=== PATIENT | male | born 1950 | race Caucasian/White ===

== ENCOUNTER 2018-07-25 16:09 | Inpatient (IN) | payer MEDICARE ==
[~2018-07-25] VITALS: Ht 170.2 cm; Wt 65.1 kg
[2018-07-25 18:40] VITALS: BP 145/88
[2018-07-25] MEDS ORDERED: MAGNESIUM HYDROXIDE 2,400 MG/30 ML ORAL.SUSP. PO PRN (19:00)
[2018-07-25] MEDS ORDERED: ACETAMINOPHEN 325 MG TABLET PO PRN (19:00)
[2018-07-25] MEDS ORDERED: MAG HYDROX/AL HYDROX/SIMETH 30 ML ORAL.SUSP PO PRN (19:00)
[2018-07-25] MEDS ORDERED: METHYL SALICYLATE/MENTHOL TOPICAL OINTMENT 29GM TUBE. TP PRN (19:00)
[2018-07-25 19:55] LABS: BASO # 0.1 x10^3/uL (0.0-0.2); BASO % 1 % (0-3); EOS # 0.7 x10^3/uL (0.0-0.7); EOS % 9 % (0-3); HEMATOCRIT 39.7 % (39.0-53.0); HEMOGLOBIN 13.6 g/dL (13.0-17.5); LYMPH % 28 % (24-48); MEAN CORPUSCULAR HEMOGLOBIN 31 pg (25-35); MEAN CORPUSCULAR HGB CONC 34 g/dL (31-37); MEAN CORPUSCULAR VOLUME 89 fL (79-100); MONO # 0.8 x10^3/uL (0.0-1.1); MONO % 11 % (0-9); NEUT # 3.6 x10^3uL (1.8-7.7); NEUT % 51 % (31-73); PLATELET COUNT 239 x10^3/uL (140-400); RED BLOOD COUNT 4.47 x10^6/uL (4.30-5.70); RED CELL DISTRIBUTION WIDTH 13.3 % (11.5-14.5); WHITE BLOOD COUNT 7.1 x10^3/uL (4.0-11.0)
[2018-07-25 20:09] LABS: ALBUMIN 3.6 g/dL (3.4-5.0); ALBUMIN/GLOBULIN RATIO 0.9 (1.0-1.7); CALCIUM 8.9 mg/dL (8.5-10.1); CREATININE 1.1 mg/dL (0.7-1.3); GFR 66.8; MAGNESIUM 2.1 mg/dL (1.8-2.4); POTASSIUM 3.6 mmol/L (3.5-5.1); TOTAL BILIRUBIN 0.3 mg/dL (0.2-1.0); TOTAL PROTEIN 7.4 g/dL (6.4-8.2)
[2018-07-25] MEDS ORDERED: ACYC400T PO (20:28)
[2018-07-25] MEDS ORDERED: SERT25TA PO (20:28)
[2018-07-25] MEDS ORDERED: OLAN5TAB9 PO ×2 (20:28)
[2018-07-25] MEDS ORDERED: OMEP20TA8 PO (20:29)
[2018-07-25] MEDS ORDERED: MEMA1CAP2 PO (20:29)
[2018-07-25] MEDS ORDERED: TRAZ-85 PO (20:29)
[2018-07-25] MEDS ORDERED: CLON0.5T11 PO (20:29)
[2018-07-25] MEDS ORDERED: FLUT16SP21 NS (20:29)
[2018-07-25] MEDS ORDERED: BECL10.6 IH (20:29)
--- NOTE | 2018-07-25 20:41 | PDOC ---
Exam Note: Heber Note: Please also refer to the separate dictated note~for this date of service dictated separately.~Patient seen individually. Discussed the patient with Nursing staff reviewed the chart.~Reviewed interim history and current functioning. Reviewed vital signs,~Labs/ Radiology~and current medications noted below. Continue current treatment with the changes noted in the dictated addendum note Assessment: Vital Signs: Vital Signs Date Time Temp Pulse Resp B/P (MAP) Pulse Ox O2 Delivery O2 Flow Rate FiO2 07/25/18 18:40 98.3 89 18 145/88 (107) 97 Room Air Labs: Laboratory Tests Test 07/25/18 19:40 White Blood Count 7.1 x10^3/uL (4.0-11.0) Red Blood Count 4.47 x10^6/uL (4.30-5.70) Hemoglobin 13.6 g/dL (13.0-17.5) Hematocrit 39.7 % (39.0-53.0) Mean Corpuscular Volume 89 fL (79-100) Mean Corpuscular Hemoglobin 31 pg (25-35) Mean Corpuscular Hemoglobin Concent 34 g/dL (31-37) Red Cell Distribution Width 13.3 % (11.5-14.5) Platelet Count 239 x10^3/uL (140-400) Neutrophils (%) (Auto) 51 % (31-73) Lymphocytes (%) (Auto) 28 % (24-48) Monocytes (%) (Auto) 11 % (0-9) H Eosinophils (%) (Auto) 9 % (0-3) H Basophils (%) (Auto) 1 % (0-3) Neutrophils # (Auto) 3.6 x10^3uL (1.8-7.7) Lymphocytes # (Auto) 2.0 x10^3/uL (1.0-4.8) Monocytes # (Auto) 0.8 x10^3/uL (0.0-1.1) Eosinophils # (Auto) 0.7 x10^3/uL (0.0-0.7) Basophils # (Auto) 0.1 x10^3/uL (0.0-0.2) Sodium Level 139 mmol/L (136-145) Potassium Level 3.6 mmol/L (3.5-5.1) Chloride Level 101 mmol/L (98-107) Carbon Dioxide Level 30 mmol/L (21-32) Anion Gap 8 (6-14) Blood Urea Nitrogen 15 mg/dL (8-26) Creatinine 1.1 mg/dL (0.7-1.3) Estimated GFR (Cockcroft-Gault) 66.8 BUN/Creatinine Ratio 14 (6-20) Glucose Level 103 mg/dL (70-99) H Calcium Level 8.9 mg/dL (8.5-10.1) Magnesium Level 2.1 mg/dL (1.8-2.4) Total Bilirubin 0.3 mg/dL (0.2-1.0) Aspartate Amino Transferase (AST) 7 U/L (15-37) L Alanine Aminotransferase (ALT) 16 U/L (16-63) Alkaline Phosphatase 114 U/L (46-116) Total Protein 7.4 g/dL (6.4-8.2) Albumin 3.6 g/dL (3.4-5.0) Albumin/Globulin Ratio 0.9 (1.0-1.7) L Current Medications: Meds: Current Medications Influenza Virus Vaccine (Afluria Trivalent [id number] Syringe) 0.5 ml ONCE ONCE VAX IM ; Start 07/26/18 at 09:00; Stop 07/26/18 at 09:01 Acetaminophen (Tylenol) 650 mg PRN Q6HRS PRN PO PAIN / TEMP; Start 07/25/18 at 19:00 Multi-Ingredient Ointment (Analgesic [place]) 1 maria m PRN QID PRN TP MUSCLE PAIN; Start 07/25/18 at 19:00 Al Hydroxide/Mg Hydroxide (Mylanta Plus Xs) 15 ml PRN AFTMEALHC PRN PO DYSPEPSIA; Start 07/25/18 at 19:00 Magnesium Hydroxide (Milk Of Magnesia) 2,400 mg PRN QHS PRN PO CONSTIPATION; Start 07/25/18 at 19:00 Clonazepam (KlonoPIN) 0.5 mg BID PO ; Start 07/25/18 at 21:00; Status UNV Non-Formulary Medication (Memantine HCl/ Donepezil HCl (Namzaric 14 mg-10 mg Capsule)) 1 each QHS PO ; Start 07/25/18 at 21:00; Status UNV Non-Formulary Medication (Olanzapine ) 2.5 mg PRN DAILY PRN PO ANXIETY; Start 07/25/18 at 20:45; Status UNV Non-Formulary Medication (Olanzapine ) 5 mg QHS PO ; Start 07/25/18 at 21:00; Status UNV Non-Formulary Medication (Sertraline Hcl (Zoloft)) 25 mg DAILY PO ; Start at 09:00; Status UNV Non-Formulary Medication (Trazodone Hcl ) 50 mg PRN QHS PRN PO INSOMNIA; Start 07/25/18 at 20:45; Status UNV Non-Formulary Medication (Acyclovir ) 400 mg DAILY PO ; Start 07/26/18 at 09:00 ; Status UNV Non-Formulary Medication (Beclomethasone Dipropionate (Qvar Redihaler)) 2 puff BID IH ; Start 07/25/18 at 21:00; Status UNV Non-Formulary Medication (Fluticasone Propionate (Fluticasone Propionate Nasal [place])) 2 spray DAILY NS ; Start 07/26/18 at 09:00; Status UNV Non-Formulary Medication (Omeprazole ) 20 mg DAILY PO ; Start 07/26/18 at 09:00 ; Status UNV Active Scripts Active Reported Trazodone Hcl 50 Mg Tablet 50 Mg PO PRN QHS PRN Omeprazole 20 Mg Tablet.dr 20 Mg PO DAILY Namzaric 14 mg-10 mg Capsule (Memantine HCl/Donepezil HCl) 1 Each Cap.spr.24 1 Each PO QHS Fluticasone Propionate Nasal [place] (Fluticasone Propionate) 16 Gm [place].susp 2 [place] NS DAILY Clonazepam 0.5 Mg Tablet 0.5 Mg PO BID Qvar Redihaler (Beclomethasone Dipropionate) 10.6 Gm Hfa.aeroba 2 Puff IH BID Acyclovir 400 Mg Tablet 400 Mg PO DAILY Zoloft (Sertraline Hcl) 25 Mg Tablet 25 Mg PO DAILY Olanzapine 5 Mg Tablet 5 Mg PO QHS Olanzapine 5 Mg Tablet 2.5 Mg PO PRN DAILY PRN I have reviewed the current psychotropics carefully including drug interactions. Risk benefit ratio favors no change other than as noted in my dictated progress note. Diagnosis: Problems: (1) Anxiety disorder (2) Dementia in Alzheimer's disease with delusions (3) Dementia in Alzheimer's disease with depression (4) Dementia, vascular, with delusions (5) Dementia, vascular, with depression (6) Impulse control disorder SMITA TOLEDO MD Jul 25, 2018 20:40
[2018-07-25] MEDS: clonazePAM 0.5 MG TABLET PO SCH (21:00)
[2018-07-25] MEDS ORDERED: BECLOMETHASONE DIPROPIONATE IH SCH (21:00)
--- NOTE | 2018-07-25 21:02 | EKG ---
[address] [address] Test Date: 2018-07-25 Test Time: 21:00:54 Pat Name: DEBBIE PAK Department: Room: [facility] 1 Gender: M [employer] Hand[employer] Supervisor: : 1950 Requested By: SMITA TOLEDO Order Number: [id number] Reading MD: Sonido Hua MD Measurements Intervals [place] Rate: 85 P: 66 DC: 156 QRS: 0 QRSD: 100 T: 32 QT: 366 QTc: 441 Interpretive Statements SINUS RHYTHM Electronically Signed On 07-31-2018 10:36:33 CDT by Sonido Hua MD
[2018-07-25] MEDS ORDERED: traZODone 50 MG TABLET. PO PRN (21:30)
[2018-07-25] MEDS: OLANZapine 5 MG TABLET PO SCH (21:30)
[2018-07-25] MEDS ORDERED: OLANZapine 2.5 MG TABLET PO PRN (21:30)
[2018-07-25] MEDS: MEMANTINE 5 MG TABLET. PO SCH (21:30)
[2018-07-25] MEDS: DONEPEZIL HCL 10 MG TABLET PO SCH (21:30)
[2018-07-26 05:19] VITALS: BP 142/78
[2018-07-26] MEDS: clonazePAM 0.5 MG TABLET PO SCH ×2 (08:21→20:01)
[2018-07-26] MEDS: DONEPEZIL HCL 10 MG TABLET PO SCH (08:21)
[2018-07-26] MEDS: ACYCLOVIR 200 MG CAPSULE PO SCH (08:21)
[2018-07-26] MEDS: MEMANTINE 5 MG TABLET. PO SCH ×2 (08:21→20:01)
[2018-07-26] MEDS: PANTOPRAZOLE 40 MG TABLET. PO SCH (08:21)
[2018-07-26] MEDS: FLUTICASONE 50MCG/NASAL SPRAY 16GM BOTTLE. NS SCH (08:22)
[2018-07-26] MEDS ORDERED: SERTRALINE 25 MG TABLET. PO SCH (09:00)
--- NOTE | 2018-07-26 09:38 | HP ---
ADMIT DATE: 07/25/2018 This late entry, 07/25/2018, covers elements not covered in my initial note, 07/25/2018: The patient was seen individually evening of 07/25/2018. Discussed with nursing staff. Reviewed the chart. Previously discussed with nursing staff on several occasions and intake staff Laurie as well together referral information from [facility] where the patient was hospitalized after he presented from home on account of increased agitation, confusion, not recognizing his , refusing medications and BiPAP. He has been delusional, suspicious, unmanageable by the at home. He was taken to [facility] ER, admitted, medically stabilized, continued with the same behaviors and deemed dangerous to return home with his and referred to us for psychiatric inpatient stabilization by the patient's primary care physician, Dr. Frederick. Had admitted by his , Joya Kearns, who is his power of tax associate attorney, after his primary care physician had certified that the power of tax associate attorney was activated due to the patient's memory deficits, confusion. CHIEF COMPLAINT: "I came here 5 minutes ago from [place], [place]." HISTORY OF PRESENT ILLNESS: The patient has a history of dementia, Alzheimer's, vascular type. He has been residing at home with his . Getting increasingly confused, paranoid, suspicious, depressed, irritable, angry. The agitation had been concerning and the patient would not remember what he had done. He was evaluated inpatient at [facility] by Dr. Sher, psychiatrist, who recommended inpatient psychiatric stabilization and I have reviewed all those records. No clear history of bipolar disorder, suicidal or homicidal ideation. The patient's had to call the [employer] for assistance to manage the patient's behaviors, agitation. PAST PSYCHIATRIC HISTORY: As above. Progressive dementia, Alzheimer's, vascular with delusion, depression. PAST MEDICAL HISTORY: Environmental allergies, asthma, BPH, cataract, COPD, GERD, glaucoma, hearing loss, hyperlipidemia, memory loss, history of MRSA in 2000, obstructive sleep apnea, has BiPAP, PTSD, encephalopathy diagnosed in his records 07/23/2018 and recent weight loss. PAST SURGICAL HISTORY: Appendectomy, tonsillectomy. ACCU-CHEKS: None. DIET: Regular. Takes medications whole. Ambulates ad audrey. CODE STATUS: DNR. DRUG ALLERGIES: Negative. CURRENT PSYCHOTROPICS: Zoloft 25 mg a day, Aricept 10 mg at bedtime, trazodone 50 mg at bedtime p.r.n. insomnia, Zyprexa 5 mg at bedtime and 2.5 mg daily p.r.n. psychosis, agitation, Namenda 5 mg twice a day, Klonopin 0.5 mg twice a day. These were being managed by his outpatient neurologist. FAMILY HISTORY: Noncontributory. SOCIAL HISTORY: The patient admits to some alcohol usage, but details unclear. No physical, sexual, or elder abuse history is noted. Not known to be a perpetrator. 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 Details will have to be gathered from the family during this hospitalization. REACTION TO HOSPITALIZATION: The patient accepting of it. ASSETS: Supportive . MENTAL STATUS EXAMINATION: The patient was seen individually shortly after he arrived on the unit evening of 07/25/2018. The patient is oriented to himself and situation, knew he was in the hospital, unaware of where he was, believed he had come directly from [place], [place], and then talked about [facility] as well. He was aware the current president was president James, unaware who was the president before him. When asked to spell world, first he spelt it as "whreld" and then corrected himself as world, but he could not attempt it backward. He did 2 steps on serial 7's. He remembered 1/3 objects at 3 minutes and even that with great assistance. He appears paranoid, somewhat suspicious, depressed, anxious. No active suicidal or homicidal ideation. Attention span short. Language function intact. IMPRESSION: Major neurocognitive disorder, probably Alzheimer, vascular with delusion, depression, behavioral disturbance; anxiety disorder, unspecified; impulse control disorder, unspecified. Rest diagnoses as above. PLAN: Admit to Geropsychiatry Unit at [facility]. I will see the patient daily individually from a psychiatric standpoint. Medical followup per Dr. Alston/Dr. Sim. Continue the patient on his current psychotropics. Consider using Seroquel in place of Zyprexa. CT head, MRI head and chest x-ray at [facility] were unremarkable, will not be repeated here. Further changes will be made after baseline assessment. Estimated length of stay 10-12 days. DISPOSITION: To nursing facility probably since home may not be a viable option. SMITA TOLEDO MD DR: BORIS/dontae JOB#: [id number] / [id number]
[2018-07-26] MEDS: BUDESONIDE 0.5 MG/2 ML NEBU NEB SCH ×2 (09:42→20:37)
[2018-07-26 16:27] VITALS: BP 151/72
[2018-07-26 16:58] LABS: THYROID STIM HORMONE (TSH) 2.809 uIU/mL (0.358-3.740)
[2018-07-26] MEDS: OLANZapine 5 MG TABLET PO SCH (20:01)
[2018-07-26 20:10] LABS: THYROXINE 5.5 ug/dL (4.5-12.0)
--- NOTE | 2018-07-26 21:04 | PDOC ---
Exam Note: Heber Note: Please also refer to the separate dictated note~for this date of service dictated separately.~Patient seen individually. Discussed the patient with Nursing staff reviewed the chart.~Reviewed interim history and current functioning. Reviewed vital signs,~Labs/ Radiology~and current medications noted below. Continue current treatment with the changes noted in the dictated addendum note Assessment: Vital Signs: Vital Signs Date Time Temp Pulse Resp B/P (MAP) Pulse Ox O2 Delivery O2 Flow Rate FiO2 07/26/18 20:00 98 Room Air 07/26/18 16:27 97.6 75 18 151/72 (98) I&O Intake and Output 07/26/18 07:00 Intake Total 240 ml Balance 240 ml Intake Oral 240 ml # Voids 1 Current Medications: Meds: Current Medications Influenza Virus Vaccine (Afluria Trivalent [id number] Syringe) 0.5 ml ONCE ONCE VAX IM Last administered on 07/26/18at 12:43; Start 07/26/18 at 09:00; Stop 07/26/18 at 09:01; Status DC Acetaminophen (Tylenol) 650 mg PRN Q6HRS PRN PO PAIN / TEMP; Start 07/25/18 at 19:00 Multi-Ingredient Ointment (Analgesic [place]) 1 maria m PRN QID PRN TP MUSCLE PAIN; Start 07/25/18 at 19:00 Al Hydroxide/Mg Hydroxide (Mylanta Plus Xs) 15 ml PRN AFTMEALHC PRN PO DYSPEPSIA; Start 07/25/18 at 19:00 Magnesium Hydroxide (Milk Of Magnesia) 2,400 mg PRN QHS PRN PO CONSTIPATION; Start 07/25/18 at 19:00 Clonazepam (KlonoPIN) 0.5 mg BID PO Last administered on 07/26/18at 20:01; Start 07/25/18 at 21:00 Memantine (Namenda) 5 mg BID PO Last administered on 07/26/18at 20:01; Start at 21:30 Olanzapine (ZyPREXA) 2.5 mg PRN DAILY PRN PO ANXIETY; Start 07/25/18 at 21:30 Olanzapine (ZyPREXA) 5 mg QHS PO Last administered on 07/26/18at 20:01; Start 07/25/18 at 21:30 Sertraline HCl (Zoloft) 25 mg DAILY PO Last administered on 07/26/18 08:21; Start 07/26/18 at 09:00; Stop 07/26/18 at 18:47; Status DC Trazodone HCl (Desyrel) 50 mg PRN QHS PRN PO INSOMNIA; Start 07/25/18 at 21:30 Acyclovir (Zovirax) 400 mg DAILY PO Last administered on 07/26/18at 08:21; Start 07/26/18 at 09:00 Non-Formulary Medication (Beclomethasone Dipropionate (Qvar Redihaler)) 2 puff BID IH ; Start 07/25/18 at 21:00; Stop 07/25/18 at 21:34; Status DC Fluticasone Propionate (Flonase) 2 spray DAILY NS Last administered on at 08:22; Start 07/26/18 at 09:00 Pantoprazole Sodium (Protonix) 40 mg DAILY PO Last administered on 07/26/18at 08 :21; Start 07/26/18 at 09:00 Budesonide (Pulmicort) 0.5 mg RTBID NEB Last administered on 07/26/18at 20:37; Start 07/26/18 at 08:00 Donepezil HCl (Aricept) 10 mg QHS PO Last administered on 07/26/18at 08:21; Start 07/25/18 at 21:30 Sertraline HCl (Zoloft) 50 mg DAILY PO ; Start 07/27/18 at 09:00 Active Scripts Active Reported Trazodone Hcl 50 Mg Tablet 50 Mg PO PRN QHS PRN Omeprazole 20 Mg Tablet.dr 20 Mg PO DAILY Namzaric 14 mg-10 mg Capsule (Memantine HCl/Donepezil HCl) 1 Each Cap.spr.24 1 Each PO QHS Fluticasone Propionate Nasal [place] (Fluticasone Propionate) 16 Gm [place].susp 2 [place] NS DAILY Clonazepam 0.5 Mg Tablet 0.5 Mg PO BID Qvar Redihaler (Beclomethasone Dipropionate) 10.6 Gm Hfa.aeroba 2 Puff IH BID Acyclovir 400 Mg Tablet 400 Mg PO DAILY Zoloft (Sertraline Hcl) 25 Mg Tablet 25 Mg PO DAILY Olanzapine 5 Mg Tablet 5 Mg PO QHS Olanzapine 5 Mg Tablet 2.5 Mg PO PRN DAILY PRN I have reviewed the current psychotropics carefully including drug interactions. Risk benefit ratio favors no change other than as noted in my dictated progress note. Diagnosis: Problems: (1) Anxiety disorder (2) Dementia in Alzheimer's disease with delusions (3) Dementia in Alzheimer's disease with depression (4) Dementia, vascular, with delusions (5) Dementia, vascular, with depression (6) Impulse control disorder SMITA TOLEDO MD Jul 26, 2018 21:04
[2018-07-27 01:08] LABS: HEMOGLOBIN A1C 5.3 % (4.8-5.6)
[2018-07-27 05:48] VITALS: BP 132/79
[2018-07-27] MEDS: BUDESONIDE 0.5 MG/2 ML NEBU NEB SCH ×2 (08:00→21:42)
[2018-07-27] MEDS: PANTOPRAZOLE 40 MG TABLET. PO SCH (08:16)
[2018-07-27] MEDS: ACYCLOVIR 200 MG CAPSULE PO SCH (08:16)
[2018-07-27] MEDS: SERTRALINE 50 MG TABLET. PO SCH (08:20)
[2018-07-27] MEDS: MEMANTINE 5 MG TABLET. PO SCH ×2 (08:20→20:45)
[2018-07-27] MEDS: clonazePAM 0.5 MG TABLET PO SCH ×2 (08:20→20:47)
[2018-07-27] MEDS: FLUTICASONE 50MCG/NASAL SPRAY 16GM BOTTLE. NS SCH (08:21)
--- NOTE | 2018-07-27 09:15 | ACF ---
Certification I certify that the inpatient psychiatric facility admission is medically necessary for either: treatment which could reasonably be expected to improve the patient's condition or for diagnostic study. I estimate 10/12 days/[0] weeks of hospitalization are necessary for proper treatment of the patient. My plans for post-hospital care for this patient are [NH]. SMITA TOLEDO MD Jul 27, 2018 09:15
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
[2018-07-27] MEDS: QUEtiapine 25 MG TABLET. PO SCH ×2 (14:32→20:45)
[2018-07-27 15:38] VITALS: BP_SYST 129; BP_SYST 134; BP_DIAS 73; BP_DIAS 93
[2018-07-27] MEDS: DONEPEZIL HCL 10 MG TABLET PO SCH (20:45)
[2018-07-27] MEDS: traZODone 50 MG TABLET. PO SCH (20:47)
--- NOTE | 2018-07-27 20:47 | PDOC ---
Exam Note: Heber Note: Please also refer to the separate dictated note~for this date of service dictated separately.~Patient seen individually. Discussed the patient with Nursing staff reviewed the chart.~Reviewed interim history and current functioning. Reviewed vital signs,~Labs/ Radiology~and current medications noted below. Continue current treatment with the changes noted in the dictated addendum note Assessment: Vital Signs: Vital Signs Date Time Temp Pulse Resp B/P (MAP) Pulse Ox O2 Delivery O2 Flow Rate FiO2 07/27/18 15:38 98.0 80 20 129/73 (91) 96 07/27/18 11:42 Room Air I&O Intake and Output 07/27/18 07:00 Intake Total 480 ml Balance 480 ml Intake Oral 480 ml # Voids 1 Current Medications: Meds: Current Medications Influenza Virus Vaccine (Afluria Trivalent [id number] Syringe) 0.5 ml ONCE ONCE VAX IM Last administered on 07/26/18at 12:43; Start 07/26/18 at 09:00; Stop 07/26/18 at 09:01; Status DC Acetaminophen (Tylenol) 650 mg PRN Q6HRS PRN PO PAIN / TEMP; Start 07/25/18 at 19:00 Multi-Ingredient Ointment (Analgesic [place]) 1 maria m PRN QID PRN TP MUSCLE PAIN; Start 07/25/18 at 19:00 Al Hydroxide/Mg Hydroxide (Mylanta Plus Xs) 15 ml PRN AFTMEALHC PRN PO DYSPEPSIA; Start 07/25/18 at 19:00 Magnesium Hydroxide (Milk Of Magnesia) 2,400 mg PRN QHS PRN PO CONSTIPATION; Start 07/25/18 at 19:00 Clonazepam (KlonoPIN) 0.5 mg BID PO Last administered on 07/27/18at 08:20; Start 07/25/18 at 21:00; Stop 07/27/18 at 10:50; Status DC Memantine (Namenda) 5 mg BID PO Last administered on 07/27/18at 08:20; Start at 21:30 Olanzapine (ZyPREXA) 2.5 mg PRN DAILY PRN PO ANXIETY; Start 07/25/18 at 21:30 Olanzapine (ZyPREXA) 5 mg QHS PO Last administered on 07/26/18at 20:01; Start 07/25/18 at 21:30; Stop 07/27/18 at 10:50; Status DC Sertraline HCl (Zoloft) 25 mg DAILY PO Last administered on 07/26/18at 08:21; Start 07/26/18 at 09:00; Stop 07/26/18 at 18:47; Status DC Trazodone HCl (Desyrel) 50 mg PRN QHS PRN PO INSOMNIA; Start 07/25/18 at 21:30 ; Stop 07/27/18 at 09:34; Status DC Acyclovir (Zovirax) 400 mg DAILY PO Last administered on 07/27/18at 08:16; Start 07/26/18 at 09:00 Non-Formulary Medication (Beclomethasone Dipropionate (Qvar Redihaler)) 2 puff BID IH ; Start 07/25/18 at 21:00; Stop 07/25/18 at 21:34; Status DC Fluticasone Propionate (Flonase) 2 spray DAILY NS Last administered on at 08:21; Start 07/26/18 at 09:00 Pantoprazole Sodium (Protonix) 40 mg DAILY PO Last administered on 07/27/18at 08 :16; Start 07/26/18 at 09:00 Budesonide (Pulmicort) 0.5 mg RTBID NEB Last administered on 07/27/18at 08:00; Start 07/26/18 at 08:00 Donepezil HCl (Aricept) 10 mg QHS PO Last administered on 07/26/18at 08:21; Start 07/25/18 at 21:30 Sertraline HCl (Zoloft) 50 mg DAILY PO Last administered on 07/27/18at 08:20; Start 07/27/18 at 09:00 Trazodone HCl (Desyrel) 50 mg HS PO ; Start 07/27/18 at 21:00 Clonazepam (KlonoPIN) 0.5 mg HS PO ; Start 07/27/18 at 21:00; Stop 07/30/18 at 09:00 Quetiapine Fumarate (SEROquel) 12.5 mg TID PO Last administered on 07/27/18at 14 :32; Start 07/27/18 at 14:00 Clonazepam (KlonoPIN) 0.25 mg DAILY PO ; Start 07/28/18 at 09:00; Stop 07/29/18 at 21:00 Clonazepam (KlonoPIN) 0.25 mg HS PO ; Start 07/30/18 at 21:00; Stop 08/01/18 at 09:00 Active Scripts Active Reported Trazodone Hcl 50 Mg Tablet 50 Mg PO PRN QHS PRN Omeprazole 20 Mg Tablet.dr 20 Mg PO DAILY Namzaric 14 mg-10 mg Capsule (Memantine HCl/Donepezil HCl) 1 Each Cap.spr.24 1 Each PO QHS Fluticasone Propionate Nasal [place] (Fluticasone Propionate) 16 Gm [place].susp 2 [place] NS DAILY Clonazepam 0.5 Mg Tablet 0.5 Mg PO BID Qvar Redihaler (Beclomethasone Dipropionate) 10.6 Gm Hfa.aeroba 2 Puff IH BID Acyclovir 400 Mg Tablet 400 Mg PO DAILY Zoloft (Sertraline Hcl) 25 Mg Tablet 25 Mg PO DAILY Olanzapine 5 Mg Tablet 5 Mg PO QHS Olanzapine 5 Mg Tablet 2.5 Mg PO PRN DAILY PRN I have reviewed the current psychotropics carefully including drug interactions. Risk benefit ratio favors no change other than as noted in my dictated progress note. Diagnosis: Problems: (1) Anxiety disorder (2) Dementia in Alzheimer's disease with delusions (3) Dementia in Alzheimer's disease with depression (4) Dementia, vascular, with delusions (5) Dementia, vascular, with depression (6) Impulse control disorder SMITA TOLEDO MD Jul 27, 2018 20:47
--- NOTE | 2018-07-27 23:01 | PN ---
DATE: 07/26/2018 This late entry for 07/26/2018 covers elements not covered in my initial note. SUBJECTIVE: I met with the patient in the evening. The patient slept 7-1/4 hours previous night. He has been wandering, exit seeking all day, oriented to himself, quiet and reserved at other times, refused a.m. meds, took them later. As I met with him in the evening, the only thing he wanted to know was if I could tell him where the exit door was. Somewhat oblivious of circumstances. REVIEW OF SYSTEMS: No CV, , pulmonary, eye, ENT system symptoms on review. Reliability poor. MENTAL STATUS EXAM: Oriented to himself. Insight, judgment, recent and remote memory, attention, concentration, fund of knowledge poor, consistent with his diagnosis mentioned in my initial note. LABORATORY DATA: Reviewed. IMPRESSION: Major neurocognitive disorder, Alzheimer, vascular with delusion, depression, behavioral disturbance. Rest unchanged. PLAN: Increase Zoloft from 25 mg a day to 50 mg a day. Maintain Aricept 10 mg a day, trazodone 50 mg at bedtime p.r.n., Zyprexa 5 mg at bedtime plus p.r.n. 5 mg twice a day, Klonopin 0.5 mg twice a day. We will try and taper the Klonopin at some point perhaps consider changing Zyprexa to Seroquel if agitation or mood lability persists. SMITA TOLEDO MD DR: BORIS/dontae JOB#: [id number] / [id number]
[2018-07-28 05:40] VITALS: BP 138/65
[2018-07-28] MEDS: BUDESONIDE 0.5 MG/2 ML NEBU NEB SCH ×2 (08:00→19:45)
[2018-07-28] MEDS: MEMANTINE 5 MG TABLET. PO SCH ×2 (08:23→19:51)
[2018-07-28] MEDS: QUEtiapine 25 MG TABLET. PO SCH ×3 (08:24→19:51)
[2018-07-28] MEDS: ACYCLOVIR 200 MG CAPSULE PO SCH (08:24)
[2018-07-28] MEDS: SERTRALINE 50 MG TABLET. PO SCH (08:24)
[2018-07-28] MEDS: FLUTICASONE 50MCG/NASAL SPRAY 16GM BOTTLE. NS SCH (08:24)
[2018-07-28] MEDS: PANTOPRAZOLE 40 MG TABLET. PO SCH (08:24)
[2018-07-28] MEDS: clonazePAM 0.5 MG TABLET PO SCH ×2 (08:26→19:51)
[2018-07-28 16:15] VITALS: BP 124/72
[2018-07-28] MEDS: DONEPEZIL HCL 10 MG TABLET PO SCH (19:51)
[2018-07-28] MEDS: traZODone 50 MG TABLET. PO SCH (19:51)
--- NOTE | 2018-07-28 20:13 | PDOC ---
Exam Note: [place] Note: Please also refer to the separate dictated note~for this date of service dictated separately.~Patient seen individually. Discussed the patient with Nursing staff reviewed the chart.~Reviewed interim history and current functioning. Reviewed vital signs,~Labs/ Radiology~and current medications noted below. Continue current treatment with the changes noted in the dictated addendum note Assessment: Vital Signs: Vital Signs Date Time Temp Pulse Resp B/P (MAP) Pulse Ox O2 Delivery O2 Flow Rate FiO2 07/28/18 19:39 98 Room Air 07/28/18 16:15 97.8 78 18 124/72 (89) I&O Intake and Output 07/28/18 07:00 Intake Total 1080 ml Balance 1080 ml Intake Oral 1080 ml Current Medications: Meds: Current Medications Influenza Virus Vaccine (Afluria Trivalent 7970-1710 Syringe) 0.5 ml ONCE ONCE VAX IM Last administered on 07/26/18at 12:43; Start 07/26/18 at 09:00; Stop 07/26/18 at 09:01; Status DC Acetaminophen (Tylenol) 650 mg PRN Q6HRS PRN PO PAIN / TEMP; Start 07/25/18 at 19:00 Multi-Ingredient Ointment (Analgesic [place]) 1 maria m PRN QID PRN TP MUSCLE PAIN; Start 07/25/18 at 19:00 Al Hydroxide/Mg Hydroxide (Mylanta Plus Xs) 15 ml PRN AFTMEALHC PRN PO DYSPEPSIA; Start 07/25/18 at 19:00 Magnesium Hydroxide (Milk Of Magnesia) 2,400 mg PRN QHS PRN PO CONSTIPATION; Start 07/25/18 at 19:00 Clonazepam (KlonoPIN) 0.5 mg BID PO Last administered on 07/27/18at 08:20; Start 07/25/18 at 21:00; Stop 07/27/18 at 10:50; Status DC Memantine (Namenda) 5 mg BID PO Last administered on 07/28/18at 19:51; Start at 21:30 Olanzapine (ZyPREXA) 2.5 mg PRN DAILY PRN PO ANXIETY; Start 07/25/18 at 21:30 Olanzapine (ZyPREXA) 5 mg QHS PO Last administered on 07/26/18at 20:01; Start 07/25/18 at 21:30; Stop 07/27/18 at 10:50; Status DC Sertraline HCl (Zoloft) 25 mg DAILY PO Last administered on 07/26/18 08:21; Start 07/26/18 at 09:00; Stop 07/26/18 at 18:47; Status DC Trazodone HCl (Desyrel) 50 mg PRN QHS PRN PO INSOMNIA; Start 07/25/18 at 21:30 ; Stop 07/27/18 at 09:34; Status DC Acyclovir (Zovirax) 400 mg DAILY PO Last administered on 07/28/18 08:24; Start 07/26/18 at 09:00 Non-Formulary Medication (Beclomethasone Dipropionate (Qvar Redihaler)) 2 puff BID IH ; Start 07/25/18 at 21:00; Stop 07/25/18 at 21:34; Status DC Fluticasone Propionate (Flonase) 2 spray DAILY NS Last administered on 08:24; Start 07/26/18 at 09:00 Pantoprazole Sodium (Protonix) 40 mg DAILY PO Last administered on 07/28/18 08 :24; Start 07/26/18 at 09:00 Budesonide (Pulmicort) 0.5 mg RTBID NEB Last administered on 07/28/18 19:45; Start 07/26/18 at 08:00 Donepezil HCl (Aricept) 10 mg QHS PO Last administered on 07/28/18 19:51; Start 07/25/18 at 21:30 Sertraline HCl (Zoloft) 50 mg DAILY PO Last administered on 07/28/18 08:24; Start 07/27/18 at 09:00; Stop 07/29/18 at 09:01 Trazodone HCl (Desyrel) 50 mg HS PO Last administered on 07/28/18 19:51; Start 07/27/18 at 21:00 Clonazepam (KlonoPIN) 0.5 mg HS PO Last administered on 07/28/18 19:51; Start 07/27/18 at 21:00; Stop 07/30/18 at 09:00 Quetiapine Fumarate (SEROquel) 12.5 mg TID PO Last administered on 10/5/18at 19 :51; Start 07/27/18 at 14:00 Clonazepam (KlonoPIN) 0.25 mg DAILY PO Last administered on 07/28/18at 08:26; Start 07/28/18 at 09:00; Stop 07/29/18 at 21:00 Clonazepam (KlonoPIN) 0.25 mg HS PO ; Start 07/30/18 at 21:00; Stop 08/01/18 at 09:00 Sertraline HCl (Zoloft) 75 mg DAILY PO ; Start 07/30/18 at 09:00 Active Scripts Active Reported Trazodone Hcl 50 Mg Tablet 50 Mg PO PRN QHS PRN Omeprazole 20 Mg Tablet.dr 20 Mg PO DAILY Namzaric 14 mg-10 mg Capsule (Memantine HCl/Donepezil HCl) 1 Each Cap.spr.24 1 Each PO QHS Fluticasone Propionate Nasal [place] (Fluticasone Propionate) 16 Gm [place].susp 2 [place] NS DAILY Clonazepam 0.5 Mg Tablet 0.5 Mg PO BID Qvar Redihaler (Beclomethasone Dipropionate) 10.6 Gm Hfa.aeroba 2 Puff IH BID Acyclovir 400 Mg Tablet 400 Mg PO DAILY Zoloft (Sertraline Hcl) 25 Mg Tablet 25 Mg PO DAILY Olanzapine 5 Mg Tablet 5 Mg PO QHS Olanzapine 5 Mg Tablet 2.5 Mg PO PRN DAILY PRN I have reviewed the current psychotropics carefully including drug interactions. Risk benefit ratio favors no change other than as noted in my dictated progress note. Diagnosis: Problems: (1) Anxiety disorder (2) Dementia in Alzheimer's disease with delusions (3) Dementia in Alzheimer's disease with depression (4) Dementia, vascular, with delusions (5) Dementia, vascular, with depression (6) Impulse control disorder SMITA TOLEDO MD Jul 28, 2018 20:12
--- NOTE | 2018-07-29 04:00 | PN ---
DATE: 07/27/2018 This is a late entry for 07/27/2018 covers elements not covered in my initial note. SUBJECTIVE: I met with the patient in the evening and staffed at a treatment team meeting with the entire team in the morning and the patient's , Joya Owusu, attended the treatment team meeting. We had a lengthy discussion about the patient's progressive confusion, but despite this while living at home, the patient and his would go cycling for many miles even till recently. 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 He slept 6 hours previous evening. Appetite is fair. REVIEW OF SYSTEMS: No CV, , pulmonary, eye, ENT system symptoms on review. Reliability poor. MENTAL STATUS EXAM: Oriented to himself. Insight, judgment, recent and remote memory, attention, concentration, fund of knowledge poor, consistent with his diagnosis mentioned in my initial note: Major neurocognitive disorder, Alzheimer, vascular with delusion, depression, behavioral disturbance; anxiety disorder, unspecified; impulse control disorder, unspecified. PLAN: We will go ahead and taper the Klonopin gradually as it could be causing paradoxical disinhibition. Change Zyprexa 5 mg at bedtime to Seroquel 12.5 mg at 09:00 a.m., 01:00 p.m., 05:00 p.m. Change trazodone to 50 mg at bedtime schedule. May repeat x 1 for insomnia. Maintain Namenda unchanged along with Zoloft 50 mg a day. SMITA TOLEDO MD DR: BORIS/dontae JOB#: [id number] / [id number]
[2018-07-29 05:48] VITALS: BP 113/70
[2018-07-29] MEDS: BUDESONIDE 0.5 MG/2 ML NEBU NEB SCH ×2 (08:00→19:50)
[2018-07-29] MEDS: MEMANTINE 5 MG TABLET. PO SCH ×2 (08:31→20:38)
[2018-07-29] MEDS: FLUTICASONE 50MCG/NASAL SPRAY 16GM BOTTLE. NS SCH (08:31)
[2018-07-29] MEDS: PANTOPRAZOLE 40 MG TABLET. PO SCH (08:31)
[2018-07-29] MEDS: SERTRALINE 50 MG TABLET. PO SCH (08:32)
[2018-07-29] MEDS: ACYCLOVIR 200 MG CAPSULE PO SCH (08:32)
[2018-07-29] MEDS: QUEtiapine 25 MG TABLET. PO SCH ×4 (08:32→20:38)
[2018-07-29] MEDS: clonazePAM 0.5 MG TABLET PO SCH ×2 (09:00→20:38)
[2018-07-29 15:41] VITALS: BP 146/79
[2018-07-29 17:23] LABS: BILIRUBIN,URINE NEG (NEG); CLARITY,URINE HAZY; COLOR,URINE YELLOW; GLUCOSE,URINE NEG (NEG)
[2018-07-29 17:24] LABS: BACTERIA,URINE 0 /HPF (0-FEW); NITRITE,URINE NEG (NEG); SQUAMOUS EPITHELIAL CELL,UR OCC /LPF; UROBILINOGEN,URINE 0.2 mg/dL (0.2 mg/dL); WBC,URINE OCC /HPF (0-4)
[2018-07-29] MEDS: DONEPEZIL HCL 10 MG TABLET PO SCH (20:38)
[2018-07-29] MEDS: traZODone 50 MG TABLET. PO SCH (20:38)
[2018-07-30 06:22] VITALS: BP 121/67
[2018-07-30] MEDS: BUDESONIDE 0.5 MG/2 ML NEBU NEB SCH ×2 (08:00→19:59)
[2018-07-30] MEDS: PANTOPRAZOLE 40 MG TABLET. PO SCH (08:01)
[2018-07-30] MEDS: MEMANTINE 5 MG TABLET. PO SCH ×2 (08:02→21:02)
[2018-07-30] MEDS: QUEtiapine 25 MG TABLET. PO SCH ×3 (08:03→21:01)
[2018-07-30] MEDS: SERTRALINE 25 MG TABLET. PO SCH (08:05)
[2018-07-30] MEDS: FLUTICASONE 50MCG/NASAL SPRAY 16GM BOTTLE. NS SCH (09:00)
[2018-07-30] MEDS: ACYCLOVIR 200 MG CAPSULE PO SCH (13:56)
[2018-07-30 15:18] VITALS: BP 167/75
--- NOTE | 2018-07-30 17:54 | PN ---
DATE: 07/28/2018 PSYCHIATRIC PROGRESS NOTE This is a late entry 07/28/2018, covers elements not covered in my initial note. SUBJECTIVE: I met with the patient in the evening. The patient slept about 7-1/4 hours previous night. He has been walking from room to room at night, holding things, somewhat withdrawn, exit seeking at times. REVIEW OF SYSTEMS: No CV, , pulmonary, eye, ENT system symptoms on review. Reliability poor. MENTAL STATUS EXAM: Oriented to himself. Insight, judgment, recent and remote memory, attention, concentration, fund of knowledge poor, consistent with his diagnosis mentioned in my initial note. PLAN: No change from initial note. MAN Douglas TOLEDO MD DR: BORIS/dontae JOB#: [id number] / [id number]
--- NOTE | 2018-07-30 18:51 | PN ---
DATE: 07/29/2018 PSYCHIATRIC PROGRESS NOTE This is a late entry of 07/29/2018, covers elements not covered in my initial note. SUBJECTIVE: I met with the patient in the evening. Overall, the patient is compliant with his medications in the morning, refused afternoon medications, remains pleasantly confused, wandering, somewhat needy, anxious. REVIEW OF SYSTEMS: No CV, , pulmonary, eye, ENT system symptoms on review. He slept 6-1/4 hours previous evening. MENTAL STATUS EXAM: Oriented to himself. Insight, judgment, recent and remote memory, attention, concentration, fund of knowledge poor, consistent with his diagnosis mentioned in my initial note. PLAN: No change from initial note. MAN Douglas TOLEDO MD DR: BORIS/dontae JOB#: [id number] / [id number]
--- NOTE | 2018-07-30 20:07 | PDOC ---
Exam Note: [place] Note: Please also refer to the separate dictated note~for this date of service dictated separately.~Patient seen individually. Discussed the patient with Nursing staff reviewed the chart.~Reviewed interim history and current functioning. Reviewed vital signs,~Labs/ Radiology~and current medications noted below. Continue current treatment with the changes noted in the dictated addendum note Assessment: Vital Signs: Vital Signs Date Time Temp Pulse Resp B/P (MAP) Pulse Ox O2 Delivery O2 Flow Rate FiO2 07/30/18 20:00 100 Room Air 07/30/18 15:18 98.3 87 18 167/75 (105) I&O Intake and Output 07/30/18 06:59 Intake Total 960 ml Balance 960 ml Intake Oral 960 ml Current Medications: Meds: Current Medications Influenza Virus Vaccine (Afluria Trivalent 0329-3847 Syringe) 0.5 ml ONCE ONCE VAX IM Last administered on 07/26/18at 12:43; Start 07/26/18 at 09:00; Stop 07/26/18 at 09:01; Status DC Acetaminophen (Tylenol) 650 mg PRN Q6HRS PRN PO PAIN / TEMP; Start 07/25/18 at 19:00 Multi-Ingredient Ointment (Analgesic [place]) 1 maria m PRN QID PRN TP MUSCLE PAIN; Start 07/25/18 at 19:00 Al Hydroxide/Mg Hydroxide (Mylanta Plus Xs) 15 ml PRN AFTMEALHC PRN PO DYSPEPSIA; Start 07/25/18 at 19:00 Magnesium Hydroxide (Milk Of Magnesia) 2,400 mg PRN QHS PRN PO CONSTIPATION; Start 07/25/18 at 19:00 Clonazepam (KlonoPIN) 0.5 mg BID PO Last administered on 07/27/18at 08:20; Start 07/25/18 at 21:00; Stop 07/27/18 at 10:50; Status DC Memantine (Namenda) 5 mg BID PO Last administered on 07/30/18at 08:02; Start at 21:30 Olanzapine (ZyPREXA) 2.5 mg PRN DAILY PRN PO ANXIETY; Start 07/25/18 at 21:30 Olanzapine (ZyPREXA) 5 mg QHS PO Last administered on 07/26/18at 20:01; Start 07/25/18 at 21:30; Stop 07/27/18 at 10:50; Status DC Sertraline HCl (Zoloft) 25 mg DAILY PO Last administered on 07/26/18at 08:21; Start 07/26/18 at 09:00; Stop 07/26/18 at 18:47; Status DC Trazodone HCl (Desyrel) 50 mg PRN QHS PRN PO INSOMNIA; Start 07/25/18 at 21:30 ; Stop 07/27/18 at 09:34; Status DC Acyclovir (Zovirax) 400 mg DAILY PO Last administered on 07/30/18at 13:56; Start 07/26/18 at 09:00 Non-Formulary Medication (Beclomethasone Dipropionate (Qvar Redihaler)) 2 puff BID IH ; Start 07/25/18 at 21:00; Stop 07/25/18 at 21:34; Status DC Fluticasone Propionate (Flonase) 2 spray DAILY NS Last administered on at 09:00; Start 07/26/18 at 09:00 Pantoprazole Sodium (Protonix) 40 mg DAILY PO Last administered on 07/30/18at 08 :01; Start 07/26/18 at 09:00 Budesonide (Pulmicort) 0.5 mg RTBID NEB Last administered on 07/30/18at 19:59; Start 07/26/18 at 08:00 Donepezil HCl (Aricept) 10 mg QHS PO Last administered on 07/29/18at 20:38; Start 07/25/18 at 21:30 Sertraline HCl (Zoloft) 50 mg DAILY PO Last administered on 07/29/18at 08:32; Start 07/27/18 at 09:00; Stop 07/29/18 at 09:02; Status DC Trazodone HCl (Desyrel) 50 mg HS PO Last administered on 07/29/18at 20:38; Start 07/27/18 at 21:00 Clonazepam (KlonoPIN) 0.5 mg HS PO Last administered on 07/29/18at 20:38; Start 07/27/18 at 21:00; Stop 07/30/18 at 09:00; Status DC Quetiapine Fumarate (SEROquel) 12.5 mg TID PO Last administered on 07/30/18at 13 :56; Start 07/27/18 at 14:00 Clonazepam (KlonoPIN) 0.25 mg DAILY PO Last administered on 07/29/18at 09:00; Start 07/28/18 at 09:00; Stop 07/29/18 at 21:00; Status DC Clonazepam (KlonoPIN) 0.25 mg HS PO ; Start 07/30/18 at 21:00; Stop 08/01/18 at 09:00 Sertraline HCl (Zoloft) 75 mg DAILY PO Last administered on 07/30/18at 08:05; Start 07/30/18 at 09:00 Active Scripts Active Reported Trazodone Hcl 50 Mg Tablet 50 Mg PO PRN QHS PRN Omeprazole 20 Mg Tablet.dr 20 Mg PO DAILY Namzaric 14 mg-10 mg Capsule (Memantine HCl/Donepezil HCl) 1 Each Cap.spr.24 1 Each PO QHS Fluticasone Propionate Nasal [place] (Fluticasone Propionate) 16 Gm [place].susp 2 [place] NS DAILY Clonazepam 0.5 Mg Tablet 0.5 Mg PO BID Qvar Redihaler (Beclomethasone Dipropionate) 10.6 Gm Hfa.aeroba 2 Puff IH BID Acyclovir 400 Mg Tablet 400 Mg PO DAILY Zoloft (Sertraline Hcl) 25 Mg Tablet 25 Mg PO DAILY Olanzapine 5 Mg Tablet 5 Mg PO QHS Olanzapine 5 Mg Tablet 2.5 Mg PO PRN DAILY PRN I have reviewed the current psychotropics carefully including drug interactions. Risk benefit ratio favors no change other than as noted in my dictated progress note. Diagnosis: Problems: (1) Anxiety disorder (2) Dementia in Alzheimer's disease with delusions (3) Dementia in Alzheimer's disease with depression (4) Dementia, vascular, with delusions (5) Dementia, vascular, with depression (6) Impulse control disorder SMITA TOLEDO MD Jul 30, 2018 20:07
--- NOTE | 2018-07-30 20:07 | PDOC ---
Exam Note: [place] Note: Late entry for date of service July. Please also refer to the separate dictated note~for this date of service dictated separately.~Patient seen individually. Discussed the patient with Nursing staff reviewed the chart.~ Reviewed interim history and current functioning. Reviewed vital signs,~Labs/ Radiology~and current medications noted below. Continue current treatment with the changes noted in the dictated addendum note Assessment: Vital Signs: VS - Last 72 Hours, by Label Date Time Temp Pulse Resp B/P (MAP) Pulse Ox O2 Delivery O2 Flow Rate FiO2 07/30/18 20:00 100 Room Air 07/30/18 16:28 98 Room Air 07/30/18 15:18 98.3 87 18 167/75 (105) 97 07/30/18 06:22 97.7 87 18 121/67 (85) 97 07/29/18 19:50 98 Room Air 07/29/18 15:41 98.1 79 18 146/79 (101) 97 07/29/18 09:40 98 Room Air 07/29/18 05:48 98.2 79 18 113/70 (84) 97 Room Air 07/28/18 19:39 98 Room Air 07/28/18 16:15 97.8 78 18 124/72 (89) 95 Room Air 07/28/18 11:16 97 Room Air 07/28/18 05:40 97.5 58 20 138/65 (89) 97 Room Air 07/27/18 21:00 98 Room Air Vital Signs Date Time Temp Pulse Resp B/P (MAP) Pulse Ox O2 Delivery O2 Flow Rate FiO2 07/30/18 20:00 100 Room Air 07/30/18 15:18 98.3 87 18 167/75 (105) I&O Intake and Output 07/30/18 06:59 Intake Total 960 ml Balance 960 ml Intake Oral 960 ml Current Medications: Meds: Current Medications Influenza Virus Vaccine (Afluria Trivalent 5169-6577 Syringe) 0.5 ml ONCE ONCE VAX IM Last administered on 07/26/18at 12:43; Start 07/26/18 at 09:00; Stop 07/26/18 at 09:01; Status DC Acetaminophen (Tylenol) 650 mg PRN Q6HRS PRN PO PAIN / TEMP; Start 07/25/18 at 19:00 Multi-Ingredient Ointment (Analgesic [place]) 1 maria m PRN QID PRN TP MUSCLE PAIN; Start 07/25/18 at 19:00 Al Hydroxide/Mg Hydroxide (Mylanta Plus Xs) 15 ml PRN AFTMEALHC PRN PO DYSPEPSIA; Start 07/25/18 at 19:00 Magnesium Hydroxide (Milk Of Magnesia) 2,400 mg PRN QHS PRN PO CONSTIPATION; Start 07/25/18 at 19:00 Clonazepam (KlonoPIN) 0.5 mg BID PO Last administered on 07/27/18at 08:20; Start 07/25/18 at 21:00; Stop 07/27/18 at 10:50; Status DC Memantine (Namenda) 5 mg BID PO Last administered on 07/30/18at 08:02; Start at 21:30 Olanzapine (ZyPREXA) 2.5 mg PRN DAILY PRN PO ANXIETY; Start 07/25/18 at 21:30 Olanzapine (ZyPREXA) 5 mg QHS PO Last administered on 07/26/18at 20:01; Start 07/25/18 at 21:30; Stop 07/27/18 at 10:50; Status DC Sertraline HCl (Zoloft) 25 mg DAILY PO Last administered on 07/26/18at 08:21; Start 07/26/18 at 09:00; Stop 07/26/18 at 18:47; Status DC Trazodone HCl (Desyrel) 50 mg PRN QHS PRN PO INSOMNIA; Start 07/25/18 at 21:30 ; Stop 07/27/18 at 09:34; Status DC Acyclovir (Zovirax) 400 mg DAILY PO Last administered on 07/30/18at 13:56; Start 07/26/18 at 09:00 Non-Formulary Medication (Beclomethasone Dipropionate (Qvar Redihaler)) 2 puff BID IH ; Start 07/25/18 at 21:00; Stop 07/25/18 at 21:34; Status DC Fluticasone Propionate (Flonase) 2 spray DAILY NS Last administered on at 09:00; Start 07/26/18 at 09:00 Pantoprazole Sodium (Protonix) 40 mg DAILY PO Last administered on 07/30/18at 08 :01; Start 07/26/18 at 09:00 Budesonide (Pulmicort) 0.5 mg RTBID NEB Last administered on 07/30/18 19:59; Start 07/26/18 at 08:00 Donepezil HCl (Aricept) 10 mg QHS PO Last administered on 07/29/18 20:38; Start 07/25/18 at 21:30 Sertraline HCl (Zoloft) 50 mg DAILY PO Last administered on 07/29/18 08:32; Start 07/27/18 at 09:00; Stop 07/29/18 at 09:02; Status DC Trazodone HCl (Desyrel) 50 mg HS PO Last administered on 07/29/18 20:38; Start 07/27/18 at 21:00 Clonazepam (KlonoPIN) 0.5 mg HS PO Last administered on 07/29/18 20:38; Start 07/27/18 at 21:00; Stop 07/30/18 at 09:00; Status DC Quetiapine Fumarate (SEROquel) 12.5 mg TID PO Last administered on 07/30/18at 13 :56; Start 07/27/18 at 14:00 Clonazepam (KlonoPIN) 0.25 mg DAILY PO Last administered on 07/29/18 09:00; Start 07/28/18 at 09:00; Stop 07/29/18 at 21:00; Status DC Clonazepam (KlonoPIN) 0.25 mg HS PO ; Start 07/30/18 at 21:00; Stop 08/01/18 at 09:00 Sertraline HCl (Zoloft) 75 mg DAILY PO Last administered on 07/30/18at 08:05; Start 07/30/18 at 09:00 Active Scripts Active Reported Trazodone Hcl 50 Mg Tablet 50 Mg PO PRN QHS PRN Omeprazole 20 Mg Tablet.dr 20 Mg PO DAILY Namzaric 14 mg-10 mg Capsule (Memantine HCl/Donepezil HCl) 1 Each Cap.spr.24 1 Each PO QHS Fluticasone Propionate Nasal [place] (Fluticasone Propionate) 16 Gm [place].susp 2 [place] NS DAILY Clonazepam 0.5 Mg Tablet 0.5 Mg PO BID Qvar Redihaler (Beclomethasone Dipropionate) 10.6 Gm Hfa.aeroba 2 Puff IH BID Acyclovir 400 Mg Tablet 400 Mg PO DAILY Zoloft (Sertraline Hcl) 25 Mg Tablet 25 Mg PO DAILY Olanzapine 5 Mg Tablet 5 Mg PO QHS Olanzapine 5 Mg Tablet 2.5 Mg PO PRN DAILY PRN I have reviewed the current psychotropics carefully including drug interactions. Risk benefit ratio favors no change other than as noted in my dictated progress note. Diagnosis: Problems: (1) Anxiety disorder (2) Dementia in Alzheimer's disease with delusions (3) Dementia in Alzheimer's disease with depression (4) Dementia, vascular, with delusions (5) Dementia, vascular, with depression (6) Impulse control disorder SMITA TOLEDO MD Jul 30, 2018 20:07
[2018-07-30] MEDS ORDERED: clonazePAM 0.5 MG TABLET PO SCH (21:00)
[2018-07-30] MEDS: DONEPEZIL HCL 10 MG TABLET PO SCH (21:02)
[2018-07-30] MEDS: traZODone 50 MG TABLET. PO SCH (21:02)
[2018-07-30] MEDS ORDERED: traZODone 50 MG TABLET. PO PRN (22:15)
--- NOTE | 2018-07-31 02:17 | PN ---
DATE: 07/30/2018 This note covers elements not covered in my initial note. SUBJECTIVE: I met with the patient in the evening. Overall, the patient remains confused, compliant with medications, agitated after his left, trying multiple times to call her. REVIEW OF SYSTEMS: No CV, , pulmonary, eye, ENT system symptoms on review. He slept 6-1/2 hours previous evening. Reliability poor. MENTAL STATUS EXAM: Oriented to himself, situation. Speech coherent, rapid at times. Abstraction fair, computation impaired, language function intact, attention span short. Mood and affect somewhat anxious, labile. LABORATORY DATA: Reviewed. IMPRESSION: Major neurocognitive disorder, Alzheimer, vascular with delusion, depression. Rest unchanged. PLAN: No change from initial note. MAN Douglas TOLEDO MD DR: BORIS/dontae JOB#: [id number] / [id number]
[2018-07-31 05:45] VITALS: BP 164/83
[2018-07-31 07:02] LABS: BASO # 0.1 x10^3/uL (0.0-0.2); BASO % 2 % (0-3); EOS # 0.4 x10^3/uL (0.0-0.7); EOS % 6 % (0-3); HEMATOCRIT 34.2 % (39.0-53.0); HEMOGLOBIN 11.7 g/dL (13.0-17.5); LYMPH # 1.2 x10^3/uL (1.0-4.8); LYMPH % 21 % (24-48); MEAN CORPUSCULAR HEMOGLOBIN 30 pg (25-35); MEAN CORPUSCULAR HGB CONC 34 g/dL (31-37); MEAN CORPUSCULAR VOLUME 89 fL (79-100); MONO # 0.6 x10^3/uL (0.0-1.1); MONO % 11 % (0-9); NEUT # 3.4 x10^3uL (1.8-7.7); NEUT % 60 % (31-73); PLATELET COUNT 196 x10^3/uL (140-400); RED BLOOD COUNT 3.86 x10^6/uL (4.30-5.70); RED CELL DISTRIBUTION WIDTH 13.4 % (11.5-14.5); WHITE BLOOD COUNT 5.7 x10^3/uL (4.0-11.0)
[2018-07-31 07:14] LABS: ALBUMIN 3.1 g/dL (3.4-5.0); ALBUMIN/GLOBULIN RATIO 0.9 (1.0-1.7); CALCIUM 8.8 mg/dL (8.5-10.1); GFR 74.5; POTASSIUM 3.7 mmol/L (3.5-5.1); TOTAL BILIRUBIN 0.4 mg/dL (0.2-1.0); TOTAL PROTEIN 6.4 g/dL (6.4-8.2)
[2018-07-31] MEDS: SERTRALINE 25 MG TABLET. PO SCH (07:41)
[2018-07-31] MEDS: ACYCLOVIR 200 MG CAPSULE PO SCH (07:41)
[2018-07-31] MEDS: PANTOPRAZOLE 40 MG TABLET. PO SCH (07:42)
[2018-07-31] MEDS: FLUTICASONE 50MCG/NASAL SPRAY 16GM BOTTLE. NS SCH (07:42)
[2018-07-31] MEDS: QUEtiapine 25 MG TABLET. PO SCH ×3 (07:42→20:14)
[2018-07-31] MEDS: MEMANTINE 5 MG TABLET. PO SCH ×2 (07:42→20:14)
[2018-07-31] MEDS: BUDESONIDE 0.5 MG/2 ML NEBU NEB SCH ×2 (10:53→20:26)
[2018-07-31 15:46] VITALS: BP 167/78
[2018-07-31] MEDS: DONEPEZIL HCL 10 MG TABLET PO SCH (20:14)
[2018-07-31] MEDS: traZODone 50 MG TABLET. PO SCH (20:14)
--- NOTE | 2018-07-31 20:47 | PDOC ---
Exam Note: Heber Note: Please also refer to the separate dictated note~for this date of service dictated separately.~Patient seen individually. Discussed the patient with Nursing staff reviewed the chart.~Reviewed interim history and current functioning. Reviewed vital signs,~Labs/ Radiology~and current medications noted below. Continue current treatment with the changes noted in the dictated addendum note Assessment: Vital Signs: Vital Signs Date Time Temp Pulse Resp B/P (MAP) Pulse Ox O2 Delivery O2 Flow Rate FiO2 07/31/18 20:27 97 Room Air 07/31/18 15:46 98.0 83 18 167/78 (107) I&O Intake and Output 07/31/18 06:59 Intake Total 1080 ml Balance 1080 ml Intake Oral 1080 ml # Bowel Movements 1 Labs: Laboratory Tests Test 07/31/18 06:22 White Blood Count 5.7 x10^3/uL (4.0-11.0) Red Blood Count 3.86 x10^6/uL (4.30-5.70) L Hemoglobin 11.7 g/dL (13.0-17.5) L Hematocrit 34.2 % (39.0-53.0) L Mean Corpuscular Volume 89 fL (79-100) Mean Corpuscular Hemoglobin 30 pg (25-35) Mean Corpuscular Hemoglobin Concent 34 g/dL (31-37) Red Cell Distribution Width 13.4 % (11.5-14.5) Platelet Count 196 x10^3/uL (140-400) Neutrophils (%) (Auto) 60 % (31-73) Lymphocytes (%) (Auto) 21 % (24-48) L Monocytes (%) (Auto) 11 % (0-9) H Eosinophils (%) (Auto) 6 % (0-3) H Basophils (%) (Auto) 2 % (0-3) Neutrophils # (Auto) 3.4 x10^3uL (1.8-7.7) Lymphocytes # (Auto) 1.2 x10^3/uL (1.0-4.8) Monocytes # (Auto) 0.6 x10^3/uL (0.0-1.1) Eosinophils # (Auto) 0.4 x10^3/uL (0.0-0.7) Basophils # (Auto) 0.1 x10^3/uL (0.0-0.2) Sodium Level 141 mmol/L (136-145) Potassium Level 3.7 mmol/L (3.5-5.1) Chloride Level 105 mmol/L (98-107) Carbon Dioxide Level 33 mmol/L (21-32) H Anion Gap 3 (6-14) L Blood Urea Nitrogen 15 mg/dL (8-26) Creatinine 1.0 mg/dL (0.7-1.3) Estimated GFR (Cockcroft-Gault) 74.5 BUN/Creatinine Ratio 15 (6-20) Glucose Level 83 mg/dL (70-99) Calcium Level 8.8 mg/dL (8.5-10.1) Total Bilirubin 0.4 mg/dL (0.2-1.0) Aspartate Amino Transferase (AST) 14 U/L (15-37) L Alanine Aminotransferase (ALT) 24 U/L (16-63) Alkaline Phosphatase 69 U/L (46-116) Total Protein 6.4 g/dL (6.4-8.2) Albumin 3.1 g/dL (3.4-5.0) L Albumin/Globulin Ratio 0.9 (1.0-1.7) L Current Medications: Meds: Current Medications Influenza Virus Vaccine (Afluria Trivalent [id number] Syringe) 0.5 ml ONCE ONCE VAX IM Last administered on 07/26/18at 12:43; Start 07/26/18 at 09:00; Stop 07/26/18 at 09:01; Status DC Acetaminophen (Tylenol) 650 mg PRN Q6HRS PRN PO PAIN / TEMP; Start 07/25/18 at 19:00 Multi-Ingredient Ointment (Analgesic [place]) 1 maria m PRN QID PRN TP MUSCLE PAIN; Start 07/25/18 at 19:00 Al Hydroxide/Mg Hydroxide (Mylanta Plus Xs) 15 ml PRN AFTMEALHC PRN PO DYSPEPSIA; Start 07/25/18 at 19:00 Magnesium Hydroxide (Milk Of Magnesia) 2,400 mg PRN QHS PRN PO CONSTIPATION; Start 07/25/18 at 19:00 Clonazepam (KlonoPIN) 0.5 mg BID PO Last administered on 07/27/18at 08:20; Start 07/25/18 at 21:00; Stop 07/27/18 at 10:50; Status DC Memantine (Namenda) 5 mg BID PO Last administered on 07/31/18at 20:14; Start at 21:30 Olanzapine (ZyPREXA) 2.5 mg PRN DAILY PRN PO ANXIETY; Start 07/25/18 at 21:30; Stop 07/30/18 at 22:24; Status DC Olanzapine (ZyPREXA) 5 mg QHS PO Last administered on 07/26/18at 20:01; Start 07/25/18 at 21:30; Stop 07/27/18 at 10:50; Status DC Sertraline HCl (Zoloft) 25 mg DAILY PO Last administered on 07/26/18at 08:21; Start 07/26/18 at 09:00; Stop 07/26/18 at 18:47; Status DC Trazodone HCl (Desyrel) 50 mg PRN QHS PRN PO INSOMNIA; Start 07/25/18 at 21:30 ; Stop 07/27/18 at 09:34; Status DC Acyclovir (Zovirax) 400 mg DAILY PO Last administered on 07/31/18at 07:41; Start 07/26/18 at 09:00 Non-Formulary Medication (Beclomethasone Dipropionate (Qvar Redihaler)) 2 puff BID IH ; Start 07/25/18 at 21:00; Stop 07/25/18 at 21:34; Status DC Fluticasone Propionate (Flonase) 2 spray DAILY NS Last administered on at 07:42; Start 07/26/18 at 09:00 Pantoprazole Sodium (Protonix) 40 mg DAILY PO Last administered on 07/31/18at 07 :42; Start 07/26/18 at 09:00 Budesonide (Pulmicort) 0.5 mg RTBID NEB Last administered on 07/31/18 20:26; Start 07/26/18 at 08:00 Donepezil HCl (Aricept) 10 mg QHS PO Last administered on 07/31/18at 20:14; Start 07/25/18 at 21:30 Sertraline HCl (Zoloft) 50 mg DAILY PO Last administered on 07/29/18at 08:32; Start 07/27/18 at 09:00; Stop 07/29/18 at 09:02; Status DC Trazodone HCl (Desyrel) 50 mg HS PO Last administered on 07/31/18at 20:14; Start 07/27/18 at 21:00 Clonazepam (KlonoPIN) 0.5 mg HS PO Last administered on 07/29/18at 20:38; Start 07/27/18 at 21:00; Stop 07/30/18 at 09:00; Status DC Quetiapine Fumarate (SEROquel) 12.5 mg TID PO Last administered on 07/31/18at 13 :53; Start 07/27/18 at 14:00; Stop 07/31/18 at 17:00; Status DC Clonazepam (KlonoPIN) 0.25 mg DAILY PO Last administered on 07/29/18at 09:00; Start 07/28/18 at 09:00; Stop 07/29/18 at 21:00; Status DC Clonazepam (KlonoPIN) 0.25 mg HS PO Last administered on 07/30/18at 21:01; Start 07/30/18 at 21:00; Stop 07/31/18 at 17:00; Status DC Sertraline HCl (Zoloft) 75 mg DAILY PO Last administered on 07/31/18at 07:41; Start 07/30/18 at 09:00 Trazodone HCl (Desyrel) 50 mg PRN QHS PRN PO prn insomnia ; Start 07/30/18 at 22:15 Olanzapine (ZyPREXA) 2.5 mg PRN Q2HR PRN PO ANXIETY; Start 07/30/18 at 22:30 Quetiapine Fumarate (SEROquel) 12.5 mg DAILY PO ; Start 08/01/18 at 09:00 Quetiapine Fumarate (SEROquel) 25 mg 1400,2100 PO Last administered on at 20:14; Start 07/31/18 at 21:00 Active Scripts Active Reported Trazodone Hcl 50 Mg Tablet 50 Mg PO PRN QHS PRN Omeprazole 20 Mg Tablet.dr 20 Mg PO DAILY Namzaric 14 mg-10 mg Capsule (Memantine HCl/Donepezil HCl) 1 Each Cap.spr.24 1 Each PO QHS Fluticasone Propionate Nasal [place] (Fluticasone Propionate) 16 Gm [place].susp 2 [place] NS DAILY Clonazepam 0.5 Mg Tablet 0.5 Mg PO BID Qvar Redihaler (Beclomethasone Dipropionate) 10.6 Gm Hfa.aeroba 2 Puff IH BID Acyclovir 400 Mg Tablet 400 Mg PO DAILY Zoloft (Sertraline Hcl) 25 Mg Tablet 25 Mg PO DAILY Olanzapine 5 Mg Tablet 5 Mg PO QHS Olanzapine 5 Mg Tablet 2.5 Mg PO PRN DAILY PRN I have reviewed the current psychotropics carefully including drug interactions. Risk benefit ratio favors no change other than as noted in my dictated progress note. Diagnosis: Problems: (1) Anxiety disorder (2) Dementia in Alzheimer's disease with delusions (3) Dementia in Alzheimer's disease with depression (4) Dementia, vascular, with delusions (5) Dementia, vascular, with depression (6) Impulse control disorder SMITA TOLEDO MD Jul 31, 2018 20:47
[2018-08-01 05:55] VITALS: BP 126/74
[2018-08-01] MEDS: SERTRALINE 25 MG TABLET. PO SCH (07:40)
[2018-08-01] MEDS: MEMANTINE 5 MG TABLET. PO SCH ×2 (07:40→19:23)
[2018-08-01] MEDS: PANTOPRAZOLE 40 MG TABLET. PO SCH (07:40)
[2018-08-01] MEDS: QUEtiapine 25 MG TABLET. PO SCH ×3 (07:42→19:23)
[2018-08-01] MEDS: ACYCLOVIR 200 MG CAPSULE PO SCH (07:43)
[2018-08-01] MEDS: FLUTICASONE 50MCG/NASAL SPRAY 16GM BOTTLE. NS SCH (07:45)
[2018-08-01] MEDS: BUDESONIDE 0.5 MG/2 ML NEBU NEB SCH ×2 (08:00→20:25)
[2018-08-01] MEDS: OLANZapine 2.5 MG TABLET PO PRN ×2 (13:39→16:25)
[2018-08-01 16:36] VITALS: BP 172/83
--- NOTE | 2018-08-01 18:57 | PN ---
DATE: 07/31/2018 This is a late entry, 07/31/2018, covers the elements not covered in my initial note. SUBJECTIVE: I met with the patient in the evening. The patient slept 4-3/4 hours previous evening. He has been confused, anxious, restless, exit seeking, gets agitated after his leaves following visits. REVIEW OF SYSTEMS: No CV, , pulmonary, eye, ENT system symptoms on review. Reliability poor. MENTAL STATUS EXAM: Oriented to himself. Insight, judgment, recent and remote memory, attention, concentration, fund of knowledge poor, consistent with his diagnosis mentioned in my initial note. PLAN: Increase Seroquel from 12.5 mg three times a day to 12.5 mg in the morning and 25 mg two times a day. Continue rest unchanged. We will go ahead and stop the Klonopin 0.25 mg at bedtime, which could be causing some paradoxical disinhibition given his dementia. MAN Douglas TOLEDO MD DR: BORIS/dontae JOB#: [id number] / [id number]
[2018-08-01] MEDS: DONEPEZIL HCL 10 MG TABLET PO SCH (19:23)
[2018-08-01] MEDS: traZODone 50 MG TABLET. PO SCH (19:23)
--- NOTE | 2018-08-01 21:01 | PDOC ---
Exam Note: [place] Note: Please also refer to the separate dictated note~for this date of service dictated separately.~Patient seen individually. Discussed the patient with Nursing staff reviewed the chart.~Reviewed interim history and current functioning. Reviewed vital signs,~Labs/ Radiology~and current medications noted below. Continue current treatment with the changes noted in the dictated addendum note Assessment: Vital Signs: Vital Signs Date Time Temp Pulse Resp B/P (MAP) Pulse Ox O2 Delivery O2 Flow Rate FiO2 08/01/18 20:05 98 Room Air 08/01/18 16:36 97.9 98 22 172/83 (112) I&O Intake and Output 08/01/18 07:00 Intake Total 840 ml Balance 840 ml Intake Oral 840 ml # Voids 1 Current Medications: Meds: Current Medications Influenza Virus Vaccine (Afluria Trivalent [id number] Syringe) 0.5 ml ONCE ONCE VAX IM Last administered on 07/26/18at 12:43; Start 07/26/18 at 09:00; Stop 07/26/18 at 09:01; Status DC Acetaminophen (Tylenol) 650 mg PRN Q6HRS PRN PO PAIN / TEMP; Start 07/25/18 at 19:00 Multi-Ingredient Ointment (Analgesic [place]) 1 maria m PRN QID PRN TP MUSCLE PAIN; Start 07/25/18 at 19:00 Al Hydroxide/Mg Hydroxide (Mylanta Plus Xs) 15 ml PRN AFTMEALHC PRN PO DYSPEPSIA; Start 07/25/18 at 19:00 Magnesium Hydroxide (Milk Of Magnesia) 2,400 mg PRN QHS PRN PO CONSTIPATION; Start 07/25/18 at 19:00 Clonazepam (KlonoPIN) 0.5 mg BID PO Last administered on 07/27/18at 08:20; Start 07/25/18 at 21:00; Stop 07/27/18 at 10:50; Status DC Memantine (Namenda) 5 mg BID PO Last administered on 08/01/18at 19:23; Start at 21:30 Olanzapine (ZyPREXA) 2.5 mg PRN DAILY PRN PO ANXIETY; Start 07/25/18 at 21:30; Stop 07/30/18 at 22:24; Status DC Olanzapine (ZyPREXA) 5 mg QHS PO Last administered on 07/26/18at 20:01; Start 07/25/18 at 21:30; Stop 07/27/18 at 10:50; Status DC Sertraline HCl (Zoloft) 25 mg DAILY PO Last administered on 07/26/18at 08:21; Start 07/26/18 at 09:00; Stop 07/26/18 at 18:47; Status DC Trazodone HCl (Desyrel) 50 mg PRN QHS PRN PO INSOMNIA; Start 07/25/18 at 21:30 ; Stop 07/27/18 at 09:34; Status DC Acyclovir (Zovirax) 400 mg DAILY PO Last administered on 08/01/18at 07:43; Start 07/26/18 at 09:00 Non-Formulary Medication (Beclomethasone Dipropionate (Qvar Redihaler)) 2 puff BID IH ; Start 07/25/18 at 21:00; Stop 07/25/18 at 21:34; Status DC Fluticasone Propionate (Flonase) 2 spray DAILY NS Last administered on at 07:45; Start 07/26/18 at 09:00 Pantoprazole Sodium (Protonix) 40 mg DAILY PO Last administered on 08/01/18at 07 :40; Start 07/26/18 at 09:00 Budesonide (Pulmicort) 0.5 mg RTBID NEB Last administered on 08/01/18at 20:25; Start 07/26/18 at 08:00 Donepezil HCl (Aricept) 10 mg QHS PO Last administered on 08/01/18at 19:23; Start 07/25/18 at 21:30 Sertraline HCl (Zoloft) 50 mg DAILY PO Last administered on 07/29/18at 08:32; Start 07/27/18 at 09:00; Stop 07/29/18 at 09:02; Status DC Trazodone HCl (Desyrel) 50 mg HS PO Last administered on 08/01/18at 19:23; Start 07/27/18 at 21:00 Clonazepam (KlonoPIN) 0.5 mg HS PO Last administered on 07/29/18at 20:38; Start 07/27/18 at 21:00; Stop 07/30/18 at 09:00; Status DC Quetiapine Fumarate (SEROquel) 12.5 mg TID PO Last administered on 07/31/18at 13 :53; Start 07/27/18 at 14:00; Stop 07/31/18 at 17:00; Status DC Clonazepam (KlonoPIN) 0.25 mg DAILY PO Last administered on 07/29/18at 09:00; Start 07/28/18 at 09:00; Stop 07/29/18 at 21:00; Status DC Clonazepam (KlonoPIN) 0.25 mg HS PO Last administered on 07/30/18at 21:01; Start 07/30/18 at 21:00; Stop 07/31/18 at 17:00; Status DC Sertraline HCl (Zoloft) 75 mg DAILY PO Last administered on 08/01/18at 07:40; Start 07/30/18 at 09:00; Stop 08/01/18 at 17:43; Status DC Trazodone HCl (Desyrel) 50 mg PRN QHS PRN PO prn insomnia ; Start 07/30/18 at 22:15 Olanzapine (ZyPREXA) 2.5 mg PRN Q2HR PRN PO ANXIETY Last administered on at 16:25; Start 07/30/18 at 22:30 Quetiapine Fumarate (SEROquel) 12.5 mg DAILY PO Last administered on 08/01/18at 07:42; Start 08/01/18 at 09:00 Quetiapine Fumarate (SEROquel) 25 mg 1400,2100 PO Last administered on at 19:23; Start 07/31/18 at 21:00 Sertraline HCl (Zoloft) 100 mg DAILY PO ; Start 08/02/18 at 09:00 Active Scripts Active Reported Trazodone Hcl 50 Mg Tablet 50 Mg PO PRN QHS PRN Omeprazole 20 Mg Tablet.dr 20 Mg PO DAILY Namzaric 14 mg-10 mg Capsule (Memantine HCl/Donepezil HCl) 1 Each Cap.spr.24 1 Each PO QHS Fluticasone Propionate Nasal [place] (Fluticasone Propionate) 16 Gm [place].susp 2 [place] NS DAILY Clonazepam 0.5 Mg Tablet 0.5 Mg PO BID Qvar Redihaler (Beclomethasone Dipropionate) 10.6 Gm Hfa.aeroba 2 Puff IH BID Acyclovir 400 Mg Tablet 400 Mg PO DAILY Zoloft (Sertraline Hcl) 25 Mg Tablet 25 Mg PO DAILY Olanzapine 5 Mg Tablet 5 Mg PO QHS Olanzapine 5 Mg Tablet 2.5 Mg PO PRN DAILY PRN I have reviewed the current psychotropics carefully including drug interactions. Risk benefit ratio favors no change other than as noted in my dictated progress note. Diagnosis: Problems: (1) Anxiety disorder (2) Dementia in Alzheimer's disease with delusions (3) Dementia in Alzheimer's disease with depression (4) Dementia, vascular, with delusions (5) Dementia, vascular, with depression (6) Impulse control disorder SMITA TOLEDO MD Aug 01, 2018 21:01
[2018-08-02 06:01] VITALS: BP_SYST 132; BP_SYST 167; BP_DIAS 65; BP_DIAS 78
[2018-08-02] MEDS: PANTOPRAZOLE 40 MG TABLET. PO SCH (09:00)
[2018-08-02] MEDS: QUEtiapine 25 MG TABLET. PO SCH ×3 (09:00→19:23)
[2018-08-02] MEDS: MEMANTINE 5 MG TABLET. PO SCH ×2 (09:01→19:23)
[2018-08-02] MEDS: ACYCLOVIR 200 MG CAPSULE PO SCH (09:02)
[2018-08-02] MEDS: SERTRALINE 100 MG TABLET. PO SCH (09:02)
[2018-08-02] MEDS: FLUTICASONE 50MCG/NASAL SPRAY 16GM BOTTLE. NS SCH (09:03)
[2018-08-02] MEDS: BUDESONIDE 0.5 MG/2 ML NEBU NEB SCH ×2 (10:01→20:31)
[2018-08-02 16:10] VITALS: BP 151/83
[2018-08-02] MEDS: DONEPEZIL HCL 10 MG TABLET PO SCH (19:22)
[2018-08-02] MEDS: traZODone 50 MG TABLET. PO SCH (19:23)
--- NOTE | 2018-08-02 20:35 | PN ---
DATE: 08/01/2018 PSYCHIATRIC PROGRESS NOTE This late entry 08/01/2018 covers elements not covered in my initial note. SUBJECTIVE: I met with the patient in the evening. The patient slept 7 hours previous evening. He remains quite confused. His visited him and when she left, he was extremely agitated. is going out of town and he has difficulty accepting this, even though he does not remember it very much. REVIEW OF SYSTEMS: No CV, , pulmonary, eye, ENT system symptoms on review. MENTAL STATUS EXAM: Oriented to himself. Insight, judgment, recent and remote memory, attention, concentration, fund of knowledge poor, consistent with his diagnosis mentioned in my initial note. PLAN: Increase Zoloft from 75 mg a day to 100 mg a day. Rest unchanged from initial note. MAN Douglas TOLEDO MD DR: BORIS/dontae JOB#: [id number] / [id number]
--- NOTE | 2018-08-02 20:52 | PDOC ---
Exam Note: [place] Note: Please also refer to the separate dictated note~for this date of service dictated separately.~Patient seen individually. Discussed the patient with Nursing staff reviewed the chart.~Reviewed interim history and current functioning. Reviewed vital signs,~Labs/ Radiology~and current medications noted below. Continue current treatment with the changes noted in the dictated addendum note Assessment: Vital Signs: Vital Signs Date Time Temp Pulse Resp B/P (MAP) Pulse Ox O2 Delivery O2 Flow Rate FiO2 08/02/18 20:10 99 Room Air 08/02/18 16:10 98.4 77 20 151/83 (105) I&O Intake and Output 08/02/18 07:00 Intake Total 1440 ml Balance 1440 ml Intake Oral 1440 ml Current Medications: Meds: Current Medications Influenza Virus Vaccine (Afluria Trivalent [id number] Syringe) 0.5 ml ONCE ONCE VAX IM Last administered on 07/26/18at 12:43; Start 07/26/18 at 09:00; Stop 07/26/18 at 09:01; Status DC Acetaminophen (Tylenol) 650 mg PRN Q6HRS PRN PO PAIN / TEMP; Start 07/25/18 at 19:00 Multi-Ingredient Ointment (Analgesic [place]) 1 maria m PRN QID PRN TP MUSCLE PAIN; Start 07/25/18 at 19:00 Al Hydroxide/Mg Hydroxide (Mylanta Plus Xs) 15 ml PRN AFTMEALHC PRN PO DYSPEPSIA; Start 07/25/18 at 19:00 Magnesium Hydroxide (Milk Of Magnesia) 2,400 mg PRN QHS PRN PO CONSTIPATION; Start 07/25/18 at 19:00 Clonazepam (KlonoPIN) 0.5 mg BID PO Last administered on 07/27/18at 08:20; Start 07/25/18 at 21:00; Stop 07/27/18 at 10:50; Status DC Memantine (Namenda) 5 mg BID PO Last administered on 08/02/18at 19:23; Start 07/25/18 at 21:30 Olanzapine (ZyPREXA) 2.5 mg PRN DAILY PRN PO ANXIETY; Start 07/25/18 at 21:30; Stop 07/30/18 at 22:24; Status DC Olanzapine (ZyPREXA) 5 mg QHS PO Last administered on 07/26/18at 20:01; Start 07/25/18 at 21:30; Stop 07/27/18 at 10:50; Status DC Sertraline HCl (Zoloft) 25 mg DAILY PO Last administered on 07/26/18at 08:21; Start 07/26/18 at 09:00; Stop 07/26/18 at 18:47; Status DC Trazodone HCl (Desyrel) 50 mg PRN QHS PRN PO INSOMNIA; Start 07/25/18 at 21:30 ; Stop 07/27/18 at 09:34; Status DC Acyclovir (Zovirax) 400 mg DAILY PO Last administered on 08/02/18at 09:02; Start 07/26/18 at 09:00 Non-Formulary Medication (Beclomethasone Dipropionate (Qvar Redihaler)) 2 puff BID IH ; Start 07/25/18 at 21:00; Stop 07/25/18 at 21:34; Status DC Fluticasone Propionate (Flonase) 2 spray DAILY NS Last administered on at 09:03; Start 07/26/18 at 09:00 Pantoprazole Sodium (Protonix) 40 mg DAILY PO Last administered on 08/02/18 09:00; Start 07/26/18 at 09:00 Budesonide (Pulmicort) 0.5 mg RTBID NEB Last administered on 08/02/18at 20:31; Start 07/26/18 at 08:00 Donepezil HCl (Aricept) 10 mg QHS PO Last administered on 08/02/18at 19:22; Start 07/25/18 at 21:30 Sertraline HCl (Zoloft) 50 mg DAILY PO Last administered on 07/29/18at 08:32; Start 07/27/18 at 09:00; Stop 07/29/18 at 09:02; Status DC Trazodone HCl (Desyrel) 50 mg HS PO Last administered on 08/02/18at 19:23; Start 07/27/18 at 21:00 Clonazepam (KlonoPIN) 0.5 mg HS PO Last administered on 07/29/18at 20:38; Start 07/27/18 at 21:00; Stop 07/30/18 at 09:00; Status DC Quetiapine Fumarate (SEROquel) 12.5 mg TID PO Last administered on 07/31/18at 13 :53; Start 07/27/18 at 14:00; Stop 07/31/18 at 17:00; Status DC Clonazepam (KlonoPIN) 0.25 mg DAILY PO Last administered on 07/29/18at 09:00; Start 07/28/18 at 09:00; Stop 07/29/18 at 21:00; Status DC Clonazepam (KlonoPIN) 0.25 mg HS PO Last administered on 07/30/18at 21:01; Start 07/30/18 at 21:00; Stop 07/31/18 at 17:00; Status DC Sertraline HCl (Zoloft) 75 mg DAILY PO Last administered on 08/01/18at 07:40; Start 07/30/18 at 09:00; Stop 08/01/18 at 17:43; Status DC Trazodone HCl (Desyrel) 50 mg PRN QHS PRN PO prn insomnia ; Start 07/30/18 at 22:15 Olanzapine (ZyPREXA) 2.5 mg PRN Q2HR PRN PO ANXIETY Last administered on at 16:25; Start 07/30/18 at 22:30 Quetiapine Fumarate (SEROquel) 12.5 mg DAILY PO Last administered on at 09:00; Start 08/01/18 at 09:00 Quetiapine Fumarate (SEROquel) 25 mg 1400,2100 PO Last administered on at 19:23; Start 07/31/18 at 21:00 Sertraline HCl (Zoloft) 100 mg DAILY PO Last administered on 08/02/18at 09:02; Start 08/02/18 at 09:00 Active Scripts Active Reported Trazodone Hcl 50 Mg Tablet 50 Mg PO PRN QHS PRN Omeprazole 20 Mg Tablet.dr 20 Mg PO DAILY Namzaric 14 mg-10 mg Capsule (Memantine HCl/Donepezil HCl) 1 Each Cap.spr.24 1 Each PO QHS Fluticasone Propionate Nasal [place] (Fluticasone Propionate) 16 Gm [place].susp 2 [place] NS DAILY Clonazepam 0.5 Mg Tablet 0.5 Mg PO BID Qvar Redihaler (Beclomethasone Dipropionate) 10.6 Gm Hfa.aeroba 2 Puff IH BID Acyclovir 400 Mg Tablet 400 Mg PO DAILY Zoloft (Sertraline Hcl) 25 Mg Tablet 25 Mg PO DAILY Olanzapine 5 Mg Tablet 5 Mg PO QHS Olanzapine 5 Mg Tablet 2.5 Mg PO PRN DAILY PRN I have reviewed the current psychotropics carefully including drug interactions. Risk benefit ratio favors no change other than as noted in my dictated progress note. Diagnosis: Problems: (1) Anxiety disorder (2) Dementia in Alzheimer's disease with delusions (3) Dementia in Alzheimer's disease with depression (4) Dementia, vascular, with delusions (5) Dementia, vascular, with depression (6) Impulse control disorder SMITA TOLEDO MD Aug 02, 2018 20:52
[2018-08-03 06:05] VITALS: BP 113/67
[2018-08-03] MEDS: PANTOPRAZOLE 40 MG TABLET. PO SCH (09:17)
[2018-08-03] MEDS: QUEtiapine 25 MG TABLET. PO SCH ×3 (09:18→21:31)
[2018-08-03] MEDS: MEMANTINE 5 MG TABLET. PO SCH ×2 (09:19→21:30)
[2018-08-03] MEDS: SERTRALINE 100 MG TABLET. PO SCH (09:20)
[2018-08-03] MEDS: ACYCLOVIR 200 MG CAPSULE PO SCH (09:21)
[2018-08-03] MEDS: FLUTICASONE 50MCG/NASAL SPRAY 16GM BOTTLE. NS SCH (09:21)
[2018-08-03] MEDS: BUDESONIDE 0.5 MG/2 ML NEBU NEB SCH ×2 (11:33→20:46)
[2018-08-03 16:34] VITALS: BP 146/82
--- NOTE | 2018-08-03 20:41 | PDOC ---
Exam Note: [place] Note: Please also refer to the separate dictated note~for this date of service dictated separately.~Patient seen individually. Discussed the patient with Nursing staff reviewed the chart.~Reviewed interim history and current functioning. Reviewed vital signs,~Labs/ Radiology~and current medications noted below. Continue current treatment with the changes noted in the dictated addendum note Assessment: Vital Signs: Vital Signs Date Time Temp Pulse Resp B/P (MAP) Pulse Ox O2 Delivery O2 Flow Rate FiO2 08/03/18 16:34 97.9 64 16 146/82 (103) 97 Room Air I&O Intake and Output 08/03/18 07:00 Intake Total 1200 ml Balance 1200 ml Intake Oral 1200 ml # Voids 1 Current Medications: Meds: Current Medications Influenza Virus Vaccine (Afluria Trivalent [id number] Syringe) 0.5 ml ONCE ONCE VAX IM Last administered on 07/26/18at 12:43; Start 07/26/18 at 09:00; Stop 07/26/18 at 09:01; Status DC Acetaminophen (Tylenol) 650 mg PRN Q6HRS PRN PO PAIN / TEMP; Start 07/25/18 at 19:00 Multi-Ingredient Ointment (Analgesic [place]) 1 maria m PRN QID PRN TP MUSCLE PAIN; Start 07/25/18 at 19:00 Al Hydroxide/Mg Hydroxide (Mylanta Plus Xs) 15 ml PRN AFTMEALHC PRN PO DYSPEPSIA; Start 07/25/18 at 19:00 Magnesium Hydroxide (Milk Of Magnesia) 2,400 mg PRN QHS PRN PO CONSTIPATION; Start 07/25/18 at 19:00 Clonazepam (KlonoPIN) 0.5 mg BID PO Last administered on 07/27/18at 08:20; Start 07/25/18 at 21:00; Stop 07/27/18 at 10:50; Status DC Memantine (Namenda) 5 mg BID PO Last administered on 08/03/18at 09:19; Start 07/25/18 at 21:30 Olanzapine (ZyPREXA) 2.5 mg PRN DAILY PRN PO ANXIETY; Start 07/25/18 at 21:30; Stop 07/30/18 at 22:24; Status DC Olanzapine (ZyPREXA) 5 mg QHS PO Last administered on 07/26/18at 20:01; Start 07/25/18 at 21:30; Stop 07/27/18 at 10:50; Status DC Sertraline HCl (Zoloft) 25 mg DAILY PO Last administered on 07/26/18at 08:21; Start 07/26/18 at 09:00; Stop 07/26/18 at 18:47; Status DC Trazodone HCl (Desyrel) 50 mg PRN QHS PRN PO INSOMNIA; Start 07/25/18 at 21:30 ; Stop 07/27/18 at 09:34; Status DC Acyclovir (Zovirax) 400 mg DAILY PO Last administered on 08/03/18at 09:21; Start 07/26/18 at 09:00 Non-Formulary Medication (Beclomethasone Dipropionate (Qvar Redihaler)) 2 puff BID IH ; Start 07/25/18 at 21:00; Stop 07/25/18 at 21:34; Status DC Fluticasone Propionate (Flonase) 2 spray DAILY NS Last administered on at 09:21; Start 07/26/18 at 09:00 Pantoprazole Sodium (Protonix) 40 mg DAILY PO Last administered on 08/03/18at 09:17; Start 07/26/18 at 09:00 Budesonide (Pulmicort) 0.5 mg RTBID NEB Last administered on 08/03/18at 11:33; Start 07/26/18 at 08:00 Donepezil HCl (Aricept) 10 mg QHS PO Last administered on 08/02/18at 19:22; Start 07/25/18 at 21:30 Sertraline HCl (Zoloft) 50 mg DAILY PO Last administered on 07/29/18at 08:32; Start 07/27/18 at 09:00; Stop 07/29/18 at 09:02; Status DC Trazodone HCl (Desyrel) 50 mg HS PO Last administered on 08/02/18at 19:23; Start 07/27/18 at 21:00 Clonazepam (KlonoPIN) 0.5 mg HS PO Last administered on 07/29/18at 20:38; Start 07/27/18 at 21:00; Stop 07/30/18 at 09:00; Status DC Quetiapine Fumarate (SEROquel) 12.5 mg TID PO Last administered on 07/31/18at 13 :53; Start 07/27/18 at 14:00; Stop 07/31/18 at 17:00; Status DC Clonazepam (KlonoPIN) 0.25 mg DAILY PO Last administered on 07/29/18at 09:00; Start 07/28/18 at 09:00; Stop 07/29/18 at 21:00; Status DC Clonazepam (KlonoPIN) 0.25 mg HS PO Last administered on 07/30/18at 21:01; Start 07/30/18 at 21:00; Stop 07/31/18 at 17:00; Status DC Sertraline HCl (Zoloft) 75 mg DAILY PO Last administered on 08/01/18at 07:40; Start 07/30/18 at 09:00; Stop 08/01/18 at 17:43; Status DC Trazodone HCl (Desyrel) 50 mg PRN QHS PRN PO prn insomnia ; Start 07/30/18 at 22:15 Olanzapine (ZyPREXA) 2.5 mg PRN Q2HR PRN PO ANXIETY Last administered on at 16:25; Start 07/30/18 at 22:30 Quetiapine Fumarate (SEROquel) 12.5 mg DAILY PO Last administered on at 09:18; Start 08/01/18 at 09:00 Quetiapine Fumarate (SEROquel) 25 mg 1400,2100 PO Last administered on at 15:17; Start 07/31/18 at 21:00 Sertraline HCl (Zoloft) 100 mg DAILY PO Last administered on 08/03/18at 09:20; Start 08/02/18 at 09:00 Active Scripts Active Reported Trazodone Hcl 50 Mg Tablet 50 Mg PO PRN QHS PRN Omeprazole 20 Mg Tablet.dr 20 Mg PO DAILY Namzaric 14 mg-10 mg Capsule (Memantine HCl/Donepezil HCl) 1 Each Cap.spr.24 1 Each PO QHS Fluticasone Propionate Nasal Panacea (Fluticasone Propionate) 16 Gm Panacea.susp 2 Panacea NS DAILY Clonazepam 0.5 Mg Tablet 0.5 Mg PO BID Qvar Redihaler (Beclomethasone Dipropionate) 10.6 Gm Hfa.aeroba 2 Puff IH BID Acyclovir 400 Mg Tablet 400 Mg PO DAILY Zoloft (Sertraline Hcl) 25 Mg Tablet 25 Mg PO DAILY Olanzapine 5 Mg Tablet 5 Mg PO QHS Olanzapine 5 Mg Tablet 2.5 Mg PO PRN DAILY PRN I have reviewed the current psychotropics carefully including drug interactions. Risk benefit ratio favors no change other than as noted in my dictated progress note. Diagnosis: Problems: (1) Anxiety disorder (2) Dementia in Alzheimer's disease with delusions (3) Dementia in Alzheimer's disease with depression (4) Dementia, vascular, with delusions (5) Dementia, vascular, with depression (6) Impulse control disorder SMITA TOLEDO MD Aug 03, 2018 20:41
[2018-08-03] MEDS: DONEPEZIL HCL 10 MG TABLET PO SCH (21:30)
[2018-08-03] MEDS: traZODone 50 MG TABLET. PO SCH (21:31)
[2018-08-04 06:04] VITALS: BP 146/76
[2018-08-04] MEDS: MEMANTINE 5 MG TABLET. PO SCH ×2 (07:51→20:24)
[2018-08-04] MEDS: QUEtiapine 25 MG TABLET. PO SCH ×3 (07:52→20:26)
[2018-08-04] MEDS: PANTOPRAZOLE 40 MG TABLET. PO SCH (07:52)
[2018-08-04] MEDS: SERTRALINE 100 MG TABLET. PO SCH (07:52)
[2018-08-04] MEDS: ACYCLOVIR 200 MG CAPSULE PO SCH (07:53)
[2018-08-04] MEDS: FLUTICASONE 50MCG/NASAL SPRAY 16GM BOTTLE. NS SCH (07:53)
[2018-08-04] MEDS: BUDESONIDE 0.5 MG/2 ML NEBU NEB SCH ×2 (10:45→19:25)
[2018-08-04] MEDS: OLANZapine 2.5 MG TABLET PO PRN (14:42)
[2018-08-04 15:42] VITALS: BP 174/92
[2018-08-04] MEDS ORDERED: LORazepam 0.5 MG TABLET PO PRN (16:30)
[2018-08-04] MEDS: LORazepam 2 MG/ML VIAL IM SCH (18:50)
[2018-08-04] MEDS: HALOPERIDOL LACT 5 MG/ML VIAL. IM SCH (18:50)
--- NOTE | 2018-08-04 19:52 | PN ---
DATE: 08/02/2018 PSYCHIATRIC PROGRESS NOTE This late entry 08/02/2018 covers elements not covered in my initial note. SUBJECTIVE: I met with the patient in the evening. The patient slept 6-1/2 hours previous night. He has been pleasant, compliant with medication, fairly social, talking to one of the other demented patients. He is oriented to year and felt the month was April. Short term memory is impaired. Computation is impaired. No suicidal or homicidal ideation. MENTAL STATUS EXAM: Oriented to himself. Insight, judgment, recent memory is impaired, remote is better. No active suicidal or homicidal ideation. Attention span short. He is otherwise pleasant, smiling. LABORATORY DATA: Reviewed. IMPRESSION: Major neurocognitive disorder, Alzheimer, vascular with depression, behavioral disturbance. PLAN: No change from a psychiatric standpoint from initial note. MAN Douglas TOLEDO MD DR: BORIS/dontae JOB#: [id number] / [id number]
[2018-08-04] MEDS: traZODone 50 MG TABLET. PO SCH (20:24)
[2018-08-04] MEDS: DONEPEZIL HCL 10 MG TABLET PO SCH (20:24)
--- NOTE | 2018-08-04 20:44 | PDOC ---
Exam Note: [place] Note: Please also refer to the separate dictated note~for this date of service dictated separately.~Patient seen individually. Discussed the patient with Nursing staff reviewed the chart.~Reviewed interim history and current functioning. Reviewed vital signs,~Labs/ Radiology~and current medications noted below. Continue current treatment with the changes noted in the dictated addendum note Assessment: Vital Signs: Vital Signs Date Time Temp Pulse Resp B/P (MAP) Pulse Ox O2 Delivery O2 Flow Rate FiO2 08/04/18 15:42 97.9 88 22 174/92 (119) 97 Room Air I&O Intake and Output 08/04/18 07:00 Intake Total 1200 ml Balance 1200 ml Intake Oral 1200 ml Current Medications: Meds: Current Medications Influenza Virus Vaccine (Afluria Trivalent [id number] Syringe) 0.5 ml ONCE ONCE VAX IM Last administered on 07/26/18at 12:43; Start 07/26/18 at 09:00; Stop 07/26/18 at 09:01; Status DC Acetaminophen (Tylenol) 650 mg PRN Q6HRS PRN PO PAIN / TEMP; Start 07/25/18 at 19:00 Multi-Ingredient Ointment (Analgesic [place]) 1 maria m PRN QID PRN TP MUSCLE PAIN; Start 07/25/18 at 19:00 Al Hydroxide/Mg Hydroxide (Mylanta Plus Xs) 15 ml PRN AFTMEALHC PRN PO DYSPEPSIA; Start 07/25/18 at 19:00 Magnesium Hydroxide (Milk Of Magnesia) 2,400 mg PRN QHS PRN PO CONSTIPATION; Start 07/25/18 at 19:00 Clonazepam (KlonoPIN) 0.5 mg BID PO Last administered on 07/27/18at 08:20; Start 07/25/18 at 21:00; Stop 07/27/18 at 10:50; Status DC Memantine (Namenda) 5 mg BID PO Last administered on 08/04/18at 20:24; Start 07/25/18 at 21:30 Olanzapine (ZyPREXA) 2.5 mg PRN DAILY PRN PO ANXIETY; Start 07/25/18 at 21:30; Stop 07/30/18 at 22:24; Status DC Olanzapine (ZyPREXA) 5 mg QHS PO Last administered on 07/26/18at 20:01; Start 07/25/18 at 21:30; Stop 07/27/18 at 10:50; Status DC Sertraline HCl (Zoloft) 25 mg DAILY PO Last administered on 07/26/18at 08:21; Start 07/26/18 at 09:00; Stop 07/26/18 at 18:47; Status DC Trazodone HCl (Desyrel) 50 mg PRN QHS PRN PO INSOMNIA; Start 07/25/18 at 21:30 ; Stop 07/27/18 at 09:34; Status DC Acyclovir (Zovirax) 400 mg DAILY PO Last administered on 08/04/18at 07:53; Start 07/26/18 at 09:00 Non-Formulary Medication (Beclomethasone Dipropionate (Qvar Redihaler)) 2 puff BID IH ; Start 07/25/18 at 21:00; Stop 07/25/18 at 21:34; Status DC Fluticasone Propionate (Flonase) 2 spray DAILY NS Last administered on at 07:53; Start 07/26/18 at 09:00 Pantoprazole Sodium (Protonix) 40 mg DAILY PO Last administered on 08/04/18at 07:52; Start 07/26/18 at 09:00 Budesonide (Pulmicort) 0.5 mg RTBID NEB Last administered on 08/04/18at 10:45; Start 07/26/18 at 08:00 Donepezil HCl (Aricept) 10 mg QHS PO Last administered on 08/04/18at 20:24; Start 07/25/18 at 21:30 Sertraline HCl (Zoloft) 50 mg DAILY PO Last administered on 07/29/18at 08:32; Start 07/27/18 at 09:00; Stop 07/29/18 at 09:02; Status DC Trazodone HCl (Desyrel) 50 mg HS PO Last administered on 08/04/18at 20:24; Start 07/27/18 at 21:00 Clonazepam (KlonoPIN) 0.5 mg HS PO Last administered on 07/29/18at 20:38; Start 07/27/18 at 21:00; Stop 07/30/18 at 09:00; Status DC Quetiapine Fumarate (SEROquel) 12.5 mg TID PO Last administered on 07/31/18at 13 :53; Start 07/27/18 at 14:00; Stop 07/31/18 at 17:00; Status DC Clonazepam (KlonoPIN) 0.25 mg DAILY PO Last administered on 07/29/18at 09:00; Start 07/28/18 at 09:00; Stop 07/29/18 at 21:00; Status DC Clonazepam (KlonoPIN) 0.25 mg HS PO Last administered on 07/30/18at 21:01; Start 07/30/18 at 21:00; Stop 07/31/18 at 17:00; Status DC Sertraline HCl (Zoloft) 75 mg DAILY PO Last administered on 08/01/18at 07:40; Start 07/30/18 at 09:00; Stop 08/01/18 at 17:43; Status DC Trazodone HCl (Desyrel) 50 mg PRN QHS PRN PO prn insomnia ; Start 07/30/18 at 22:15 Olanzapine (ZyPREXA) 2.5 mg PRN Q2HR PRN PO ANXIETY Last administered on at 14:42; Start 07/30/18 at 22:30; Stop 08/04/18 at 14:44; Status DC Quetiapine Fumarate (SEROquel) 12.5 mg DAILY PO Last administered on at 07:52; Start 08/01/18 at 09:00 Quetiapine Fumarate (SEROquel) 25 mg 1400,2100 PO Last administered on at 20:26; Start 07/31/18 at 21:00 Sertraline HCl (Zoloft) 100 mg DAILY PO Last administered on 08/04/18at 07:52; Start 08/02/18 at 09:00 Olanzapine (ZyPREXA ZYDIS) 2.5 mg PRN Q2HR PRN PO PSYCHOSIS; Start 08/04/18 at 14:45 Lorazepam (Ativan) 0.25 mg PRN Q2HR PRN PO ANXIETY / AGITATION Last administered on 08/04/18at 16:34; Start 08/04/18 at 16:30 Haloperidol Lactate (Haldol) 5 mg DAILY IM Last administered on 08/04/18at 18: 50; Start 08/04/18 at 18:50 Lorazepam (Ativan) 1 mg DAILY IM Last administered on 08/04/18at 18:50; Start 08/04/18 at 18:50 Active Scripts Active Reported Trazodone Hcl 50 Mg Tablet 50 Mg PO PRN QHS PRN Omeprazole 20 Mg Tablet.dr 20 Mg PO DAILY Namzaric 14 mg-10 mg Capsule (Memantine HCl/Donepezil HCl) 1 Each Cap.spr.24 1 Each PO QHS Fluticasone Propionate Nasal [place] (Fluticasone Propionate) 16 Gm [place].susp 2 [place] NS DAILY Clonazepam 0.5 Mg Tablet 0.5 Mg PO BID Qvar Redihaler (Beclomethasone Dipropionate) 10.6 Gm Hfa.aeroba 2 Puff IH BID Acyclovir 400 Mg Tablet 400 Mg PO DAILY Zoloft (Sertraline Hcl) 25 Mg Tablet 25 Mg PO DAILY Olanzapine 5 Mg Tablet 5 Mg PO QHS Olanzapine 5 Mg Tablet 2.5 Mg PO PRN DAILY PRN I have reviewed the current psychotropics carefully including drug interactions. Risk benefit ratio favors no change other than as noted in my dictated progress note. Diagnosis: Problems: (1) Anxiety disorder (2) Dementia in Alzheimer's disease with delusions (3) Dementia in Alzheimer's disease with depression (4) Dementia, vascular, with delusions (5) Dementia, vascular, with depression (6) Impulse control disorder SMITA TOLEDO MD Aug 04, 2018 20:44
--- NOTE | 2018-08-04 22:24 | PN ---
DATE: 08/03/2018 PSYCHIATRIC PROGRESS NOTE This late entry 08/03/2018 covers elements not covered in my initial note. SUBJECTIVE: I met with the patient in the evening and staffed at a treatment team meeting with the entire team in the morning. Overall, the patient is pleasant, cooperative, short term memory is impaired. His was not available over the telephone for the treatment team meeting with social service staff have been in contact with her. Her plan is still to have him home. She does travel as part of her work and she intends for him to accompany her on these travels. Short term memory is impaired, but otherwise he is cooperative and the agitation, which prompted this admission appears much improved. No CV, , pulmonary, eye system symptoms on review. MENTAL STATUS EXAM: Oriented to himself and situation. Speech is coherent, pleasant, verbal, smiling. He seemed to remember going on long bicycle rides with his and some aspects of his remote memory are much better than the recent. He accepts his memory problems. It seems to recognize that this has some insight into it, which is very positive. He reassured me that he never walked out of the home, which from the history I have is accurate. No CV, , pulmonary, eye, ENT system symptoms on review, nothing alluded to the nursing staff either. MENTAL STATUS EXAM: Oriented to himself and situation. Speech is coherent, pleasant, verbal. Abstraction fair. Computation impaired. Language function intact. Short term memory is impaired, remote is better. No suicidal or homicidal ideation. Mood and affect are improved. LABORATORY DATA: Reviewed. IMPRESSION: Major neurocognitive disorder, Alzheimer, vascular with depression; anxiety disorder, unspecified. PLAN: No change from initial note. Continue current psychotropics with transition home on Tuesday. MAN Douglas TOLEDO MD DR: BORIS/dontae JOB#: [id number] / [id number]
[2018-08-05 05:36] VITALS: BP 113/64
[2018-08-05] MEDS: HALOPERIDOL LACT 5 MG/ML VIAL. IM SCH (07:40)
[2018-08-05] MEDS: MEMANTINE 5 MG TABLET. PO SCH ×2 (07:41→21:01)
[2018-08-05] MEDS: PANTOPRAZOLE 40 MG TABLET. PO SCH (07:41)
[2018-08-05] MEDS: QUEtiapine 25 MG TABLET. PO SCH ×3 (07:41→21:01)
[2018-08-05] MEDS: SERTRALINE 100 MG TABLET. PO SCH (07:41)
[2018-08-05] MEDS: LORazepam 2 MG/ML VIAL IM SCH (07:47)
[2018-08-05] MEDS: FLUTICASONE 50MCG/NASAL SPRAY 16GM BOTTLE. NS SCH (07:47)
[2018-08-05] MEDS: ACYCLOVIR 200 MG CAPSULE PO SCH (07:47)
[2018-08-05 08:34] LABS: BASO # 0.1 x10^3/uL (0.0-0.2); BASO % 1 % (0-3); EOS # 0.3 x10^3/uL (0.0-0.7); EOS % 5 % (0-3); HEMATOCRIT 36.6 % (39.0-53.0); HEMOGLOBIN 12.4 g/dL (13.0-17.5); LYMPH # 1.3 x10^3/uL (1.0-4.8); LYMPH % 20 % (24-48); MEAN CORPUSCULAR HEMOGLOBIN 30 pg (25-35); MEAN CORPUSCULAR HGB CONC 34 g/dL (31-37); MEAN CORPUSCULAR VOLUME 89 fL (79-100); MONO # 0.7 x10^3/uL (0.0-1.1); MONO % 11 % (0-9); NEUT # 4.2 x10^3uL (1.8-7.7); NEUT % 63 % (31-73); PLATELET COUNT 195 x10^3/uL (140-400); RED CELL DISTRIBUTION WIDTH 13.7 % (11.5-14.5); WHITE BLOOD COUNT 6.6 x10^3/uL (4.0-11.0)
[2018-08-05 08:45] LABS: ALBUMIN 3.4 g/dL (3.4-5.0); CREATININE 1.1 mg/dL (0.7-1.3); GFR 66.8; POTASSIUM 3.6 mmol/L (3.5-5.1); TOTAL BILIRUBIN 0.6 mg/dL (0.2-1.0); TOTAL PROTEIN 6.9 g/dL (6.4-8.2)
[2018-08-05] MEDS: BUDESONIDE 0.5 MG/2 ML NEBU NEB SCH ×2 (11:56→19:45)
[2018-08-05 16:25] VITALS: BP 115/61
--- NOTE | 2018-08-05 18:15 | PN ---
DATE: 08/04/2018 PSYCHIATRIC PROGRESS NOTE This late entry 08/04/2018 covers elements not covered in my initial note. SUBJECTIVE: I met with the patient in the evening on several occasions. Discussed with nursing staff several times as well. Reviewed the chart. The patient slept 5-3/4 hours previous evening. He did well in the morning, but by the afternoon, he was threatening the staff, threatening to kill them because he believed they killed his , kidnapped her. His is on a business trip and said she would be back over the weekend, but there is nothing that can be set with the patient to convince him that she has not been killed by the staff on the unit. I addressed this with him at great length and there is little that can be done to talk him out of it, even though briefly, he did seem to redirect. Later, he had to be placed in the [facility]; was kicking, banging on the doors; yelling; screaming; threatening staff; paranoid; delusional; totally convinced that someone had killed his . He seemed to remember my name, but then was convinced I was part of the plot as well. He has been given p.r.n. Ativan and Zyprexa, all with no result; refusing his medications at times and the oral medications have been ineffective. His behaviors have been deemed to be extremely dangerous and I was on the unit for the entire time that he was extremely volatile, aggressive. We started Haldol IM 5 mg along with Ativan 1 mg daily and then we will have to reassess after his gets back on 08/05/2018, on how the paranoia persists or seems to dissipate with this and then decide whether to continue the IMs or not. He has vague somatic symptoms. No CV, , pulmonary, eye system symptoms on review. MENTAL STATUS EXAM: Oriented to himself, situation at times. Speech coherent, rapid at times. Abstraction fair. Computation, unable to do serial 7's. No active suicidal ideation, but homicidal ideation noted above. Vague, generalized towards staff and everyone involved that he believes has kidnapped his . LABORATORY DATA: Reviewed. IMPRESSION: Unchanged from initial note. PLAN: We will go ahead and add IM scheduled. Rest of the psychotropics will remain unchanged. Nursing staff had made multiple attempts to contact the on the cell phone and now even her voice mail is completely full. We would not like to get additional consent from the for the Haldol IM, Ativan IM scheduled before we did it, but given the volatility, aggression, out of control behaviors of the patient, we just had to go ahead and do it for his own safety and those of others around him. We will reassess once his returns on 08/05/2018. MAN Douglas TOLEDO MD DR: BORIS/dontae JOB#: [id number] / [id number]
[2018-08-05] MEDS: DONEPEZIL HCL 10 MG TABLET PO SCH (21:01)
[2018-08-05] MEDS: traZODone 50 MG TABLET. PO SCH (21:01)
--- NOTE | 2018-08-05 22:38 | PDOC ---
Exam Note: [place] Note: Please also refer to the separate dictated note~for this date of service dictated separately.~Patient seen individually. Discussed the patient with Nursing staff reviewed the chart.~Reviewed interim history and current functioning. Reviewed vital signs,~Labs/ Radiology~and current medications noted below. Continue current treatment with the changes noted in the dictated addendum note Assessment: Vital Signs: Vital Signs Date Time Temp Pulse Resp B/P (MAP) Pulse Ox O2 Delivery O2 Flow Rate FiO2 08/05/18 16:25 97.5 61 20 115/61 (79) 98 08/05/18 11:56 Room Air I&O Intake and Output 08/05/18 07:00 Intake Total 1200 ml Balance 1200 ml Intake Oral 1200 ml Labs: Laboratory Tests Test 08/05/18 08:05 White Blood Count 6.6 x10^3/uL (4.0-11.0) Red Blood Count 4.10 x10^6/uL (4.30-5.70) L Hemoglobin 12.4 g/dL (13.0-17.5) L Hematocrit 36.6 % (39.0-53.0) L Mean Corpuscular Volume 89 fL (79-100) Mean Corpuscular Hemoglobin 30 pg (25-35) Mean Corpuscular Hemoglobin Concent 34 g/dL (31-37) Red Cell Distribution Width 13.7 % (11.5-14.5) Platelet Count 195 x10^3/uL (140-400) Neutrophils (%) (Auto) 63 % (31-73) Lymphocytes (%) (Auto) 20 % (24-48) L Monocytes (%) (Auto) 11 % (0-9) H Eosinophils (%) (Auto) 5 % (0-3) H Basophils (%) (Auto) 1 % (0-3) Neutrophils # (Auto) 4.2 x10^3uL (1.8-7.7) Lymphocytes # (Auto) 1.3 x10^3/uL (1.0-4.8) Monocytes # (Auto) 0.7 x10^3/uL (0.0-1.1) Eosinophils # (Auto) 0.3 x10^3/uL (0.0-0.7) Basophils # (Auto) 0.1 x10^3/uL (0.0-0.2) Sodium Level 143 mmol/L (136-145) Potassium Level 3.6 mmol/L (3.5-5.1) Chloride Level 106 mmol/L (98-107) Carbon Dioxide Level 31 mmol/L (21-32) Anion Gap 6 (6-14) Blood Urea Nitrogen 22 mg/dL (8-26) Creatinine 1.1 mg/dL (0.7-1.3) Estimated GFR (Cockcroft-Gault) 66.8 BUN/Creatinine Ratio 20 (6-20) Glucose Level 94 mg/dL (70-99) Calcium Level 9.0 mg/dL (8.5-10.1) Total Bilirubin 0.6 mg/dL (0.2-1.0) Aspartate Amino Transferase (AST) 38 U/L (15-37) H Alanine Aminotransferase (ALT) 24 U/L (16-63) Alkaline Phosphatase 66 U/L (46-116) Total Protein 6.9 g/dL (6.4-8.2) Albumin 3.4 g/dL (3.4-5.0) Albumin/Globulin Ratio 1.0 (1.0-1.7) Current Medications: Meds: Current Medications Influenza Virus Vaccine (Afluria Trivalent [id number] Syringe) 0.5 ml ONCE ONCE VAX IM Last administered on 07/26/18at 12:43; Start 07/26/18 at 09:00; Stop 07/26/18 at 09:01; Status DC Acetaminophen (Tylenol) 650 mg PRN Q6HRS PRN PO PAIN / TEMP; Start 07/25/18 at 19:00 Multi-Ingredient Ointment (Analgesic [place]) 1 maria m PRN QID PRN TP MUSCLE PAIN; Start 07/25/18 at 19:00 Al Hydroxide/Mg Hydroxide (Mylanta Plus Xs) 15 ml PRN AFTMEALHC PRN PO DYSPEPSIA; Start 07/25/18 at 19:00 Magnesium Hydroxide (Milk Of Magnesia) 2,400 mg PRN QHS PRN PO CONSTIPATION; Start 07/25/18 at 19:00 Clonazepam (KlonoPIN) 0.5 mg BID PO Last administered on 07/27/18at 08:20; Start 07/25/18 at 21:00; Stop 07/27/18 at 10:50; Status DC Memantine (Namenda) 5 mg BID PO Last administered on 08/05/18at 21:01; Start 07/25/18 at 21:30 Olanzapine (ZyPREXA) 2.5 mg PRN DAILY PRN PO ANXIETY; Start 07/25/18 at 21:30; Stop 07/30/18 at 22:24; Status DC Olanzapine (ZyPREXA) 5 mg QHS PO Last administered on 07/26/18at 20:01; Start 07/25/18 at 21:30; Stop 07/27/18 at 10:50; Status DC Sertraline HCl (Zoloft) 25 mg DAILY PO Last administered on 07/26/18at 08:21; Start 07/26/18 at 09:00; Stop 07/26/18 at 18:47; Status DC Trazodone HCl (Desyrel) 50 mg PRN QHS PRN PO INSOMNIA; Start 07/25/18 at 21:30 ; Stop 07/27/18 at 09:34; Status DC Acyclovir (Zovirax) 400 mg DAILY PO Last administered on 08/05/18at 07:47; Start 07/26/18 at 09:00 Non-Formulary Medication (Beclomethasone Dipropionate (Qvar Redihaler)) 2 puff BID IH ; Start 07/25/18 at 21:00; Stop 07/25/18 at 21:34; Status DC Fluticasone Propionate (Flonase) 2 spray DAILY NS Last administered on at 07:47; Start 07/26/18 at 09:00 Pantoprazole Sodium (Protonix) 40 mg DAILY PO Last administered on 08/05/18at 07:41; Start 07/26/18 at 09:00 Budesonide (Pulmicort) 0.5 mg RTBID NEB Last administered on 08/05/18at 11:56; Start 07/26/18 at 08:00 Donepezil HCl (Aricept) 10 mg QHS PO Last administered on 08/05/18at 21:01; Start 07/25/18 at 21:30 Sertraline HCl (Zoloft) 50 mg DAILY PO Last administered on 07/29/18at 08:32; Start 07/27/18 at 09:00; Stop 07/29/18 at 09:02; Status DC Trazodone HCl (Desyrel) 50 mg HS PO Last administered on 08/05/18 21:01; Start 07/27/18 at 21:00 Clonazepam (KlonoPIN) 0.5 mg HS PO Last administered on 07/29/18at 20:38; Start 07/27/18 at 21:00; Stop 07/30/18 at 09:00; Status DC Quetiapine Fumarate (SEROquel) 12.5 mg TID PO Last administered on 07/31/18at 13 :53; Start 07/27/18 at 14:00; Stop 07/31/18 at 17:00; Status DC Clonazepam (KlonoPIN) 0.25 mg DAILY PO Last administered on 07/29/18at 09:00; Start 07/28/18 at 09:00; Stop 07/29/18 at 21:00; Status DC Clonazepam (KlonoPIN) 0.25 mg HS PO Last administered on 07/30/18at 21:01; Start 07/30/18 at 21:00; Stop 07/31/18 at 17:00; Status DC Sertraline HCl (Zoloft) 75 mg DAILY PO Last administered on 08/01/18at 07:40; Start 07/30/18 at 09:00; Stop 08/01/18 at 17:43; Status DC Trazodone HCl (Desyrel) 50 mg PRN QHS PRN PO prn insomnia ; Start 07/30/18 at 22:15 Olanzapine (ZyPREXA) 2.5 mg PRN Q2HR PRN PO ANXIETY Last administered on at 14:42; Start 07/30/18 at 22:30; Stop 08/04/18 at 14:44; Status DC Quetiapine Fumarate (SEROquel) 12.5 mg DAILY PO Last administered on at 07:41; Start 08/01/18 at 09:00 Quetiapine Fumarate (SEROquel) 25 mg 1400,2100 PO Last administered on at 21:01; Start 07/31/18 at 21:00 Sertraline HCl (Zoloft) 100 mg DAILY PO Last administered on 08/05/18at 07:41; Start 08/02/18 at 09:00 Olanzapine (ZyPREXA ZYDIS) 2.5 mg PRN Q2HR PRN PO PSYCHOSIS Last administered on 08/05/18at 08:07; Start 08/04/18 at 14:45 Lorazepam (Ativan) 0.25 mg PRN Q2HR PRN PO ANXIETY / AGITATION Last administered on 08/04/18at 16:34; Start 08/04/18 at 16:30 Haloperidol Lactate (Haldol) 5 mg DAILY IM Last administered on 08/05/18at 07: 40; Start 08/04/18 at 18:50 Lorazepam (Ativan) 1 mg DAILY IM Last administered on 08/05/18at 07:47; Start 08/04/18 at 18:50 Active Scripts Active Reported Trazodone Hcl 50 Mg Tablet 50 Mg PO PRN QHS PRN Omeprazole 20 Mg Tablet.dr 20 Mg PO DAILY Namzaric 14 mg-10 mg Capsule (Memantine HCl/Donepezil HCl) 1 Each Cap.spr.24 1 Each PO QHS Fluticasone Propionate Nasal [place] (Fluticasone Propionate) 16 Gm [place].susp 2 [place] NS DAILY Clonazepam 0.5 Mg Tablet 0.5 Mg PO BID Qvar Redihaler (Beclomethasone Dipropionate) 10.6 Gm Hfa.aeroba 2 Puff IH BID Acyclovir 400 Mg Tablet 400 Mg PO DAILY Zoloft (Sertraline Hcl) 25 Mg Tablet 25 Mg PO DAILY Olanzapine 5 Mg Tablet 5 Mg PO QHS Olanzapine 5 Mg Tablet 2.5 Mg PO PRN DAILY PRN I have reviewed the current psychotropics carefully including drug interactions. Risk benefit ratio favors no change other than as noted in my dictated progress note. Diagnosis: Problems: (1) Anxiety disorder (2) Dementia in Alzheimer's disease with delusions (3) Dementia in Alzheimer's disease with depression (4) Dementia, vascular, with delusions (5) Dementia, vascular, with depression (6) Impulse control disorder SMITA TOLEDO MD Aug 05, 2018 22:38
[2018-08-06 06:19] VITALS: BP 108/64
[2018-08-06] MEDS: SERTRALINE 100 MG TABLET. PO SCH (07:37)
[2018-08-06] MEDS: PANTOPRAZOLE 40 MG TABLET. PO SCH (07:37)
[2018-08-06] MEDS: QUEtiapine 25 MG TABLET. PO SCH ×2 (07:37→13:53)
[2018-08-06] MEDS: MEMANTINE 5 MG TABLET. PO SCH ×2 (07:37→20:09)
[2018-08-06] MEDS: HALOPERIDOL LACT 5 MG/ML VIAL. IM SCH ×2 (07:38→09:00)
[2018-08-06] MEDS: FLUTICASONE 50MCG/NASAL SPRAY 16GM BOTTLE. NS SCH (07:38)
[2018-08-06] MEDS: LORazepam 2 MG/ML VIAL IM SCH ×2 (08:05→09:00)
[2018-08-06] MEDS: ACYCLOVIR 200 MG CAPSULE PO SCH (08:10)
[2018-08-06] MEDS: BUDESONIDE 0.5 MG/2 ML NEBU NEB SCH ×2 (11:26→20:19)
[2018-08-06 16:05] VITALS: BP 109/67
[2018-08-06] MEDS: traZODone 50 MG TABLET. PO SCH (20:09)
[2018-08-06] MEDS: DONEPEZIL HCL 10 MG TABLET PO SCH (20:09)
--- NOTE | 2018-08-06 20:45 | PDOC ---
Exam Note: [place] Note: Please also refer to the separate dictated note~for this date of service dictated separately.~Patient seen individually. Discussed the patient with Nursing staff reviewed the chart.~Reviewed interim history and current functioning. Reviewed vital signs,~Labs/ Radiology~and current medications noted below. Continue current treatment with the changes noted in the dictated addendum note Assessment: Vital Signs: Vital Signs Date Time Temp Pulse Resp B/P (MAP) Pulse Ox O2 Delivery O2 Flow Rate FiO2 08/06/18 20:18 98 Room Air 08/06/18 16:05 97.9 68 18 109/67 (81) I&O Intake and Output 08/06/18 07:00 Intake Total 1320 ml Balance 1320 ml Intake Oral 1320 ml Current Medications: Meds: Current Medications Influenza Virus Vaccine (Afluria Trivalent [id number] Syringe) 0.5 ml ONCE ONCE VAX IM Last administered on 07/26/18at 12:43; Start 07/26/18 at 09:00; Stop 07/26/18 at 09:01; Status DC Acetaminophen (Tylenol) 650 mg PRN Q6HRS PRN PO PAIN / TEMP; Start 07/25/18 at 19:00 Multi-Ingredient Ointment (Analgesic [place]) 1 maria m PRN QID PRN TP MUSCLE PAIN; Start 07/25/18 at 19:00 Al Hydroxide/Mg Hydroxide (Mylanta Plus Xs) 15 ml PRN AFTMEALHC PRN PO DYSPEPSIA; Start 07/25/18 at 19:00 Magnesium Hydroxide (Milk Of Magnesia) 2,400 mg PRN QHS PRN PO CONSTIPATION; Start 07/25/18 at 19:00 Clonazepam (KlonoPIN) 0.5 mg BID PO Last administered on 07/27/18at 08:20; Start 07/25/18 at 21:00; Stop 07/27/18 at 10:50; Status DC Memantine (Namenda) 5 mg BID PO Last administered on 08/06/18at 20:09; Start 07/25/18 at 21:30 Olanzapine (ZyPREXA) 2.5 mg PRN DAILY PRN PO ANXIETY; Start 07/25/18 at 21:30; Stop 07/30/18 at 22:24; Status DC Olanzapine (ZyPREXA) 5 mg QHS PO Last administered on 07/26/18at 20:01; Start 07/25/18 at 21:30; Stop 07/27/18 at 10:50; Status DC Sertraline HCl (Zoloft) 25 mg DAILY PO Last administered on 07/26/18at 08:21; Start 07/26/18 at 09:00; Stop 07/26/18 at 18:47; Status DC Trazodone HCl (Desyrel) 50 mg PRN QHS PRN PO INSOMNIA; Start 07/25/18 at 21:30 ; Stop 07/27/18 at 09:34; Status DC Acyclovir (Zovirax) 400 mg DAILY PO Last administered on 08/06/18at 08:10; Start 07/26/18 at 09:00 Non-Formulary Medication (Beclomethasone Dipropionate (Qvar Redihaler)) 2 puff BID IH ; Start 07/25/18 at 21:00; Stop 07/25/18 at 21:34; Status DC Fluticasone Propionate (Flonase) 2 spray DAILY NS Last administered on at 07:38; Start 07/26/18 at 09:00 Pantoprazole Sodium (Protonix) 40 mg DAILY PO Last administered on 08/06/18at 07:37; Start 07/26/18 at 09:00 Budesonide (Pulmicort) 0.5 mg RTBID NEB Last administered on 08/06/18 20:19; Start 07/26/18 at 08:00 Donepezil HCl (Aricept) 10 mg QHS PO Last administered on 08/06/18at 20:09; Start 07/25/18 at 21:30 Sertraline HCl (Zoloft) 50 mg DAILY PO Last administered on 07/29/18at 08:32; Start 07/27/18 at 09:00; Stop 07/29/18 at 09:02; Status DC Trazodone HCl (Desyrel) 50 mg HS PO Last administered on 08/06/18at 20:09; Start 07/27/18 at 21:00 Clonazepam (KlonoPIN) 0.5 mg HS PO Last administered on 07/29/18at 20:38; Start 07/27/18 at 21:00; Stop 07/30/18 at 09:00; Status DC Quetiapine Fumarate (SEROquel) 12.5 mg TID PO Last administered on 07/31/18at 13 :53; Start 07/27/18 at 14:00; Stop 07/31/18 at 17:00; Status DC Clonazepam (KlonoPIN) 0.25 mg DAILY PO Last administered on 07/29/18at 09:00; Start 07/28/18 at 09:00; Stop 07/29/18 at 21:00; Status DC Clonazepam (KlonoPIN) 0.25 mg HS PO Last administered on 07/30/18at 21:01; Start 07/30/18 at 21:00; Stop 07/31/18 at 17:00; Status DC Sertraline HCl (Zoloft) 75 mg DAILY PO Last administered on 08/01/18at 07:40; Start 07/30/18 at 09:00; Stop 08/01/18 at 17:43; Status DC Trazodone HCl (Desyrel) 50 mg PRN QHS PRN PO prn insomnia ; Start 07/30/18 at 22:15 Olanzapine (ZyPREXA) 2.5 mg PRN Q2HR PRN PO ANXIETY Last administered on at 14:42; Start 07/30/18 at 22:30; Stop 08/04/18 at 14:44; Status DC Quetiapine Fumarate (SEROquel) 12.5 mg DAILY PO Last administered on at 07:37; Start 08/01/18 at 09:00; Stop 08/06/18 at 19:17; Status DC Quetiapine Fumarate (SEROquel) 25 mg 1400,2100 PO Last administered on at 13:53; Start 07/31/18 at 21:00; Stop 08/06/18 at 19:23; Status DC Sertraline HCl (Zoloft) 100 mg DAILY PO Last administered on 08/06/18at 07:37; Start 08/02/18 at 09:00 Olanzapine (ZyPREXA ZYDIS) 2.5 mg PRN Q2HR PRN PO PSYCHOSIS Last administered on 08/06/18at 08:06; Start 08/04/18 at 14:45 Lorazepam (Ativan) 0.25 mg PRN Q2HR PRN PO ANXIETY / AGITATION Last administered on 08/04/18at 16:34; Start 08/04/18 at 16:30 Haloperidol Lactate (Haldol) 5 mg DAILY IM Last administered on 08/05/18at 07: 40; Start 08/04/18 at 18:50 Lorazepam (Ativan) 1 mg DAILY IM Last administered on 08/05/18at 07:47; Start 08/04/18 at 18:50 Quetiapine Fumarate (SEROquel) 37.5 mg DAILY PO ; Start 08/07/18 at 09:00; Stop 08/07/18 at 09:00; Status DC Quetiapine Fumarate (SEROquel) 37.5 mg 1400,2100 PO Last administered on at 20:09; Start 08/06/18 at 21:00 Quetiapine Fumarate (SEROquel) 25 mg DAILY PO ; Start 08/07/18 at 09:00 Active Scripts Active Reported Trazodone Hcl 50 Mg Tablet 50 Mg PO PRN QHS PRN Omeprazole 20 Mg Tablet.dr 20 Mg PO DAILY Namzaric 14 mg-10 mg Capsule (Memantine HCl/Donepezil HCl) 1 Each Cap.spr.24 1 Each PO QHS Fluticasone Propionate Nasal [place] (Fluticasone Propionate) 16 Gm [place].susp 2 [place] NS DAILY Clonazepam 0.5 Mg Tablet 0.5 Mg PO BID Qvar Redihaler (Beclomethasone Dipropionate) 10.6 Gm Hfa.aeroba 2 Puff IH BID Acyclovir 400 Mg Tablet 400 Mg PO DAILY Zoloft (Sertraline Hcl) 25 Mg Tablet 25 Mg PO DAILY Olanzapine 5 Mg Tablet 5 Mg PO QHS Olanzapine 5 Mg Tablet 2.5 Mg PO PRN DAILY PRN I have reviewed the current psychotropics carefully including drug interactions. Risk benefit ratio favors no change other than as noted in my dictated progress note. Diagnosis: Problems: (1) Anxiety disorder (2) Dementia in Alzheimer's disease with delusions (3) Dementia in Alzheimer's disease with depression (4) Dementia, vascular, with delusions (5) Dementia, vascular, with depression (6) Impulse control disorder SMITA TOLEDO MD Aug 06, 2018 20:45
[2018-08-06] MEDS ORDERED: QUEtiapine 25 MG TABLET. PO SCH (21:00)
--- NOTE | 2018-08-07 03:24 | PN ---
DATE: 08/05/2018 This is a late entry for 08/05/2018 covers elements not covered in my initial note. SUBJECTIVE: I met with the patient in the evening. The patient has had a better day in the morning, but by the evening, he was again paranoid, feels his is , no one is telling him about that. In fact, his talked to him earlier in the day, but he did not quite remember that as I met with him in the evening. REVIEW OF SYSTEMS: No CV, , pulmonary, eye, ENT system symptoms on review. MENTAL STATUS EXAM: Oriented to himself, situation. Insight, judgment, recent memory is impaired, remote is better. Language function intact. Attention span short. He is somewhat paranoid. Mood and affect somewhat anxious and labile. LABORATORY DATA: Reviewed. IMPRESSION: Unchanged from initial note, probable Lewy body dementia. PLAN: No change from initial note, but if paranoia persists, we may increase Seroquel. Consider Clozaril. MAN Douglas TOLEDO MD DR: BORIS/dontae JOB#: [id number] / [id number]
[2018-08-07 06:30] VITALS: BP 11/58
[2018-08-07] MEDS: MEMANTINE 5 MG TABLET. PO SCH (08:24)
[2018-08-07] MEDS: PANTOPRAZOLE 40 MG TABLET. PO SCH (08:24)
[2018-08-07] MEDS: SERTRALINE 100 MG TABLET. PO SCH (08:25)
[2018-08-07] MEDS: ACYCLOVIR 200 MG CAPSULE PO SCH (08:27)
[2018-08-07] MEDS: FLUTICASONE 50MCG/NASAL SPRAY 16GM BOTTLE. NS SCH (08:27)
[2018-08-07] MEDS ORDERED: QUEtiapine 25 MG TABLET. PO SCH ×2 (09:00)
[2018-08-07] MEDS: BUDESONIDE 0.5 MG/2 ML NEBU NEB SCH (11:01)
[2018-08-07] MEDS ORDERED: LORA-254 PO (11:19)
[2018-08-07] MEDS ORDERED: OLAN5TAB5 PO (11:21)
[2018-08-07] MEDS ORDERED: QUET25TA5 PO ×2 (11:23)
[2018-08-07] MEDS ORDERED: TRAZ-85 PO (11:25)
--- NOTE | 2018-08-07 22:38 | PN ---
DATE: 08/06/2018 PSYCHIATRIC PROGRESS NOTE This late entry 08/06/2018 covers elements not covered in my initial note. SUBJECTIVE: I met with the patient in the evening. The patient has had a little better day. He has not received his IM Haldol and Ativan, and we may stop it soon enough. His did call doctor him, but he had forgotten this by the time I met with him in the evening. REVIEW OF SYSTEMS: No CV, , pulmonary, eye, ENT system symptoms on review. Reliability varies. MENTAL STATUS EXAM: Oriented to himself and situation. Speech is coherent, less pressured. Abstraction fair, computation impaired, language function intact, attention span short. Mood and affect less labile. LABORATORY DATA: Reviewed. IMPRESSION: Unchanged from initial note and the possibility of Lewy body dementia. PLAN: Increase Seroquel from 12.5 once a day, 25 twice a day to 25 mg once a day, 37.5 mg twice a day. Increase Namenda from 5 mg twice a day to 10 mg twice a day. Stop the IM Haldol, Ativan scheduled. Rest unchanged from initial note. MAN Douglas TOLEDO MD DR: BORIS/dontae JOB#: [id number] / [id number]
--- NOTE | 2018-08-08 21:06 | PDOC ---
Exam Note: [place] Note: Late entry for August 08. Please also refer to the separate dictated note~ for this date of service dictated separately.~Patient seen individually. Discussed the patient with Nursing staff reviewed the chart.~Reviewed interim history and current functioning. Reviewed vital signs,~Labs/ Radiology~and current medications noted below. Continue current treatment with the changes noted in the dictated addendum note Assessment: Vital Signs: VS - Last 72 Hours, by Label Date Time Temp Pulse Resp B/P (MAP) Pulse Ox O2 Delivery O2 Flow Rate FiO2 08/07/18 11:03 99 Room Air 08/07/18 06:30 98.6 66 18 11/58 (42) 96 08/06/18 20:18 98 Room Air 08/06/18 16:05 97.9 68 18 109/67 (81) 97 08/06/18 06:19 98.1 60 18 108/64 (79) 98 Vital Signs Date Time Temp Pulse Resp B/P (MAP) Pulse Ox O2 Delivery O2 Flow Rate FiO2 08/07/18 11:03 99 Room Air 08/07/18 06:30 98.6 66 18 11/58 (42) I&O Intake and Output 08/08/18 07:00 Intake Total 360 ml Balance 360 ml Intake Oral 360 ml Current Medications: Meds: Current Medications Influenza Virus Vaccine (Afluria Trivalent [id number] Syringe) 0.5 ml ONCE ONCE VAX IM Last administered on 07/26/18at 12:43; Start 07/26/18 at 09:00; Stop 07/26/18 at 09:01; Status DC Acetaminophen (Tylenol) 650 mg PRN Q6HRS PRN PO PAIN / TEMP; Start 07/25/18 at 19:00; Stop 08/07/18 at 12:48; Status DC Multi-Ingredient Ointment (Analgesic [place]) 1 maria m PRN QID PRN TP MUSCLE PAIN; Start 07/25/18 at 19:00; Stop 08/07/18 at 12:48; Status DC Al Hydroxide/Mg Hydroxide (Mylanta Plus Xs) 15 ml PRN AFTMEALHC PRN PO DYSPEPSIA; Start 07/25/18 at 19:00; Stop 08/07/18 at 12:48; Status DC Magnesium Hydroxide (Milk Of Magnesia) 2,400 mg PRN QHS PRN PO CONSTIPATION; Start 07/25/18 at 19:00; Stop 08/07/18 at 12:48; Status DC Clonazepam (KlonoPIN) 0.5 mg BID PO Last administered on 07/27/18at 08:20; Start 07/25/18 at 21:00; Stop 07/27/18 at 10:50; Status DC Memantine (Namenda) 5 mg BID PO Last administered on 08/07/18at 08:24; Start 07/25/18 at 21:30; Stop 08/07/18 at 12:48; Status DC Olanzapine (ZyPREXA) 2.5 mg PRN DAILY PRN PO ANXIETY; Start 07/25/18 at 21:30; Stop 07/30/18 at 22:24; Status DC Olanzapine (ZyPREXA) 5 mg QHS PO Last administered on 07/26/18at 20:01; Start 07/25/18 at 21:30; Stop 07/27/18 at 10:50; Status DC Sertraline HCl (Zoloft) 25 mg DAILY PO Last administered on 07/26/18at 08:21; Start 07/26/18 at 09:00; Stop 07/26/18 at 18:47; Status DC Trazodone HCl (Desyrel) 50 mg PRN QHS PRN PO INSOMNIA; Start 07/25/18 at 21:30 ; Stop 07/27/18 at 09:34; Status DC Acyclovir (Zovirax) 400 mg DAILY PO Last administered on 08/07/18at 08:27; Start 07/26/18 at 09:00; Stop 08/07/18 at 12:48; Status DC Non-Formulary Medication (Beclomethasone Dipropionate (Qvar Redihaler)) 2 puff BID IH ; Start 07/25/18 at 21:00; Stop 07/25/18 at 21:34; Status DC Fluticasone Propionate (Flonase) 2 spray DAILY NS Last administered on at 08:27; Start 07/26/18 at 09:00; Stop 08/07/18 at 12:48; Status DC Pantoprazole Sodium (Protonix) 40 mg DAILY PO Last administered on 08/07/18at 08:24; Start 07/26/18 at 09:00; Stop 08/07/18 at 12:48; Status DC Budesonide (Pulmicort) 0.5 mg RTBID NEB Last administered on 08/07/18at 11:01; Start 07/26/18 at 08:00; Stop 08/07/18 at 12:48; Status DC Donepezil HCl (Aricept) 10 mg QHS PO Last administered on 08/06/18at 20:09; Start 07/25/18 at 21:30; Stop 08/07/18 at 12:48; Status DC Sertraline HCl (Zoloft) 50 mg DAILY PO Last administered on 07/29/18at 08:32; Start 07/27/18 at 09:00; Stop 07/29/18 at 09:02; Status DC Trazodone HCl (Desyrel) 50 mg HS PO Last administered on 08/06/18at 20:09; Start 07/27/18 at 21:00; Stop 08/07/18 at 12:48; Status DC Clonazepam (KlonoPIN) 0.5 mg HS PO Last administered on 07/29/18at 20:38; Start 07/27/18 at 21:00; Stop 07/30/18 at 09:00; Status DC Quetiapine Fumarate (SEROquel) 12.5 mg TID PO Last administered on 07/31/18at 13 :53; Start 07/27/18 at 14:00; Stop 07/31/18 at 17:00; Status DC Clonazepam (KlonoPIN) 0.25 mg DAILY PO Last administered on 07/29/18at 09:00; Start 07/28/18 at 09:00; Stop 07/29/18 at 21:00; Status DC Clonazepam (KlonoPIN) 0.25 mg HS PO Last administered on 07/30/18at 21:01; Start 07/30/18 at 21:00; Stop 07/31/18 at 17:00; Status DC Sertraline HCl (Zoloft) 75 mg DAILY PO Last administered on 08/01/18at 07:40; Start 07/30/18 at 09:00; Stop 08/01/18 at 17:43; Status DC Trazodone HCl (Desyrel) 50 mg PRN QHS PRN PO prn insomnia ; Start 07/30/18 at 22:15; Stop 08/07/18 at 12:48; Status DC Olanzapine (ZyPREXA) 2.5 mg PRN Q2HR PRN PO ANXIETY Last administered on at 14:42; Start 07/30/18 at 22:30; Stop 08/04/18 at 14:44; Status DC Quetiapine Fumarate (SEROquel) 12.5 mg DAILY PO Last administered on at 07:37; Start 08/01/18 at 09:00; Stop 08/06/18 at 19:17; Status DC Quetiapine Fumarate (SEROquel) 25 mg 1400,2100 PO Last administered on at 13:53; Start 07/31/18 at 21:00; Stop 08/06/18 at 19:23; Status DC Sertraline HCl (Zoloft) 100 mg DAILY PO Last administered on 08/07/18at 08:25; Start 08/02/18 at 09:00; Stop 08/07/18 at 12:48; Status DC Olanzapine (ZyPREXA ZYDIS) 2.5 mg PRN Q2HR PRN PO PSYCHOSIS Last administered on 08/06/18at 08:06; Start 08/04/18 at 14:45; Stop 08/07/18 at 12:48; Status DC Lorazepam (Ativan) 0.25 mg PRN Q2HR PRN PO ANXIETY / AGITATION Last administered on 08/04/18at 16:34; Start 08/04/18 at 16:30; Stop 08/07/18 at 12 :48; Status DC Haloperidol Lactate (Haldol) 5 mg DAILY IM Last administered on 08/05/18at 07: 40; Start 08/04/18 at 18:50; Stop 08/07/18 at 11:01; Status DC Lorazepam (Ativan) 1 mg DAILY IM Last administered on 08/05/18at 07:47; Start 08/04/18 at 18:50; Stop 08/07/18 at 11:01; Status DC Quetiapine Fumarate (SEROquel) 37.5 mg DAILY PO ; Start 08/07/18 at 09:00; Stop 08/07/18 at 09:00; Status DC Quetiapine Fumarate (SEROquel) 37.5 mg 1400,2100 PO Last administered on at 20:09; Start 08/06/18 at 21:00; Stop 08/07/18 at 12:48; Status DC Quetiapine Fumarate (SEROquel) 25 mg DAILY PO Last administered on 08/07/18at 08:28; Start 08/07/18 at 09:00; Stop 08/07/18 at 12:48; Status DC Active Scripts Active Reported Trazodone Hcl 50 Mg Tablet 1 Tab PO QHS LAST DOSE GIVEN: DATE: TIME: NEXT DOSE DUE: DATE: 08/07/18 TIME: Bedtime Seroquel (Quetiapine Fumarate) 25 Mg Tablet 1 Tab PO DAILY LAST DOSE GIVEN: DATE: TIME: NEXT DOSE DUE: DATE: 08/08/18 TIME: 8am Seroquel (Quetiapine Fumarate) 25 Mg Tablet 37.5 Mg PO 1400, 2100 LAST DOSE GIVEN: DATE: TIME: NEXT DOSE DUE: DATE: 08/07/18 TIME: 2pm and again at bedtime. Zyprexa Zydis (Olanzapine) 5 Mg Tab.rapdis 2.5 Mg PO PRN Q2HR PRN LAST DOSE GIVEN: DATE: TIME: NEXT DOSE DUE: As needed with psychosis/agitation DATE: TIME: Ativan (Lorazepam) 1 Mg Tablet 0.25 Mg PO PRN Q2HR PRN LAST DOSE GIVEN: DATE: TIME: NEXT DOSE DUE: As needed for anxiety. DATE: TIME: Trazodone Hcl 50 Mg Tablet 50 Mg PO PRN QHS PRN LAST DOSE GIVEN: DATE: TIME: NEXT DOSE DUE: at bedtime as needed DATE: TIME: Omeprazole 20 Mg Tablet.dr 20 Mg PO DAILY LAST DOSE GIVEN: DATE: TIME: NEXT DOSE DUE: DATE: 08/08/18 TIME: 8am Namzaric 14 mg-10 mg Capsule (Memantine HCl/Donepezil HCl) 1 Each Cap.spr.24 1 Each PO QHS LAST DOSE GIVEN: DATE: TIME: NEXT DOSE DUE: DATE: 08/07/18 TIME: bedtime Fluticasone Propionate Nasal [place] (Fluticasone Propionate) 16 Gm [place].susp 2 [place] NS DAILY LAST DOSE GIVEN: DATE: TIME: NEXT DOSE DUE: DATE: 08/08/18 TIME: 8am Qvar Redihaler (Beclomethasone Dipropionate) 10.6 Gm Hfa.aeroba 2 Puff IH BID LAST DOSE GIVEN: DATE: TIME: NEXT DOSE DUE: DATE: 08/07/18 TIME: Bedtime Acyclovir 400 Mg Tablet 400 Mg PO DAILY LAST DOSE GIVEN: DATE: TIME: NEXT DOSE DUE: DATE:08/08/18 TIME: 8am Zoloft (Sertraline Hcl) 25 Mg Tablet 100 Mg PO DAILY LAST DOSE GIVEN: DATE: TIME: NEXT DOSE DUE: DATE: 08/08/18 TIME: 8am I have reviewed the current psychotropics carefully including drug interactions. Risk benefit ratio favors no change other than as noted in my dictated progress note. Diagnosis: Problems: (1) Anxiety disorder (2) Dementia in Alzheimer's disease with delusions (3) Dementia in Alzheimer's disease with depression (4) Dementia, vascular, with delusions (5) Dementia, vascular, with depression (6) Impulse control disorder SMITA TOLEDO MD Aug 08, 2018 21:06
--- NOTE | 2018-08-08 21:30 | DS ---
DATE OF DISCHARGE: 08/07/2018 DISCHARGE SUMMARY AND PSYCHIATRIC PROGRESS NOTE This is a late entry for date of service 08/07/2018 and covers elements not covered in my initial note. REASON FOR ADMISSION: Please refer to the admission history for details. Briefly, the patient is a 67-year-old male, referred by his primary care physician after he presented at [facility] from home where he lives with his , on account of increased agitation and confusion. At times, he would not recognize his . He was refusing medications and the BiPAP. He did not seem to remember the times was agitated, confused, psychotic. Behaviors were deemed dangerous, unmanageable by the at home with him and referred for inpatient psychiatric stabilization. SIGNIFICANT FINDINGS AND CLINICAL COURSE: Following admission, the patient was seen daily individually by myself from a psychiatric standpoint, medical followup with Dr. Alston/Dr. Sim. The patient had short-term memory deficits, would do better during the day, much worse in the evening with increased psychotic symptoms, confusion. Adjustments were made in his psychotropics. At one time, his did not have telephone contact with him for 3 continuous days as he was traveling on work and towards the evening on the unit, he was totally out of control. He was banging on doors, kicking doors, aggressive, threatening to kill staff members, paranoid, believed everyone was in on a trick to kidnap his . He was briefly started on IM Haldol, Ativan scheduled since oral meds were ineffective, but after the returned, had telephone contact with him, all of this seemed to subside and the IMs were discontinued. He otherwise responded to a combination of Zoloft 100 mg a day, Aricept 10 mg a day, trazodone 50 mg at bedtime, may repeat x 1, Namenda 10 mg twice a day, Seroquel 25 mg in the morning and 37.5 mg twice a day, Zyprexa and Ativan p.r.n. Gradually, his mood appeared to improve other than the above incident. had arrived on the unit morning of 08/07/2018 to discharge him. He had had a difficult weekend with the IMs as noted, but the was quite clear she had decided to take him home on 08/07/2018. Nursing staff BURKE Kohler had discussed with the in communication with me to suggest perhaps another day or two of stabilization may be beneficial, but we agreed to transition to outpatient at the insistence of the . She is his DPOA. REVIEW OF SYSTEMS: Prior to discharge, 08/07/2018, no CV, , pulmonary, eye, ENT system symptoms on review. MENTAL STATUS EXAM: Oriented to himself and situation. Speech coherent, abstraction fair, computation impaired, language function intact, attention span short. Mood and affect, lability was overall improved, even though the weekend was difficult. No suicidal or homicidal ideation at discharge. FINAL DIAGNOSES: Major neurocognitive disorder, probably Alzheimer, vascular, questionably Lewy body with delusion, depression, behavioral disturbance; anxiety disorder, unspecified; impulse control disorder, unspecified. Rest unchanged from admission. DISCHARGE MEDICATIONS: Please refer to the EMRAD. DISCHARGE INSTRUCTIONS: Outpatient psychiatric and medical followup with his primary care physician. Time for discharge day management is greater than 30 minutes. SMITA TOLEDO MD DR: BORIS/dontae JOB#: [id number] / [id number]
== END 2018-08-07 12:00 | disposition home or self-care (01) | DRG 57 ==
LOC: GEROPSY 18:20
PROVIDERS: ADMIT Psychiatry & Neurology Psychiatry; ATTEND Psychiatry & Neurology Psychiatry
DX: G30.9 Alzheimer's disease, unspecified (principal); F02.81 Dementia in other diseases classified elsewhere, unspecified severity, with behavioral disturbance; F01.51 Vascular dementia, unspecified severity, with behavioral disturbance; E78.5 Hyperlipidemia, unspecified; F01.50 Vascular dementia, unspecified severity, without behavioral disturbance, psychotic disturbance, mood disturbance, and anxiety; F32.9 Major depressive disorder, single episode, unspecified; F63.9 Impulse disorder, unspecified; F43.10 Post-traumatic stress disorder, unspecified; G31.83 Neurocognitive disorder with Lewy bodies; G47.33 Obstructive sleep apnea (adult) (pediatric); H90.5 Unspecified sensorineural hearing loss; H40.9 Unspecified glaucoma; I10 Essential (primary) hypertension; J44.9 Chronic obstructive pulmonary disease, unspecified; K21.9 Gastro-esophageal reflux disease without esophagitis; N40.0 Benign prostatic hyperplasia without lower urinary tract symptoms; R45.850 Homicidal ideations; Z66 Do not resuscitate; Z82.0 Family history of epilepsy and other diseases of the nervous system; Z79.899 Other long term (current) drug therapy; Z82.49 Family history of ischemic heart disease and other diseases of the circulatory system; Z86.14 Personal history of Methicillin resistant Staphylococcus aureus infection; Z87.891 Personal history of nicotine dependence; Z23 Encounter for immunization
CPT/HCPCS: 36415; 80053; 80061; 81001; 82306; 82607; 83036; 83540; 83550; 83735; 84436; 84443; 84480; 85025; 86592; 90471; 90756; 93005; 94640; J1630; J2060; J7626; Q2035

== ENCOUNTER 2020-03-08 12:34 | Inpatient (IN) | payer MEDICARE, OTHER ==
[~2020-03-08] VITALS: Ht 165.1 cm; Wt 80.9 kg
[~2020-03-08 12:34] MED LIST: ACYC400T PO; BECL10.6 IH; CLON0.5T4 PO; FLUT16SP21 NS; LORA-254 PO; MEMA1CAP2 PO; OLAN5TAB5 PO; OLAN5TAB9 PO; OMEP20TA8 PO; QUET25TA5 PO; SERT25TA PO; TRAZ-120 PO
[2020-03-08] MEDS ORDERED: DONE5TAB56 PO (15:37)
[2020-03-08] MEDS ORDERED: MEMA10TA PO (15:37)
[2020-03-08] MEDS ORDERED: FINA5TAB4 PO (15:37)
[2020-03-08] MEDS ORDERED: OLAN5TAB9 PO (15:37)
[2020-03-08] MEDS ORDERED: TAMS0.4C97 PO (15:37)
--- NOTE | 2020-03-08 18:00 | NUR ---
Admission Note with Justification for Admission to [facility] Patient admitted to [facility] for protective oversight for emergency stabilization of acute psychiatric crisis. Pt admitted from: Home/[facility] Mode of arrival: Secure Transport Accompanied By: [facility] Staff Precipitating behaviors that initiated intake and admission: aggressive and threatening towards , fearful of him, burning plastic in the kitchen, confused and disoriented, hallucinations, restless, fidgety. Description of failure of out patient attempts at stabilization in previous setting list behavior and medication trials: taken to ED, started aricept, zyprexa, 1:1 sitter, IM medication Behaviors and assessment findings upon admission: When staff went to assist pt from transportation vehicle pt was chewing his surgical mask and it was in several pieces in his mouth, RN removed it from his mouth. Transportation staff stated they had orders for restraints but did not have to use them. Pt is disorganized and confused and was declining to get out of the transportation van stating to staff. "you can't remove my seat belt that's brutal and you're not a lawn maintenance worker." Staff encouraged to pt get out of the van however he declined. Staff assisted pt out of the van. Pt stated to transportation staff, "if you break my head you are ." Staff provided pt with redirection and emotional support and continuous reassurance of safety. While assessing pt pt was not able to follow directions and was resistive such as when asking him to sit on the toilet. Pt was later more compliant with admission process. Pt is wandering the West hallway as he will not wear a surgical mask or stay in his room at this time. When asking pt orientation questions or speaking with the pt his answers are not appropriate for example. When asked if he knew where he was he stated "are you a run away?" He is not able to track and follow conversations. Pt is also having visual hallucinations AEB pt picking up things on the floor that are not there and taking "things out of his pocket that are not there and attempting to hand them to staff and describing them as "scralls." Plan: Admit for protective oversight for adjustment and stabilization of medications, behaviors and mood. Intense treatment regimen including groups, medication adjustments, therapy, consistent regimen for ADL's, self care, and sleep hygiene. Daily monitoring by Inpatient staff, Psychiatry, and Medical Physician.
[2020-03-08 18:21] VITALS: BP 134/75
[2020-03-08] MEDS ORDERED: MAG HYDROX/AL HYDROX/SIMETH 30 ML ORAL.SUSP PO PRN (18:45)
[2020-03-08] MEDS ORDERED: ACETAMINOPHEN 325 MG TABLET PO PRN (18:45)
[2020-03-08] MEDS ORDERED: METHYL SALICYLATE/MENTHOL TOPICAL OINTMENT 57GM TUBE. TP PRN (18:45)
[2020-03-08 20:00] LABS: BASO # 0.1 x10^3/uL (0.0-0.2); BASO % 1 % (0-3); EOS # 0.3 x10^3/uL (0.0-0.7); EOS % 4 % (0-3); HEMATOCRIT 40.1 % (39.0-53.0); HEMOGLOBIN 13.3 g/dL (13.0-17.5); LYMPH # 1.3 x10^3/uL (1.0-4.8); LYMPH % 18 % (24-48); MEAN CORPUSCULAR HEMOGLOBIN 29 pg (25-35); MEAN CORPUSCULAR HGB CONC 33 g/dL (31-37); MEAN CORPUSCULAR VOLUME 89 fL (79-100); MONO # 0.7 x10^3/uL (0.0-1.1); MONO % 10 % (0-9); NEUT # 4.7 x10^3uL (1.8-7.7); NEUT % 67 % (31-73); PLATELET COUNT 220 x10^3/uL (140-400); RED BLOOD COUNT 4.53 x10^6/uL (4.30-5.70); RED CELL DISTRIBUTION WIDTH 14.2 % (11.5-14.5)
[2020-03-08 20:09] LABS: ALBUMIN 3.8 g/dL (3.4-5.0); CREATININE 1.1 mg/dL (0.7-1.3); GFR 66.4; MAGNESIUM 2.1 mg/dL (1.8-2.4); POTASSIUM 3.7 mmol/L (3.5-5.1); TOTAL BILIRUBIN 0.4 mg/dL (0.2-1.0); TOTAL PROTEIN 7.6 g/dL (6.4-8.2)
[2020-03-08] MEDS: traZODone 50 MG TABLET. PO SCH (20:41)
[2020-03-08] MEDS: SERTRALINE 100 MG TABLET. PO SCH (20:41)
[2020-03-08] MEDS: OLANZapine 5 MG TABLET PO SCH (20:41)
[2020-03-08] MEDS ORDERED: MEMANTINE 5 MG TABLET. PO SCH (21:00)
--- NOTE | 2020-03-08 22:19 | PDOC ---
Exam Note: Heber Note: Please also refer to the separate dictated note~for this date of service dictated separately. Discussed the patient with Nursing staff reviewed the chart.~Reviewed interim history and current functioning. Reviewed vital signs,~Labs/ Radiology~and current medications noted below. Continue current treatment with the changes noted in the dictated addendum note Assessment: Vital Signs/I&O: Vital Signs Date Time Temp Pulse Resp B/P (MAP) Pulse Ox O2 Delivery O2 Flow Rate FiO2 03/08/20 20:29 98.7 97 03/08/20 18:21 85 22 134/75 (94) Room Air Labs: Laboratory Tests Test 03/08/20 19:40 White Blood Count 7.0 x10^3/uL (4.0-11.0) Red Blood Count 4.53 x10^6/uL (4.30-5.70) Hemoglobin 13.3 g/dL (13.0-17.5) Hematocrit 40.1 % (39.0-53.0) Mean Corpuscular Volume 89 fL (79-100) Mean Corpuscular Hemoglobin 29 pg (25-35) Mean Corpuscular Hemoglobin Concent 33 g/dL (31-37) Red Cell Distribution Width 14.2 % (11.5-14.5) Platelet Count 220 x10^3/uL (140-400) Neutrophils (%) (Auto) 67 % (31-73) Lymphocytes (%) (Auto) 18 % (24-48) L Monocytes (%) (Auto) 10 % (0-9) H Eosinophils (%) (Auto) 4 % (0-3) H Basophils (%) (Auto) 1 % (0-3) Neutrophils # (Auto) 4.7 x10^3uL (1.8-7.7) Lymphocytes # (Auto) 1.3 x10^3/uL (1.0-4.8) Monocytes # (Auto) 0.7 x10^3/uL (0.0-1.1) Eosinophils # (Auto) 0.3 x10^3/uL (0.0-0.7) Basophils # (Auto) 0.1 x10^3/uL (0.0-0.2) Sodium Level 138 mmol/L (136-145) Potassium Level 3.7 mmol/L (3.5-5.1) Chloride Level 101 mmol/L (98-107) Carbon Dioxide Level 26 mmol/L (21-32) Anion Gap 11 (6-14) Blood Urea Nitrogen 21 mg/dL (8-26) Creatinine 1.1 mg/dL (0.7-1.3) Estimated GFR (Cockcroft-Gault) 66.4 BUN/Creatinine Ratio 19 (6-20) Glucose Level 100 mg/dL (70-99) H Calcium Level 9.0 mg/dL (8.5-10.1) Magnesium Level 2.1 mg/dL (1.8-2.4) Total Bilirubin 0.4 mg/dL (0.2-1.0) Aspartate Amino Transferase (AST) 17 U/L (15-37) Alanine Aminotransferase (ALT) 21 U/L (16-63) Alkaline Phosphatase 84 U/L (46-116) Total Protein 7.6 g/dL (6.4-8.2) Albumin 3.8 g/dL (3.4-5.0) Albumin/Globulin Ratio 1.0 (1.0-1.7) Current Medications: Meds: Current Medications Medications (Trade) Dose Ordered Sig/Phi Route PRN Reason Start Time Stop Time Status Last Admin Dose Admin Memantine (Namenda) 5 mg HS PO 03/08/20 21:00 03/08/20 20:41 Olanzapine (ZyPREXA) 5 mg QHS PO 03/08/20 21:00 03/08/20 20:41 Sertraline HCl (Zoloft) 100 mg HS PO 03/08/20 21:00 03/08/20 20:41 Trazodone HCl (Desyrel) 50 mg QHS PO 03/08/20 21:00 03/08/20 20:41 I have reviewed the current psychotropics carefully including drug interactions. Risk benefit ratio favors no change other than as noted in my dictated progress note. Diagnosis: Problems: (1) Anxiety disorder (2) Dementia in Alzheimer's disease with delusions (3) Dementia in Alzheimer's disease with depression (4) Dementia, vascular, with delusions (5) Dementia, vascular, with depression (6) Impulse control disorder SMITA TOLEDO MD March 08, 2020 22:19
--- NOTE | 2020-03-08 23:57 | NUR ---
Pt located in [facility] all evening. Pt highly disorganized, answering to his name and stating that he is 28 years old. Pt wandering, restless, door checking and disrobing. Onesie placed on pt. Pt appears to be having visual and auditory hallucinations AEB carrying on conversations with people that are not there and reaching/ grabbing at items in the air and on the floor. Pt given whole medications which he proceeded to chew. PRN Zyprexa administered at 2230 d/t pt's restlessness. Pt continues to wander the hallway door checking at times. No agitation this evening. Will continue to monitor.
[2020-03-09 05:48] VITALS: BP 158/81
[2020-03-09] MEDS ORDERED: DONEPEZIL HCL 5 MG TABLET. PO SCH (09:00)
[2020-03-09] MEDS: FINASTERIDE 5 MG TABLET PO SCH (09:31)
[2020-03-09] MEDS: QUEtiapine 25 MG TABLET. PO SCH (09:31)
[2020-03-09] MEDS: TAMSULOSIN 0.4 MG CAP.ER.24H. PO SCH (09:31)
--- NOTE | 2020-03-09 09:43 | NUR ---
Nurse heard pt yell out after wandering in the [facility]. Nurse then observed pt laying on his back with his knees pulled to his chest and his hands behind his head. When nurse asked what was going on. Pt stated "nothing, I sat down." Nurse offered pt assistance to stand. Pt declined. A few minutes later ELEVATED GUARD's assisted pt to the shower with no resistance.
[2020-03-09 09:50] LABS: THYROID STIM HORMONE (TSH) 3.977 uIU/mL (0.358-3.740)
--- NOTE | 2020-03-09 10:11 | NUR ---
Pt is calm, cooperative, and compliant and confused. Pt is wandering the West hallway, disorganized, unable to focus on a take and unable to hold a conversation. He is having visual hallucinations. AEB pt held his hand out, when nurse asked what was in his hand? Pt stated "eels, they taste like calamari after you cook them." Pt then was fidgeting with something on the wall. No agitation or aggression at this time. He is compliant with his medication and assessment.
--- NOTE | 2020-03-09 14:40 | NUR ---
called to speak with pt today. Pt unable to us phone appropriately and hung up on his .
[2020-03-09 16:14] VITALS: BP 157/88
--- NOTE | 2020-03-09 16:38 | CONS ---
DATE OF CONSULTATION: 03/09/2020 ATTENDING PHYSICIAN: Dr. Palma. REASON FOR CONSULTATION: We are asked to see this patient for medical consultation. HISTORY OF PRESENT ILLNESS: The patient is a 69-year-old gentleman admitted yesterday for increasing behavioral issues. He has profound dementia. He actually has been here before on a visit 18 months ago. The patient's history is obtained from the old chart and old records. He has been living with his . He is getting more confused and agitated. He was transferred here for further treatment and evaluation. His is fearful of him. He has been very aggressive and threatening to her; he is profoundly confused. PAST MEDICAL HISTORY: Significant for sleep apnea, gastroesophageal reflux disease, hypertension, GERD, PE, PTSD, prostatic hypertrophy, COPD, questionable Lewy body dementia and delirium. SOCIAL HISTORY: He lives in [place], [place], sees Dr. Frederick. He was a smoker in the past. CURRENT MEDICINES: Reviewed. He was scheduled to take Aricept, finasteride, Namenda, olanzapine, Zyprexa, Seroquel, Zoloft, Flomax, and trazodone. ALLERGIES: He has no known drug allergies. FAMILY HISTORY: Unobtainable. REVIEW OF SYSTEMS: Unobtainable due to the patient's confusion. PHYSICAL EXAMINATION: GENERAL: When I saw him, this is a pleasant gentleman, but he was wandering around and going into a different room. He has no insight as to why he is here. VITAL SIGNS: Showed a blood pressure of 158/81, pulse is 76 and regular, temperature 96.8 degrees Fahrenheit, and oxygen saturations were 94% on room air. HEENT: Head is without trauma. Pupils are reactive. Sclerae nonicteric. The oropharynx is clear. NECK: Supple. LUNGS: Clear. Good breath sounds. CARDIOVASCULAR: Showed regular heart tones. No gallops. Peripheral pulses are palpable and full. ABDOMEN: Soft, nontender, no organomegaly. Bowel sounds normoactive. EXTREMITIES: Show no cyanosis or edema. NEUROLOGIC: The patient is not aware of person or place. He responds very superficially and tangentially. His balance is adequate and he ambulates without any assistance. PERTINENT LABORATORY DATA: The hemoglobin is 13.3 g/dL with white count of 7000. ASSESSMENT: 1. This 69-year-old gentleman has profound dementia with agitation. 2. Hypertension. 3. Chronic obstructive pulmonary disease. 4. History of posttraumatic stress disorder. 5. History of sleep apnea. 6. Profound dementia. RECOMMENDATIONS: 1. Meds were reviewed and I recommend continuation. 2. He is medically stable at this time. Thank you again for asking me to see this patient for medical consultation. We shall gladly follow along during his hospitalization. JAYME SINHA MD DR: JEANCARLOS/dontae JOB#: [id number] / [id number] DANIEL Gonzalez MD
[2020-03-09] MEDS: OLANZapine 5 MG TABLET PO SCH (20:55)
[2020-03-09] MEDS: MIRTAZAPINE 7.5 MG TABLET. PO SCH (20:55)
[2020-03-09] MEDS: SERTRALINE 100 MG TABLET. PO SCH (20:55)
[2020-03-09] MEDS: traZODone 50 MG TABLET. PO SCH (20:55)
[2020-03-09] MEDS: LORazepam 0.5 MG TABLET PO PRN (20:56)
--- NOTE | 2020-03-09 22:28 | PDOC ---
Exam Note: Heber Note: Please also refer to the separate dictated note~for this date of service dictated separately.~Patient seen individually. Discussed the patient with Nursing staff reviewed the chart.~Reviewed interim history and current functioning. Reviewed vital signs,~Labs/ Radiology~and current medications noted below. Continue current treatment with the changes noted in the dictated addendum note Assessment: Vital Signs/I&O: Vital Signs Date Time Temp Pulse Resp B/P (MAP) Pulse Ox O2 Delivery O2 Flow Rate FiO2 03/09/20 21:34 97.8 94 03/09/20 16:14 89 20 157/88 (111) Room Air Current Medications: Meds: Current Medications Medications (Trade) Dose Ordered Sig/Phi Route PRN Reason Start Time Stop Time Status Last Admin Dose Admin Donepezil HCl (Aricept) 5 mg DAILY PO 03/09/20 09:00 03/09/20 18:10 DC 03/09/20 09:31 Finasteride (Proscar) 5 mg DAILY PO 03/09/20 09:00 03/09/20 09:31 Quetiapine Fumarate (SEROquel) 25 mg DAILY PO 03/09/20 09:00 03/09/20 09:31 Tamsulosin HCl (Flomax) 0.4 mg DAILY PO 03/09/20 09:00 03/09/20 09:31 Mirtazapine (Remeron) 7.5 mg QHS PO 03/09/20 21:00 03/09/20 20:55 I have reviewed the current psychotropics carefully including drug interactions. Risk benefit ratio favors no change other than as noted in my dictated progress note. Diagnosis: Problems: (1) Anxiety disorder (2) Dementia in Alzheimer's disease with delusions (3) Dementia in Alzheimer's disease with depression (4) Dementia, vascular, with delusions (5) Dementia, vascular, with depression (6) Impulse control disorder (7) Post traumatic stress disorder SMITA TOLEDO MD March 09, 2020 22:28
--- NOTE | 2020-03-09 23:31 | NUR ---
Pt located in the west hallway this evening. Pt restless, wandering, door checking. Pt observed to be having auditory and visual hallucinations. Pt undressing and placed in a onesie. When approaching pt to administer HS medications, pt stated "who the fuck are you? Don't come around here again." Pt not agitated or combative. Compliant with crushed medications in one bite of pudding. PRN Ativan administered with HS medications. Pt put himself on the floor numerous times. Pt placed in bed and continues to get back up and pace hallway. Will continue to monitor.
[2020-03-10 02:06] LABS: HEMOGLOBIN A1C 5.5 % (4.8-5.6)
[2020-03-10 05:58] VITALS: BP 112/56
[2020-03-10] MEDS: TAMSULOSIN 0.4 MG CAP.ER.24H. PO SCH (09:20)
[2020-03-10] MEDS: QUEtiapine 25 MG TABLET. PO SCH ×3 (09:20→17:24)
[2020-03-10] MEDS: FINASTERIDE 5 MG TABLET PO SCH (09:20)
--- NOTE | 2020-03-10 10:09 | NUR ---
Pt is calm, cooperative, and compliant and confused. Pt is wandering the West hallway, disorganized, unable to focus on a take and unable to hold a conversation. Pt is restless and having visual hallucinations. No agitation or aggression. Pt is alert to name only. Pt believes it is August 2001. When asked how many quarters are in $1 he stated 4. When asked how many dimes are in $1 he stated 4.
[2020-03-10 16:25] VITALS: BP 119/65
--- NOTE | 2020-03-10 17:02 | NUR ---
PSYCHOSOCIAL ASSESSMENT ADMISSION DATE: 03/08/20 CONTACT INFORMATION: DPOA/Guardian Contact Name: Joya Kearns Contact Address: [address] [place] [address] Contact Phone #: ETHNIC ORIGIN: REASONS FOR ADMISSION: Combative Confusion/Disoriented Poor impulse control ADDITIONAL ADMISSION COMMENTS: According to the intake, pt is aggressive and threatening towards . is fearful of him, burning plastic in the kitchen, confused and demented, hallucinates, restless and fidgety. REASON FOR ADMISSION IN PATIENT/FAMILY'S OWN WORDS: Pt has increasingly been getting worse over the last 2 weeks. PATIENT/FAMILY EXPECTATIONS FOR ADMISSION: Medication management "I really feel like his anxiety hasn't been assessed and he needs something for it". LIVING SITUATION: Patient lives with: Spouse FAMILY RELATIONS: Marital Status: # of Marriages: 1 # of Children: 0 [facility] Family Support: Concerned Involved in DC Planning Additional Comments r/t Family: Pt has been to Joya for over 30 years. The 2 have no children. SIGNIFICANT PSYCHIATRIC/MEDICAL HISTORY: Psychiatric/Treatment History: This is pt 2nd admission to [facility]. Pt also had a psychiatric eval on 03/04 Pertinent Family History: Pt sister had Dementia HISTORICAL DATA: Childhood Environment: Other-see below Childhood Environment Additional Comments: Pt had an okay childhood. Pt father was in the and they moved around a bit. Pt had one older sister who has from Alzheimer's. 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 service: N Yarsani background: None; "we consider ourselves [place]". Sexual orientation: Heterosexual Educational Level: Bachelor's Degree; did not fully complete his Master's Past/Present Interests/Hobbies: camping, photography, reading, exercise and traveling; watches the news Financial support/resources: Care Home/Pension Social Security Monthly income: Person handling finances: Pt handles accts; refuses to disclose monthly amount Do you have a history of legal problems: N Cultural considerations: SOCIAL RELATIONSHIPS-CURRENT/PAST: Psychiatrist: Dr. Sanchez PCP: Dr. Frederick Counselor/Therapist: [facility]: Support Group: Mimeograph Operator/Floor Specialist: Other relationships: Dr. Sher (neurology) STRENGTHS & WEAKNESSES: Patient's strengths: Good family support Education level Ambulatory Other patient strengths: Patient's weaknesses: Lack of housing Impulsive Physically Aggressive Verbally Aggressive Other patient weaknesses: PRELIMINARY PLAN OF TREATMENT: Preliminary plan: Dec. Anxiety/Panic Promote Coping Skill Monitor Med Effects Dec. Outbursts Dec. Aggression Other preliminary treatment comments: DISCHARGE PLANNING: Discharge planning/disposition: Placement Needed Additional discharge needs identified: mental health services ADDITIONAL INFORMATION: Other Pertinent Data: SW met with pt to go over pt recent behaviors and to discuss goals for pt discharge. Pt reports that she really likes [facility] and would like to try them again. She realizes that they may be frustrated with her as she pulled him out of the facility twice. Pt will plan to contact the nutrition educator to discuss the possibility. Pt does report that the family has a cabin in [facility] and will talk to family to see if it will be beneficial to move him there and care for him surrounding family. Pt reports having some depression and just needing time to process everything. SW will be in contact with Joya in a few days.
--- NOTE | 2020-03-10 17:22 | TX PLAN ---
Interdisciplinary Tx Plan Admission Information March 08, 2020 at 17:56 Legal Status (on Admission): Voluntary DPOA/Guardian Name: Joya Kearns Contact Verified Code Status: DNR Allergies: Coded Allergies: No Known Drug Allergies (Unverified , 07/25/18) Diagnoses Primary Diagnosis: Major Neurocognitive D/O, vascular Alzheimer's with delusions, depression, behavioral disturbance Reasons for Admission: Combative, Confusion/Disoriented, Poor impulse control Problem in Patient's Words: Pt has increasingly been getting worse over the last 2 weeks. Additional Admission Comments: According to the intake, pt is aggressive and threatening towards . is fearful of him, burning plastic in the kitchen, confused and demented, hallucinates, restless and fidgety. Problems Active Problems: aggressive confused hallucinating restless Inactive Problems: medication compliant Pt Strengths/Limitations Ability for [place]: Poor Cognitive Functioning/Ability: Fair Communication Skills/Ability: Fair Financial Resources: Fair Insight/Judgement: Poor Intellectual Ability: Poor Physical Health: Fair Social Skills: Poor Stability in Family: Fair Stability in School/Work: Poor Verbal Skills: Poor Discharge Criteria Discharge Criteria: Adequate arrangements @DC, Improved behavior, Improved mood/thought Preliminary Discharge Plan Preliminary DC Plan: Placement Needed Special Precautions Fall Risk: Low Initial D/C Plan Pt will need placement at the time of discharge as is not able to care for pt. Identified Discharge Needs: mental health services Currently Utilized Resources Currently Utilized Resources/P: Primary Care Physician Neurology Identified Problems/Hx/Goals Objectives/Short-Term Goals Short Term Goals: Dec. Aggression, Dec. Anxiety/Panic, Dec. Outbursts, Monitor Med Effects, Promote Coping Skill Short Term Goals in Patient's: medication management Interventions/Frequency Staff Interventions/Frequency&: Psychiatrist to assess pt at least 3x per week. Social Work to assess pt at least 2x per week. Nursing to assess and complete 15 minute checks daily. Encourage participation in group activities or on a 1:1 basis based on activity therapy assessment/goal. 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 Education: Bachelor's Degree; did not fully complete his Master's Community Follow-up Continue to follow up with Primary care physician Treatment Plan Explained Patient/Awake Overnight Counselor had this treatment plan explained to him/her as indicated by the signature below and has been given the opportunity to ask questions and make suggestions: Date: Patient/Awake Overnight Counselor Signature: Patient/Awake Overnight Counselor Decline: EDSON Norman March 10, 2020 17:22
--- NOTE | 2020-03-10 18:28 | NUR ---
Nurse attempted to toilet pt. Pt became irritable, resistive, refused to put his clothing back on and stated to nurse "youre being ridiculous." Pt then grabbed clothing and would not put it on. Pt then stated to nurse "youre not going to fuck me up." Nurse provided emotional support, reassurance and redirection to pt. Nurse called for help. POULTRY PROCESSING SUPERVISOR assisted in dressing and redirecting and dressing pt. Pt dressed X 2 assist. Pt then paced West hallway, door checking and exit seeking, and hitting on windows. PRN zyprexa johnnyis given.
[2020-03-10] MEDS: MIRTAZAPINE 7.5 MG TABLET. PO SCH (20:05)
[2020-03-10] MEDS: OLANZapine 5 MG TABLET PO SCH (20:05)
[2020-03-10] MEDS: SERTRALINE 100 MG TABLET. PO SCH (20:05)
[2020-03-10] MEDS: traZODone 50 MG TABLET. PO SCH (20:05)
--- NOTE | 2020-03-10 22:13 | NUR ---
Pt wandering in West hallway at shift change. Pt restless, confused, and disorganized, at times shaking the hallway doors but interactive when approached although speaking non-sensically. Pt cooperative with assessment and compliant with medications crushed in pudding. PRN repeat Trazodone administered for restlessness/insomnia.
--- NOTE | 2020-03-10 22:16 | PDOC ---
Exam Note: Heber Note: Please also refer to the separate dictated note~for this date of service dictated separately.~Patient seen individually. Discussed the patient with Nursing staff reviewed the chart.~Reviewed interim history and current functioning. Reviewed vital signs,~Labs/ Radiology~and current medications noted below. Continue current treatment with the changes noted in the dictated addendum note Assessment: Vital Signs/I&O: Vital Signs Date Time Temp Pulse Resp B/P (MAP) Pulse Ox O2 Delivery O2 Flow Rate FiO2 03/10/20 16:25 98.1 80 16 119/65 (83) 96 03/09/20 16:14 Room Air I & O 03/09/20 03/09/20 03/10/20 15:00 23:00 07:00 Intake Total 240 ml 480 ml Balance 240 ml 480 ml Current Medications: Meds: Current Medications Medications (Trade) Dose Ordered Sig/Phi Route PRN Reason Start Time Stop Time Status Last Admin Dose Admin Quetiapine Fumarate (SEROquel) 12.5 mg 1300,1700 PO 03/10/20 13:00 03/10/20 17:24 I have reviewed the current psychotropics carefully including drug interactions. Risk benefit ratio favors no change other than as noted in my dictated progress note. Diagnosis: Problems: (1) Post traumatic stress disorder (2) Anxiety disorder (3) Dementia in Alzheimer's disease with delusions (4) Dementia in Alzheimer's disease with depression (5) Dementia, vascular, with delusions (6) Dementia, vascular, with depression (7) Impulse control disorder SMITA TOLEDO MD March 10, 2020 22:16
[2020-03-10] MEDS: traZODone 50 MG TABLET. PO PRN (23:21)
[2020-03-10] MEDS: LORazepam 0.5 MG TABLET PO PRN (23:25)
--- NOTE | 2020-03-10 23:32 | NUR ---
Pt continues to be restless, wandering in West hallway and door checking, unable to re-direct. PRN Ativan administered crushed in pudding.
[2020-03-11 06:22] VITALS: BP 109/64
[2020-03-11 06:51] LABS: BASO # 0.1 x10^3/uL (0.0-0.2); BASO % 1 % (0-3); EOS # 0.4 x10^3/uL (0.0-0.7); EOS % 6 % (0-3); HEMATOCRIT 36.9 % (39.0-53.0); HEMOGLOBIN 12.3 g/dL (13.0-17.5); LYMPH # 1.3 x10^3/uL (1.0-4.8); LYMPH % 22 % (24-48); MEAN CORPUSCULAR HEMOGLOBIN 30 pg (25-35); MEAN CORPUSCULAR HGB CONC 33 g/dL (31-37); MEAN CORPUSCULAR VOLUME 89 fL (79-100); MONO # 0.8 x10^3/uL (0.0-1.1); MONO % 14 % (0-9); NEUT # 3.4 x10^3uL (1.8-7.7); NEUT % 57 % (31-73); PLATELET COUNT 182 x10^3/uL (140-400); RED BLOOD COUNT 4.14 x10^6/uL (4.30-5.70); RED CELL DISTRIBUTION WIDTH 14.4 % (11.5-14.5)
[2020-03-11 07:09] LABS: ALBUMIN 3.1 g/dL (3.4-5.0); ALBUMIN/GLOBULIN RATIO 0.9 (1.0-1.7); CALCIUM 8.4 mg/dL (8.5-10.1); GFR 74.1; POTASSIUM 3.7 mmol/L (3.5-5.1); TOTAL BILIRUBIN 0.5 mg/dL (0.2-1.0); TOTAL PROTEIN 6.5 g/dL (6.4-8.2)
[2020-03-11] MEDS: QUEtiapine 25 MG TABLET. PO SCH ×3 (10:10→17:40)
[2020-03-11] MEDS: TAMSULOSIN 0.4 MG CAP.ER.24H. PO SCH (10:10)
[2020-03-11] MEDS: FINASTERIDE 5 MG TABLET PO SCH (10:10)
--- NOTE | 2020-03-11 10:22 | RAD ---
CT HEAD WO CONTRAST Date: 03/11/2020 12:00 AM Clinical Indication: Altered mental status Comparison: None. Technique: 5 mm axial tomographic images were obtained of the head without contrast. These were viewed on brain and bone windows. One or more of the following dose reduction techniques were utilized: Automated exposure control (AEC), Adjustment of mA and/or kV according to patient size, Use of iterative reconstruction technique such as ASiR, CT scan done according to ALARA and image gently/image wisely Findings: Advanced generalized cerebral and cerebellar volume loss. Mild nonspecific periventricular hypoattenuation, most commonly seen with chronic small vessel ischemic disease. Calcified atherosclerosis of the bilateral cavernous and paraclinoid internal carotid arteries and intracranial vertebral arteries. No intra- or extra-axial mass or fluid collection. No acute hemorrhage. The ventricles are normal in size, shape, and morphology. The varner-white matter junction is normal. The subarachnoid cisterns are patent. Mild right maxillary sinus mucosal thickening. The visualized portions of the orbits and globes are normal. The mastoid air cells are clear. The quality director topogram shows no lytic lesion or fracture. Impression: No acute intracranial process. Mild cerebral volume loss. Extensive chronic small vessel ischemic disease. Electronically signed by: Rakan Jenkins MD (03/11/2020 10:19 AM) [facility]
--- NOTE | 2020-03-11 12:00 | NUR ---
ACTIVITY THERAPY ASSESSMENT Completed based on observation, interview and notes. Pt. was eating lunch but allowed COMPLIANCE TECHNICIAN to conduct interview. Pt. was nonsensical most of the time and required some assistance with cutting up his food. Throughout the interview, Pt. 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 When asked if he could hear COMPLIANCE TECHNICIAN ok while she was wearing a mask, he said "my ears are slowly shutting." Per notes, Pt. has been confused, disorientated, disorganized, restless, wandering, door checking, and disrobing throughout his stay. Pt's psychosocial indicated Pt. enjoys camping, photography, reading, exercise, traveling, and watching the news. Initial goal aimed to increase sensory stimulation: Pt. will participate in at least two individual Activity Therapy session before discharge.
--- NOTE | 2020-03-11 14:55 | NUR ---
Nursing note: Pt in his room for morning meds and assessment. Pt was compliant with meds crushed in pudding and cooperative with his assessment. Pt was drowsy and remained in bed all morning. He got up for lunch and has been wandering the halls this afternoon. Pt is very disorganized, but has been pleasant this shift. Will continue to monitor.
[2020-03-11 15:38] VITALS: BP 126/73
[2020-03-11] MEDS: MIRTAZAPINE 7.5 MG TABLET. PO SCH (19:54)
[2020-03-11] MEDS: SERTRALINE 100 MG TABLET. PO SCH (19:54)
[2020-03-11] MEDS: OLANZapine 5 MG TABLET PO SCH (19:54)
[2020-03-11] MEDS: traZODone 50 MG TABLET. PO SCH (19:54)
--- NOTE | 2020-03-11 21:21 | NUR ---
Pt has been walking in the halls he is social with others and cooperative. Meds were given crushed in pudding without difficulty. He remains pleasantly confused was only to state month and day of . No behaviors tonight.
--- NOTE | 2020-03-11 21:49 | HP ---
ADMIT DATE: 03/08/2020 PSYCHIATRIC ADMISSION AND HISTORY/EVALUATIO NOTE. This late entry, date of service 03/08/2020, covers the elements not covered in my initial note. The patient was seen on telehealth rounds for this evaluation. IDENTIFYING DATA: The patient is a 69-year-old male referred to us from [facility] where he presented from home. The patient has been increasingly confused, restless, agitated, wandering, having active auditory and visual hallucinations. He has not been able to use his BiPAP/CPAP due to being uncooperative and this may have further worsened some of his confusion. He has been extremely agitated since being on the unit, psychotic, paranoid, had to be placed in the East hallway. CHIEF COMPLAINT: "No." HISTORY OF PRESENT ILLNESS: The patient has a history of Alzheimer's dementia, Alzheimer's vascular type. Additionally, he is hard of hearing, which further worsens his confusion. The patient has had sleep and appetite changes, marked paranoia, psychosis, significant mood swings. Behaviors have been dangerous, unmanageable, out of control, resulting in this referral. PAST PSYCHIATRIC HISTORY: As above. MEDICAL HISTORY: BPH; cataract; COPD; GERD; glaucoma; hard of hearing; hyperlipidemia; history of MRSA in 2000; sleep apnea, on CPAP/BiPAP; history of PTSD; encephalopathy. He is a former smoker of 36 years. PAST SURGICAL HISTORY: Appendectomy. ALLERGIES: Negative. CODE STATUS: DNR. DIET: Regular. Takes medications crushed, ambulates independently. CURRENT PSYCHOTROPICS: Aricept 5 mg a day; Namenda 5 mg at bedtime; Zyprexa 5 mg at bedtime; Zyprexa p.r.n., started since his hospitalization here; Seroquel 25 mg daily; Zoloft 100 mg a day; trazodone 50 mg at bedtime; Ativan 0.5 mg q. 2 hours p.r.n., max 1.5 mg in 24 hours. FAMILY HISTORY: Noncontributory. SOCIAL HISTORY: No history of alcohol, drug abuse, physical, sexual or elder abuse. Not known to be a perpetrator. REACTION TO HOSPITALIZATION: The patient oblivious of it. ASSETS: Supportive family. MENTAL STATUS EXAMINATION: The patient is oriented to himself. Insight, judgment, recent and remote memory, attention, concentration, fund of knowledge poor, consistent with his diagnosis. He is mumbling and muttering under his breath. LABORATORY DATA: Reviewed. IMPRESSION: Major neurocognitive disorder, Alzheimer, vascular with delusion, depression, behavioral disturbance; anxiety disorder, unspecified; impulse control disorder, unspecified. Rest as above. PLAN: Admit to Geropsychiatry Unit at [facility]. I will see the patient daily individually from a psychiatric standpoint. Medical followup per Dr. Alston/Dr. Linder. Continue current psychotropics, monitor his insomnia. Consider using Remeron if needed for this. We will do nocturnal desaturation studies since he has not been using the CPAP/BiPAP despite significant sleep apnea. We will make further adjustments in psychotropics as clinically indicated. Estimated length of stay 10-12 days. DISPOSITION PLAN: Will need transition to half-way. MAN Douglas TOLEDO MD DR: BORIS/dontae JOB#: [id number] / [id number]
--- NOTE | 2020-03-11 21:50 | PN ---
DATE: 03/09/2020 PSYCHIATRIC PROGRESS NOTE This late entry of 03/09 covers elements not covered in my initial note. SUBJECTIVE: I met with the patient on the evening of 03/09 on audiovisual TeleHealth rounds. Per nursing report, the patient slept just 1-1/2 hours the previous night. He remains confused, anxious and restless. REVIEW OF SYSTEMS: No CV, , pulmonary, eye, ENT system symptoms on review. MENTAL STATUS EXAMINATION: Oriented to himself. Insight, judgment, recent and remote memory, attention, concentration and fund of knowledge poor, consistent with his diagnosis. IMPRESSION: Major neurocognitive disorder, Alzheimer, vascular with delusion, depression, behavioral disturbance; anxiety disorder, unspecified; impulse control disorder, unspecified. Rest unchanged. PLAN: Continue current psychotropic. Start Remeron 7.5 mg at bedtime for his marked insomnia. Stop the Aricept and Namenda; they have probably a little benefit at this stage of his dementia. Continue rest of the psychotropics, Zoloft, Seroquel along with scheduled Zyprexa 5 mg at bedtime plus p.r.n., trazodone 50 mg at bedtime, Ativan p.r.n. Add Remeron 7.5 mg at bedtime for his insomnia. SMITA TOLEDO MD DR: BORIS/dontae JOB#: [id number] / [id number]
--- NOTE | 2020-03-11 22:19 | PDOC ---
Exam Note: Heber Note: Please also refer to the separate dictated note~for this date of service dictated separately.~Patient seen individually. Discussed the patient with Nursing staff reviewed the chart.~Reviewed interim history and current functioning. Reviewed vital signs,~Labs/ Radiology~and current medications noted below. Continue current treatment with the changes noted in the dictated addendum note Assessment: Vital Signs/I&O: Vital Signs Date Time Temp Pulse Resp B/P (MAP) Pulse Ox O2 Delivery O2 Flow Rate FiO2 03/11/20 18:49 98.6 03/11/20 15:38 71 20 126/73 (90) 96 03/11/20 06:22 Room Air I & O 03/10/20 03/10/20 03/11/20 15:00 23:00 07:00 Intake Total 600 ml 360 ml 120 ml Balance 600 ml 360 ml 120 ml Labs: Laboratory Tests Test 03/11/20 06:40 White Blood Count 6.0 x10^3/uL (4.0-11.0) Red Blood Count 4.14 x10^6/uL (4.30-5.70) L Hemoglobin 12.3 g/dL (13.0-17.5) L Hematocrit 36.9 % (39.0-53.0) L Mean Corpuscular Volume 89 fL (79-100) Mean Corpuscular Hemoglobin 30 pg (25-35) Mean Corpuscular Hemoglobin Concent 33 g/dL (31-37) Red Cell Distribution Width 14.4 % (11.5-14.5) Platelet Count 182 x10^3/uL (140-400) Neutrophils (%) (Auto) 57 % (31-73) Lymphocytes (%) (Auto) 22 % (24-48) L Monocytes (%) (Auto) 14 % (0-9) H Eosinophils (%) (Auto) 6 % (0-3) H Basophils (%) (Auto) 1 % (0-3) Neutrophils # (Auto) 3.4 x10^3uL (1.8-7.7) Lymphocytes # (Auto) 1.3 x10^3/uL (1.0-4.8) Monocytes # (Auto) 0.8 x10^3/uL (0.0-1.1) Eosinophils # (Auto) 0.4 x10^3/uL (0.0-0.7) Basophils # (Auto) 0.1 x10^3/uL (0.0-0.2) Sodium Level 143 mmol/L (136-145) Potassium Level 3.7 mmol/L (3.5-5.1) Chloride Level 106 mmol/L (98-107) Carbon Dioxide Level 32 mmol/L (21-32) Anion Gap 5 (6-14) L Blood Urea Nitrogen 21 mg/dL (8-26) Creatinine 1.0 mg/dL (0.7-1.3) Estimated GFR (Cockcroft-Gault) 74.1 BUN/Creatinine Ratio 21 (6-20) H Glucose Level 82 mg/dL (70-99) Calcium Level 8.4 mg/dL (8.5-10.1) L Total Bilirubin 0.5 mg/dL (0.2-1.0) Aspartate Amino Transferase (AST) 17 U/L (15-37) Alanine Aminotransferase (ALT) 19 U/L (16-63) Alkaline Phosphatase 66 U/L (46-116) Total Protein 6.5 g/dL (6.4-8.2) Albumin 3.1 g/dL (3.4-5.0) L Albumin/Globulin Ratio 0.9 (1.0-1.7) L Current Medications: I have reviewed the current psychotropics carefully including drug interactions. Risk benefit ratio favors no change other than as noted in my dictated progress note. Diagnosis: Problems: (1) Post traumatic stress disorder (2) Anxiety disorder (3) Dementia in Alzheimer's disease with delusions (4) Dementia in Alzheimer's disease with depression (5) Dementia, vascular, with delusions (6) Dementia, vascular, with depression (7) Impulse control disorder SMITA TOLEDO MD March 11, 2020 22:19
--- NOTE | 2020-03-11 22:37 | PN ---
DATE: 03/10/2020 PSYCHIATRIC PROGRESS NOTE This late entry 03/10/2020 covers elements not covered in my initial note. SUBJECTIVE: I met with the patient evening of 03/10/2020 and staffed at a treatment team meeting with the entire team in the morning with BURKE Herrera. The patient slept 3-3/4 hours previous night. He remains confused in the East hallway, agitated, intermittently checking doors, hallucinating, restless. Per nursing staff, he is disorganized, has possible tactile hallucinations, believing he could feel tea leaves in his hand. REVIEW OF SYSTEMS: No CV, , pulmonary, eye, ENT system symptoms on review. MENTAL STATUS EXAMINATION: Oriented to himself. Insight, judgment, recent and remote memory, attention, concentration, fund of knowledge poor, consistent with his diagnosis. IMPRESSION: Major neurocognitive disorder, Alzheimer, vascular with delusion, depression, behavioral disturbance; anxiety disorder, unspecified; impulse control disorder, unspecified. PLAN: Continue current psychotropics, stop his Ativan in due course. For now, we will add Seroquel 12.5 mg, 1:00 p.m. and 5:00 p.m., maintain 25 mg a day. Continue Zyprexa p.r.n., Zoloft 100 mg a day; trazodone 50 mg at bedtime, may repeat x 1 for insomnia; Ativan p.r.n., Remeron 7.5 mg at bedtime. Adjust further as clinically indicated. SMITA TOLEDO MD DR: BORIS/dontae JOB#: [id number] / [id number]
[2020-03-12 06:46] VITALS: BP 146/78
[2020-03-12] MEDS: FINASTERIDE 5 MG TABLET PO SCH (08:04)
[2020-03-12] MEDS: TAMSULOSIN 0.4 MG CAP.ER.24H. PO SCH (08:04)
[2020-03-12] MEDS: QUEtiapine 25 MG TABLET. PO SCH ×2 (08:04→12:13)
--- NOTE | 2020-03-12 09:29 | PDOC ---
Exam Note: Heber Note: This note is a late entry for 03/11/2020 covers elements not covered in my initial note. SUBJECTIVE: The patient was seen on Telehealth services in the evening of 03/11/2020. Nursing report was with Elizabeth TURK. Discussed the patient with nursing staff reviewed the chart. He slept 7 hours previous night. He is somewhat drowsy, confused, takes meds in pudding, having active visual hallucinations. No longer on the East hallway, has been wandering the hallway putting, himself on the floor hallucinating. REVIEW OF SYSTEMS: Ambulation impaired, in wheelchair. No CV, GI/, Pulmonary, Eye, ENT system symptoms on review. MENTAL STATUS EXAM: Oriented to himself. Insight and judgment, recent and remote memory, attention and concentration, fund of knowledge is poor consistent with his diagnosis mentioned in my initial note. LABORATORY DATA: Reviewed. IMPRESSSION: Schizoaffective disorder, bipolar type, mixed with psychotic features. Anxiety disorder unspecified. Impulse control disorder unspecified. Rest unchanged. PLAN: No change from initial note. Assessment: Vital Signs/I&O: Vital Signs Date Time Temp Pulse Resp B/P (MAP) Pulse Ox O2 Delivery O2 Flow Rate FiO2 03/12/20 08:00 98.0 98 03/12/20 06:46 79 20 146/78 (100) 03/11/20 06:22 Room Air I & O 03/11/20 03/11/20 03/12/20 15:00 23:00 07:00 Intake Total 720 ml 480 ml Balance 720 ml 480 ml Current Medications: I have reviewed the current psychotropics carefully including drug interactions. Risk benefit ratio favors no change other than as noted in my dictated progress note. Diagnosis: Problems: (1) Post traumatic stress disorder (2) Anxiety disorder (3) Dementia in Alzheimer's disease with delusions (4) Dementia in Alzheimer's disease with depression (5) Dementia, vascular, with delusions (6) Dementia, vascular, with depression (7) Impulse control disorder SMITA TOLEDO MD March 12, 2020 09:29
--- NOTE | 2020-03-12 10:01 | NUR ---
Pt in dining room eating breakfast. Pt states he feels good and that he slept good, however per retail shift leader patient up wandering all night. Pt is calm and compliant with cares. Compliant with medications crushed in pudding, said "thank you". 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 Patient has been wandering hallways, knocks on windows to nurses station and says "thank you" and "Magali Chaudhry". Pt is pleasantly confused. WCTM.
--- NOTE | 2020-03-12 12:04 | NUR ---
Pt wandering hallways, keeps bending over to pick things up or "fix things" on the ground. Pt acted like he was handing RN something, RN asked what it was, pt said "its you minus 1". Pt keeps walking by nurse, asking how she is doing. Then will ask if he can ask a question, however thoughts are disorganized, and a question is never asked. Pt talks about a broad range of topics but the sentences and topics aren't put together. Pt has been calm and compliant. WCTM.
[2020-03-12 16:02] VITALS: BP 131/62
[2020-03-12] MEDS: SERTRALINE 100 MG TABLET. PO SCH (19:50)
[2020-03-12] MEDS: OLANZapine 5 MG TABLET PO SCH (19:50)
[2020-03-12] MEDS: traZODone 100 MG TABLET. PO SCH (19:50)
[2020-03-12] MEDS: risperiDONE 0.25 MG TABLET. PO SCH (19:53)
[2020-03-12] MEDS: MIRTAZAPINE 15 MG TABLET PO SCH (19:53)
[2020-03-12] MEDS: traZODone 50 MG TABLET. PO PRN (22:02)
[2020-03-12] MEDS: LORazepam 0.5 MG TABLET PO PRN (22:02)
--- NOTE | 2020-03-12 22:10 | PDOC ---
Exam Note: Heber Note: Please also refer to the separate dictated note~for this date of service dictated separately.~Patient seen individually. Discussed the patient with Nursing staff reviewed the chart.~Reviewed interim history and current functioning. Reviewed vital signs,~Labs/ Radiology~and current medications noted below. Continue current treatment with the changes noted in the dictated addendum note Assessment: Vital Signs/I&O: Vital Signs Date Time Temp Pulse Resp B/P (MAP) Pulse Ox O2 Delivery O2 Flow Rate FiO2 03/12/20 20:41 98.3 94 03/12/20 16:02 59 16 131/62 (85) 03/11/20 06:22 Room Air I & O 03/11/20 03/11/20 03/12/20 15:00 23:00 07:00 Intake Total 720 ml 480 ml Balance 720 ml 480 ml Current Medications: Meds: Current Medications Medications (Trade) Dose Ordered Sig/Phi Route PRN Reason Start Time Stop Time Status Last Admin Dose Admin Trazodone HCl (Desyrel) 100 mg QHS PO 03/12/20 21:00 03/12/20 19:50 Risperidone (RisperDAL) 0.25 mg BID PO 03/12/20 21:00 03/12/20 19:53 Mirtazapine (Remeron) 15 mg QHS PO 03/12/20 21:00 03/12/20 19:53 I have reviewed the current psychotropics carefully including drug interactions. Risk benefit ratio favors no change other than as noted in my dictated progress note. Diagnosis: Problems: (1) Post traumatic stress disorder (2) Anxiety disorder (3) Dementia in Alzheimer's disease with delusions (4) Dementia in Alzheimer's disease with depression (5) Dementia, vascular, with delusions (6) Dementia, vascular, with depression (7) Impulse control disorder SMITA TOLEDO MD March 12, 2020 22:09
--- NOTE | 2020-03-12 22:47 | PN ---
DATE: 03/12/2020 PSYCHIATRIC PROGRESS NOTE This late entry 03/12/2020 covers elements not covered in my initial note. SUBJECTIVE: I met with the patient evening of 03/12/2020. Per BURKE Smith, the patient remains confused, ambulating in the hallways, having visual hallucinations, grabbing at staff, making vague disorganized statements "U-1." He has been trying to chew on his fingers. REVIEW OF SYSTEMS: No CV, , pulmonary, eye, ENT system symptoms on review. Reliability poor. He was whispering to me, disorganized. MENTAL STATUS EXAM: Insight, judgment, recent and remote memory, attention, concentration, fund of knowledge poor, consistent with his diagnosis. He did not sleep at all last night. LABORATORY DATA: Reviewed. IMPRESSION: Major neurocognitive disorder, Alzheimer, vascular with delusion, depression, behavioral disturbance; anxiety disorder, unspecified; impulse control disorder, unspecified. PLAN: Increase Remeron from 7.5 mg at bedtime to 15 mg at bedtime to help with the insomnia. Increase trazodone from 50 mg at bedtime schedule to 100 mg at bedtime and may repeat 50 mg p.r.n. thereafter and change the Seroquel from 12.5 mg once a day, 25 mg once a day to Risperdal 0.25 mg twice a day for his ongoing psychotic symptoms. Continue Zoloft 100 mg a day. Rest unchanged for now. MAN Douglas TOLEDO MD DR: BORIS/dontae JOB#: [id number] / [id number]
--- NOTE | 2020-03-13 01:50 | NUR ---
Last evening pt was quietly walking in [place] and was pleasant and social. At times he would orange picking supervisor unseen things from floor and eat them or try and put them in his pocket. Sometimes he would converse with staff or peers, speech is clear but rambling. He took his meds crushed in pudding without difficulty. At approx 2200 pt was still walking around with no indication of getting tired, he did not sleep at all last night. PRN trazodone and lorazepam were given then after 45 mins he was taken to bed without difficulty and has been sleeping since.
[2020-03-13 06:18] VITALS: BP 137/72
[2020-03-13] MEDS: risperiDONE 0.25 MG TABLET. PO SCH ×2 (11:03→19:58)
[2020-03-13] MEDS: FINASTERIDE 5 MG TABLET PO SCH (11:04)
[2020-03-13] MEDS: TAMSULOSIN 0.4 MG CAP.ER.24H. PO SCH (11:04)
[2020-03-13 15:52] VITALS: BP 120/71
--- NOTE | 2020-03-13 18:30 | NUR ---
Patient has been calm, compliant, pleasantly confused throughout this shift. He slept in until about 11:00, spent most of the afternoon wandering, and was cooperative throughout. Will continue to monitor and report to oncoming shift.
[2020-03-13] MEDS: SERTRALINE 100 MG TABLET. PO SCH (19:58)
[2020-03-13] MEDS: traZODone 100 MG TABLET. PO SCH (19:58)
[2020-03-13] MEDS: MIRTAZAPINE 15 MG TABLET PO SCH (19:58)
[2020-03-13] MEDS: OLANZapine 5 MG TABLET PO SCH (19:58)
[2020-03-13] MEDS: LORazepam 0.5 MG TABLET PO PRN (21:59)
[2020-03-13] MEDS: traZODone 50 MG TABLET. PO PRN (21:59)
--- NOTE | 2020-03-13 22:09 | PDOC ---
Exam Note: Heber Note: Please also refer to the separate dictated note~for this date of service dictated separately.~Patient seen individually. Discussed the patient with Nursing staff reviewed the chart.~Reviewed interim history and current functioning. Reviewed vital signs,~Labs/ Radiology~and current medications noted below. Continue current treatment with the changes noted in the dictated addendum note Assessment: Vital Signs/I&O: Vital Signs Date Time Temp Pulse Resp B/P (MAP) Pulse Ox O2 Delivery O2 Flow Rate FiO2 03/13/20 20:27 98.2 98 03/13/20 15:52 98 18 120/71 (87) 03/11/20 06:22 Room Air I & O 03/12/20 03/12/20 03/13/20 15:00 23:00 07:00 Intake Total 720 ml 720 ml Balance 720 ml 720 ml Current Medications: I have reviewed the current psychotropics carefully including drug interactions. Risk benefit ratio favors no change other than as noted in my dictated progress note. Diagnosis: Problems: (1) Post traumatic stress disorder (2) Anxiety disorder (3) Dementia in Alzheimer's disease with delusions (4) Dementia in Alzheimer's disease with depression (5) Dementia, vascular, with delusions (6) Dementia, vascular, with depression (7) Impulse control disorder SMITA TOLEDO MD March 13, 2020 22:09
--- NOTE | 2020-03-13 22:18 | PN ---
DATE: 03/13/2020 PSYCHIATRIC PROGRESS NOTE This note covers elements not covered in my initial note 03/13/2020. SUBJECTIVE: The patient was seen on telehealth rounds the evening of 03/13/2020. Per BURKE Lopez, the patient slept 5-3/4 hours previous night. He then slept during the day, was not up until 11. Previous evening, he was having intermittent hallucinations, remains confused, grabbing at things in the air, handing it over to staff and nothing was there. REVIEW OF SYSTEMS: No CV, , pulmonary, eye, ENT system symptoms on review. MENTAL STATUS EXAM: Oriented to himself. Insight, judgment, recent and remote memory, attention, concentration, fund of knowledge poor, consistent with his diagnosis mentioned in my initial note. PLAN: No change from initial note. MAN Douglas TOLEDO MD DR: BORIS/dontae JOB#: [id number] / [id number]
--- NOTE | 2020-03-14 01:20 | NUR ---
Pt has been calm pleasant social and cooperative tonight. He likes to visit with others, speech is clear with rambling conversation. Meds were taken crushed in pudding. At 2200 pt was still walking quietly on unit was put to bed but kept getting up. PRN trazodone and lorazepam were given and he soon fell to sleep.
[2020-03-14 06:32] VITALS: BP 145/79
[2020-03-14 09:27] LABS: HEMATOCRIT 35.6 % (39.0-53.0); HEMOGLOBIN 11.8 g/dL (13.0-17.5); RED BLOOD COUNT 3.99 x10^6/uL (4.30-5.70); RED CELL DISTRIBUTION WIDTH 14.1 % (11.5-14.5); WHITE BLOOD COUNT 4.7 x10^3/uL (4.0-11.0)
[2020-03-14 09:31] LABS: CALCIUM 8.5 mg/dL (8.5-10.1); CREATININE 0.9 mg/dL (0.7-1.3); GFR 83.7; POTASSIUM 3.8 mmol/L (3.5-5.1)
[2020-03-14] MEDS: FINASTERIDE 5 MG TABLET PO SCH (10:47)
[2020-03-14] MEDS: risperiDONE 0.25 MG TABLET. PO SCH ×2 (10:47→20:17)
[2020-03-14] MEDS: TAMSULOSIN 0.4 MG CAP.ER.24H. PO SCH (10:47)
[2020-03-14 16:45] VITALS: BP 133/63
--- NOTE | 2020-03-14 17:15 | NUR ---
Patient became agitated this afternoon. [facility] and b[facility] on doors. This patient was trying to help her get out. Attempted to distract patient from area, but as soon as patient began yelling again, this patient would go to the doors and trying opening them. RN was not able to get patient distracted from this and a PRN zyprexa was given. Pt has calmed since. Pt is wandering hallways. Compliant. Had 2 medical books and stated, "they make me use my brain". WCTM.
[2020-03-14] MEDS: MIRTAZAPINE 15 MG TABLET PO SCH (20:17)
[2020-03-14] MEDS: SERTRALINE 100 MG TABLET. PO SCH (20:17)
[2020-03-14] MEDS: traZODone 100 MG TABLET. PO SCH (20:17)
[2020-03-14] MEDS: OLANZapine 5 MG TABLET PO SCH (20:17)
--- NOTE | 2020-03-14 21:30 | NUR ---
Nursing note: Assumed care of pt in the hallway where he was sitting and was pleasant and compliant, he too kmeds in pudding then finished the pudding. No s/s or c/o pain, no agitation.
[2020-03-14] MEDS: traZODone 50 MG TABLET. PO PRN (21:58)
[2020-03-14] MEDS: LORazepam 0.5 MG TABLET PO PRN (21:58)
--- NOTE | 2020-03-14 22:00 | PDOC ---
Exam Note: Heber Note: Please also refer to the separate dictated note~for this date of service dictated separately.~Patient seen individually. Discussed the patient with Nursing staff reviewed the chart.~Reviewed interim history and current functioning. Reviewed vital signs,~Labs/ Radiology~and current medications noted below. Continue current treatment with the changes noted in the dictated addendum note Assessment: Vital Signs/I&O: Vital Signs Date Time Temp Pulse Resp B/P (MAP) Pulse Ox O2 Delivery O2 Flow Rate FiO2 03/14/20 21:24 98.2 98 03/14/20 16:45 72 18 133/63 (86) 03/11/20 06:22 Room Air I & O 03/13/20 03/13/20 03/14/20 15:00 23:00 07:00 Intake Total 240 ml 300 ml Balance 240 ml 300 ml Labs: Laboratory Tests Test 03/14/20 09:05 White Blood Count 4.7 x10^3/uL (4.0-11.0) Red Blood Count 3.99 x10^6/uL (4.30-5.70) L Hemoglobin 11.8 g/dL (13.0-17.5) L Hematocrit 35.6 % (39.0-53.0) L Mean Corpuscular Volume 89 fL (79-100) Mean Corpuscular Hemoglobin 30 pg (25-35) Mean Corpuscular Hemoglobin Concent 33 g/dL (31-37) Red Cell Distribution Width 14.1 % (11.5-14.5) Platelet Count 190 x10^3/uL (140-400) Sodium Level 142 mmol/L (136-145) Potassium Level 3.8 mmol/L (3.5-5.1) Chloride Level 105 mmol/L (98-107) Carbon Dioxide Level 29 mmol/L (21-32) Anion Gap 8 (6-14) Blood Urea Nitrogen 18 mg/dL (8-26) Creatinine 0.9 mg/dL (0.7-1.3) Estimated GFR (Cockcroft-Gault) 83.7 Glucose Level 82 mg/dL (70-99) Calcium Level 8.5 mg/dL (8.5-10.1) Current Medications: I have reviewed the current psychotropics carefully including drug interactions. Risk benefit ratio favors no change other than as noted in my dictated progress note. Diagnosis: Problems: (1) Post traumatic stress disorder (2) Anxiety disorder (3) Dementia in Alzheimer's disease with delusions (4) Dementia in Alzheimer's disease with depression (5) Dementia, vascular, with delusions (6) Dementia, vascular, with depression (7) Impulse control disorder SMITA TOLEDO MD March 14, 2020 22:00
[2020-03-15 06:09] VITALS: BP 151/89
[2020-03-15] MEDS: risperiDONE 0.25 MG TABLET. PO SCH ×2 (09:07→20:54)
[2020-03-15] MEDS: FINASTERIDE 5 MG TABLET PO SCH (09:07)
[2020-03-15] MEDS: TAMSULOSIN 0.4 MG CAP.ER.24H. PO SCH (09:07)
--- NOTE | 2020-03-15 10:58 | NUR ---
Pt is wandering the West hallway, disorganized, unable to focus on a task and unable to hold a conversation. Pt is calm, cooperative, and compliant and confused. Pt is restless and having visual hallucinations. No agitation or aggression.
--- NOTE | 2020-03-15 15:56 | NUR ---
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 Hospital maneuver utilized and pt escorted to [facility]. When different staff attempted to approach pt, pt stated "get the hell away from me before I bust your face."
--- NOTE | 2020-03-15 16:08 | NUR ---
PRN zyprexa given
[2020-03-15] MEDS: LORazepam 0.5 MG TABLET PO PRN (17:17)
[2020-03-15 19:46] VITALS: BP 119/67
[2020-03-15] MEDS: OLANZapine 5 MG TABLET PO SCH (20:54)
[2020-03-15] MEDS: traZODone 100 MG TABLET. PO SCH (20:54)
[2020-03-15] MEDS: MELATONIN 3 MG TABLET PO SCH (20:54)
[2020-03-15] MEDS: MIRTAZAPINE 15 MG TABLET PO SCH (20:54)
[2020-03-15] MEDS: SERTRALINE 100 MG TABLET. PO SCH (20:54)
--- NOTE | 2020-03-15 22:29 | PDOC ---
Exam Note: Heber Note: Please also refer to the separate dictated note~for this date of service dictated separately.~Patient seen individually. Discussed the patient with Nursing staff reviewed the chart.~Reviewed interim history and current functioning. Reviewed vital signs,~Labs/ Radiology~and current medications noted below. Continue current treatment with the changes noted in the dictated addendum note Assessment: Vital Signs/I&O: Vital Signs Date Time Temp Pulse Resp B/P (MAP) Pulse Ox O2 Delivery O2 Flow Rate FiO2 03/15/20 21:02 97.3 95 03/15/20 19:46 93 119/67 (84) 03/15/20 06:09 20 03/11/20 06:22 Room Air I & O 03/14/20 03/14/20 03/15/20 15:00 23:00 07:00 Intake Total 440 ml 600 ml Balance 440 ml 600 ml Current Medications: Meds: Current Medications Medications (Trade) Dose Ordered Sig/Phi Route PRN Reason Start Time Stop Time Status Last Admin Dose Admin Melatonin (Melatonin) 3 mg HS PO 03/15/20 21:00 03/15/20 20:54 I have reviewed the current psychotropics carefully including drug interactions. Risk benefit ratio favors no change other than as noted in my dictated progress note. Diagnosis: Problems: (1) Post traumatic stress disorder (2) Anxiety disorder (3) Dementia in Alzheimer's disease with delusions (4) Dementia in Alzheimer's disease with depression (5) Dementia, vascular, with delusions (6) Dementia, vascular, with depression (7) Impulse control disorder SMITA TOLEDO MD March 15, 2020 22:29
--- NOTE | 2020-03-15 23:08 | NUR ---
Pt wandering unit this evening. Pt observed hallucinating. No agitation or aggression. Resistive with crushed medications, but compliant. Pt placed in on mattress in quiet room for safety. Pt currently sleeping with weighted blanket on.
[2020-03-16] MEDS: traZODone 50 MG TABLET. PO PRN (00:08)
--- NOTE | 2020-03-16 00:13 | NUR ---
Pt awake and crawling around on the floor. PRN Trazodone and Zyprexa administered. Pt placed back on mattress with weighted blanket on.
--- NOTE | 2020-03-16 08:07 | PDOC ---
Exam Note: [place] Note: This note is a late entry for 03/14/2020 covers elements not covered in my initial note. Subjective: The patient was seen face to face in the evening of 03/14/2020. Nursing report was with Josué TURK. Discussed the patient with nursing staff reviewed the chart. He slept 5-1/4 hours previous night. He woke up in the morning and then slept till 10.40 a.m. He did okay till one of the other demented patients was female patient who was admitted and was extremely agitated, restless, paranoid. He received Zyprexa p.r.n. Review of Systems: No CV, GI/, Pulmonary, Eye, ENT system symptoms on review. Mental Status Exam: Oriented to himself. Insight and judgment, recent and remote memory, attention and concentration, fund of knowledge is poor consistent with his diagnosis mentioned in my initial note. Laboratory Data: Reviewed. Impression: Unchanged from initial note. Plan: No change from initial note. Assessment: Vital Signs/I&O: Vital Signs Date Time Temp Pulse Resp B/P (MAP) Pulse Ox O2 Delivery O2 Flow Rate FiO2 03/15/20 21:02 97.3 95 03/15/20 19:46 93 119/67 (84) 03/15/20 06:09 20 03/11/20 06:22 Room Air I & O 03/15/20 03/15/20 03/16/20 15:00 23:00 07:00 Intake Total 600 ml 360 ml Balance 600 ml 360 ml Current Medications: Meds: Current Medications Medications (Trade) Dose Ordered Sig/Phi Route PRN Reason Start Time Stop Time Status Last Admin Dose Admin Melatonin (Melatonin) 3 mg HS PO 03/15/20 21:00 03/15/20 20:54 I have reviewed the current psychotropics carefully including drug interactions. Risk benefit ratio favors no change other than as noted in my dictated progress note. Diagnosis: Problems: (1) Post traumatic stress disorder (2) Anxiety disorder (3) Dementia in Alzheimer's disease with delusions (4) Dementia in Alzheimer's disease with depression (5) Dementia, vascular, with delusions (6) Dementia, vascular, with depression (7) Impulse control disorder SMITA TOLEDO MD March 16, 2020 08:07
--- NOTE | 2020-03-16 08:09 | PDOC ---
Exam Note: [place] Note: This note is a late entry for 03/15/2020 covers elements not covered in my initial note. Subjective: The patient was seen face to face in the evening of 03/15/2020. Nursing report was with Sharon TURK. Discussed the patient with nursing staff reviewed the chart. He did not sleep at all previous night. He has been aggressive, resistive telling the nursing staff you are not f__ing manager endoscopy. I will burst your face. He has been quite labile. Review of Systems: No CV, GI/, Pulmonary, Eye, ENT system symptoms on review. Reliability poor. Mental Status Exam: Oriented to himself. Insight and judgment, recent and remote memory, attention and concentration, fund of knowledge is poor consistent with his diagnosis mentioned in my initial note. Laboratory Data: Reviewed. Impression: Unchanged from initial note. Plan: No change from initial note. Add melatonin 3 mg h.s. for insomnia. Consider Depakote as a mood stabilizer given the extent of his agitation and aggression continue Zoloft along with Zyprexa p.r.n., Ativan p.r.n., Remeron 15 mg h.s., and Risperdal 0.25 mg b.i.d. Assessment: Vital Signs/I&O: Vital Signs Date Time Temp Pulse Resp B/P (MAP) Pulse Ox O2 Delivery O2 Flow Rate FiO2 03/15/20 21:02 97.3 95 03/15/20 19:46 93 119/67 (84) 03/15/20 06:09 20 03/11/20 06:22 Room Air I & O 03/15/20 03/15/20 03/16/20 15:00 23:00 07:00 Intake Total 600 ml 360 ml Balance 600 ml 360 ml Current Medications: Meds: Current Medications Medications (Trade) Dose Ordered Sig/Phi Route PRN Reason Start Time Stop Time Status Last Admin Dose Admin Melatonin (Melatonin) 3 mg HS PO 03/15/20 21:00 03/15/20 20:54 I have reviewed the current psychotropics carefully including drug interactions. Risk benefit ratio favors no change other than as noted in my dictated progress note. Diagnosis: Problems: (1) Post traumatic stress disorder (2) Anxiety disorder (3) Dementia in Alzheimer's disease with delusions (4) Dementia in Alzheimer's disease with depression (5) Dementia, vascular, with delusions (6) Dementia, vascular, with depression (7) Impulse control disorder SMITA TOLEDO MD March 16, 2020 08:09
[2020-03-16] MEDS: MAGNESIUM HYDROXIDE 2,400 MG/30 ML ORAL.SUSP. PO PRN (08:36)
[2020-03-16] MEDS: TAMSULOSIN 0.4 MG CAP.ER.24H. PO SCH (08:36)
[2020-03-16] MEDS: FINASTERIDE 5 MG TABLET PO SCH (08:36)
[2020-03-16] MEDS: risperiDONE 0.25 MG TABLET. PO SCH ×2 (08:36→20:31)
--- NOTE | 2020-03-16 10:07 | NUR ---
No agitation or aggression. Pt is wandering the unit, disorganized, unable to focus on a task and unable to hold a conversation. Pt is calm, cooperative, and compliant and confused. Pt is restless and having visual hallucinations.
[2020-03-16 16:08] VITALS: BP 106/66
[2020-03-16] MEDS: MIRTAZAPINE 15 MG TABLET PO SCH (20:31)
[2020-03-16] MEDS: SERTRALINE 100 MG TABLET. PO SCH (20:31)
[2020-03-16] MEDS: OLANZapine 5 MG TABLET PO SCH (20:31)
[2020-03-16] MEDS: traZODone 100 MG TABLET. PO SCH (20:31)
[2020-03-16] MEDS: MELATONIN 3 MG TABLET PO SCH (20:32)
[2020-03-16] MEDS: LORazepam 0.5 MG TABLET PO PRN (20:32)
--- NOTE | 2020-03-16 21:59 | PDOC ---
Exam Note: [place] Note: Please also refer to the separate dictated note~for this date of service dictated separately.~Patient seen individually. Discussed the patient with Nursing staff reviewed the chart.~Reviewed interim history and current functioning. Reviewed vital signs,~Labs/ Radiology~and current medications noted below. Continue current treatment with the changes noted in the dictated addendum note Assessment: Vital Signs/I&O: Vital Signs Date Time Temp Pulse Resp B/P (MAP) Pulse Ox O2 Delivery O2 Flow Rate FiO2 03/16/20 18:05 97.3 03/16/20 16:08 94 20 106/66 (79) 95 Room Air I & O 03/15/20 03/15/20 03/16/20 15:00 23:00 07:00 Intake Total 600 ml 360 ml Balance 600 ml 360 ml Current Medications: I have reviewed the current psychotropics carefully including drug interactions. Risk benefit ratio favors no change other than as noted in my dictated progress note. Diagnosis: Problems: (1) Post traumatic stress disorder (2) Anxiety disorder (3) Dementia in Alzheimer's disease with delusions (4) Dementia in Alzheimer's disease with depression (5) Dementia, vascular, with delusions (6) Dementia, vascular, with depression (7) Impulse control disorder SMITA TOLEDO MD March 16, 2020 21:59
--- NOTE | 2020-03-16 22:26 | NUR ---
Pt is restless and wandering the unit this evening. Compliant with medications crushed in one bite of chocolate pudding. Pt is currently sleeping on the mattress in the quiet room. Will continue to monitor.
[2020-03-17] MEDS: traZODone 50 MG TABLET. PO PRN ×2 (02:13→23:24)
--- NOTE | 2020-03-17 02:18 | NUR ---
Pt awake and crawling around on the floor. PRN Trazodone and Zydis administered. Pt currently awake in the quiet room. Will continue to monitor.
[2020-03-17 06:19] VITALS: BP 131/89
[2020-03-17 07:11] LABS: BASO % 1 % (0-3); EOS # 0.2 x10^3/uL (0.0-0.7); EOS % 3 % (0-3); HEMATOCRIT 38.2 % (39.0-53.0); HEMOGLOBIN 12.6 g/dL (13.0-17.5); LYMPH # 0.8 x10^3/uL (1.0-4.8); LYMPH % 17 % (24-48); MEAN CORPUSCULAR HEMOGLOBIN 30 pg (25-35); MEAN CORPUSCULAR HGB CONC 33 g/dL (31-37); MEAN CORPUSCULAR VOLUME 90 fL (79-100); MONO # 0.5 x10^3/uL (0.0-1.1); MONO % 10 % (0-9); NEUT # 3.4 x10^3uL (1.8-7.7); NEUT % 69 % (31-73); PLATELET COUNT 206 x10^3/uL (140-400); RED BLOOD COUNT 4.25 x10^6/uL (4.30-5.70); RED CELL DISTRIBUTION WIDTH 14.4 % (11.5-14.5); WHITE BLOOD COUNT 4.9 x10^3/uL (4.0-11.0)
--- NOTE | 2020-03-17 07:19 | PDOC ---
Exam Note: [place] Note: This note is a late entry for 03/16/2020 covers elements not covered in my initial note. Subjective: The patient was seen face to face in the evening of 03/16/2020. Nursing report was with Sharon TURK. Discussed the patient with nursing staff reviewed the chart. He remains confused, wandering the hallways, going into another female patients rooms and she feels threatened. Review of Systems: No CV, GI/, Pulmonary, Eye, ENT system symptoms on review. Mental Status Exam: Oriented to himself. Insight and judgment, recent and remote memory, attention and concentration, fund of knowledge is poor consistent with his diagnosis. Laboratory Data: Reviewed. Impression: Major neurocognitive disorder, Alzheimer, vascular with delusion, depression, behavioral disturbance. Anxiety disorder unspecified. Impulse co ntrol disorder unspecified. Plan: No change from initial note. Assessment: Vital Signs/I&O: Vital Signs Date Time Temp Pulse Resp B/P (MAP) Pulse Ox O2 Delivery O2 Flow Rate FiO2 03/17/20 06:19 97.2 88 18 131/89 (103) 95 03/16/20 16:08 Room Air I & O 03/16/20 03/16/20 03/17/20 15:00 23:00 07:00 Intake Total 480 ml 120 ml Balance 480 ml 120 ml Labs: Laboratory Tests Test 03/17/20 06:43 White Blood Count 4.9 x10^3/uL (4.0-11.0) Red Blood Count 4.25 x10^6/uL (4.30-5.70) L Hemoglobin 12.6 g/dL (13.0-17.5) L Hematocrit 38.2 % (39.0-53.0) L Mean Corpuscular Volume 90 fL (79-100) Mean Corpuscular Hemoglobin 30 pg (25-35) Mean Corpuscular Hemoglobin Concent 33 g/dL (31-37) Red Cell Distribution Width 14.4 % (11.5-14.5) Platelet Count 206 x10^3/uL (140-400) Neutrophils (%) (Auto) 69 % (31-73) Lymphocytes (%) (Auto) 17 % (24-48) L Monocytes (%) (Auto) 10 % (0-9) H Eosinophils (%) (Auto) 3 % (0-3) Basophils (%) (Auto) 1 % (0-3) Neutrophils # (Auto) 3.4 x10^3uL (1.8-7.7) Lymphocytes # (Auto) 0.8 x10^3/uL (1.0-4.8) L Monocytes # (Auto) 0.5 x10^3/uL (0.0-1.1) Eosinophils # (Auto) 0.2 x10^3/uL (0.0-0.7) Basophils # (Auto) 0.0 x10^3/uL (0.0-0.2) Current Medications: I have reviewed the current psychotropics carefully including drug interactions. Risk benefit ratio favors no change other than as noted in my dictated progress note. Diagnosis: Problems: (1) Post traumatic stress disorder (2) Anxiety disorder (3) Dementia in Alzheimer's disease with delusions (4) Dementia in Alzheimer's disease with depression (5) Dementia, vascular, with delusions (6) Dementia, vascular, with depression (7) Impulse control disorder SMITA TOLEDO MD March 17, 2020 07:19
[2020-03-17 07:34] LABS: ALBUMIN 3.5 g/dL (3.4-5.0); CALCIUM 8.8 mg/dL (8.5-10.1); GFR 74.1; POTASSIUM 3.6 mmol/L (3.5-5.1); TOTAL BILIRUBIN 0.3 mg/dL (0.2-1.0)
[2020-03-17] MEDS: risperiDONE 0.25 MG TABLET. PO SCH ×2 (10:32→21:01)
[2020-03-17] MEDS: FINASTERIDE 5 MG TABLET PO SCH (10:32)
[2020-03-17] MEDS: TAMSULOSIN 0.4 MG CAP.ER.24H. PO SCH (10:32)
--- NOTE | 2020-03-17 11:00 | NUR ---
WEEKLY ACTIVITY THERAPY NOTE Date of Admission: 03/08/20 Date of AT Assessment: 03/10/20 Precipitating behaviors that initiated intake and admission: aggressive and threatening towards , fearful of him, burning plastic in the kitchen, confused and disoriented, hallucinations, restless, fidgety. Goal aimed:to increase sensory stimulation Initial Goal: Pt. will participate in at least two individual Activity Therapy session before discharge. Weekly progress towards goal: 0/2 individual sessions, 3 groups Group participation level: minimal Weekly highlights: following exercises with group on 03/13 Behaviors observed: wandering, on hands and knees picking at floor, in and out of other's rooms, does not make sense when speaking Plan: change goal to: Pt. will participate in at least three Activity Therapy groups per week. Beneficial adaptations:
--- NOTE | 2020-03-17 11:01 | NUR ---
Patient was in the hallway during morning rounding resting quietly. Took medications crushed in pudding, allowed for morning assessment. Pt is pleasantly confused, no agitation noted at this time. Will continue to monitor.
[2020-03-17 16:17] VITALS: BP 128/78
[2020-03-17] MEDS: MELATONIN 3 MG TABLET PO SCH (21:00)
[2020-03-17] MEDS: SERTRALINE 100 MG TABLET. PO SCH (21:01)
[2020-03-17] MEDS: OLANZapine 5 MG TABLET PO SCH (21:01)
[2020-03-17] MEDS: MIRTAZAPINE 15 MG TABLET PO SCH (21:01)
[2020-03-17] MEDS: traZODone 100 MG TABLET. PO SCH (21:01)
[2020-03-17] MEDS: LORazepam 0.5 MG TABLET PO PRN (21:02)
--- NOTE | 2020-03-17 22:10 | NUR ---
Pt has been wandering and very intrusive this evening. Pt became slightly agitated when attempting to remove him from a female pt's room[facility] statements that he needs a gun to shoot us. Once in hallway, pt was restless, door checking and hallucinating. Compliant with HS medications crushed in one bite of pudding. PRN Ativan administered. Pt currently sleeping in quiet room with weighted blanket on.
--- NOTE | 2020-03-17 23:28 | NUR ---
Pt awake, restless and crawling on the floor. PRN Trazodone and Zyprexa administered.
[2020-03-18 05:42] VITALS: BP 98/62
--- NOTE | 2020-03-18 08:18 | PDOC ---
Exam Note: [place] Note: This is a late entry for DOS 03/17/2020. Please also refer to the separate dictated note~for this date of service dictated separately.~Patient seen individually. Discussed the patient with Nursing staff reviewed the chart.~Reviewed interim history and current functioning. Reviewed vital signs,~Labs/ Radiology~and current medications noted below. Continue current treatment with the changes noted in the dictated addendum note Assessment: Vital Signs/I&O: Vital Signs Date Time Temp Pulse Resp B/P (MAP) Pulse Ox O2 Delivery O2 Flow Rate FiO2 03/18/20 05:42 97.2 71 18 98/62 (74) 96 03/16/20 16:08 Room Air I & O 03/17/20 03/17/20 03/18/20 14:59 22:59 06:59 Intake Total 120 ml 360 ml Balance 120 ml 360 ml Current Medications: I have reviewed the current psychotropics carefully including drug interactions. Risk benefit ratio favors no change other than as noted in my dictated progress note. Diagnosis: Problems: (1) Post traumatic stress disorder (2) Anxiety disorder (3) Dementia in Alzheimer's disease with delusions (4) Dementia in Alzheimer's disease with depression (5) Dementia, vascular, with delusions (6) Dementia, vascular, with depression (7) Impulse control disorder SMITA TOLEDO MD March 18, 2020 08:18
[2020-03-18] MEDS: TAMSULOSIN 0.4 MG CAP.ER.24H. PO SCH (09:40)
[2020-03-18] MEDS: risperiDONE 0.25 MG TABLET. PO SCH ×2 (09:40→20:34)
[2020-03-18] MEDS: MAGNESIUM HYDROXIDE 2,400 MG/30 ML ORAL.SUSP. PO PRN (09:40)
[2020-03-18] MEDS: FINASTERIDE 5 MG TABLET PO SCH (09:40)
--- NOTE | 2020-03-18 13:53 | NUR ---
Pt slept in this morning until 0930. Upon awakening, pt was calm, cooperative and compliant. Wandered hallways, but was able to redirect. This afternoon patient became intrusive, resistive to redirection. Pt placed in secure west hallway. RN went into hallway, pt stated "up your ass". RN asked if he was talking to her, pt responded, "Yes! Who else was shooting?". PRN zyprexa given to patient. Pt stated to RN, "don't tell them what Im doing" and offered to hold the door for the nurse. WCTM.
[2020-03-18 15:57] VITALS: BP 126/74
--- NOTE | 2020-03-18 16:12 | NUR ---
Pt given MOM this morning for constipation, no results. Senna and docusate ordered PRN. WCTM.
[2020-03-18] MEDS ORDERED: SENNA LEAF EXTRACT PO PRN (16:15)
[2020-03-18] MEDS ORDERED: DOCUSATE 100 MG/10 ML SOLUTION. PO PRN (16:15)
[2020-03-18] MEDS: DIVALPROEX 125 MG CAP.SPRINK PO SCH (17:00)
--- NOTE | 2020-03-18 18:36 | NUR ---
Pt became agitated just before dinner, yelling and hitting at staff. [facility] continued to curse and swing at staff. Pt put in quiet room. Pt calmed enough after approximately 10 minutes, and came out of quiet room to hallway. Pt continued to have bouts of agitation and was given PRN zyprexa. Pt calmed and is now wandering the unit.
[2020-03-18] MEDS: SERTRALINE 100 MG TABLET. PO SCH (20:33)
[2020-03-18] MEDS: traZODone 100 MG TABLET. PO SCH (20:33)
[2020-03-18] MEDS: MELATONIN 3 MG TABLET PO SCH (20:33)
[2020-03-18] MEDS: MIRTAZAPINE 15 MG TABLET PO SCH (20:33)
[2020-03-18] MEDS: LORazepam 0.5 MG TABLET PO PRN (20:34)
[2020-03-18] MEDS: OLANZapine 5 MG TABLET PO SCH (20:34)
--- NOTE | 2020-03-18 21:00 | NUR ---
Patient is wandering the hallway on assumption of care. He is very intrusive and difficult to redirect. Brought to the quiet hallway. PRN Ativan administered with HS meds. He was compliant with his meds taken crushed in chocolate pudding. He continues to pace back and forth in the quiet hallway. Restless, disorganized. Will continue to monitor.
--- NOTE | 2020-03-18 22:08 | PDOC ---
Exam Note: [place] Note: Please also refer to the separate dictated note~for this date of service dictated separately.~Patient seen individually. Discussed the patient with Nursing staff reviewed the chart.~Reviewed interim history and current functioning. Reviewed vital signs,~Labs/ Radiology~and current medications noted below. Continue current treatment with the changes noted in the dictated addendum note Assessment: Vital Signs/I&O: Vital Signs Date Time Temp Pulse Resp B/P (MAP) Pulse Ox O2 Delivery O2 Flow Rate FiO2 03/18/20 18:36 98.1 03/18/20 15:57 85 18 126/74 (91) 94 03/16/20 16:08 Room Air I & O 03/17/20 03/17/20 03/18/20 15:00 23:00 07:00 Intake Total 120 ml 360 ml Balance 120 ml 360 ml Current Medications: Meds: Current Medications Medications (Trade) Dose Ordered Sig/Phi Route PRN Reason Start Time Stop Time Status Last Admin Dose Admin Divalproex Sodium (Depakote Sprinkles) 250 mg 0900,1700 PO 03/18/20 17:00 03/18/20 17:00 I have reviewed the current psychotropics carefully including drug interactions. Risk benefit ratio favors no change other than as noted in my dictated progress note. Diagnosis: Problems: (1) Post traumatic stress disorder (2) Anxiety disorder (3) Dementia in Alzheimer's disease with delusions (4) Dementia in Alzheimer's disease with depression (5) Dementia, vascular, with delusions (6) Dementia, vascular, with depression (7) Impulse control disorder SMITA TOLEDO MD March 18, 2020 22:08
[2020-03-18] MEDS: traZODone 50 MG TABLET. PO PRN (22:32)
--- NOTE | 2020-03-18 23:09 | NUR ---
Patient continues to pace restlessly in the quiet hallway. Picking up things that are not there. PRN Trazadone and Zydis administered at 2230, pending effect. Will continue to monitor.
[2020-03-19] MEDS: SENNOSIDES 8.6 MG TABLET PO PRN (04:49)
[2020-03-19 05:29] VITALS: BP 162/83
--- NOTE | 2020-03-19 07:49 | PDOC ---
Exam Note: [place] Note: This note is a late entry for 03/17/2020 covers elements not covered in my initial note. Subjective: The patient was seen face to face in the evening of 03/17/2020. Nursing report was with Mallory TURK. Discussed the patient with nursing staff reviewed the chart. He slept just 2 hours previous night but has been dozing and sleeping in the morning. He takes medications crushed in pudding, quite confused oblivious of his surrounding mumbling under his breath. Review of Systems: No CV, GI/, Pulmonary, Eye, ENT system symptoms on review. Reliability poor. Mental Status Exam: Oriented to himself. Insight and judgment, recent and remote memory, attention and concentration, fund of knowledge is poor consistent with his diagnosis. Laboratory Data: Reviewed. Impression: Major neurocognitive disorder, Alzheimer, vascular with delusion, depression, behavioral disturbance. Anxiety disorder unspecified. Impulse control disorder unspecified. Plan: No change from initial note. Assessment: Vital Signs/I&O: Vital Signs Date Time Temp Pulse Resp B/P (MAP) Pulse Ox O2 Delivery O2 Flow Rate FiO2 03/19/20 05:29 97.9 88 18 162/83 (109) 96 03/16/20 16:08 Room Air I & O 03/18/20 03/18/20 03/19/20 14:59 22:59 06:59 Intake Total 720 ml 120 ml Balance 720 ml 120 ml Current Medications: Meds: Current Medications Medications (Trade) Dose Ordered Sig/Phi Route PRN Reason Start Time Stop Time Status Last Admin Dose Admin Divalproex Sodium (Depakote Sprinkles) 250 mg 0900,1700 PO 03/18/20 17:00 03/18/20 17:00 Sennosides (Senna) 8.6 mg PRN DAILY PRN PO CONSTIPATION 03/18/20 16:30 03/19/20 04:49 I have reviewed the current psychotropics carefully including drug interactions. Risk benefit ratio favors no change other than as noted in my dictated progress note. Diagnosis: Problems: (1) Post traumatic stress disorder (2) Anxiety disorder (3) Dementia in Alzheimer's disease with delusions (4) Dementia in Alzheimer's disease with depression (5) Dementia, vascular, with delusions (6) Dementia, vascular, with depression (7) Impulse control disorder SMITA TOLEDO MD March 19, 2020 07:49
--- NOTE | 2020-03-19 08:09 | PDOC ---
Exam Note: [place] Note: This note is a late entry for 03/18/2020 covers elements not covered in my initial note. Subjective: The patient was seen face to face with the treatment team in the morning including Laurie Wellington, and Lilly (social media senior associate), Kiara, Activity Therapy. Nursing report was with Trinh TURK. Discussed the patient with nursing staff in the evening reviewed the chart. He has been confused, wandering, and restless. He slept 6-1/2 hours previous night and then slept till 9.30 a.m. this morning. He has been somewhat verbally abrasive with staff. Put it up your ass per nursing report. Review of Systems: No CV, GI/, Pulmonary, Eye, ENT system symptoms on review. Reliability poor. Mental Status Exam: Oriented to himself. Insight and judgment, recent and remote memory, attention and concentration, fund of knowledge is poor consistent with his diagnosis. Laboratory Data: Reviewed. Impression: Major neurocognitive disorder, Alzheimer, vascular with delusion, depression, behavioral disturbance. Anxiety disorder unspecified. Impulse control disorder unspecified. Plan: No change from initial note but we will go ahead and add Depakote as a mood stabilizer, Depakote Sprinkle 125 mg 9 a.m. and 5 p.m. Check CBC, CMP, valproic acid level in 3 days. Assessment: Vital Signs/I&O: Vital Signs Date Time Temp Pulse Resp B/P (MAP) Pulse Ox O2 Delivery O2 Flow Rate FiO2 03/19/20 05:29 97.9 88 18 162/83 (109) 96 03/16/20 16:08 Room Air I & O 03/18/20 03/18/20 03/19/20 14:59 22:59 06:59 Intake Total 720 ml 120 ml Balance 720 ml 120 ml Current Medications: Meds: Current Medications Medications (Trade) Dose Ordered Sig/Phi Route PRN Reason Start Time Stop Time Status Last Admin Dose Admin Divalproex Sodium (Depakote Sprinkles) 250 mg 0900,1700 PO 03/18/20 17:00 03/18/20 17:00 Sennosides (Senna) 8.6 mg PRN DAILY PRN PO CONSTIPATION 03/18/20 16:30 03/19/20 04:49 I have reviewed the current psychotropics carefully including drug interactions. Risk benefit ratio favors no change other than as noted in my dictated progress note. Diagnosis: Problems: (1) Post traumatic stress disorder (2) Anxiety disorder (3) Dementia in Alzheimer's disease with delusions (4) Dementia in Alzheimer's disease with depression (5) Dementia, vascular, with delusions (6) Dementia, vascular, with depression (7) Impulse control disorder SMITA TOLEDO MD March 19, 2020 08:09
[2020-03-19] MEDS: risperiDONE 0.25 MG TABLET. PO SCH ×2 (09:23→20:18)
[2020-03-19] MEDS: DIVALPROEX 125 MG CAP.SPRINK PO SCH ×2 (09:23→16:55)
[2020-03-19] MEDS: TAMSULOSIN 0.4 MG CAP.ER.24H. PO SCH (09:23)
[2020-03-19] MEDS: FINASTERIDE 5 MG TABLET PO SCH (09:23)
[2020-03-19 10:23] LABS: BASO # 0.1 x10^3/uL (0.0-0.2); BASO % 1 % (0-3); EOS # 0.1 x10^3/uL (0.0-0.7); EOS % 2 % (0-3); HEMATOCRIT 39.5 % (39.0-53.0); HEMOGLOBIN 13.2 g/dL (13.0-17.5); LYMPH # 0.9 x10^3/uL (1.0-4.8); LYMPH % 15 % (24-48); MEAN CORPUSCULAR HEMOGLOBIN 30 pg (25-35); MEAN CORPUSCULAR HGB CONC 33 g/dL (31-37); MEAN CORPUSCULAR VOLUME 89 fL (79-100); MONO # 0.7 x10^3/uL (0.0-1.1); MONO % 11 % (0-9); NEUT # 4.2 x10^3uL (1.8-7.7); NEUT % 71 % (31-73); PLATELET COUNT 218 x10^3/uL (140-400); RED BLOOD COUNT 4.43 x10^6/uL (4.30-5.70); RED CELL DISTRIBUTION WIDTH 14.4 % (11.5-14.5); WHITE BLOOD COUNT 5.9 x10^3/uL (4.0-11.0)
[2020-03-19 10:32] LABS: ALBUMIN 3.9 g/dL (3.4-5.0); CALCIUM 9.1 mg/dL (8.5-10.1); GFR 74.1; POTASSIUM 3.7 mmol/L (3.5-5.1); TOTAL BILIRUBIN 0.4 mg/dL (0.2-1.0); TOTAL PROTEIN 7.9 g/dL (6.4-8.2)
--- NOTE | 2020-03-19 12:37 | NUR ---
Nursing note: Pt in dining room for morning meds and assessment. He was very drowsy d/t not sleeping previous night, but he was compliant with his meds crushed in pudding and cooperative with his assessment. He does not appear to be in any pain or discomfort. Pt has been wandering the halls and into other rooms, but is able to be redirected. He is currently in the dining room eating lunch. Will continue to monitor.
[2020-03-19 15:54] VITALS: BP 135/82
[2020-03-19 15:55] VITALS: BP 135/82
--- NOTE | 2020-03-19 17:26 | TX PLAN ---
Interdisciplinary Tx Plan Admission Information March 08, 2020 at 17:56 Legal Status (on Admission): Voluntary DPOA/Guardian Name: Joya Kearns Contact Verified Code Status: DNR Allergies: Coded Allergies: No Known Drug Allergies (Unverified , 07/25/18) Diagnoses Primary Diagnosis: Major Neurocognitive D/O, vascular Alzheimer's with delusions, depression, behavioral disturbance Reasons for Admission: Combative, Confusion/Disoriented, Poor impulse control Problem in Patient's Words: Pt has increasingly been getting worse over the last 2 weeks. Additional Admission Comments: According to the intake, pt is aggressive and threatening towards . is fearful of him, burning plastic in the kitchen, confused and demented, hallucinates, restless and fidgety. Problems Active Problems: aggressive confused hallucinating restless Inactive Problems: medication compliant Pt Strengths/Limitations Ability for [place]: Poor Cognitive Functioning/Ability: Fair Communication Skills/Ability: Fair Financial Resources: Fair Insight/Judgement: Poor Intellectual Ability: Poor Physical Health: Fair Social Skills: Poor Stability in Family: Fair Stability in School/Work: Poor Verbal Skills: Poor Discharge Criteria Discharge Criteria: Adequate arrangements @DC, Improved behavior, Improved mood/thought Preliminary Discharge Plan Preliminary DC Plan: Placement Needed Special Precautions Fall Risk: Low Initial D/C Plan Pt will need placement at the time of discharge as is not able to care for pt. Identified Discharge Needs: mental health services Currently Utilized Resources Currently Utilized Resources/P: Primary Care Physician Neurology Identified Problems/Hx/Goals Objectives/Short-Term Goals Short Term Goals: Dec. Aggression, Dec. Anxiety/Panic, Dec. Outbursts, Monitor Med Effects, Promote Coping Skill Short Term Goals in Patient's: medication management Interventions/Frequency Staff Interventions/Frequency&: Psychiatrist to assess pt at least 3x per week. Social Work to assess pt at least 2x per week. Nursing to assess and complete 15 minute checks daily. Encourage participation in group activities or on a 1:1 basis based on activity therapy assessment/goal. 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 Education: Bachelor's Degree; did not fully complete his Master's Community Follow-up Continue to follow up with Primary care physician Treatment Plan Explained Patient/Corporation Pilot had this treatment plan explained to him/her as indicated by the signature below and has been given the opportunity to ask questions and make suggestions: Date: Patient/Corporation Pilot Signature: Status Update Update Pt is eating 75% of meals and sleeping on average 4 hours a night. Pt continues to be restless, wandering the hallways, resistive to redirection and spent some time in the quiet hallway for his agitation and threats to harm staff. Pt is mostly compliant with medications crushed in chocolate pudding. Pt does appear to have hallucinations AEB pt grabbing at things that are not there and at times, bent over to pick something off the floor. Pt attempts very hard to complete full sentences and get his point across; however, cannot formulate a complete sentence and appears to have trouble with word finding. Pt will need placement upon discharge and SW will continue to work with pt . EDSON JIMENEZ March 19, 2020 17:26
[2020-03-19] MEDS: MELATONIN 3 MG TABLET PO SCH (20:17)
[2020-03-19] MEDS: SERTRALINE 100 MG TABLET. PO SCH (20:17)
[2020-03-19] MEDS: traZODone 100 MG TABLET. PO SCH (20:17)
[2020-03-19] MEDS: OLANZapine 5 MG TABLET PO SCH (20:18)
[2020-03-19] MEDS: AMITRIPTYLINE HCL 25 MG TABLET PO SCH (20:18)
--- NOTE | 2020-03-19 22:09 | PDOC ---
Exam Note: Heber Note: Please also refer to the separate dictated note~for this date of service dictated separately.~Patient seen individually. Discussed the patient with Nursing staff reviewed the chart.~Reviewed interim history and current functioning. Reviewed vital signs,~Labs/ Radiology~and current medications noted below. Continue current treatment with the changes noted in the dictated addendum note Assessment: Vital Signs/I&O: Vital Signs Date Time Temp Pulse Resp B/P (MAP) Pulse Ox O2 Delivery O2 Flow Rate FiO2 03/19/20 20:34 98.7 97 03/19/20 15:55 91 22 135/82 (99) 03/16/20 16:08 Room Air I & O 03/18/20 03/18/20 03/19/20 15:00 23:00 07:00 Intake Total 720 ml 120 ml Balance 720 ml 120 ml Labs: Laboratory Tests Test 03/19/20 10:05 White Blood Count 5.9 x10^3/uL (4.0-11.0) Red Blood Count 4.43 x10^6/uL (4.30-5.70) Hemoglobin 13.2 g/dL (13.0-17.5) Hematocrit 39.5 % (39.0-53.0) Mean Corpuscular Volume 89 fL (79-100) Mean Corpuscular Hemoglobin 30 pg (25-35) Mean Corpuscular Hemoglobin Concent 33 g/dL (31-37) Red Cell Distribution Width 14.4 % (11.5-14.5) Platelet Count 218 x10^3/uL (140-400) Neutrophils (%) (Auto) 71 % (31-73) Lymphocytes (%) (Auto) 15 % (24-48) L Monocytes (%) (Auto) 11 % (0-9) H Eosinophils (%) (Auto) 2 % (0-3) Basophils (%) (Auto) 1 % (0-3) Neutrophils # (Auto) 4.2 x10^3uL (1.8-7.7) Lymphocytes # (Auto) 0.9 x10^3/uL (1.0-4.8) L Monocytes # (Auto) 0.7 x10^3/uL (0.0-1.1) Eosinophils # (Auto) 0.1 x10^3/uL (0.0-0.7) Basophils # (Auto) 0.1 x10^3/uL (0.0-0.2) Sodium Level 141 mmol/L (136-145) Potassium Level 3.7 mmol/L (3.5-5.1) Chloride Level 103 mmol/L (98-107) Carbon Dioxide Level 30 mmol/L (21-32) Anion Gap 8 (6-14) Blood Urea Nitrogen 25 mg/dL (8-26) Creatinine 1.0 mg/dL (0.7-1.3) Estimated GFR (Cockcroft-Gault) 74.1 BUN/Creatinine Ratio 25 (6-20) H Glucose Level 86 mg/dL (70-99) Calcium Level 9.1 mg/dL (8.5-10.1) Total Bilirubin 0.4 mg/dL (0.2-1.0) Aspartate Amino Transferase (AST) 24 U/L (15-37) Alanine Aminotransferase (ALT) 28 U/L (16-63) Alkaline Phosphatase 75 U/L (46-116) Total Protein 7.9 g/dL (6.4-8.2) Albumin 3.9 g/dL (3.4-5.0) Albumin/Globulin Ratio 1.0 (1.0-1.7) Current Medications: Meds: Current Medications Medications (Trade) Dose Ordered Sig/Phi Route PRN Reason Start Time Stop Time Status Last Admin Dose Admin Divalproex Sodium (Depakote Sprinkles) 125 mg 0900,1700 PO 03/19/20 17:00 03/19/20 16:55 Amitriptyline HCl (Elavil) 25 mg QHS PO 03/19/20 21:00 03/19/20 20:18 I have reviewed the current psychotropics carefully including drug interactions. Risk benefit ratio favors no change other than as noted in my dictated progress note. Diagnosis: Problems: (1) Post traumatic stress disorder (2) Anxiety disorder (3) Dementia in Alzheimer's disease with delusions (4) Dementia in Alzheimer's disease with depression (5) Dementia, vascular, with delusions (6) Dementia, vascular, with depression (7) Impulse control disorder SMITA TOLEDO MD March 19, 2020 22:09
--- NOTE | 2020-03-19 22:30 | NUR ---
Patient is walking around the unit on assumption of care. He is repeatedly bending over and trying to knot picker cloth things that aren't there. He is much less intrusive this evening than prior evenings and easier to redirect. He lowers himself to the floor occasionally and just lays there with his hands behind his head. No difficulty with getting back up when he wants to. Assisted into bed with no difficulty. No agitation so far this shift. No s/s of pain or discomfort. Patient appears to be sleeping comfortably at present time. Will continue to monitor.
[2020-03-20 06:13] VITALS: BP 129/94
[2020-03-20] MEDS: risperiDONE 0.25 MG TABLET. PO SCH ×2 (08:31→20:04)
[2020-03-20] MEDS: TAMSULOSIN 0.4 MG CAP.ER.24H. PO SCH (08:31)
[2020-03-20] MEDS: FINASTERIDE 5 MG TABLET PO SCH (08:31)
[2020-03-20] MEDS: DIVALPROEX 125 MG CAP.SPRINK PO SCH ×2 (08:32→16:22)
--- NOTE | 2020-03-20 09:36 | NUR ---
Nursing note: Pt in dining room for morning meds and assessment. He was compliant with his meds crushed in pudding and cooperative with his assessment. He continues to pick things up from the floor that are not there and wanders around the unit. He is currently sitting quietly in the day room watching TV. Will continue to monitor.
[2020-03-20 16:19] VITALS: BP 124/81
--- NOTE | 2020-03-20 17:24 | NUR ---
Nursing note: Pt became increasingly agitated as he was wandering the halls. Staff attempted to redirect him and get him to the dining room for supper, but he began to yell and threaten to throw water on staff. PRN was given at that time. Pt is currently in the dining room eating supper. Will continue to monitor.
[2020-03-20] MEDS: traZODone 100 MG TABLET. PO SCH (20:03)
[2020-03-20] MEDS: OLANZapine 5 MG TABLET PO SCH (20:03)
[2020-03-20] MEDS: SERTRALINE 100 MG TABLET. PO SCH (20:03)
[2020-03-20] MEDS: MELATONIN 3 MG TABLET PO SCH (20:04)
[2020-03-20] MEDS: AMITRIPTYLINE HCL 25 MG TABLET PO SCH (20:04)
[2020-03-20] MEDS: traZODone 50 MG TABLET. PO PRN (22:03)
[2020-03-20] MEDS: LORazepam 0.5 MG TABLET PO PRN (22:03)
--- NOTE | 2020-03-20 22:07 | PDOC ---
Exam Note: Heber Note: Please also refer to the separate dictated note~for this date of service dictated separately.~Patient seen individually. Discussed the patient with Nursing staff reviewed the chart.~Reviewed interim history and current functioning. Reviewed vital signs,~Labs/ Radiology~and current medications noted below. Continue current treatment with the changes noted in the dictated addendum note Assessment: Vital Signs/I&O: Vital Signs Date Time Temp Pulse Resp B/P (MAP) Pulse Ox O2 Delivery O2 Flow Rate FiO2 03/20/20 16:19 98.6 88 16 124/81 (95) 96 03/16/20 16:08 Room Air I & O 03/19/20 03/19/20 03/20/20 15:00 23:00 07:00 Intake Total 240 ml 340 ml Balance 240 ml 340 ml Current Medications: I have reviewed the current psychotropics carefully including drug interactions. Risk benefit ratio favors no change other than as noted in my dictated progress note. Diagnosis: Problems: (1) Post traumatic stress disorder (2) Anxiety disorder (3) Dementia in Alzheimer's disease with delusions (4) Dementia in Alzheimer's disease with depression (5) Dementia, vascular, with delusions (6) Dementia, vascular, with depression (7) Impulse control disorder SMITA TOLEDO MD March 20, 2020 22:07
--- NOTE | 2020-03-20 23:53 | NUR ---
This evening pt walked in halls and was generally cooperative. Eventually he started going into others rooms and was placed in [facility] for awhile. At 2200 he remained active and PRN meds given, after approx 1 hour he became drowsy and was placed in bed and went to sleep.
[2020-03-21 06:05] VITALS: BP 135/79
--- NOTE | 2020-03-21 07:33 | PDOC ---
Exam Note: Heber Note: This note is a late entry for 03/19/2020 covers elements not covered in my initial note. Subjective: The patient was seen face to face in the evening. Nursing report was with Ashley. Discussed the patient with nursing staff reviewed the chart. He did not sleep well the previous night. Previous night he was intrusive and resistive with cares, hallucinating and picking up things from the floor. Review of Systems: No CV, GI/, Pulmonary, Eye, ENT system symptoms on review. Reliability poor. Mental Status Exam: Oriented to himself. Insight and judgment, recent and remote memory, attention and concentration, fund of knowledge is poor consistent with his diagnosis. Laboratory Data: Reviewed. Impression: Major neurocognitive disorder, Alzheimer, vascular with delusion, depression, behavioral disturbance. Anxiety disorder unspecified. Impulse control disorder unspecified. Plan: No change from initial note. Remeron 15 mg h.s. has been ineffective for his insomnia. We will change to amitriptyline 25 mg h.s. Continue Risperdal 0.25 mg b.i.d. and melatonin 3 mg h.s. Depakote Sprinkle 125 mg twice a day and Zyprexa p.r.n., Zoloft 100 mg a day, trazodone h.s. p.r.n. for insomnia, Ativan p.r.n. Make further adjustments as clinically indicated. Assessment: Vital Signs/I&O: Vital Signs Date Time Temp Pulse Resp B/P (MAP) Pulse Ox O2 Delivery O2 Flow Rate FiO2 03/21/20 06:05 97.4 62 18 135/79 (97) 96 03/16/20 16:08 Room Air I & O 03/20/20 03/20/20 03/21/20 15:00 23:00 07:00 Intake Total 600 ml 240 ml Balance 600 ml 240 ml Current Medications: I have reviewed the current psychotropics carefully including drug interactions. Risk benefit ratio favors no change other than as noted in my dictated progress note. Diagnosis: Problems: (1) Post traumatic stress disorder (2) Anxiety disorder (3) Dementia in Alzheimer's disease with delusions (4) Dementia in Alzheimer's disease with depression (5) Dementia, vascular, with delusions (6) Dementia, vascular, with depression (7) Impulse control disorder SMITA TOLEDO MD March 21, 2020 07:33
--- NOTE | 2020-03-21 07:50 | PDOC ---
Exam Note: Heber Note: This note is a late entry for 03/20/2020 covers elements not covered in my initial note. Subjective: The patient was seen face to face in the evening. Nursing report was with Ashley TURK. Discussed the patient with nursing staff in the evening reviewed the chart. He slept 6-3/4 hours previous night, wandering, less intrusive, compliant with medications, still picking up things on the floor at times with hallucinations but redirectable. Review of Systems: No CV, GI/, Pulmonary, Eye, ENT system symptoms on review. Reliability poor. Mental Status Exam: Oriented to himself. Insight and judgment, recent and remote memory, attention and concentration, fund of knowledge is poor consistent with his diagnosis. Laboratory Data: Reviewed. Impression: Major neurocognitive disorder, Alzheimer, vascular with delusion, depression, behavioral disturbance. Anxiety disorder unspecified. Impulse control disorder unspecified. Plan: No change from initial note. Assessment: Vital Signs/I&O: Vital Signs Date Time Temp Pulse Resp B/P (MAP) Pulse Ox O2 Delivery O2 Flow Rate FiO2 03/21/20 06:05 97.4 62 18 135/79 (97) 96 03/16/20 16:08 Room Air I & O 03/20/20 03/20/20 03/21/20 14:59 22:59 06:59 Intake Total 600 ml 240 ml Balance 600 ml 240 ml Current Medications: I have reviewed the current psychotropics carefully including drug interactions. Risk benefit ratio favors no change other than as noted in my dictated progress note. Diagnosis: Problems: (1) Post traumatic stress disorder (2) Anxiety disorder (3) Dementia in Alzheimer's disease with delusions (4) Dementia in Alzheimer's disease with depression (5) Dementia, vascular, with delusions (6) Dementia, vascular, with depression (7) Impulse control disorder SMITA TOLEDO MD March 21, 2020 07:50
[2020-03-21] MEDS: TAMSULOSIN 0.4 MG CAP.ER.24H. PO SCH (08:41)
[2020-03-21] MEDS: FINASTERIDE 5 MG TABLET PO SCH (08:41)
[2020-03-21] MEDS: risperiDONE 0.25 MG TABLET. PO SCH ×2 (08:41→19:53)
[2020-03-21] MEDS: DIVALPROEX 125 MG CAP.SPRINK PO SCH ×2 (08:41→17:00)
--- NOTE | 2020-03-21 10:25 | NUR ---
Patient is located in group room at time of assessment and medication administration. Patient is very disorganized getting up and walking around sitting down to take a bite of food and then getting back up again. Patient is pleasant and compliant with medications crushed in pudding.
[2020-03-21 15:31] VITALS: BP 111/73
[2020-03-21] MEDS: AMITRIPTYLINE HCL 25 MG TABLET PO SCH (19:52)
[2020-03-21] MEDS: traZODone 100 MG TABLET. PO SCH (19:52)
[2020-03-21] MEDS: MELATONIN 3 MG TABLET PO SCH (19:53)
[2020-03-21] MEDS: SERTRALINE 100 MG TABLET. PO SCH (19:53)
[2020-03-21] MEDS: OLANZapine 5 MG TABLET PO SCH (19:53)
--- NOTE | 2020-03-21 21:52 | PDOC ---
Exam Note: Heber Note: Please also refer to the separate dictated note~for this date of service dictated separately.~Patient seen individually. Discussed the patient with Nursing staff reviewed the chart.~Reviewed interim history and current functioning. Reviewed vital signs,~Labs/ Radiology~and current medications noted below. Continue current treatment with the changes noted in the dictated addendum note Assessment: Vital Signs/I&O: Vital Signs Date Time Temp Pulse Resp B/P (MAP) Pulse Ox O2 Delivery O2 Flow Rate FiO2 03/21/20 20:53 98.6 94 03/21/20 15:31 61 16 111/73 (86) 03/16/20 16:08 Room Air I & O 03/20/20 03/20/20 03/21/20 15:00 23:00 07:00 Intake Total 600 ml 240 ml Balance 600 ml 240 ml Current Medications: I have reviewed the current psychotropics carefully including drug interactions. Risk benefit ratio favors no change other than as noted in my dictated progress note. Diagnosis: Problems: (1) Post traumatic stress disorder (2) Anxiety disorder (3) Dementia in Alzheimer's disease with delusions (4) Dementia in Alzheimer's disease with depression (5) Dementia, vascular, with delusions (6) Dementia, vascular, with depression (7) Impulse control disorder SMITA TOLEDO MD March 21, 2020 21:52
--- NOTE | 2020-03-21 22:00 | NUR ---
Patient is in the hallway on assumption of care, wandering the unit. Grabbed a CORONER by the arm and tried to walk down the hallway with her. He is very intrusive, repeatedly going in to other patient's rooms. Somewhat resistant to redirection, but able to be redirected after several tries. Compliant with assessments and took his medications whole. PRN Zydis and Trazadone given with HS meds. After medication administration, patient was directed back to his room. He began disrobing at that point and kept coming back out in to the hallway with no pants on. Brought to the bathroom, and then dressed in a onesie with a staff assist of 2. Patient put to bed, and is appears to be sleeping comfortably at present time. Addendum: 03/21/20 at 5008 by EDWARDO DONATO RN RN Note entered on wrong patient
--- NOTE | 2020-03-21 22:00 | NUR ---
Patient in the hallway on assumption of care. He is wandering the unit, continuously going into other patients rooms. He is redirectable. Disorganized, confused. Compliant with assessments and medications taken crushed in pudding. Continues to have visual hallucinations, picking up things from the ground that aren't there. No agitation. Does not appear to be in any pain or discomfort. Patient currently in bed, appears to be sleeping comfortably at this time. Will continue to monitor.
[2020-03-22 06:09] VITALS: BP 138/78
[2020-03-22 08:39] LABS: HEMATOCRIT 39.9 % (39.0-53.0); HEMOGLOBIN 13.4 g/dL (13.0-17.5); RED BLOOD COUNT 4.46 x10^6/uL (4.30-5.70); RED CELL DISTRIBUTION WIDTH 14.4 % (11.5-14.5); WHITE BLOOD COUNT 5.8 x10^3/uL (4.0-11.0)
[2020-03-22] MEDS: DIVALPROEX 125 MG CAP.SPRINK PO SCH ×2 (08:49→17:12)
[2020-03-22] MEDS: TAMSULOSIN 0.4 MG CAP.ER.24H. PO SCH (08:50)
[2020-03-22] MEDS: FINASTERIDE 5 MG TABLET PO SCH (08:50)
[2020-03-22] MEDS: risperiDONE 0.25 MG TABLET. PO SCH ×2 (08:50→19:57)
[2020-03-22 08:53] LABS: ALBUMIN 3.8 g/dL (3.4-5.0); ALK PHOS 78 U/L (46-116); ALT (SGPT) 24 U/L (16-63); ANION GAP 8 (6-14); AST (SGOT) 21 U/L (15-37); BLOOD UREA NITROGEN 21 mg/dL (8-26); BUN/CREATININE RATIO 21 (6-20); CALCIUM 8.9 mg/dL (8.5-10.1); CARBON DIOXIDE 29 mmol/L (21-32); CHLORIDE 103 mmol/L (98-107); GFR 74.1; GLUCOSE 79 mg/dL (70-99); POTASSIUM 3.6 mmol/L (3.5-5.1); SODIUM 140 mmol/L (136-145); TOTAL BILIRUBIN 0.4 mg/dL (0.2-1.0); TOTAL PROTEIN 7.7 g/dL (6.4-8.2)
--- NOTE | 2020-03-22 08:55 | PDOC ---
Exam Note: Heber Note: This note is a late entry for 03/21/2020 covers elements not covered in my initial note. Subjective: The patient was seen face to face in the evening of 03/21/2020. Nursing report was with Ange TURK. Discussed the patient with nursing staff in the evening reviewed the chart. He slept 6-1/2 hours previous night. He has been confused, mumbling under his breath, not aggressive. Review of Systems: No CV, GI/, Pulmonary, Eye, ENT system symptoms on review. Mental Status Exam: Oriented to himself. Insight and judgment, recent and remote memory, attention and concentration, fund of knowledge is poor consistent with his diagnosis. Laboratory Data: Reviewed. Impression: Major neurocognitive disorder, Alzheimer, vascular with delusion, depression, behavioral disturbance. Anxiety disorder unspecified. Impulse control disorder unspecified. Plan: No change from initial note. Assessment: Vital Signs/I&O: Vital Signs Date Time Temp Pulse Resp B/P (MAP) Pulse Ox O2 Delivery O2 Flow Rate FiO2 03/22/20 08:35 97.8 98 03/22/20 06:09 63 14 138/78 (98) 03/16/20 16:08 Room Air I & O 03/21/20 03/21/20 03/22/20 14:59 22:59 06:59 Intake Total 480 ml 360 ml Balance 480 ml 360 ml Labs: Laboratory Tests Test 03/22/20 07:15 White Blood Count 5.8 x10^3/uL (4.0-11.0) Red Blood Count 4.46 x10^6/uL (4.30-5.70) Hemoglobin 13.4 g/dL (13.0-17.5) Hematocrit 39.9 % (39.0-53.0) Mean Corpuscular Volume 90 fL (79-100) Mean Corpuscular Hemoglobin 30 pg (25-35) Mean Corpuscular Hemoglobin Concent 34 g/dL (31-37) Red Cell Distribution Width 14.4 % (11.5-14.5) Platelet Count 215 x10^3/uL (140-400) Current Medications: I have reviewed the current psychotropics carefully including drug interactions. Risk benefit ratio favors no change other than as noted in my dictated progress note. Diagnosis: Problems: (1) Post traumatic stress disorder (2) Anxiety disorder (3) Dementia in Alzheimer's disease with delusions (4) Dementia in Alzheimer's disease with depression (5) Dementia, vascular, with delusions (6) Dementia, vascular, with depression (7) Impulse control disorder SMITA TOLEDO MD March 22, 2020 08:55
[2020-03-22 09:08] LABS: VAL ACID 32 mcg/mL (50-100)
--- NOTE | 2020-03-22 09:30 | NUR ---
Pt is wandering, confused, disorganized. No aggression, no agitation. He is compliant with his medication and assessment.
[2020-03-22 15:29] VITALS: BP 116/77
[2020-03-22] MEDS: AMITRIPTYLINE HCL 25 MG TABLET PO SCH (19:55)
[2020-03-22] MEDS: traZODone 100 MG TABLET. PO SCH (19:56)
[2020-03-22] MEDS: OLANZapine 5 MG TABLET PO SCH (19:56)
[2020-03-22] MEDS: MELATONIN 3 MG TABLET PO SCH (19:57)
[2020-03-22] MEDS: SERTRALINE 100 MG TABLET. PO SCH (19:57)
--- NOTE | 2020-03-22 21:57 | PDOC ---
Exam Note: Heber Note: Please also refer to the separate dictated note~for this date of service dictated separately.~Patient seen individually. Discussed the patient with Nursing staff reviewed the chart.~Reviewed interim history and current functioning. Reviewed vital signs,~Labs/ Radiology~and current medications noted below. Continue current treatment with the changes noted in the dictated addendum note Assessment: Vital Signs/I&O: Vital Signs Date Time Temp Pulse Resp B/P (MAP) Pulse Ox O2 Delivery O2 Flow Rate FiO2 03/22/20 21:00 98.5 94 03/22/20 15:29 67 16 116/77 (90) 03/16/20 16:08 Room Air I & O 03/21/20 03/21/20 03/22/20 15:00 23:00 07:00 Intake Total 480 ml 360 ml Balance 480 ml 360 ml Labs: Laboratory Tests Test 03/22/20 07:15 White Blood Count 5.8 x10^3/uL (4.0-11.0) Red Blood Count 4.46 x10^6/uL (4.30-5.70) Hemoglobin 13.4 g/dL (13.0-17.5) Hematocrit 39.9 % (39.0-53.0) Mean Corpuscular Volume 90 fL (79-100) Mean Corpuscular Hemoglobin 30 pg (25-35) Mean Corpuscular Hemoglobin Concent 34 g/dL (31-37) Red Cell Distribution Width 14.4 % (11.5-14.5) Platelet Count 215 x10^3/uL (140-400) Sodium Level 140 mmol/L (136-145) Potassium Level 3.6 mmol/L (3.5-5.1) Chloride Level 103 mmol/L (98-107) Carbon Dioxide Level 29 mmol/L (21-32) Anion Gap 8 (6-14) Blood Urea Nitrogen 21 mg/dL (8-26) Creatinine 1.0 mg/dL (0.7-1.3) Estimated GFR (Cockcroft-Gault) 74.1 BUN/Creatinine Ratio 21 (6-20) H Glucose Level 79 mg/dL (70-99) Calcium Level 8.9 mg/dL (8.5-10.1) Total Bilirubin 0.4 mg/dL (0.2-1.0) Aspartate Amino Transferase (AST) 21 U/L (15-37) Alanine Aminotransferase (ALT) 24 U/L (16-63) Alkaline Phosphatase 78 U/L (46-116) Total Protein 7.7 g/dL (6.4-8.2) Albumin 3.8 g/dL (3.4-5.0) Albumin/Globulin Ratio 1.0 (1.0-1.7) Valproic Acid Level 32 mcg/mL (50-100) L Valproic Acid Last Dose Date 03/21/20 Valproic Acid Last Dose Time 1700 Current Medications: I have reviewed the current psychotropics carefully including drug interactions. Risk benefit ratio favors no change other than as noted in my dictated progress note. Diagnosis: Problems: (1) Post traumatic stress disorder (2) Anxiety disorder (3) Dementia in Alzheimer's disease with delusions (4) Dementia in Alzheimer's disease with depression (5) Dementia, vascular, with delusions (6) Dementia, vascular, with depression (7) Impulse control disorder SMITA TOLEDO MD March 22, 2020 21:57
--- NOTE | 2020-03-22 23:00 | NUR ---
Patient in the hallway on assumption of care. He is wandering the unit, continuously going into other patients rooms. More difficult to redirect than on previous evenings. Making threatening gestures and comments. Continues to have visual hallucinations, picking up things from the ground that aren't there. No agitation. Does not appear to be in any pain or discomfort. Patient currently in the west hallway, walking and picking unseen things up off the ground. Will continue to monitor.
[2020-03-23 05:32] VITALS: BP 149/80
[2020-03-23] MEDS: DIVALPROEX 125 MG CAP.SPRINK PO SCH ×2 (09:08→17:00)
[2020-03-23] MEDS: risperiDONE 0.25 MG TABLET. PO SCH ×2 (09:08→19:47)
[2020-03-23] MEDS: TAMSULOSIN 0.4 MG CAP.ER.24H. PO SCH (09:08)
[2020-03-23] MEDS: FINASTERIDE 5 MG TABLET PO SCH (09:08)
--- NOTE | 2020-03-23 10:59 | NUR ---
He is compliant with his medication and assessment. Pt is wandering, confused, disorganized. No aggression, no agitation.
[2020-03-23] MEDS: MAGNESIUM HYDROXIDE 2,400 MG/30 ML ORAL.SUSP. PO PRN (12:34)
[2020-03-23 16:30] VITALS: BP 136/80
[2020-03-23] MEDS: traZODone 100 MG TABLET. PO SCH (19:47)
[2020-03-23] MEDS: OLANZapine 5 MG TABLET PO SCH (19:48)
[2020-03-23] MEDS: SERTRALINE 100 MG TABLET. PO SCH (19:48)
[2020-03-23] MEDS: MELATONIN 3 MG TABLET PO SCH (19:48)
[2020-03-23] MEDS: AMITRIPTYLINE HCL 25 MG TABLET PO SCH (19:48)
[2020-03-23] MEDS: BISACODYL 10 MG SUPP.RECT PR PRN (21:35)
--- NOTE | 2020-03-23 22:08 | PDOC ---
Exam Note: Heber Note: Please also refer to the separate dictated note~for this date of service dictated separately.~Patient seen individually. Discussed the patient with Nursing staff reviewed the chart.~Reviewed interim history and current functioning. Reviewed vital signs,~Labs/ Radiology~and current medications noted below. Continue current treatment with the changes noted in the dictated addendum note Assessment: Vital Signs/I&O: Vital Signs Date Time Temp Pulse Resp B/P (MAP) Pulse Ox O2 Delivery O2 Flow Rate FiO2 03/23/20 16:30 98.7 80 136/80 (98) 98 03/23/20 05:32 16 I & O 03/22/20 03/22/20 03/23/20 15:00 23:00 07:00 Intake Total 360 ml 240 ml Balance 360 ml 240 ml Current Medications: Meds: Current Medications Medications (Trade) Dose Ordered Sig/Phi Route PRN Reason Start Time Stop Time Status Last Admin Dose Admin Bisacodyl (Dulcolax Supp) 10 mg PRN DAILY PRN [place] CONSTIPATION 03/23/20 19:30 03/23/20 21:35 I have reviewed the current psychotropics carefully including drug interactions. Risk benefit ratio favors no change other than as noted in my dictated progress note. Diagnosis: Problems: (1) Post traumatic stress disorder (2) Anxiety disorder (3) Dementia in Alzheimer's disease with delusions (4) Dementia in Alzheimer's disease with depression (5) Dementia, vascular, with delusions (6) Dementia, vascular, with depression (7) Impulse control disorder SMITA TOLEDO MD March 23, 2020 22:07
--- NOTE | 2020-03-23 22:55 | NUR ---
Patient is wandering the hallway on assumption of care. He is disorganized, confused. Continues to be intrusive, constantly going in to other patients rooms. Sometimes difficult to redirect. Compliant with assessments and medications taken crushed in chocolate pudding. Active bowel sounds throughout and no abdominal tenderness noted. Patient has received Milk of Magnesia and still has not had a recorded bowel movement. Pushed fluids, and administered PRN Dulcolax suppository at HS, with good results. Patient has had a medium sized, hard bowel movement so far this shift. Presently, patient appears to be sleeping comfortably in his room. Will continue to monitor.
[2020-03-24 06:19] VITALS: BP 134/74
--- NOTE | 2020-03-24 07:58 | PDOC ---
Exam Note: Heber Note: This note is a late entry for 03/22/2020 covers elements not covered in my initial note. Subjective: The patient was seen face to face in the evening of 03/22/2020. Nursing report was with Sharon TURK. Discussed the patient with nursing staff in the evening reviewed the chart. He slept 4-3/4 hours previous night. He remains confused, less restless, little better per nursing report. Review of Systems: No CV, GI/, Pulmonary, Eye, ENT system symptoms on review. Mental Status Exam: Oriented to himself. Insight and judgment, recent and remote memory, attention and concentration, fund of knowledge is poor consistent with his diagnosis. Laboratory Data: Reviewed. Impression: Major neurocognitive disorder, Alzheimer, vascular with delusion, depression, behavioral disturbance. Anxiety disorder unspecified. Impulse control disorder unspecified. Plan: No change from initial note. Assessment: Vital Signs/I&O: Vital Signs Date Time Temp Pulse Resp B/P (MAP) Pulse Ox O2 Delivery O2 Flow Rate FiO2 03/24/20 06:19 97.4 71 18 134/74 (94) 96 I & O 03/23/20 03/23/20 03/24/20 14:59 22:59 06:59 Intake Total 480 ml 540 ml Balance 480 ml 540 ml Current Medications: Meds: Current Medications Medications (Trade) Dose Ordered Sig/Phi Route PRN Reason Start Time Stop Time Status Last Admin Dose Admin Bisacodyl (Dulcolax Supp) 10 mg PRN DAILY PRN [place] CONSTIPATION 03/23/20 19:30 03/23/20 21:35 I have reviewed the current psychotropics carefully including drug interactions. Risk benefit ratio favors no change other than as noted in my dictated progress note. Diagnosis: Problems: (1) Post traumatic stress disorder (2) Anxiety disorder (3) Dementia in Alzheimer's disease with delusions (4) Dementia in Alzheimer's disease with depression (5) Dementia, vascular, with delusions (6) Dementia, vascular, with depression (7) Impulse control disorder SMITA TOLEDO MD Mar 24, 2020 07:58
[2020-03-24] MEDS: risperiDONE 0.25 MG TABLET. PO SCH ×2 (08:53→19:57)
[2020-03-24] MEDS: TAMSULOSIN 0.4 MG CAP.ER.24H. PO SCH (08:53)
[2020-03-24] MEDS: FINASTERIDE 5 MG TABLET PO SCH (08:53)
[2020-03-24] MEDS: DIVALPROEX 125 MG CAP.SPRINK PO SCH ×2 (08:53→17:20)
[2020-03-24 10:01] LABS: BASO # 0.1 x10^3/uL (0.0-0.2); BASO % 1 % (0-3); EOS # 0.1 x10^3/uL (0.0-0.7); EOS % 3 % (0-3); HEMATOCRIT 38.6 % (39.0-53.0); HEMOGLOBIN 12.9 g/dL (13.0-17.5); LYMPH # 0.9 x10^3/uL (1.0-4.8); LYMPH % 18 % (24-48); MEAN CORPUSCULAR HEMOGLOBIN 30 pg (25-35); MEAN CORPUSCULAR HGB CONC 34 g/dL (31-37); MEAN CORPUSCULAR VOLUME 89 fL (79-100); MONO # 0.5 x10^3/uL (0.0-1.1); MONO % 10 % (0-9); NEUT # 3.5 x10^3uL (1.8-7.7); NEUT % 68 % (31-73); PLATELET COUNT 203 x10^3/uL (140-400); RED BLOOD COUNT 4.32 x10^6/uL (4.30-5.70); RED CELL DISTRIBUTION WIDTH 14.4 % (11.5-14.5); WHITE BLOOD COUNT 5.1 x10^3/uL (4.0-11.0)
[2020-03-24 10:20] LABS: ALBUMIN 3.5 g/dL (3.4-5.0); ALBUMIN/GLOBULIN RATIO 0.9 (1.0-1.7); CALCIUM 8.8 mg/dL (8.5-10.1); GFR 74.1; POTASSIUM 3.8 mmol/L (3.5-5.1); TOTAL BILIRUBIN 0.3 mg/dL (0.2-1.0); TOTAL PROTEIN 7.2 g/dL (6.4-8.2)
--- NOTE | 2020-03-24 10:58 | NUR ---
Pt is wandering, confused, disorganized. Pt is redirectable. No aggression, no agitation. He is compliant with his medication and assessment.
--- NOTE | 2020-03-24 15:30 | NUR ---
WEEKLY ACTIVITY THERAPY NOTE Date of Admission: 03/08/20 Date of AT Assessment: 03/10/20 Precipitating behaviors that initiated intake and admission: aggressive and threatening towards , fearful of him, burning plastic in the kitchen, confused and disoriented, hallucinations, restless, fidgety. Goal aimed:to increase sensory stimulation Initial Goal: Pt. will participate in at least two individual Activity Therapy session before discharge. Goal changed 03/17: Pt. will participate in at least three Activity Therapy groups per week. Weekly progress towards goal: achieved, 3/3 Group participation level: minimal Weekly highlights: enjoyed snacks on Day Behaviors observed: wandering around unit and in/ out of patient's rooms, visual hallucinations, difficult to capture attention, overall similar to last week, picks up things that dies not belong to him Plan: no change to goal Beneficial adaptations: sensory stimulation
[2020-03-24 15:43] VITALS: BP 135/80
--- NOTE | 2020-03-24 17:09 | TX PLAN ---
Interdisciplinary Tx Plan Admission Information March 08, 2020 at 17:56 Legal Status (on Admission): Voluntary DPOA/Guardian Name: Joya Kearns Contact Verified Code Status: DNR Allergies: Coded Allergies: No Known Drug Allergies (Unverified , 07/25/18) Diagnoses Primary Diagnosis: Major Neurocognitive D/O, vascular Alzheimer's with delusions, depression, behavioral disturbance Reasons for Admission: Combative, Confusion/Disoriented, Poor impulse control Problem in Patient's Words: Pt has increasingly been getting worse over the last 2 weeks. Additional Admission Comments: According to the intake, pt is aggressive and threatening towards . is fearful of him, burning plastic in the kitchen, confused and demented, hallucinates, restless and fidgety. Problems Active Problems: aggressive confused hallucinating restless Inactive Problems: medication compliant Pt Strengths/Limitations Ability for [place]: Poor Cognitive Functioning/Ability: Fair Communication Skills/Ability: Fair Financial Resources: Fair Insight/Judgement: Poor Intellectual Ability: Poor Physical Health: Fair Social Skills: Poor Stability in Family: Fair Stability in School/Work: Poor Verbal Skills: Poor Discharge Criteria Discharge Criteria: Adequate arrangements @DC, Improved behavior, Improved mood/thought Preliminary Discharge Plan Preliminary DC Plan: Placement Needed Special Precautions Fall Risk: Low Initial D/C Plan Pt will need placement at the time of discharge as is not able to care for pt. Identified Discharge Needs: mental health services Currently Utilized Resources Currently Utilized Resources/P: Primary Care Physician Neurology Identified Problems/Hx/Goals Objectives/Short-Term Goals Short Term Goals: Dec. Aggression, Dec. Anxiety/Panic, Dec. Outbursts, Monitor Med Effects, Promote Coping Skill Short Term Goals in Patient's: medication management Interventions/Frequency Staff Interventions/Frequency&: Psychiatrist to assess pt at least 3x per week. Social Work to assess pt at least 2x per week. Nursing to assess and complete 15 minute checks daily. Encourage participation in group activities or on a 1:1 basis based on activity therapy assessment/goal. 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 Education: Bachelor's Degree; did not fully complete his Master's Community Follow-up Continue to follow up with Primary care physician Treatment Plan Explained Patient/Child Welfare Worker had this treatment plan explained to him/her as indicated by the signature below and has been given the opportunity to ask questions and make suggestions: Date: Patient/Child Welfare Worker Signature: Status Update Update Pt is eating 50% of meals and sleeping on average 4 hour per night. Pt continues to wander the unit, door checking and appears to be hallucinating AEB picking things up off the floor that is not there. Pt is easily redirected and can be quite the childcare administrator with staff. Pt will have his Depakote increased with labs and levels in 3 days. Pt is still looking for placement and SW will assist pt in finding the best place for pt. EDSON JIMENEZ Mar 24, 2020 17:09
[2020-03-24] MEDS: OLANZapine 5 MG TABLET PO SCH (19:57)
[2020-03-24] MEDS: traZODone 100 MG TABLET. PO SCH (19:57)
[2020-03-24] MEDS: SERTRALINE 100 MG TABLET. PO SCH (19:57)
[2020-03-24] MEDS: MELATONIN 3 MG TABLET PO SCH (19:58)
[2020-03-24] MEDS: AMITRIPTYLINE HCL 25 MG TABLET PO SCH (19:58)
--- NOTE | 2020-03-24 21:18 | NUR ---
Pt wandering in hallway at shift change. Pt calm, pleasantly confused, and disorganized. Pt cooperative with assessment and compliant with medications administered crushed in pudding.
--- NOTE | 2020-03-24 22:07 | PDOC ---
Exam Note: [place] Note: Please also refer to the separate dictated note~for this date of service dictated separately.~Patient seen individually. Discussed the patient with Nursing staff reviewed the chart.~Reviewed interim history and current functioning. Reviewed vital signs,~Labs/ Radiology~and current medications noted below. Continue current treatment with the changes noted in the dictated addendum note Assessment: Vital Signs/I&O: Vital Signs Date Time Temp Pulse Resp B/P (MAP) Pulse Ox O2 Delivery O2 Flow Rate FiO2 03/24/20 18:34 98.5 03/24/20 15:43 98 22 135/80 (98) 98 I & O 03/23/20 03/23/20 03/24/20 15:00 23:00 07:00 Intake Total 480 ml 540 ml Balance 480 ml 540 ml Labs: Laboratory Tests Test 03/24/20 09:32 White Blood Count 5.1 x10^3/uL (4.0-11.0) Red Blood Count 4.32 x10^6/uL (4.30-5.70) Hemoglobin 12.9 g/dL (13.0-17.5) L Hematocrit 38.6 % (39.0-53.0) L Mean Corpuscular Volume 89 fL (79-100) Mean Corpuscular Hemoglobin 30 pg (25-35) Mean Corpuscular Hemoglobin Concent 34 g/dL (31-37) Red Cell Distribution Width 14.4 % (11.5-14.5) Platelet Count 203 x10^3/uL (140-400) Neutrophils (%) (Auto) 68 % (31-73) Lymphocytes (%) (Auto) 18 % (24-48) L Monocytes (%) (Auto) 10 % (0-9) H Eosinophils (%) (Auto) 3 % (0-3) Basophils (%) (Auto) 1 % (0-3) Neutrophils # (Auto) 3.5 x10^3uL (1.8-7.7) Lymphocytes # (Auto) 0.9 x10^3/uL (1.0-4.8) L Monocytes # (Auto) 0.5 x10^3/uL (0.0-1.1) Eosinophils # (Auto) 0.1 x10^3/uL (0.0-0.7) Basophils # (Auto) 0.1 x10^3/uL (0.0-0.2) Sodium Level 140 mmol/L (136-145) Potassium Level 3.8 mmol/L (3.5-5.1) Chloride Level 102 mmol/L (98-107) Carbon Dioxide Level 30 mmol/L (21-32) Anion Gap 8 (6-14) Blood Urea Nitrogen 22 mg/dL (8-26) Creatinine 1.0 mg/dL (0.7-1.3) Estimated GFR (Cockcroft-Gault) 74.1 BUN/Creatinine Ratio 22 (6-20) H Glucose Level 81 mg/dL (70-99) Calcium Level 8.8 mg/dL (8.5-10.1) Total Bilirubin 0.3 mg/dL (0.2-1.0) Aspartate Amino Transferase (AST) 19 U/L (15-37) Alanine Aminotransferase (ALT) 23 U/L (16-63) Alkaline Phosphatase 77 U/L (46-116) Total Protein 7.2 g/dL (6.4-8.2) Albumin 3.5 g/dL (3.4-5.0) Albumin/Globulin Ratio 0.9 (1.0-1.7) L Current Medications: Meds: Current Medications Medications (Trade) Dose Ordered Sig/Phi Route PRN Reason Start Time Stop Time Status Last Admin Dose Admin Divalproex Sodium (Depakote Sprinkles) 250 mg 1700 PO 03/24/20 17:00 03/24/20 17:20 I have reviewed the current psychotropics carefully including drug interactions. Risk benefit ratio favors no change other than as noted in my dictated progress note. Diagnosis: Problems: (1) Post traumatic stress disorder (2) Anxiety disorder (3) Dementia in Alzheimer's disease with delusions (4) Dementia in Alzheimer's disease with depression (5) Dementia, vascular, with delusions (6) Dementia, vascular, with depression (7) Impulse control disorder SMITA TOLEDO MD Mar 24, 2020 22:07
[2020-03-25 06:38] VITALS: BP 139/81
--- NOTE | 2020-03-25 06:50 | PDOC ---
Exam Note: [place] Note: This note is a late entry for 03/23/2020 covers elements not covered in my initial note. Subjective: The patient was seen face to face in the evening of 03/23/2020. Nursing report was with Sharon TURK. Discussed the patient with nursing staff in the evening reviewed the chart. He slept 1-1/4 hours previous night. The patient has been having some visual hallucinations, grabbing at things on the floor, feels there is something in his hand, wandering the hallway, redirectable. Review of Systems: No CV, GI/, Pulmonary, Eye, ENT system symptoms on review. Mental Status Exam: Oriented to himself. Insight and judgment, recent and remote memory, attention and concentration, fund of knowledge is poor consistent with his diagnosis. Laboratory Data: Reviewed. Impression: Major neurocognitive disorder, Alzheimer, vascular with delusion, depression, behavioral disturbance. Anxiety disorder unspecified. Impulse control disorder unspecified. Plan: No change from initial note. Assessment: Vital Signs/I&O: Vital Signs Date Time Temp Pulse Resp B/P (MAP) Pulse Ox O2 Delivery O2 Flow Rate FiO2 03/25/20 06:38 97.6 69 18 139/81 (100) 96 I & O 03/24/20 03/24/20 03/25/20 15:00 23:00 07:00 Intake Total 680 ml 660 ml Balance 680 ml 660 ml Labs: Laboratory Tests Test 03/24/20 09:32 White Blood Count 5.1 x10^3/uL (4.0-11.0) Red Blood Count 4.32 x10^6/uL (4.30-5.70) Hemoglobin 12.9 g/dL (13.0-17.5) L Hematocrit 38.6 % (39.0-53.0) L Mean Corpuscular Volume 89 fL (79-100) Mean Corpuscular Hemoglobin 30 pg (25-35) Mean Corpuscular Hemoglobin Concent 34 g/dL (31-37) Red Cell Distribution Width 14.4 % (11.5-14.5) Platelet Count 203 x10^3/uL (140-400) Neutrophils (%) (Auto) 68 % (31-73) Lymphocytes (%) (Auto) 18 % (24-48) L Monocytes (%) (Auto) 10 % (0-9) H Eosinophils (%) (Auto) 3 % (0-3) Basophils (%) (Auto) 1 % (0-3) Neutrophils # (Auto) 3.5 x10^3uL (1.8-7.7) Lymphocytes # (Auto) 0.9 x10^3/uL (1.0-4.8) L Monocytes # (Auto) 0.5 x10^3/uL (0.0-1.1) Eosinophils # (Auto) 0.1 x10^3/uL (0.0-0.7) Basophils # (Auto) 0.1 x10^3/uL (0.0-0.2) Sodium Level 140 mmol/L (136-145) Potassium Level 3.8 mmol/L (3.5-5.1) Chloride Level 102 mmol/L (98-107) Carbon Dioxide Level 30 mmol/L (21-32) Anion Gap 8 (6-14) Blood Urea Nitrogen 22 mg/dL (8-26) Creatinine 1.0 mg/dL (0.7-1.3) Estimated GFR (Cockcroft-Gault) 74.1 BUN/Creatinine Ratio 22 (6-20) H Glucose Level 81 mg/dL (70-99) Calcium Level 8.8 mg/dL (8.5-10.1) Total Bilirubin 0.3 mg/dL (0.2-1.0) Aspartate Amino Transferase (AST) 19 U/L (15-37) Alanine Aminotransferase (ALT) 23 U/L (16-63) Alkaline Phosphatase 77 U/L (46-116) Total Protein 7.2 g/dL (6.4-8.2) Albumin 3.5 g/dL (3.4-5.0) Albumin/Globulin Ratio 0.9 (1.0-1.7) L Current Medications: Meds: Current Medications Medications (Trade) Dose Ordered Sig/Phi Route PRN Reason Start Time Stop Time Status Last Admin Dose Admin Divalproex Sodium (Depakote Sprinkles) 250 mg 1700 PO 03/24/20 17:00 03/24/20 17:20 I have reviewed the current psychotropics carefully including drug interactions. Risk benefit ratio favors no change other than as noted in my dictated progress note. Diagnosis: Problems: (1) Post traumatic stress disorder (2) Anxiety disorder (3) Dementia in Alzheimer's disease with delusions (4) Dementia in Alzheimer's disease with depression (5) Dementia, vascular, with delusions (6) Dementia, vascular, with depression (7) Impulse control disorder SMITA TOLEDO MD Mar 25, 2020 06:50
[2020-03-25] MEDS: FINASTERIDE 5 MG TABLET PO SCH (09:01)
[2020-03-25] MEDS: POLYETHYLENE GLYCOL 3350 17 GM PACKET. PO SCH (09:01)
[2020-03-25] MEDS: DOCUSATE SODIUM 100 MG CAPSULE PO SCH (09:01)
[2020-03-25] MEDS: TAMSULOSIN 0.4 MG CAP.ER.24H. PO SCH (09:01)
[2020-03-25] MEDS: risperiDONE 0.25 MG TABLET. PO SCH ×2 (09:01→19:33)
[2020-03-25] MEDS: DIVALPROEX 125 MG CAP.SPRINK PO SCH ×2 (09:01→17:37)
--- NOTE | 2020-03-25 11:43 | NUR ---
Patient is pleasant and wandering in the day room and hallways. He bends down to flower buncher or picker unseen objects on the floor and places them on the table or hands them to staff. He answers to his name but is not oriented other than that. He told this nurse "[place]" during morning assessment. Patient continues to wear onesie related to urinating in places other than the bathroom.
[2020-03-25 15:58] VITALS: BP 123/78
[2020-03-25] MEDS: LORazepam 0.5 MG TABLET PO PRN (17:37)
[2020-03-25] MEDS: SERTRALINE 100 MG TABLET. PO SCH (19:33)
[2020-03-25] MEDS: AMITRIPTYLINE HCL 25 MG TABLET PO SCH (19:33)
[2020-03-25] MEDS: traZODone 100 MG TABLET. PO SCH (19:33)
[2020-03-25] MEDS: OLANZapine 5 MG TABLET PO SCH (19:33)
[2020-03-25] MEDS: MELATONIN 3 MG TABLET PO SCH (19:33)
--- NOTE | 2020-03-25 20:20 | NUR ---
Pt wandering in the hallway at shift change. Pt irritable and suspicious this evening, reaching down and picking things off the floor that are not there. Pt slightly resistive with assessment and medications but eventually complied after being re-approached.
--- NOTE | 2020-03-25 21:40 | PDOC ---
Exam Note: [place] Note: Please also refer to the separate dictated note~for this date of service dictated separately.~Patient seen individually. Discussed the patient with Nursing staff reviewed the chart.~Reviewed interim history and current functioning. Reviewed vital signs,~Labs/ Radiology~and current medications noted below. Continue current treatment with the changes noted in the dictated addendum note Assessment: Vital Signs/I&O: Vital Signs Date Time Temp Pulse Resp B/P (MAP) Pulse Ox O2 Delivery O2 Flow Rate FiO2 03/25/20 18:19 97.9 03/25/20 15:58 69 18 123/78 (93) 99 I & O 03/24/20 03/24/20 03/25/20 15:00 23:00 07:00 Intake Total 680 ml 660 ml Balance 680 ml 660 ml Current Medications: Meds: Current Medications Medications (Trade) Dose Ordered Sig/Phi Route PRN Reason Start Time Stop Time Status Last Admin Dose Admin Divalproex Sodium (Depakote Sprinkles) 125 mg DAILY PO 03/25/20 09:00 03/25/20 09:01 Docusate Sodium (Colace) 100 mg DAILY PO 03/25/20 09:00 03/25/20 09:01 Polyethylene Glycol (miraLAX) 17 gm DAILY PO 03/25/20 09:00 03/25/20 09:01 I have reviewed the current psychotropics carefully including drug interactions. Risk benefit ratio favors no change other than as noted in my dictated progress note. Diagnosis: Problems: (1) Post traumatic stress disorder (2) Anxiety disorder (3) Dementia in Alzheimer's disease with delusions (4) Dementia in Alzheimer's disease with depression (5) Dementia, vascular, with delusions (6) Dementia, vascular, with depression (7) Impulse control disorder SMITA TOLEDO MD Mar 25, 2020 21:40
[2020-03-25] MEDS: traZODone 50 MG TABLET. PO PRN (23:18)
[2020-03-26 06:10] VITALS: BP 146/95
--- NOTE | 2020-03-26 07:19 | PDOC ---
Exam Note: [place] Note: This note is a late entry for 03/24/2020 covers elements not covered in my initial note. Subjective: The patient was seen face to face with the treatment team in the morning of 03/24/2020 including Laurie Manning, and Lilly (nephrology social worker), Kiara, Activity Therapy. Discussed the patients progress, diagnoses, psychosocial history, current psychotropics, discharge plans, current behaviors, sleep and appetite intake and social interactions. Nursing report was with Sharon TURK. Appetite is 50%. He slept 4 hours previous night. He remains confused, wandering into other patients rooms, has to be in the West hallway at times. Review of Systems: No CV, GI/, Pulmonary, Eye, ENT system symptoms on review. Mental Status Exam: Oriented to himself. Insight and judgment, recent and remote memory, attention and concentration, fund of knowledge is poor consistent with his diagnosis. Laboratory Data: Reviewed. Impression: Major neurocognitive disorder, Alzheimer, vascular with delusion, depression, behavioral disturbance. Anxiety disorder unspecified. Impulse c ontrol disorder unspecified. Plan: No change from initial note. The patients valproic acid level is 32 on Depakote Sprinkle 125 mg twice a day. We will increase to 125 mg a.m. and 250 mg p.m. Check CBC, CMP, and valproic acid level in 3 days. Continue rest of the psychotropics mentioned in my initial note including Zoloft, trazodone, Zyprexa p.r.n., Ativan p.r.n., amitriptyline 25 mg h.s., Risperdal 0.25 mg b.i.d., melatonin 3 mg h.s. Transition to nursing facility next week depending on his progress. Assessment: Vital Signs/I&O: Vital Signs Date Time Temp Pulse Resp B/P (MAP) Pulse Ox O2 Delivery O2 Flow Rate FiO2 03/26/20 06:10 97.4 68 18 146/95 (112) 98 I & O 03/25/20 03/25/20 03/26/20 15:00 23:00 07:00 Intake Total 720 ml 360 ml Balance 720 ml 360 ml Current Medications: Meds: Current Medications Medications (Trade) Dose Ordered Sig/Phi Route PRN Reason Start Time Stop Time Status Last Admin Dose Admin Divalproex Sodium (Depakote Sprinkles) 125 mg DAILY PO 03/25/20 09:00 03/25/20 09:01 Docusate Sodium (Colace) 100 mg DAILY PO 03/25/20 09:00 03/25/20 09:01 Polyethylene Glycol (miraLAX) 17 gm DAILY PO 03/25/20 09:00 03/25/20 09:01 I have reviewed the current psychotropics carefully including drug interactions. Risk benefit ratio favors no change other than as noted in my dictated progress note. Diagnosis: Problems: (1) Anxiety disorder (2) Dementia in Alzheimer's disease with delusions (3) Dementia in Alzheimer's disease with depression (4) Dementia, vascular, with delusions (5) Dementia, vascular, with depression (6) Impulse control disorder SMITA TOLEDO MD Mar 26, 2020 07:19
[2020-03-26] MEDS: DIVALPROEX 125 MG CAP.SPRINK PO SCH ×2 (10:40→17:35)
[2020-03-26] MEDS: DOCUSATE SODIUM 100 MG CAPSULE PO SCH (10:40)
[2020-03-26] MEDS: risperiDONE 0.25 MG TABLET. PO SCH ×2 (10:40→20:18)
[2020-03-26] MEDS: FINASTERIDE 5 MG TABLET PO SCH (10:40)
[2020-03-26] MEDS: TAMSULOSIN 0.4 MG CAP.ER.24H. PO SCH (10:40)
[2020-03-26] MEDS: POLYETHYLENE GLYCOL 3350 17 GM PACKET. PO SCH (10:41)
--- NOTE | 2020-03-26 12:28 | NUR ---
Patient has been calm and wandering in the day room and the hallways. He is usually redirectable with minimum effort, but can be intrusive with other patients. Patient compliant with medications taken crushed. He has visual hallucinations and can often be seen reaching down to mixing picker tender invisible items.
[2020-03-26] MEDS: LORazepam 0.5 MG TABLET PO PRN (15:45)
--- NOTE | 2020-03-26 16:00 | NUR ---
Nursing note: Pt became very irritable, yelling and cursing at staff. Pt was brought to the secure hallway and PRN provided. Will continue to monitor.
[2020-03-26 16:20] VITALS: BP 99/66
[2020-03-26] MEDS: SERTRALINE 100 MG TABLET. PO SCH (20:18)
[2020-03-26] MEDS: AMITRIPTYLINE HCL 25 MG TABLET PO SCH (20:18)
[2020-03-26] MEDS: traZODone 100 MG TABLET. PO SCH (20:18)
[2020-03-26] MEDS: MELATONIN 3 MG TABLET PO SCH (20:19)
[2020-03-26] MEDS: MAGNESIUM HYDROXIDE 2,400 MG/30 ML ORAL.SUSP. PO PRN (20:19)
[2020-03-26] MEDS: OLANZapine 5 MG TABLET PO SCH (20:19)
--- NOTE | 2020-03-26 21:05 | NUR ---
Pt wandering in the hallway at shift change. Pt slightly irritable when first approached but relaxed during interaction. Pt pleasantly confused and disorganized. Pt cooperative with assessment and compliant with medications administered crushed in pudding. PRN MOM in chocolate Ensure administered this evening for constipation.
--- NOTE | 2020-03-26 22:11 | PDOC ---
Exam Note: [place] Note: This note is a late entry for 03/25/2020 covers elements not covered in my initial note. Subjective: The patient was seen face to face in the evening of 03/25/2020. Nursing report was with Ange TURK. He slept 7 hours previous night. He is anxious, restless. Received Zyprexa at 11.15 a.m. We are going to be checking valproic acid level and labs on 03/27/2020. Review of Systems: No CV, GI/, Pulmonary, Eye, ENT system symptoms on review. Mental Status Exam: Oriented to himself. Insight and judgment, recent and remote memory, attention and concentration, fund of knowledge is poor consistent with his diagnosis. Laboratory Data: Reviewed. Impression: Major neurocognitive disorder, Alzheimer, vascular with delusion, depression, behavioral disturbance. Anxiety disorder unspecified. Impulse control disorder unspecified. Plan: No change from initial note. We will be checking valproic acid level and labs on 03/27/2020 and then decide to adjust the dosage. Assessment: Vital Signs/I&O: Vital Signs Date Time Temp Pulse Resp B/P (MAP) Pulse Ox O2 Delivery O2 Flow Rate FiO2 03/26/20 20:25 98.0 95 03/26/20 16:20 105 20 99/66 (77) I & O 03/25/20 03/25/20 03/26/20 15:00 23:00 07:00 Intake Total 720 ml 360 ml Balance 720 ml 360 ml Current Medications: I have reviewed the current psychotropics carefully including drug interactions. Risk benefit ratio favors no change other than as noted in my dictated progress note. Diagnosis: Problems: (1) Post traumatic stress disorder (2) Anxiety disorder (3) Dementia in Alzheimer's disease with delusions (4) Dementia in Alzheimer's disease with depression (5) Dementia, vascular, with delusions (6) Dementia, vascular, with depression (7) Impulse control disorder SMITA TOLEDO MD Mar 26, 2020 22:11
--- NOTE | 2020-03-26 22:12 | PDOC ---
Exam Note: [place]ber Note: Please also refer to the separate dictated note~for this date of service dictated separately.~Patient seen individually. Discussed the patient with Nursing staff reviewed the chart.~Reviewed interim history and current functioning. Reviewed vital signs,~Labs/ Radiology~and current medications noted below. Continue current treatment with the changes noted in the dictated addendum note Assessment: Vital Signs/I&O: Vital Signs Date Time Temp Pulse Resp B/P (MAP) Pulse Ox O2 Delivery O2 Flow Rate FiO2 03/26/20 20:25 98.0 95 03/26/20 16:20 105 20 99/66 (77) I & O 03/25/20 03/25/20 03/26/20 15:00 23:00 07:00 Intake Total 720 ml 360 ml Balance 720 ml 360 ml Current Medications: I have reviewed the current psychotropics carefully including drug interactions. Risk benefit ratio favors no change other than as noted in my dictated progress note. Diagnosis: Problems: (1) Post traumatic stress disorder (2) Anxiety disorder (3) Dementia in Alzheimer's disease with delusions (4) Dementia in Alzheimer's disease with depression (5) Dementia, vascular, with delusions (6) Dementia, vascular, with depression (7) Impulse control disorder SMITA TOLEDO MD Mar 26, 2020 22:12
[2020-03-27 05:47] VITALS: BP 142/89
[2020-03-27 07:26] LABS: ALBUMIN 3.1 g/dL (3.4-5.0); ALBUMIN/GLOBULIN RATIO 0.9 (1.0-1.7); ALK PHOS 62 U/L (46-116); ALT (SGPT) 21 U/L (16-63); ANION GAP 6 (6-14); AST (SGOT) 17 U/L (15-37); BLOOD UREA NITROGEN 26 mg/dL (8-26); BUN/CREATININE RATIO 24 (6-20); CALCIUM 8.5 mg/dL (8.5-10.1); CARBON DIOXIDE 30 mmol/L (21-32); CHLORIDE 106 mmol/L (98-107); CREATININE 1.1 mg/dL (0.7-1.3); GFR 66.4; GLUCOSE 80 mg/dL (70-99); SODIUM 142 mmol/L (136-145); TOTAL BILIRUBIN 0.3 mg/dL (0.2-1.0); TOTAL PROTEIN 6.4 g/dL (6.4-8.2)
[2020-03-27 07:45] LABS: BASO # 0.1 x10^3/uL (0.0-0.2); BASO % 1 % (0-3); EOS # 0.3 x10^3/uL (0.0-0.7); EOS % 6 % (0-3); HEMATOCRIT 37.2 % (39.0-53.0); HEMOGLOBIN 12.2 g/dL (13.0-17.5); LYMPH # 1.2 x10^3/uL (1.0-4.8); LYMPH % 25 % (24-48); MEAN CORPUSCULAR HEMOGLOBIN 30 pg (25-35); MEAN CORPUSCULAR HGB CONC 33 g/dL (31-37); MEAN CORPUSCULAR VOLUME 90 fL (79-100); MONO # 0.6 x10^3/uL (0.0-1.1); MONO % 12 % (0-9); NEUT # 2.8 x10^3uL (1.8-7.7); NEUT % 56 % (31-73); PLATELET COUNT 193 x10^3/uL (140-400); RED BLOOD COUNT 4.15 x10^6/uL (4.30-5.70); RED CELL DISTRIBUTION WIDTH 14.4 % (11.5-14.5); WHITE BLOOD COUNT 4.9 x10^3/uL (4.0-11.0)
[2020-03-27 09:25] LABS: VAL ACID 40 mcg/mL (50-100)
[2020-03-27] MEDS: risperiDONE 0.25 MG TABLET. PO SCH ×2 (09:56→20:20)
[2020-03-27] MEDS: DOCUSATE SODIUM 100 MG CAPSULE PO SCH (09:56)
[2020-03-27] MEDS: FINASTERIDE 5 MG TABLET PO SCH (09:56)
[2020-03-27] MEDS: TAMSULOSIN 0.4 MG CAP.ER.24H. PO SCH (09:56)
[2020-03-27] MEDS: POLYETHYLENE GLYCOL 3350 17 GM PACKET. PO SCH (09:56)
[2020-03-27] MEDS: DIVALPROEX 125 MG CAP.SPRINK PO SCH ×2 (09:56→16:24)
--- NOTE | 2020-03-27 10:52 | NUR ---
Nursing note: Pt was allowed to sleep until 0945. He was brought to the day room so he could eat breakfast. Pt was compliant with meds crushed in pudding and cooperative with his assessment. He is currently wandering in the halls. Will continue to monitor.
[2020-03-27 15:53] VITALS: BP 102/60
[2020-03-27] MEDS: AMITRIPTYLINE HCL 25 MG TABLET PO SCH (20:19)
[2020-03-27] MEDS: traZODone 100 MG TABLET. PO SCH (20:19)
[2020-03-27] MEDS: MELATONIN 3 MG TABLET PO SCH (20:19)
[2020-03-27] MEDS: OLANZapine 5 MG TABLET PO SCH (20:19)
[2020-03-27] MEDS: SERTRALINE 100 MG TABLET. PO SCH (20:20)
--- NOTE | 2020-03-27 22:00 | NUR ---
Patient is wandering the unit on assumption of care. He is disorganized, confused. Intrusive, going in to other patient's rooms repeatedly. Redirectable. Compliant with assessments and medications taken crushed with chocolate pudding. No agitation. Continues to have visual hallucinations, picking up unseen things from the floor. Does not appear to be in any pain or discomfort. Will continue to monitor.
--- NOTE | 2020-03-27 22:03 | PDOC ---
Exam Note: [place] Note: Please also refer to the separate dictated note~for this date of service dictated separately.~Patient seen individually. Discussed the patient with Nursing staff reviewed the chart.~Reviewed interim history and current functioning. Reviewed vital signs,~Labs/ Radiology~and current medications noted below. Continue current treatment with the changes noted in the dictated addendum note Assessment: Vital Signs/I&O: Vital Signs Date Time Temp Pulse Resp B/P (MAP) Pulse Ox O2 Delivery O2 Flow Rate FiO2 03/27/20 22:01 98.2 94 03/27/20 15:53 90 102/60 (74) 03/27/20 05:47 18 Room Air I & O 03/26/20 03/26/20 03/27/20 15:00 23:00 07:00 Intake Total 360 ml 440 ml Balance 360 ml 440 ml Labs: Laboratory Tests Test 03/27/20 06:47 White Blood Count 4.9 x10^3/uL (4.0-11.0) Red Blood Count 4.15 x10^6/uL (4.30-5.70) L Hemoglobin 12.2 g/dL (13.0-17.5) L Hematocrit 37.2 % (39.0-53.0) L Mean Corpuscular Volume 90 fL (79-100) Mean Corpuscular Hemoglobin 30 pg (25-35) Mean Corpuscular Hemoglobin Concent 33 g/dL (31-37) Red Cell Distribution Width 14.4 % (11.5-14.5) Platelet Count 193 x10^3/uL (140-400) Neutrophils (%) (Auto) 56 % (31-73) Lymphocytes (%) (Auto) 25 % (24-48) Monocytes (%) (Auto) 12 % (0-9) H Eosinophils (%) (Auto) 6 % (0-3) H Basophils (%) (Auto) 1 % (0-3) Neutrophils # (Auto) 2.8 x10^3uL (1.8-7.7) Lymphocytes # (Auto) 1.2 x10^3/uL (1.0-4.8) Monocytes # (Auto) 0.6 x10^3/uL (0.0-1.1) Eosinophils # (Auto) 0.3 x10^3/uL (0.0-0.7) Basophils # (Auto) 0.1 x10^3/uL (0.0-0.2) Sodium Level 142 mmol/L (136-145) Potassium Level 4.0 mmol/L (3.5-5.1) Chloride Level 106 mmol/L (98-107) Carbon Dioxide Level 30 mmol/L (21-32) Anion Gap 6 (6-14) Blood Urea Nitrogen 26 mg/dL (8-26) Creatinine 1.1 mg/dL (0.7-1.3) Estimated GFR (Cockcroft-Gault) 66.4 BUN/Creatinine Ratio 24 (6-20) H Glucose Level 80 mg/dL (70-99) Calcium Level 8.5 mg/dL (8.5-10.1) Total Bilirubin 0.3 mg/dL (0.2-1.0) Aspartate Amino Transferase (AST) 17 U/L (15-37) Alanine Aminotransferase (ALT) 21 U/L (16-63) Alkaline Phosphatase 62 U/L (46-116) Total Protein 6.4 g/dL (6.4-8.2) Albumin 3.1 g/dL (3.4-5.0) L Albumin/Globulin Ratio 0.9 (1.0-1.7) L Valproic Acid Level 40 mcg/mL (50-100) L Valproic Acid Last Dose Date 03/26/20 Valproic Acid Last Dose Time 1700 Current Medications: I have reviewed the current psychotropics carefully including drug interactions. Risk benefit ratio favors no change other than as noted in my dictated progress note. Diagnosis: Problems: (1) Post traumatic stress disorder (2) Anxiety disorder (3) Dementia in Alzheimer's disease with delusions (4) Dementia in Alzheimer's disease with depression (5) Dementia, vascular, with delusions (6) Dementia, vascular, with depression (7) Impulse control disorder SMITA TOLEDO MD Mar 27, 2020 22:03
[2020-03-28 06:38] VITALS: BP 122/78
--- NOTE | 2020-03-28 07:39 | PDOC ---
Exam Note: Heber Note: This note is a late entry for 03/26/2020 covers elements not covered in my initial note. Subjective: The patient was seen face to face in the evening of 03/26/2020. Nursing report was with Ashley TURK. He slept 3 hours previous night. He did not get any repeat trazodone. We will repeat it tonight. He was agitated around 3.45 p.m. Received Ativan p.r.n. We will check valproic acid level in the morning. Review of Systems: No CV, , pulmonary, eye, ENT system symptoms on review. Mental Status Exam: Oriented to himself. Insight and judgment, recent and r emote memory, attention and concentration, fund of knowledge is poor consistent with his diagnoses. Laboratory Data: Reviewed. Impression: Major neurocognitive disorder, Alzheimer, vascular with delusion, depression, behavioral disturbance. Anxiety disorder unspecified. Impulse control disorder unspecified. Plan: No change from initial note. We will check valproic acid level and may adjust Depakote thereafter if his behavioral dyscontrol persists. Assessment: Vital Signs/I&O: Vital Signs Date Time Temp Pulse Resp B/P (MAP) Pulse Ox O2 Delivery O2 Flow Rate FiO2 03/28/20 06:38 97.7 86 18 122/78 (93) 96 03/27/20 05:47 Room Air I & O 03/27/20 03/27/20 03/28/20 15:00 23:00 07:00 Intake Total 480 ml 840 ml Balance 480 ml 840 ml Current Medications: I have reviewed the current psychotropics carefully including drug interactions. Risk benefit ratio favors no change other than as noted in my dictated progress note. Diagnosis: Problems: (1) Post traumatic stress disorder (2) Anxiety disorder (3) Dementia in Alzheimer's disease with delusions (4) Dementia in Alzheimer's disease with depression (5) Dementia, vascular, with delusions (6) Dementia, vascular, with depression (7) Impulse control disorder SMITA TOLEDO MD Mar 28, 2020 07:39
--- NOTE | 2020-03-28 07:57 | PDOC ---
Exam Note: Heber Note: This note is a late entry for 03/27/2020 covers elements not covered in my initial note. Subjective: The patient was seen face to face in the evening of 03/27/2020. Nursing report was with Ashley TURK. He slept 7-1/2 hours previous night. He is compliant with medications. Valproic acid level 40, subtherapeutic but still clinically adequate for now. Behaviorally he is better. Review of Systems: No CV, , pulmonary, eye, ENT system symptoms on review. Mental Status Exam: Oriented to himself. Insight and judgment, recent and remote memory, attention and concentration, fund of knowledge is poor consistent with his diagnoses. Laboratory Data: Reviewed. Impression: Major neurocognitive disorder, Alzheimer, vascular with delusion, depression, behavioral disturbance. Anxiety disorder unspecified. Impulse c ontrol disorder unspecified. Plan: No change from initial note. Assessment: Vital Signs/I&O: Vital Signs Date Time Temp Pulse Resp B/P (MAP) Pulse Ox O2 Delivery O2 Flow Rate FiO2 03/28/20 06:38 97.7 86 18 122/78 (93) 96 03/27/20 05:47 Room Air I & O 03/27/20 03/27/20 03/28/20 15:00 23:00 07:00 Intake Total 480 ml 840 ml Balance 480 ml 840 ml Current Medications: I have reviewed the current psychotropics carefully including drug interactions. Risk benefit ratio favors no change other than as noted in my dictated progress note. Diagnosis: Problems: (1) Post traumatic stress disorder (2) Anxiety disorder (3) Dementia in Alzheimer's disease with delusions (4) Dementia in Alzheimer's disease with depression (5) Dementia, vascular, with delusions (6) Dementia, vascular, with depression (7) Impulse control disorder SMITA TOLEDO MD Mar 28, 2020 07:57
[2020-03-28] MEDS: FINASTERIDE 5 MG TABLET PO SCH (08:33)
[2020-03-28] MEDS: POLYETHYLENE GLYCOL 3350 17 GM PACKET. PO SCH (08:33)
[2020-03-28] MEDS: TAMSULOSIN 0.4 MG CAP.ER.24H. PO SCH (08:33)
[2020-03-28] MEDS: DIVALPROEX 125 MG CAP.SPRINK PO SCH ×2 (08:33→17:29)
[2020-03-28] MEDS: DOCUSATE 100 MG/10 ML SOLUTION. PO SCH (08:33)
[2020-03-28] MEDS: risperiDONE 0.25 MG TABLET. PO SCH ×2 (08:33→20:18)
[2020-03-28 16:26] VITALS: BP 112/79
--- NOTE | 2020-03-28 17:10 | NUR ---
Nursing note: Pt sitting in the hallway when approached for morning meds and assessment. He was compliant with meds crushed in pudding and cooperative with his assessment. He continues to pick at things on the floor and in the air that are not there and wandering the hallways and into patient's rooms. He is redirectable. He is currently in the dining room for supper. Will continue to monitor.
[2020-03-28] MEDS: MELATONIN 3 MG TABLET PO SCH (20:18)
[2020-03-28] MEDS: traZODone 100 MG TABLET. PO SCH (20:18)
[2020-03-28] MEDS: SERTRALINE 100 MG TABLET. PO SCH (20:18)
[2020-03-28] MEDS: OLANZapine 5 MG TABLET PO SCH (20:18)
[2020-03-28] MEDS: AMITRIPTYLINE HCL 25 MG TABLET PO SCH (20:18)
--- NOTE | 2020-03-28 22:14 | PDOC ---
Exam Note: Heber Note: Please also refer to the separate dictated note~for this date of service dictated separately.~Patient seen individually. Discussed the patient with Nursing staff reviewed the chart.~Reviewed interim history and current functioning. Reviewed vital signs,~Labs/ Radiology~and current medications noted below. Continue current treatment with the changes noted in the dictated addendum note Assessment: Vital Signs/I&O: Vital Signs Date Time Temp Pulse Resp B/P (MAP) Pulse Ox O2 Delivery O2 Flow Rate FiO2 03/28/20 22:11 97.6 97 03/28/20 16:26 91 18 112/79 (90) 03/27/20 05:47 Room Air I & O 03/27/20 03/27/20 03/28/20 15:00 23:00 07:00 Intake Total 480 ml 840 ml Balance 480 ml 840 ml Current Medications: Meds: Current Medications Medications (Trade) Dose Ordered Sig/Phi Route PRN Reason Start Time Stop Time Status Last Admin Dose Admin Docusate Sodium (Colace Solution) 100 mg DAILY PO 03/28/20 09:00 03/28/20 08:33 I have reviewed the current psychotropics carefully including drug interactions. Risk benefit ratio favors no change other than as noted in my dictated progress note. Diagnosis: Problems: (1) Post traumatic stress disorder (2) Anxiety disorder (3) Dementia in Alzheimer's disease with delusions (4) Dementia in Alzheimer's disease with depression (5) Dementia, vascular, with delusions (6) Dementia, vascular, with depression (7) Impulse control disorder SMITA TOLEDO MD Mar 28, 2020 22:14
--- NOTE | 2020-03-29 00:17 | NUR ---
Nursing Note The patient was located in the hallways wandering the unit when approached for his medication pass and assessment. The patient was compliant with his medications and took them crushed in ice cream. The patient was very disorganized and at times was very difficult to redirect. The patient is found wandering into other patients rooms while he is awake. The patient is currently laying in bed awake.
[2020-03-29] MEDS: traZODone 50 MG TABLET. PO PRN (01:41)
[2020-03-29 06:01] VITALS: BP 150/80
[2020-03-29 07:42] LABS: BASO % 1 % (0-3); EOS # 0.2 x10^3/uL (0.0-0.7); EOS % 4 % (0-3); HEMATOCRIT 37.2 % (39.0-53.0); HEMOGLOBIN 12.5 g/dL (13.0-17.5); LYMPH # 0.9 x10^3/uL (1.0-4.8); LYMPH % 19 % (24-48); MEAN CORPUSCULAR HEMOGLOBIN 30 pg (25-35); MEAN CORPUSCULAR HGB CONC 34 g/dL (31-37); MEAN CORPUSCULAR VOLUME 89 fL (79-100); MONO # 0.6 x10^3/uL (0.0-1.1); MONO % 11 % (0-9); NEUT # 3.3 x10^3uL (1.8-7.7); NEUT % 66 % (31-73); PLATELET COUNT 194 x10^3/uL (140-400); RED BLOOD COUNT 4.18 x10^6/uL (4.30-5.70); RED CELL DISTRIBUTION WIDTH 14.3 % (11.5-14.5); WHITE BLOOD COUNT 5.1 x10^3/uL (4.0-11.0)
[2020-03-29 08:28] LABS: ALBUMIN 3.1 g/dL (3.4-5.0); ALBUMIN/GLOBULIN RATIO 0.9 (1.0-1.7); CALCIUM 7.9 mg/dL (8.5-10.1); GFR 74.1; POTASSIUM 3.4 mmol/L (3.5-5.1); TOTAL BILIRUBIN 0.4 mg/dL (0.2-1.0); TOTAL PROTEIN 6.6 g/dL (6.4-8.2)
--- NOTE | 2020-03-29 09:40 | NUR ---
Patient remains asleep in bed. No s/s of pain noted. Patient had only slept .75 hours overnight according to the sleep log. Nurse will wake patient up for morning medications by 1030.
--- NOTE | 2020-03-29 10:02 | NUR ---
Patient complaint with assessment, patient asleep and will be allowed to have therapeutic sleep.
[2020-03-29] MEDS: POLYETHYLENE GLYCOL 3350 17 GM PACKET. PO SCH (10:50)
[2020-03-29] MEDS: DIVALPROEX 125 MG CAP.SPRINK PO SCH ×2 (10:50→16:37)
[2020-03-29] MEDS: risperiDONE 0.25 MG TABLET. PO SCH ×2 (10:50→19:42)
[2020-03-29] MEDS: DOCUSATE 100 MG/10 ML SOLUTION. PO SCH (10:50)
[2020-03-29] MEDS: TAMSULOSIN 0.4 MG CAP.ER.24H. PO SCH (10:50)
[2020-03-29] MEDS: FINASTERIDE 5 MG TABLET PO SCH (10:50)
[2020-03-29 15:55] VITALS: BP 94/62
[2020-03-29] MEDS: AMITRIPTYLINE HCL 25 MG TABLET PO SCH (19:41)
[2020-03-29] MEDS: SERTRALINE 100 MG TABLET. PO SCH (19:41)
[2020-03-29] MEDS: traZODone 100 MG TABLET. PO SCH (19:41)
[2020-03-29] MEDS: OLANZapine 5 MG TABLET PO SCH (19:41)
[2020-03-29] MEDS: MELATONIN 3 MG TABLET PO SCH (19:42)
--- NOTE | 2020-03-29 21:55 | PDOC ---
Exam Note: Heber Note: Please also refer to the separate dictated note~for this date of service dictated separately.~Patient seen individually. Discussed the patient with Nursing staff reviewed the chart.~Reviewed interim history and current functioning. Reviewed vital signs,~Labs/ Radiology~and current medications noted below. Continue current treatment with the changes noted in the dictated addendum note Assessment: Vital Signs/I&O: Vital Signs Date Time Temp Pulse Resp B/P (MAP) Pulse Ox O2 Delivery O2 Flow Rate FiO2 03/29/20 15:55 98.1 107 20 94/62 (73) 94 Room Air I & O 03/28/20 03/28/20 03/29/20 15:00 23:00 07:00 Intake Total 120 ml 240 ml Balance 120 ml 240 ml Labs: Laboratory Tests Test 03/29/20 06:50 White Blood Count 5.1 x10^3/uL (4.0-11.0) Red Blood Count 4.18 x10^6/uL (4.30-5.70) L Hemoglobin 12.5 g/dL (13.0-17.5) L Hematocrit 37.2 % (39.0-53.0) L Mean Corpuscular Volume 89 fL (79-100) Mean Corpuscular Hemoglobin 30 pg (25-35) Mean Corpuscular Hemoglobin Concent 34 g/dL (31-37) Red Cell Distribution Width 14.3 % (11.5-14.5) Platelet Count 194 x10^3/uL (140-400) Neutrophils (%) (Auto) 66 % (31-73) Lymphocytes (%) (Auto) 19 % (24-48) L Monocytes (%) (Auto) 11 % (0-9) H Eosinophils (%) (Auto) 4 % (0-3) H Basophils (%) (Auto) 1 % (0-3) Neutrophils # (Auto) 3.3 x10^3uL (1.8-7.7) Lymphocytes # (Auto) 0.9 x10^3/uL (1.0-4.8) L Monocytes # (Auto) 0.6 x10^3/uL (0.0-1.1) Eosinophils # (Auto) 0.2 x10^3/uL (0.0-0.7) Basophils # (Auto) 0.0 x10^3/uL (0.0-0.2) Sodium Level 139 mmol/L (136-145) Potassium Level 3.4 mmol/L (3.5-5.1) L Chloride Level 103 mmol/L (98-107) Carbon Dioxide Level 27 mmol/L (21-32) Anion Gap 9 (6-14) Blood Urea Nitrogen 22 mg/dL (8-26) Creatinine 1.0 mg/dL (0.7-1.3) Estimated GFR (Cockcroft-Gault) 74.1 BUN/Creatinine Ratio 22 (6-20) H Glucose Level 80 mg/dL (70-99) Calcium Level 7.9 mg/dL (8.5-10.1) L Total Bilirubin 0.4 mg/dL (0.2-1.0) Aspartate Amino Transferase (AST) 19 U/L (15-37) Alanine Aminotransferase (ALT) 22 U/L (16-63) Alkaline Phosphatase 64 U/L (46-116) Total Protein 6.6 g/dL (6.4-8.2) Albumin 3.1 g/dL (3.4-5.0) L Albumin/Globulin Ratio 0.9 (1.0-1.7) L Current Medications: I have reviewed the current psychotropics carefully including drug interactions. Risk benefit ratio favors no change other than as noted in my dictated progress note. Diagnosis: Problems: (1) Post traumatic stress disorder (2) Anxiety disorder (3) Dementia in Alzheimer's disease with delusions (4) Dementia in Alzheimer's disease with depression (5) Dementia, vascular, with delusions (6) Dementia, vascular, with depression (7) Impulse control disorder SMITA TOLEDO MD Mar 29, 2020 21:55
--- NOTE | 2020-03-29 22:25 | RAD ---
Exam: CT head INDICATION: Fall TECHNIQUE: Sequential axial images through the head were obtained without the administration of IV contrast. Comparisons: 03/11/2020 FINDINGS: No focal parenchymal lesion or hemorrhage is identified. There is no midline shift or sulcal effacement. Confluent hypodensities within the periventricular white matter which is similar when compared to the prior exam. No acute vascular territory infarction is identified. Randle-white distinction is preserved. The ventricular system is within normal limits without compression hydrocephalus. The basal cisterns are well maintained. The visualized portions of the paranasal sinuses and mastoid air cells are well-pneumatized. No acute fractures. IMPRESSION: No acute intracranial abnormality. Exposure: One or more of the following in the visualized dose reduction techniques were utilized for this examination: 1. Automated exposure control 2. Adjustment of the MA and/or KV according to patient size Use of iterative of reconstructive technique Electronically signed by: Ron Schwartz MD (03/29/2020 10:22 PM) [id number]
[2020-03-29] MEDS: traZODone 100 MG TABLET. PO PRN (22:43)
--- NOTE | 2020-03-29 23:59 | NUR ---
At 2109, Patient is ambulating in the day room with his eyes half closed. He tripped over his own feet. Fell into a sitting position and hit the back of his head on the computer that is built in to the wall. Fall was witnessed by 2 staff members. Patient vital signs taken, all WNL. No evidence of any injuries and patient denies any pain or discomfort. notified, patient taken for stat head CT. Negative result. Patient DPOA notified. Patient is currently laying in bed, appears to be sleeping comfortably. Will continue to monitor.
[2020-03-30 06:28] VITALS: BP 127/82
--- NOTE | 2020-03-30 07:36 | PDOC ---
Exam Note: Heber Note: This note is a late entry for 03/28/2020 covers elements not covered in my initial note. Subjective: The patient was seen face to face in the evening of 03/28/2020. Nursing report was with Ashley TURK. He slept 1-1/4 hours previous night. He was irritable previous night, disrobed in the morning. He had urinated in his room on the floor previous night. Today he has been wandering, disorganized but not aggressive. Review of Systems: No CV, , pulmonary, eye, ENT system symptoms on review. Reliability poor. Mental Status Exam: Oriented to himself. Insight and judgment, recent and remote memory, attention and concentration, fund of knowledge is poor consistent with his diagnoses. Laboratory Data: Reviewed. Impression: Major neurocognitive disorder, Alzheimer, vascular with delusion, depression, behavioral disturbance. Anxiety disorder unspecified. Impulse control disorder unspecified. Plan: No change from initial note. Assessment: Vital Signs/I&O: Vital Signs Date Time Temp Pulse Resp B/P (MAP) Pulse Ox O2 Delivery O2 Flow Rate FiO2 03/30/20 06:28 97.5 74 18 127/82 (97) 90 03/29/20 15:55 Room Air I & O 03/29/20 03/29/20 03/30/20 15:00 23:00 07:00 Intake Total 240 ml 240 ml Balance 240 ml 240 ml Current Medications: Meds: Current Medications Medications (Trade) Dose Ordered Sig/Phi Route PRN Reason Start Time Stop Time Status Last Admin Dose Admin Trazodone HCl (Desyrel) 100 mg PRN QHS PRN PO INSOMNIA 03/29/20 16:30 03/29/20 22:43 I have reviewed the current psychotropics carefully including drug interactions. Risk benefit ratio favors no change other than as noted in my dictated progress note. Diagnosis: Problems: (1) Post traumatic stress disorder (2) Anxiety disorder (3) Dementia in Alzheimer's disease with delusions (4) Dementia in Alzheimer's disease with depression (5) Dementia, vascular, with delusions (6) Dementia, vascular, with depression (7) Impulse control disorder SMITA TOLEDO MD Mar 30, 2020 07:36
--- NOTE | 2020-03-30 07:53 | PDOC ---
Exam Note: Heber Note: This note is a late entry for 03/29/2020 covers elements not covered in my initial note. Subjective: The patient was seen face to face in the evening of 03/29/2020. Nursing report was with Luis E TURK. He slept 6-3/4 hours previous night. He slept in, in the morning till 11 a.m. We will increase the trazodone from 100 mg h.s. May repeat once with 50 mg dosage to 100 mg h.s. scheduled, may repeat x1 100 mg p.r.n. for insomnia. Review of Systems: No CV, , pulmonary, eye, ENT system symptoms on review. Mental Status Exam: Oriented to himself. Insight and judgment, recent and remote memory, attention and concentration, fund of knowledge is poor consistent with his diagnoses. Laboratory Data: Reviewed. Impression: Major neurocognitive disorder, Alzheimer, vascular with delusion, depression, behavioral disturbance. Anxiety disorder unspecified. Impulse control disorder unspecified. Plan: No change from initial note. Assessment: Vital Signs/I&O: Vital Signs Date Time Temp Pulse Resp B/P (MAP) Pulse Ox O2 Delivery O2 Flow Rate FiO2 03/30/20 06:28 97.5 74 18 127/82 (97) 90 03/29/20 15:55 Room Air I & O 03/29/20 03/29/20 03/30/20 15:00 23:00 07:00 Intake Total 240 ml 240 ml Balance 240 ml 240 ml Current Medications: Meds: Current Medications Medications (Trade) Dose Ordered Sig/Phi Route PRN Reason Start Time Stop Time Status Last Admin Dose Admin Trazodone HCl (Desyrel) 100 mg PRN QHS PRN PO INSOMNIA 03/29/20 16:30 03/29/20 22:43 I have reviewed the current psychotropics carefully including drug interactions. Risk benefit ratio favors no change other than as noted in my dictated progress note. Diagnosis: Problems: (1) Post traumatic stress disorder (2) Anxiety disorder (3) Dementia in Alzheimer's disease with delusions (4) Dementia in Alzheimer's disease with depression (5) Dementia, vascular, with delusions (6) Dementia, vascular, with depression (7) Impulse control disorder SMITA TOLEDO MD Mar 30, 2020 07:53
[2020-03-30] MEDS: POLYETHYLENE GLYCOL 3350 17 GM PACKET. PO SCH (09:02)
[2020-03-30] MEDS: DOCUSATE 100 MG/10 ML SOLUTION. PO SCH (09:02)
[2020-03-30] MEDS: FINASTERIDE 5 MG TABLET PO SCH (09:02)
[2020-03-30] MEDS: DIVALPROEX 125 MG CAP.SPRINK PO SCH ×2 (09:02→16:23)
[2020-03-30] MEDS: risperiDONE 0.25 MG TABLET. PO SCH ×2 (09:02→20:39)
[2020-03-30] MEDS: TAMSULOSIN 0.4 MG CAP.ER.24H. PO SCH (09:02)
--- NOTE | 2020-03-30 10:13 | NUR ---
Pt is wandering, confused, disorganized. Pt is redirectable. No aggression, no agitation. He is compliant with his medication and assessment.
[2020-03-30 15:59] VITALS: BP 111/67
[2020-03-30] MEDS: OLANZapine 5 MG TABLET PO SCH (20:38)
[2020-03-30] MEDS: AMITRIPTYLINE HCL 25 MG TABLET PO SCH (20:39)
[2020-03-30] MEDS: SERTRALINE 100 MG TABLET. PO SCH (20:39)
[2020-03-30] MEDS: MELATONIN 3 MG TABLET PO SCH (20:39)
[2020-03-30] MEDS: traZODone 100 MG TABLET. PO SCH (20:39)
--- NOTE | 2020-03-30 22:46 | NUR ---
Pt has been wandering unit this evening. Pt continues to be disorganized and intrusive at times. Compliant with medications crushed in one bite of pudding.
[2020-03-31 06:12] VITALS: BP 155/82
--- NOTE | 2020-03-31 06:46 | PDOC ---
Exam Note: Heber Note: This note is a late entry for 03/30/2020 covers elements not covered in my initial note. Subjective: The patient was seen face to face in the evening of 03/30/2020. Nursing report was with Sharon TURK. He slept 4-1/4 hours previous night. He is somewhat intrusive but redirects, confused. Potassium was low. He was getting supplements. Review of Systems: No CV, , pulmonary, eye, ENT system symptoms on review. Mental Status Exam: Oriented to himself. Insight and judgment, recent and remote memory, attention and concentration, fund of knowledge is poor consistent with his diagnoses. Laboratory Data: Reviewed. Impression: Major neurocognitive disorder, Alzheimer, vascular with delusion, depression, behavioral disturbance. Anxiety disorder unspecified. Impulse control disorder unspecified. Plan: No change from initial note. The patients trazodone was increased to 100 mg h.s. scheduled and 100 mg h.s. p.r.n. insomnia. Rest unchanged for now. Assessment: Vital Signs/I&O: Vital Signs Date Time Temp Pulse Resp B/P (MAP) Pulse Ox O2 Delivery O2 Flow Rate FiO2 03/31/20 06:12 98.0 68 16 155/82 (106) 97 03/30/20 15:59 Room Air I & O 03/30/20 03/30/20 03/31/20 14:59 22:59 06:59 Intake Total 600 ml 480 ml Balance 600 ml 480 ml Current Medications: I have reviewed the current psychotropics carefully including drug interactions. Risk benefit ratio favors no change other than as noted in my dictated progress note. Diagnosis: Problems: (1) Post traumatic stress disorder (2) Anxiety disorder (3) Dementia in Alzheimer's disease with delusions (4) Dementia in Alzheimer's disease with depression (5) Dementia, vascular, with delusions (6) Dementia, vascular, with depression (7) Impulse control disorder SMITA TOLEDO MD Mar 31, 2020 06:46
[2020-03-31 07:54] LABS: ALBUMIN 3.1 g/dL (3.4-5.0); ALBUMIN/GLOBULIN RATIO 0.9 (1.0-1.7); CALCIUM 8.2 mg/dL (8.5-10.1); GFR 74.1; POTASSIUM 3.7 mmol/L (3.5-5.1); TOTAL BILIRUBIN 0.4 mg/dL (0.2-1.0); TOTAL PROTEIN 6.4 g/dL (6.4-8.2)
[2020-03-31 08:16] LABS: BASO % 1 % (0-3); EOS # 0.3 x10^3/uL (0.0-0.7); EOS % 6 % (0-3); HEMOGLOBIN 12.1 g/dL (13.0-17.5); LYMPH # 1.1 x10^3/uL (1.0-4.8); LYMPH % 24 % (24-48); MEAN CORPUSCULAR HEMOGLOBIN 30 pg (25-35); MEAN CORPUSCULAR HGB CONC 34 g/dL (31-37); MEAN CORPUSCULAR VOLUME 90 fL (79-100); MONO # 0.6 x10^3/uL (0.0-1.1); MONO % 12 % (0-9); NEUT # 2.7 x10^3uL (1.8-7.7); NEUT % 57 % (31-73); PLATELET COUNT 178 x10^3/uL (140-400); RED BLOOD COUNT 4.01 x10^6/uL (4.30-5.70); RED CELL DISTRIBUTION WIDTH 14.2 % (11.5-14.5); WHITE BLOOD COUNT 4.7 x10^3/uL (4.0-11.0)
[2020-03-31] MEDS: POTASSIUM CHLORIDE 20 MEQ TABLET.ER. PO SCH (08:53)
[2020-03-31] MEDS: risperiDONE 0.25 MG TABLET. PO SCH ×2 (08:54→20:06)
[2020-03-31] MEDS: DIVALPROEX 125 MG CAP.SPRINK PO SCH ×2 (08:54→16:12)
[2020-03-31] MEDS: POLYETHYLENE GLYCOL 3350 17 GM PACKET. PO SCH (08:54)
[2020-03-31] MEDS: DOCUSATE 100 MG/10 ML SOLUTION. PO SCH (08:54)
[2020-03-31] MEDS: TAMSULOSIN 0.4 MG CAP.ER.24H. PO SCH (08:54)
[2020-03-31] MEDS: FINASTERIDE 5 MG TABLET PO SCH (08:54)
--- NOTE | 2020-03-31 10:14 | NUR ---
Pt is calm, cooperative, compliant and confused. No agitation, no aggression, no delusions noted. Pt does often have visual hallucinations however does not respond negatively to them. He is compliant with his medication and assessment.
--- NOTE | 2020-03-31 12:13 | NUR ---
WEEKLY ACTIVITY THERAPY NOTE Date of Admission: 03/08/20 Date of AT Assessment: 03/10/20 Precipitating behaviors that initiated intake and admission: aggressive and threatening towards , fearful of him, burning plastic in the kitchen, confused and disoriented, hallucinations, restless, fidgety. Goal aimed:to increase sensory stimulation Initial Goal: Pt. will participate in at least two individual Activity Therapy session before discharge. Goal changed 03/17: Pt. will participate in at least three Activity Therapy groups per week. Weekly progress towards goal: achieved, 3/3 Group participation level: moderate Weekly highlights: balloon bop on Tuesday Behaviors observed: wandering but slightly decreased throughout the week, interactive, mumbles Plan: no change to goal Beneficial adaptations: sensory stimulation
--- NOTE | 2020-03-31 14:44 | NUR ---
Pt is wandering, disrobing and restless, Pt is more difficult to redirect today than the last two days. PRN ibis cisneros given.
[2020-03-31 16:02] VITALS: BP 103/69
--- NOTE | 2020-03-31 17:34 | TX PLAN ---
Interdisciplinary Tx Plan Admission Information March 08, 2020 at 17:56 Legal Status (on Admission): Voluntary DPOA/Guardian Name: Joya Kearns Contact Verified Code Status: DNR Allergies: Coded Allergies: No Known Drug Allergies (Unverified , 07/25/18) Diagnoses Primary Diagnosis: Major Neurocognitive D/O, vascular Alzheimer's with delusions, depression, behavioral disturbance Reasons for Admission: Combative, Confusion/Disoriented, Poor impulse control Problem in Patient's Words: Pt has increasingly been getting worse over the last 2 weeks. Additional Admission Comments: According to the intake, pt is aggressive and threatening towards . is fearful of him, burning plastic in the kitchen, confused and demented, hallucinates, restless and fidgety. Problems Active Problems: aggressive confused hallucinating restless Inactive Problems: medication compliant Pt Strengths/Limitations Ability for [employer]: Poor Cognitive Functioning/Ability: Fair Communication Skills/Ability: Fair Financial Resources: Fair Insight/Judgement: Poor Intellectual Ability: Poor Physical Health: Fair Social Skills: Poor Stability in Family: Fair Stability in School/Work: Poor Verbal Skills: Poor Discharge Criteria Discharge Criteria: Adequate arrangements @DC, Improved behavior, Improved mood/thought Preliminary Discharge Plan Preliminary DC Plan: Placement Needed Special Precautions Fall Risk: Low Initial D/C Plan Pt will need placement at the time of discharge as is not able to care for pt. Identified Discharge Needs: mental health services Currently Utilized Resources Currently Utilized Resources/P: Primary Care Physician Neurology Identified Problems/Hx/Goals Objectives/Short-Term Goals Short Term Goals: Dec. Aggression, Dec. Anxiety/Panic, Dec. Outbursts, Monitor Med Effects, Promote Coping Skill Short Term Goals in Patient's: medication management Interventions/Frequency Staff Interventions/Frequency&: Psychiatrist to assess pt at least 3x per week. Social Work to assess pt at least 2x per week. Nursing to assess and complete 15 minute checks daily. Encourage participation in group activities or on a 1:1 basis based on activity therapy assessment/goal. 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 Education: Bachelor's Degree; did not fully complete his Master's Community Follow-up Continue to follow up with Primary care physician Treatment Plan Explained Patient/Finishing And Shipping Supervisor had this treatment plan explained to him/her as indicated by the signature below and has been given the opportunity to ask questions and make suggestions: Date: Patient/Finishing And Shipping Supervisor Signature: Status Update Update Pt , Joya, participated in tx team via telephone. Pt is currently eating 50% of meals and sleeping on average 4 hours. Pt continues to wander the unit, is disorganized and is having delusions but it does not appear to cause any distress for pt or those around him. Pt wanted to make sure people know that in pt will, he does not wish to be "made to eat", so if pt frets about not wanting to eat, please do not make him. Pt is medication compliant and mostly compliant with cares. Overall, pt is doing better. Pt is struggling herself as she has pain and is also having chemo treatments herself. Pt and SW will work together on finding placement for pt and look towards discharge pt hopefully next week. EDSON JIMENEZ Mar 31, 2020 17:34
[2020-03-31] MEDS: SERTRALINE 100 MG TABLET. PO SCH (20:06)
[2020-03-31] MEDS: traZODone 100 MG TABLET. PO SCH (20:06)
[2020-03-31] MEDS: OLANZapine 5 MG TABLET PO SCH (20:06)
[2020-03-31] MEDS: MELATONIN 3 MG TABLET PO SCH (20:06)
[2020-03-31] MEDS: AMITRIPTYLINE HCL 25 MG TABLET PO SCH (20:06)
--- NOTE | 2020-03-31 22:07 | PDOC ---
Exam Note: Heber Note: Please also refer to the separate dictated note~for this date of service dictated separately.~Patient seen individually. Discussed the patient with Nursing staff reviewed the chart.~Reviewed interim history and current functioning. Reviewed vital signs,~Labs/ Radiology~and current medications noted below. Continue current treatment with the changes noted in the dictated addendum note Assessment: Vital Signs/I&O: Vital Signs Date Time Temp Pulse Resp B/P (MAP) Pulse Ox O2 Delivery O2 Flow Rate FiO2 03/31/20 16:02 98.2 99 18 103/69 (80) 95 03/30/20 15:59 Room Air I & O 03/30/20 03/30/20 03/31/20 15:00 23:00 07:00 Intake Total 600 ml 480 ml Balance 600 ml 480 ml Labs: Laboratory Tests Test 03/31/20 07:01 White Blood Count 4.7 x10^3/uL (4.0-11.0) Red Blood Count 4.01 x10^6/uL (4.30-5.70) L Hemoglobin 12.1 g/dL (13.0-17.5) L Hematocrit 36.0 % (39.0-53.0) L Mean Corpuscular Volume 90 fL (79-100) Mean Corpuscular Hemoglobin 30 pg (25-35) Mean Corpuscular Hemoglobin Concent 34 g/dL (31-37) Red Cell Distribution Width 14.2 % (11.5-14.5) Platelet Count 178 x10^3/uL (140-400) Neutrophils (%) (Auto) 57 % (31-73) Lymphocytes (%) (Auto) 24 % (24-48) Monocytes (%) (Auto) 12 % (0-9) H Eosinophils (%) (Auto) 6 % (0-3) H Basophils (%) (Auto) 1 % (0-3) Neutrophils # (Auto) 2.7 x10^3uL (1.8-7.7) Lymphocytes # (Auto) 1.1 x10^3/uL (1.0-4.8) Monocytes # (Auto) 0.6 x10^3/uL (0.0-1.1) Eosinophils # (Auto) 0.3 x10^3/uL (0.0-0.7) Basophils # (Auto) 0.0 x10^3/uL (0.0-0.2) Sodium Level 141 mmol/L (136-145) Potassium Level 3.7 mmol/L (3.5-5.1) Chloride Level 106 mmol/L (98-107) Carbon Dioxide Level 30 mmol/L (21-32) Anion Gap 5 (6-14) L Blood Urea Nitrogen 24 mg/dL (8-26) Creatinine 1.0 mg/dL (0.7-1.3) Estimated GFR (Cockcroft-Gault) 74.1 BUN/Creatinine Ratio 24 (6-20) H Glucose Level 82 mg/dL (70-99) Calcium Level 8.2 mg/dL (8.5-10.1) L Total Bilirubin 0.4 mg/dL (0.2-1.0) Aspartate Amino Transferase (AST) 16 U/L (15-37) Alanine Aminotransferase (ALT) 21 U/L (16-63) Alkaline Phosphatase 64 U/L (46-116) Total Protein 6.4 g/dL (6.4-8.2) Albumin 3.1 g/dL (3.4-5.0) L Albumin/Globulin Ratio 0.9 (1.0-1.7) L Current Medications: Meds: Current Medications Medications (Trade) Dose Ordered Sig/Phi Route PRN Reason Start Time Stop Time Status Last Admin Dose Admin Potassium Chloride (Klor-Con) 20 meq [id number] PO 03/31/20 08:00 03/31/20 08:53 I have reviewed the current psychotropics carefully including drug interactions. Risk benefit ratio favors no change other than as noted in my dictated progress note. Diagnosis: Problems: (1) Post traumatic stress disorder (2) Anxiety disorder (3) Dementia in Alzheimer's disease with delusions (4) Dementia in Alzheimer's disease with depression (5) Dementia, vascular, with delusions (6) Dementia, vascular, with depression (7) Impulse control disorder SMITA TOLEDO MD Mar 31, 2020 22:07
[2020-03-31] MEDS: traZODone 100 MG TABLET. PO PRN (23:10)
--- NOTE | 2020-03-31 23:33 | NUR ---
Patient repeatedly getting out of bed and attempting to exit his room to wander the hallway. Given PRN Trazadone crushed in pudding and assisted to quiet hallway. Currently pacing back and forth in quiet hallway. No agitation. Will continue to monitor.
[2020-04-01 05:54] VITALS: BP 150/91
[2020-04-01] MEDS: FINASTERIDE 5 MG TABLET PO SCH (08:50)
[2020-04-01] MEDS: POTASSIUM CHLORIDE 20 MEQ TABLET.ER. PO SCH (08:50)
[2020-04-01] MEDS: POLYETHYLENE GLYCOL 3350 17 GM PACKET. PO SCH (08:50)
[2020-04-01] MEDS: risperiDONE 0.25 MG TABLET. PO SCH ×2 (08:50→19:57)
[2020-04-01] MEDS: DOCUSATE 100 MG/10 ML SOLUTION. PO SCH (08:50)
[2020-04-01] MEDS: DIVALPROEX 125 MG CAP.SPRINK PO SCH ×2 (08:50→16:08)
[2020-04-01] MEDS: TAMSULOSIN 0.4 MG CAP.ER.24H. PO SCH (08:50)
--- NOTE | 2020-04-01 10:31 | NUR ---
Patient has been observed wandering in hallway and in and out of rooms. Patient had a phone call from a family member, he didn't interact on the phone very much, but was carrying it in the hallway while it was on speaker mode and the person on the other end was talking. Patient cooperative with morning medications given crushed in pudding. He spilled several drinks at breakfast, to include his miralax water. Patient could only give his first name and not think of his last name during orientation questions this morning.
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
[2020-04-01 15:59] VITALS: BP 121/79
--- NOTE | 2020-04-01 16:09 | NUR ---
unable to scan zyprexa and depakote sprinkles because patient would not let me scan his arm band. Administered without scanning. Patient compliant with medication hidden in chocolate ice cream.
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
[2020-04-01] MEDS: traZODone 100 MG TABLET. PO SCH (19:56)
[2020-04-01] MEDS: SERTRALINE 100 MG TABLET. PO SCH (19:56)
[2020-04-01] MEDS: MELATONIN 3 MG TABLET PO SCH (19:56)
[2020-04-01] MEDS: OLANZapine 5 MG TABLET PO SCH (19:58)
[2020-04-01] MEDS ORDERED: AMITRIPTYLINE HCL 25 MG TABLET PO SCH (21:00)
[2020-04-01] MEDS ORDERED: AMITRIPTYLINE HCL 10 MG TABLET PO SCH (21:00)
--- NOTE | 2020-04-01 21:47 | PDOC ---
Exam Note: Heber Note: Please also refer to the separate dictated note~for this date of service dictated separately.~Patient seen individually. Discussed the patient with Nursing staff reviewed the chart.~Reviewed interim history and current functioning. Reviewed vital signs,~Labs/ Radiology~and current medications noted below. Continue current treatment with the changes noted in the dictated addendum note Assessment: Vital Signs/I&O: Vital Signs Date Time Temp Pulse Resp B/P (MAP) Pulse Ox O2 Delivery O2 Flow Rate FiO2 04/01/20 15:59 97.3 96 20 121/79 (93) 97 03/30/20 15:59 Room Air I & O 03/31/20 03/31/20 04/01/20 15:00 23:00 07:00 Intake Total 600 ml 360 ml Balance 600 ml 360 ml Current Medications: Meds: Current Medications Medications (Trade) Dose Ordered Sig/Phi Route PRN Reason Start Time Stop Time Status Last Admin Dose Admin Amitriptyline HCl (Elavil) 10 mg QHS PO 04/01/20 21:00 04/01/20 19:57 Amitriptyline HCl (Elavil) 25 mg QHS PO 04/01/20 21:00 04/01/20 19:57 I have reviewed the current psychotropics carefully including drug interactions. Risk benefit ratio favors no change other than as noted in my dictated progress note. Diagnosis: Problems: (1) Post traumatic stress disorder (2) Anxiety disorder (3) Dementia in Alzheimer's disease with delusions (4) Dementia in Alzheimer's disease with depression (5) Dementia, vascular, with delusions (6) Dementia, vascular, with depression (7) Impulse control disorder SMITA TOLEDO MD Apr 01, 2020 21:47
[2020-04-01] MEDS: traZODone 100 MG TABLET. PO PRN (23:35)
[2020-04-02] MEDS: LORazepam 0.5 MG TABLET PO PRN (00:52)
--- NOTE | 2020-04-02 01:57 | NUR ---
Last evening pt was active on unit walking around and sometimes interacting briefly with others. He took his meds crushed in ice cream with some prompting. After going to bed he remained awake quietly fidgeting with his legs and feet. PRN repeat trazodone was given and he remained awake, later PRN ativan given and he is still awake.
[2020-04-02 06:03] VITALS: BP 128/84
[2020-04-02 06:29] LABS: BASO % 1 % (0-3); EOS # 0.3 x10^3/uL (0.0-0.7); EOS % 5 % (0-3); HEMOGLOBIN 13.2 g/dL (13.0-17.5); LYMPH # 1.1 x10^3/uL (1.0-4.8); LYMPH % 23 % (24-48); MEAN CORPUSCULAR HEMOGLOBIN 30 pg (25-35); MEAN CORPUSCULAR HGB CONC 34 g/dL (31-37); MEAN CORPUSCULAR VOLUME 89 fL (79-100); MONO # 0.6 x10^3/uL (0.0-1.1); MONO % 12 % (0-9); NEUT # 2.9 x10^3uL (1.8-7.7); NEUT % 59 % (31-73); PLATELET COUNT 177 x10^3/uL (140-400); RED BLOOD COUNT 4.38 x10^6/uL (4.30-5.70)
[2020-04-02 06:46] LABS: ALBUMIN 3.4 g/dL (3.4-5.0); CALCIUM 8.4 mg/dL (8.5-10.1); CREATININE 1.1 mg/dL (0.7-1.3); GFR 66.4; POTASSIUM 3.6 mmol/L (3.5-5.1); TOTAL BILIRUBIN 0.3 mg/dL (0.2-1.0); TOTAL PROTEIN 6.9 g/dL (6.4-8.2)
--- NOTE | 2020-04-02 07:39 | PDOC ---
Exam Note: Heber Note: This note is a late entry for 03/31/2020 covers elements not covered in my initial note. Subjective: The patient was seen face to face in the morning of 03/31/2020 for treatment team meeting with Lilly Manning, and Laurie (social service staff). The patients Joya attended as well. Joya is going through a lot of medical problems herself and is also dealing with trying to find placement for the patient. Nursing report was with Lilibeth TURK. He slept 4 hours previous night. Appetite is 50%. He is confused, wanders the hallway, seems to have visual hallucinations. Review of Systems: No CV, , pulmonary, eye, ENT system symptoms on review. Mental Status Exam: Oriented to himself. Insight and judgment, recent and remote memory, attention and concentration, fund of knowledge is poor consistent with his diagnoses. Laboratory Data: Reviewed. Impression: Major neurocognitive disorder, Alzheimer, vascular with delusion, depression, behavioral disturbance. Anxiety disorder unspecified. Impulse control disorder unspecified. Plan: No change from initial note. Assessment: Vital Signs/I&O: Vital Signs Date Time Temp Pulse Resp B/P (MAP) Pulse Ox O2 Delivery O2 Flow Rate FiO2 04/02/20 06:03 97.6 53 16 128/84 (99) 97 03/30/20 15:59 Room Air I & O 04/01/20 04/01/20 04/02/20 15:00 23:00 07:00 Intake Total 720 ml 360 ml Balance 720 ml 360 ml Labs: Laboratory Tests Test 04/02/20 06:02 White Blood Count 5.0 x10^3/uL (4.0-11.0) Red Blood Count 4.38 x10^6/uL (4.30-5.70) Hemoglobin 13.2 g/dL (13.0-17.5) Hematocrit 39.0 % (39.0-53.0) Mean Corpuscular Volume 89 fL (79-100) Mean Corpuscular Hemoglobin 30 pg (25-35) Mean Corpuscular Hemoglobin Concent 34 g/dL (31-37) Red Cell Distribution Width 14.0 % (11.5-14.5) Platelet Count 177 x10^3/uL (140-400) Neutrophils (%) (Auto) 59 % (31-73) Lymphocytes (%) (Auto) 23 % (24-48) L Monocytes (%) (Auto) 12 % (0-9) H Eosinophils (%) (Auto) 5 % (0-3) H Basophils (%) (Auto) 1 % (0-3) Neutrophils # (Auto) 2.9 x10^3uL (1.8-7.7) Lymphocytes # (Auto) 1.1 x10^3/uL (1.0-4.8) Monocytes # (Auto) 0.6 x10^3/uL (0.0-1.1) Eosinophils # (Auto) 0.3 x10^3/uL (0.0-0.7) Basophils # (Auto) 0.0 x10^3/uL (0.0-0.2) Sodium Level 141 mmol/L (136-145) Potassium Level 3.6 mmol/L (3.5-5.1) Chloride Level 104 mmol/L (98-107) Carbon Dioxide Level 30 mmol/L (21-32) Anion Gap 7 (6-14) Blood Urea Nitrogen 21 mg/dL (8-26) Creatinine 1.1 mg/dL (0.7-1.3) Estimated GFR (Cockcroft-Gault) 66.4 BUN/Creatinine Ratio 19 (6-20) Glucose Level 82 mg/dL (70-99) Calcium Level 8.4 mg/dL (8.5-10.1) L Total Bilirubin 0.3 mg/dL (0.2-1.0) Aspartate Amino Transferase (AST) 19 U/L (15-37) Alanine Aminotransferase (ALT) 22 U/L (16-63) Alkaline Phosphatase 74 U/L (46-116) Total Protein 6.9 g/dL (6.4-8.2) Albumin 3.4 g/dL (3.4-5.0) Albumin/Globulin Ratio 1.0 (1.0-1.7) Current Medications: Meds: Current Medications Medications (Trade) Dose Ordered Sig/Phi Route PRN Reason Start Time Stop Time Status Last Admin Dose Admin Amitriptyline HCl (Elavil) 10 mg QHS PO 04/01/20 21:00 04/01/20 19:57 Amitriptyline HCl (Elavil) 25 mg QHS PO 04/01/20 21:00 6/9/20 19:57 I have reviewed the current psychotropics carefully including drug interactions. Risk benefit ratio favors no change other than as noted in my dictated progress note. Diagnosis: Problems: (1) Post traumatic stress disorder (2) Anxiety disorder (3) Dementia in Alzheimer's disease with delusions (4) Dementia in Alzheimer's disease with depression (5) Dementia, vascular, with delusions (6) Dementia, vascular, with depression (7) Impulse control disorder SMITA TOLEDO MD Apr 02, 2020 07:39
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
[2020-04-02] MEDS: DIVALPROEX 125 MG CAP.SPRINK PO SCH ×2 (08:32→17:36)
[2020-04-02] MEDS: DOCUSATE 100 MG/10 ML SOLUTION. PO SCH ×2 (08:32→11:00)
[2020-04-02] MEDS: POLYETHYLENE GLYCOL 3350 17 GM PACKET. PO SCH ×2 (08:32→11:00)
[2020-04-02] MEDS: POTASSIUM CHLORIDE 20 MEQ TABLET.ER. PO SCH (08:32)
[2020-04-02] MEDS: TAMSULOSIN 0.4 MG CAP.ER.24H. PO SCH (08:32)
[2020-04-02] MEDS: risperiDONE 0.25 MG TABLET. PO SCH ×2 (08:32→19:43)
[2020-04-02] MEDS: FINASTERIDE 5 MG TABLET PO SCH (08:32)
--- NOTE | 2020-04-02 10:46 | NUR ---
Patient very drowsy at breakfast. Meds given crushed in chocolate ice cream. According to sleep hours, the patient only slept 1.75 hours last night. Patient did not eat and returned to bed during breakfast.
--- NOTE | 2020-04-02 14:59 | NUR ---
Staff woke patient for lunch but he didn't want to get out of bed. Patient did not sleep well last night. Will insure that patient gets up for dinner.
[2020-04-02 15:48] VITALS: BP 107/77
--- NOTE | 2020-04-02 18:58 | NUR ---
patient did not get colace or miralax this morning. He was drowsy and went back to bed. Held r/t sleeping.
[2020-04-02] MEDS: AMITRIPTYLINE HCL 25 MG TABLET PO SCH (19:43)
[2020-04-02] MEDS: OLANZapine 5 MG TABLET PO SCH (19:43)
[2020-04-02] MEDS: SERTRALINE 100 MG TABLET. PO SCH (19:43)
[2020-04-02] MEDS: MELATONIN 3 MG TABLET PO SCH (19:43)
[2020-04-02] MEDS: traZODone 100 MG TABLET. PO SCH (19:44)
--- NOTE | 2020-04-02 22:09 | PDOC ---
Exam Note: Heber Note: Please also refer to the separate dictated note~for this date of service dictated separately.~Patient seen individually. Discussed the patient with Nursing staff reviewed the chart.~Reviewed interim history and current functioning. Reviewed vital signs,~Labs/ Radiology~and current medications noted below. Continue current treatment with the changes noted in the dictated addendum note Assessment: Vital Signs/I&O: Vital Signs Date Time Temp Pulse Resp B/P (MAP) Pulse Ox O2 Delivery O2 Flow Rate FiO2 04/02/20 15:48 97.8 90 18 107/77 (87) 96 03/30/20 15:59 Room Air I & O 04/01/20 04/01/20 04/02/20 15:00 23:00 07:00 Intake Total 720 ml 360 ml Balance 720 ml 360 ml Labs: Laboratory Tests Test 04/02/20 06:02 White Blood Count 5.0 x10^3/uL (4.0-11.0) Red Blood Count 4.38 x10^6/uL (4.30-5.70) Hemoglobin 13.2 g/dL (13.0-17.5) Hematocrit 39.0 % (39.0-53.0) Mean Corpuscular Volume 89 fL (79-100) Mean Corpuscular Hemoglobin 30 pg (25-35) Mean Corpuscular Hemoglobin Concent 34 g/dL (31-37) Red Cell Distribution Width 14.0 % (11.5-14.5) Platelet Count 177 x10^3/uL (140-400) Neutrophils (%) (Auto) 59 % (31-73) Lymphocytes (%) (Auto) 23 % (24-48) L Monocytes (%) (Auto) 12 % (0-9) H Eosinophils (%) (Auto) 5 % (0-3) H Basophils (%) (Auto) 1 % (0-3) Neutrophils # (Auto) 2.9 x10^3uL (1.8-7.7) Lymphocytes # (Auto) 1.1 x10^3/uL (1.0-4.8) Monocytes # (Auto) 0.6 x10^3/uL (0.0-1.1) Eosinophils # (Auto) 0.3 x10^3/uL (0.0-0.7) Basophils # (Auto) 0.0 x10^3/uL (0.0-0.2) Sodium Level 141 mmol/L (136-145) Potassium Level 3.6 mmol/L (3.5-5.1) Chloride Level 104 mmol/L (98-107) Carbon Dioxide Level 30 mmol/L (21-32) Anion Gap 7 (6-14) Blood Urea Nitrogen 21 mg/dL (8-26) Creatinine 1.1 mg/dL (0.7-1.3) Estimated GFR (Cockcroft-Gault) 66.4 BUN/Creatinine Ratio 19 (6-20) Glucose Level 82 mg/dL (70-99) Calcium Level 8.4 mg/dL (8.5-10.1) L Total Bilirubin 0.3 mg/dL (0.2-1.0) Aspartate Amino Transferase (AST) 19 U/L (15-37) Alanine Aminotransferase (ALT) 22 U/L (16-63) Alkaline Phosphatase 74 U/L (46-116) Total Protein 6.9 g/dL (6.4-8.2) Albumin 3.4 g/dL (3.4-5.0) Albumin/Globulin Ratio 1.0 (1.0-1.7) Current Medications: Meds: Current Medications Medications (Trade) Dose Ordered Sig/Phi Route PRN Reason Start Time Stop Time Status Last Admin Dose Admin Amitriptyline HCl (Elavil) 50 mg QHS PO 04/02/20 21:00 04/02/20 19:43 I have reviewed the current psychotropics carefully including drug interactions. Risk benefit ratio favors no change other than as noted in my dictated progress note. Diagnosis: Problems: (1) Post traumatic stress disorder (2) Anxiety disorder (3) Dementia in Alzheimer's disease with delusions (4) Dementia in Alzheimer's disease with depression (5) Dementia, vascular, with delusions (6) Dementia, vascular, with depression (7) Impulse control disorder SMITA TOLEDO MD Apr 02, 2020 22:09
--- NOTE | 2020-04-03 00:02 | NUR ---
Last evening pt walked around unit and was cooperative. Meds were taken crushed in [facility] icecream. After meds he fell asleep in day room was taken to bed and has been sleeping better tonight.
[2020-04-03 05:24] VITALS: BP 154/89
--- NOTE | 2020-04-03 07:13 | PN ---
DATE: 04/02/2020 PSYCHIATRIC PROGRESS NOTE This late entry 04/02/2020 covers elements not covered in my initial note. SUBJECTIVE: I met with the patient evening of 04/02/2020. The patient slept 1-3/4 hours previous night per BURKE Elliott. However, he went back to bed after breakfast and slept after lunch, again making up for his insomnia. Trazodone was repeated previous night at 2330, which may have accounted somewhat from this. REVIEW OF SYSTEMS: No CV, , pulmonary, eye, ENT system symptoms on review. Reliability poor. MENTAL STATUS EXAM: Oriented to himself. Insight, judgment, recent and remote memory, attention, concentration, fund of knowledge poor, consistent with his diagnosis mentioned in my initial note. PLAN: Increase amitriptyline from 35 mg at bedtime to 50 mg at bedtime. Continue rest of the psychotropics unchanged. MAN Douglas TOLEDO MD DR: BORIS/dontae JOB#: [id number] / [id number]
[2020-04-03] MEDS: POTASSIUM CHLORIDE 20 MEQ TABLET.ER. PO SCH (07:58)
[2020-04-03] MEDS: POLYETHYLENE GLYCOL 3350 17 GM PACKET. PO SCH (07:58)
[2020-04-03] MEDS: DIVALPROEX 125 MG CAP.SPRINK PO SCH ×2 (07:58→17:00)
[2020-04-03] MEDS: TAMSULOSIN 0.4 MG CAP.ER.24H. PO SCH (07:58)
[2020-04-03] MEDS: FINASTERIDE 5 MG TABLET PO SCH (07:58)
[2020-04-03] MEDS: DOCUSATE 100 MG/10 ML SOLUTION. PO SCH (07:58)
[2020-04-03] MEDS: risperiDONE 0.25 MG TABLET. PO SCH ×2 (07:59→20:09)
--- NOTE | 2020-04-03 11:18 | NUR ---
Patient up for breakfast, feeding self a sausage on a biscuit. Needed encouragement to drink from a straw and needed straw positioned towards his mouth. Patient very disorganized and unable to answer any orientation questions. He will respond to his name. Medications given crushed in ice cream. Patient calm and wandering around in the hallway, sitting in chairs at times. He got 4.75 hours of sleep last night. Patient wearing onesie r/t taking his clothes off in the hallway multiple times.
[2020-04-03] MEDS: MAGNESIUM HYDROXIDE 2,400 MG/30 ML ORAL.SUSP. PO PRN (12:22)
--- NOTE | 2020-04-03 12:23 | NUR ---
Patient in an empty room sitting cross legged on the floor. He declined help to get up. Patient is disorganized and is talking to himself, mumbling. Gave patient PRN MOM as he has not had a documented bowel movement lately. Patient has been wearing a onesie for several days so he could not toilet himself. MOM taken in melted chocolate ice cream, made into a shake. Patient compliant with medication.
[2020-04-03 15:30] VITALS: BP 111/69
--- NOTE | 2020-04-03 17:06 | NUR ---
WOW has lost communication with system. IT is aware. Medication administered without scanning.
[2020-04-03] MEDS: OLANZapine 5 MG TABLET PO SCH (20:08)
[2020-04-03] MEDS: traZODone 100 MG TABLET. PO SCH (20:08)
[2020-04-03] MEDS: MELATONIN 3 MG TABLET PO SCH (20:09)
[2020-04-03] MEDS: SERTRALINE 100 MG TABLET. PO SCH (20:09)
[2020-04-03] MEDS: AMITRIPTYLINE HCL 25 MG TABLET PO SCH (20:09)
--- NOTE | 2020-04-03 22:26 | PDOC ---
Exam Note: Heber Note: Please also refer to the separate dictated note~for this date of service dictated separately.~Patient seen individually. Discussed the patient with Nursing staff reviewed the chart.~Reviewed interim history and current functioning. Reviewed vital signs,~Labs/ Radiology~and current medications noted below. Continue current treatment with the changes noted in the dictated addendum note Assessment: Vital Signs/I&O: Vital Signs Date Time Temp Pulse Resp B/P (MAP) Pulse Ox O2 Delivery O2 Flow Rate FiO2 04/03/20 15:30 98.1 72 18 111/69 (83) 98 04/03/20 05:24 Room Air I & O 04/02/20 04/02/20 04/03/20 14:59 22:59 06:59 Intake Total 50 ml 360 ml Balance 50 ml 360 ml Current Medications: I have reviewed the current psychotropics carefully including drug interactions. Risk benefit ratio favors no change other than as noted in my dictated progress note. Diagnosis: Problems: (1) Post traumatic stress disorder (2) Anxiety disorder (3) Dementia in Alzheimer's disease with delusions (4) Dementia in Alzheimer's disease with depression (5) Dementia, vascular, with delusions (6) Dementia, vascular, with depression (7) Impulse control disorder SMITA TOLEDO MD Apr 03, 2020 22:26
--- NOTE | 2020-04-03 22:57 | NUR ---
This evening pt walked around unit quietly mumbling to self. He has been calm with no behaviors. Meds were given crushed in chocolate ice cream. He was cooperative with cares and has been sleeping since going to bed.
[2020-04-04 05:54] VITALS: BP 148/88
[2020-04-04 06:36] LABS: BASO # 0.1 x10^3/uL (0.0-0.2); BASO % 1 % (0-3); EOS # 0.3 x10^3/uL (0.0-0.7); EOS % 6 % (0-3); HEMATOCRIT 38.1 % (39.0-53.0); HEMOGLOBIN 12.7 g/dL (13.0-17.5); LYMPH # 1.1 x10^3/uL (1.0-4.8); LYMPH % 23 % (24-48); MEAN CORPUSCULAR HEMOGLOBIN 30 pg (25-35); MEAN CORPUSCULAR HGB CONC 33 g/dL (31-37); MEAN CORPUSCULAR VOLUME 90 fL (79-100); MONO # 0.7 x10^3/uL (0.0-1.1); MONO % 14 % (0-9); NEUT # 2.9 x10^3uL (1.8-7.7); NEUT % 57 % (31-73); PLATELET COUNT 181 x10^3/uL (140-400); RED BLOOD COUNT 4.25 x10^6/uL (4.30-5.70)
[2020-04-04 06:49] LABS: ALBUMIN 3.3 g/dL (3.4-5.0); CALCIUM 8.5 mg/dL (8.5-10.1); CREATININE 1.1 mg/dL (0.7-1.3); GFR 66.4; POTASSIUM 3.8 mmol/L (3.5-5.1); TOTAL BILIRUBIN 0.4 mg/dL (0.2-1.0); TOTAL PROTEIN 6.7 g/dL (6.4-8.2)
[2020-04-04] MEDS: TAMSULOSIN 0.4 MG CAP.ER.24H. PO SCH (10:50)
[2020-04-04] MEDS: POLYETHYLENE GLYCOL 3350 17 GM PACKET. PO SCH (10:50)
[2020-04-04] MEDS: DOCUSATE 100 MG/10 ML SOLUTION. PO SCH (10:50)
[2020-04-04] MEDS: FINASTERIDE 5 MG TABLET PO SCH (10:51)
[2020-04-04] MEDS: risperiDONE 0.25 MG TABLET. PO SCH ×2 (10:51→19:51)
[2020-04-04] MEDS: POTASSIUM CHLORIDE 20 MEQ TABLET.ER. PO SCH (10:51)
[2020-04-04] MEDS: DIVALPROEX 125 MG CAP.SPRINK PO SCH ×2 (10:52→17:01)
[2020-04-04 15:43] VITALS: BP 119/77
--- NOTE | 2020-04-04 16:57 | NUR ---
Pt slept thru breakfast. Up for lunch. Compliant with meds. Pt wandering in others rooms. 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 Has been redirectable. Prior to lunch. Pt was noted to sit self on floor. Witnessed by peer. Has been in pleasant spirits.
[2020-04-04] MEDS: AMITRIPTYLINE HCL 25 MG TABLET PO SCH (19:51)
[2020-04-04] MEDS: traZODone 100 MG TABLET. PO SCH (19:51)
[2020-04-04] MEDS: MELATONIN 3 MG TABLET PO SCH (19:51)
[2020-04-04] MEDS: MAGNESIUM HYDROXIDE 2,400 MG/30 ML ORAL.SUSP. PO PRN (19:51)
[2020-04-04] MEDS: SERTRALINE 100 MG TABLET. PO SCH (19:51)
[2020-04-04] MEDS: OLANZapine 5 MG TABLET PO SCH (19:51)
--- NOTE | 2020-04-04 22:19 | PDOC ---
Exam Note: Heber Note: Please also refer to the separate dictated note~for this date of service dictated separately.~Patient seen individually. Discussed the patient with Nursing staff reviewed the chart.~Reviewed interim history and current functioning. Reviewed vital signs,~Labs/ Radiology~and current medications noted below. Continue current treatment with the changes noted in the dictated addendum note Assessment: Vital Signs/I&O: Vital Signs Date Time Temp Pulse Resp B/P (MAP) Pulse Ox O2 Delivery O2 Flow Rate FiO2 04/04/20 15:43 97.6 92 18 119/77 (91) 94 04/03/20 05:24 Room Air I & O 04/03/20 04/03/20 04/04/20 15:00 23:00 07:00 Intake Total 1320 ml 480 ml Balance 1320 ml 480 ml Labs: Laboratory Tests Test 04/04/20 06:20 White Blood Count 5.0 x10^3/uL (4.0-11.0) Red Blood Count 4.25 x10^6/uL (4.30-5.70) L Hemoglobin 12.7 g/dL (13.0-17.5) L Hematocrit 38.1 % (39.0-53.0) L Mean Corpuscular Volume 90 fL (79-100) Mean Corpuscular Hemoglobin 30 pg (25-35) Mean Corpuscular Hemoglobin Concent 33 g/dL (31-37) Red Cell Distribution Width 14.0 % (11.5-14.5) Platelet Count 181 x10^3/uL (140-400) Neutrophils (%) (Auto) 57 % (31-73) Lymphocytes (%) (Auto) 23 % (24-48) L Monocytes (%) (Auto) 14 % (0-9) H Eosinophils (%) (Auto) 6 % (0-3) H Basophils (%) (Auto) 1 % (0-3) Neutrophils # (Auto) 2.9 x10^3uL (1.8-7.7) Lymphocytes # (Auto) 1.1 x10^3/uL (1.0-4.8) Monocytes # (Auto) 0.7 x10^3/uL (0.0-1.1) Eosinophils # (Auto) 0.3 x10^3/uL (0.0-0.7) Basophils # (Auto) 0.1 x10^3/uL (0.0-0.2) Sodium Level 145 mmol/L (136-145) Potassium Level 3.8 mmol/L (3.5-5.1) Chloride Level 107 mmol/L (98-107) Carbon Dioxide Level 32 mmol/L (21-32) Anion Gap 6 (6-14) Blood Urea Nitrogen 27 mg/dL (8-26) H Creatinine 1.1 mg/dL (0.7-1.3) Estimated GFR (Cockcroft-Gault) 66.4 BUN/Creatinine Ratio 25 (6-20) H Glucose Level 82 mg/dL (70-99) Calcium Level 8.5 mg/dL (8.5-10.1) Total Bilirubin 0.4 mg/dL (0.2-1.0) Aspartate Amino Transferase (AST) 17 U/L (15-37) Alanine Aminotransferase (ALT) 22 U/L (16-63) Alkaline Phosphatase 65 U/L (46-116) Total Protein 6.7 g/dL (6.4-8.2) Albumin 3.3 g/dL (3.4-5.0) L Albumin/Globulin Ratio 1.0 (1.0-1.7) Current Medications: I have reviewed the current psychotropics carefully including drug interactions. Risk benefit ratio favors no change other than as noted in my dictated progress note. Diagnosis: Problems: (1) Post traumatic stress disorder (2) Anxiety disorder (3) Dementia in Alzheimer's disease with delusions (4) Dementia in Alzheimer's disease with depression (5) Dementia, vascular, with delusions (6) Dementia, vascular, with depression (7) Impulse control disorder SMITA TOLEDO MD Apr 04, 2020 22:19
--- NOTE | 2020-04-04 22:55 | PN ---
DATE: 04/03/2020 PSYCHIATRIC PROGRESS NOTE This late entry 04/03/2020 covers elements not covered in my initial note. SUBJECTIVE: I met with the patient evening of 04/03/2020. The patient slept for 3/4 hours previous night per BURKE Elliott. He has done better during the day on 04/03/2020. Takes meds in ice cream. He has been talking to himself, trying to meat pickler things from the floor that are not there some remains psychotic. REVIEW OF SYSTEMS: No CV, , pulmonary, eye, ENT system symptoms on review. MENTAL STATUS EXAM: Oriented to himself. Insight, judgment, recent and remote memory, attention, concentration, fund of knowledge poor, consistent with his diagnosis mentioned in my initial note. PLAN: No change from initial note. MAN Douglas TOLEDO MD DR: BORIS/dontae JOB#: [id number] / [id number]
--- NOTE | 2020-04-04 23:11 | NUR ---
Pt was highly restless and resistive early this evening. Pt was intrusive with other pt's and their belongings and refusing to let go of the items. Pt became angry with redirection. PRN Zydis administered. Pt then wandered the unit, continuing to be intrusive. Compliant with medications crushed in pudding. MOM administered in Ensure.
[2020-04-04] MEDS: traZODone 100 MG TABLET. PO PRN (23:45)
[2020-04-05 06:02] VITALS: BP 120/78
[2020-04-05] MEDS: POLYETHYLENE GLYCOL 3350 17 GM PACKET. PO SCH (09:00)
[2020-04-05] MEDS: risperiDONE 0.25 MG TABLET. PO SCH ×2 (09:01→19:28)
[2020-04-05] MEDS: TAMSULOSIN 0.4 MG CAP.ER.24H. PO SCH (09:01)
[2020-04-05] MEDS: DIVALPROEX 125 MG CAP.SPRINK PO SCH ×2 (09:01→17:00)
[2020-04-05] MEDS: DOCUSATE 100 MG/10 ML SOLUTION. PO SCH (09:01)
[2020-04-05] MEDS: POTASSIUM CHLORIDE 20 MEQ TABLET.ER. PO SCH (09:01)
[2020-04-05] MEDS: FINASTERIDE 5 MG TABLET PO SCH (09:01)
[2020-04-05 15:48] VITALS: BP 128/85
--- NOTE | 2020-04-05 17:09 | NUR ---
Pt slept thru lunch. Has been wandering in halls rest of day. Compliant with meds and cares.
[2020-04-05] MEDS: SERTRALINE 100 MG TABLET. PO SCH (19:27)
[2020-04-05] MEDS: OLANZapine 5 MG TABLET PO SCH (19:27)
[2020-04-05] MEDS: MELATONIN 3 MG TABLET PO SCH (19:27)
[2020-04-05] MEDS: AMITRIPTYLINE HCL 25 MG TABLET PO SCH (19:27)
[2020-04-05] MEDS: traZODone 100 MG TABLET. PO SCH (19:28)
--- NOTE | 2020-04-05 22:13 | PDOC ---
Exam Note: Heber Note: Please also refer to the separate dictated note~for this date of service dictated separately.~Patient seen individually. Discussed the patient with Nursing staff reviewed the chart.~Reviewed interim history and current functioning. Reviewed vital signs,~Labs/ Radiology~and current medications noted below. Continue current treatment with the changes noted in the dictated addendum note Assessment: Vital Signs/I&O: Vital Signs Date Time Temp Pulse Resp B/P (MAP) Pulse Ox O2 Delivery O2 Flow Rate FiO2 04/05/20 15:48 98.1 84 18 128/85 (99) 92 04/05/20 06:02 Room Air I & O 04/04/20 04/04/20 04/05/20 15:00 23:00 07:00 Intake Total 120 ml 360 ml Balance 120 ml 360 ml Current Medications: I have reviewed the current psychotropics carefully including drug interactions. Risk benefit ratio favors no change other than as noted in my dictated progress note. Diagnosis: Problems: (1) Post traumatic stress disorder (2) Anxiety disorder (3) Dementia in Alzheimer's disease with delusions (4) Dementia in Alzheimer's disease with depression (5) Dementia, vascular, with delusions (6) Dementia, vascular, with depression (7) Impulse control disorder SMITA TOLEDO MD Apr 05, 2020 22:13
--- NOTE | 2020-04-05 23:18 | NUR ---
Pt has been wandering this evening. Intrusive at times. Compliant with crushed medications and shower.
[2020-04-06] MEDS: BISACODYL 10 MG SUPP.RECT PR PRN (05:09)
[2020-04-06 06:07] VITALS: BP 156/96
[2020-04-06 07:24] LABS: HEMATOCRIT 39.3 % (39.0-53.0); HEMOGLOBIN 13.2 g/dL (13.0-17.5); RED BLOOD COUNT 4.39 x10^6/uL (4.30-5.70); RED CELL DISTRIBUTION WIDTH 14.1 % (11.5-14.5); WHITE BLOOD COUNT 4.9 x10^3/uL (4.0-11.0)
[2020-04-06] MEDS: risperiDONE 0.25 MG TABLET. PO SCH ×2 (07:40→19:53)
[2020-04-06] MEDS: POLYETHYLENE GLYCOL 3350 17 GM PACKET. PO SCH (07:40)
[2020-04-06] MEDS: DOCUSATE 100 MG/10 ML SOLUTION. PO SCH (07:40)
[2020-04-06] MEDS: FINASTERIDE 5 MG TABLET PO SCH (07:40)
[2020-04-06] MEDS: TAMSULOSIN 0.4 MG CAP.ER.24H. PO SCH (07:40)
[2020-04-06] MEDS: DIVALPROEX 125 MG CAP.SPRINK PO SCH ×2 (07:41→17:34)
[2020-04-06] MEDS: POTASSIUM CHLORIDE 20 MEQ TABLET.ER. PO SCH (07:41)
[2020-04-06 07:53] LABS: ALBUMIN 3.5 g/dL (3.4-5.0); CALCIUM 8.5 mg/dL (8.5-10.1); CREATININE 1.1 mg/dL (0.7-1.3); GFR 66.4; POTASSIUM 3.8 mmol/L (3.5-5.1); TOTAL BILIRUBIN 0.4 mg/dL (0.2-1.0)
--- NOTE | 2020-04-06 13:04 | PN ---
DATE: 04/04/2020 PSYCHIATRIC PROGRESS NOTE This late entry 04/04/2020 covers elements not covered in my initial note. SUBJECTIVE: I met with the patient evening of 04/04/2020. Per BURKE Israel, the patient slept 3-1/2 hours previous night. He slept through breakfast, however. He is confused, wandering, picking up things from the floor when nothing is there and turning them over in his hand. REVIEW OF SYSTEMS: No CV, , pulmonary, eye, ENT system symptoms on review. Reliability poor. MENTAL STATUS EXAM: Oriented to himself. Insight, judgment, recent and remote memory, attention, concentration, fund of knowledge poor, consistent with his diagnosis mentioned in my initial note. PLAN: No change from initial note. MAN Douglas TOLEDO MD DR: BORIS/dontae JOB#: [id number] / [id number]
--- NOTE | 2020-04-06 13:07 | PN ---
DATE: 04/05/2020 PSYCHIATRIC PROGRESS NOTE This late entry 04/05/2020 covers elements not covered in my initial note. SUBJECTIVE: I met with the patient evening of 04/05/2020. Per BURKE Israel, the patient slept just 1 hour previous night. He has been restless, slept until around lunchtime today once he finally went to sleep at 2:00 a.m. He did get up for breakfast. MENTAL STATUS EXAM: Insight, judgment, recent and remote memory, attention, concentration, fund of knowledge poor, consistent with his diagnosis. He is oriented to himself. REVIEW OF SYSTEMS: No CV, , pulmonary, eye, ENT system symptoms on review. Reliability poor. IMPRESSION: Unchanged from initial note. PLAN: No change from initial note for now. MAN Douglas TOLEDO MD DR: BORIS/dontae JOB#: [id number] / [id number]
[2020-04-06 16:58] VITALS: BP 134/74
--- NOTE | 2020-04-06 18:06 | NUR ---
Pt up adl. Has been unsteady on feet at times. Pt sat on floor x1 today with no injuries noted. Has been compliant with meds and cares.
[2020-04-06] MEDS ORDERED: MAGNESIUM CITRATE 296 ML SOLUTION. PO PRN (19:45)
[2020-04-06] MEDS: traZODone 100 MG TABLET. PO SCH (19:53)
[2020-04-06] MEDS: AMITRIPTYLINE HCL 25 MG TABLET PO SCH (19:53)
[2020-04-06] MEDS: MELATONIN 3 MG TABLET PO SCH (19:53)
[2020-04-06] MEDS: SERTRALINE 100 MG TABLET. PO SCH (19:53)
[2020-04-06] MEDS: OLANZapine 5 MG TABLET PO SCH (19:53)
--- NOTE | 2020-04-06 22:20 | PDOC ---
Exam Note: Heber Note: Please also refer to the separate dictated note~for this date of service dictated separately.~Patient seen individually. Discussed the patient with Nursing staff reviewed the chart.~Reviewed interim history and current functioning. Reviewed vital signs,~Labs/ Radiology~and current medications noted below. Continue current treatment with the changes noted in the dictated addendum note Assessment: Vital Signs/I&O: Vital Signs Date Time Temp Pulse Resp B/P (MAP) Pulse Ox O2 Delivery O2 Flow Rate FiO2 04/06/20 16:58 97.8 72 16 134/74 (94) 98 04/05/20 06:02 Room Air I & O 04/05/20 04/05/20 04/06/20 14:59 22:59 06:59 Intake Total 480 ml 360 ml Balance 480 ml 360 ml Labs: Laboratory Tests Test 04/06/20 07:00 White Blood Count 4.9 x10^3/uL (4.0-11.0) Red Blood Count 4.39 x10^6/uL (4.30-5.70) Hemoglobin 13.2 g/dL (13.0-17.5) Hematocrit 39.3 % (39.0-53.0) Mean Corpuscular Volume 90 fL (79-100) Mean Corpuscular Hemoglobin 30 pg (25-35) Mean Corpuscular Hemoglobin Concent 34 g/dL (31-37) Red Cell Distribution Width 14.1 % (11.5-14.5) Platelet Count 169 x10^3/uL (140-400) Sodium Level 140 mmol/L (136-145) Potassium Level 3.8 mmol/L (3.5-5.1) Chloride Level 105 mmol/L (98-107) Carbon Dioxide Level 31 mmol/L (21-32) Anion Gap 4 (6-14) L Blood Urea Nitrogen 27 mg/dL (8-26) H Creatinine 1.1 mg/dL (0.7-1.3) Estimated GFR (Cockcroft-Gault) 66.4 BUN/Creatinine Ratio 25 (6-20) H Glucose Level 85 mg/dL (70-99) Calcium Level 8.5 mg/dL (8.5-10.1) Total Bilirubin 0.4 mg/dL (0.2-1.0) Aspartate Amino Transferase (AST) 17 U/L (15-37) Alanine Aminotransferase (ALT) 21 U/L (16-63) Alkaline Phosphatase 68 U/L (46-116) Total Protein 7.0 g/dL (6.4-8.2) Albumin 3.5 g/dL (3.4-5.0) Albumin/Globulin Ratio 1.0 (1.0-1.7) Current Medications: Meds: Current Medications Medications (Trade) Dose Ordered Sig/Phi Route PRN Reason Start Time Stop Time Status Last Admin Dose Admin Magnesium Citrate (Citroma) 296 ml PRN 1X PRN PO CONSTIPATION 04/06/20 19:45 04/06/20 19:54 I have reviewed the current psychotropics carefully including drug interactions. Risk benefit ratio favors no change other than as noted in my dictated progress note. Diagnosis: Problems: (1) Post traumatic stress disorder (2) Anxiety disorder (3) Dementia in Alzheimer's disease with delusions (4) Dementia in Alzheimer's disease with depression (5) Dementia, vascular, with delusions (6) Dementia, vascular, with depression (7) Impulse control disorder SMITA TOLEDO MD Apr 06, 2020 22:20
--- NOTE | 2020-04-06 22:21 | NUR ---
Pt continues to wander the unit with unsteady gait at times. Compliant with crushed medications and Mag Citrate. Pt irritable and agitated at times but able to be redirected.
[2020-04-06] MEDS: traZODone 100 MG TABLET. PO PRN (22:47)
[2020-04-07 06:00] VITALS: BP 136/71
[2020-04-07] MEDS ORDERED: MAGNESIUM CITRATE 296 ML SOLUTION. PO ONE (10:00)
[2020-04-07] MEDS: FINASTERIDE 5 MG TABLET PO SCH (13:29)
[2020-04-07] MEDS: POTASSIUM CHLORIDE 20 MEQ TABLET.ER. PO SCH (13:29)
[2020-04-07] MEDS: DIVALPROEX 125 MG CAP.SPRINK PO SCH ×2 (13:29→16:48)
[2020-04-07] MEDS: POLYETHYLENE GLYCOL 3350 17 GM PACKET. PO SCH (13:29)
[2020-04-07] MEDS: DOCUSATE 100 MG/10 ML SOLUTION. PO SCH (13:29)
[2020-04-07] MEDS: TAMSULOSIN 0.4 MG CAP.ER.24H. PO SCH (13:29)
[2020-04-07] MEDS: risperiDONE 0.25 MG TABLET. PO SCH ×2 (13:30→19:33)
--- NOTE | 2020-04-07 14:09 | NUR ---
Nursing note: Pt was allowed to sleep in this morning d/t only getting a recorded 2.25 hours of sleep. Pt woke in pleasant spirits. He was compliant with meds and cooperative with his assessment. He is currently in the day room eating lunch. Will continue to monitor.
[2020-04-07 16:12] VITALS: BP 118/77
--- NOTE | 2020-04-07 16:39 | NUR ---
WEEKLY ACTIVITY THERAPY NOTE Date of Admission: 03/08/20 Date of AT Assessment: 03/10/20 Precipitating behaviors that initiated intake and admission: aggressive and threatening towards , fearful of him, burning plastic in the kitchen, confused and disoriented, hallucinations, restless, fidgety. Goal aimed:to increase sensory stimulation Initial Goal: Pt. will participate in at least two individual Activity Therapy session before discharge. Goal changed 03/17: Pt. will participate in at least three Activity Therapy groups per week. Weekly progress towards goal: 2/3 Group participation level: 2 full to the best of his ability Weekly highlights: playing horseshoes with assistance on Tuesday- playful Behaviors observed: wandering often, similar to previous weeks, restless, needs support to engage Plans: no change to goal Beneficial adaptations: sensory stimulation
[2020-04-07] MEDS: SERTRALINE 100 MG TABLET. PO SCH (19:34)
[2020-04-07] MEDS: MELATONIN 3 MG TABLET PO SCH (19:34)
[2020-04-07] MEDS: AMITRIPTYLINE HCL 25 MG TABLET PO SCH (19:34)
[2020-04-07] MEDS: OLANZapine 5 MG TABLET PO SCH (19:34)
[2020-04-07] MEDS: traZODone 100 MG TABLET. PO SCH (19:34)
[2020-04-07] MEDS: BISACODYL 10 MG SUPP.RECT PR PRN (20:39)
--- NOTE | 2020-04-07 22:20 | PDOC ---
Exam Note: Heber Note: Please also refer to the separate dictated note~for this date of service dictated separately.~Patient seen individually. Discussed the patient with Nursing staff reviewed the chart.~Reviewed interim history and current functioning. Reviewed vital signs,~Labs/ Radiology~and current medications noted below. Continue current treatment with the changes noted in the dictated addendum note Assessment: Vital Signs/I&O: Vital Signs Date Time Temp Pulse Resp B/P (MAP) Pulse Ox O2 Delivery O2 Flow Rate FiO2 04/07/20 16:12 97.8 89 18 118/77 (91) 97 04/05/20 06:02 Room Air I & O 04/06/20 04/06/20 04/07/20 14:59 22:59 06:59 Intake Total 480 ml 340 ml Balance 480 ml 340 ml Current Medications: Meds: Current Medications Medications (Trade) Dose Ordered Sig/Phi Route PRN Reason Start Time Stop Time Status Last Admin Dose Admin Magnesium Citrate (Citroma) 296 ml 1X ONCE PO 04/07/20 10:00 04/07/20 10:01 DC 04/07/20 13:29 I have reviewed the current psychotropics carefully including drug interactions. Risk benefit ratio favors no change other than as noted in my dictated progress note. Diagnosis: Problems: (1) Post traumatic stress disorder (2) Anxiety disorder (3) Dementia in Alzheimer's disease with delusions (4) Dementia in Alzheimer's disease with depression (5) Dementia, vascular, with delusions (6) Dementia, vascular, with depression (7) Impulse control disorder SMITA TOLEDO MD Apr 07, 2020 22:20
--- NOTE | 2020-04-07 22:24 | NUR ---
Pt has been wandering around the unit all evening. Compliant with crushed medications and shower. No agitation or aggression.
[2020-04-08 06:37] VITALS: BP 136/84
[2020-04-08 06:41] LABS: ALBUMIN 3.5 g/dL (3.4-5.0); ALBUMIN/GLOBULIN RATIO 0.9 (1.0-1.7); CALCIUM 8.7 mg/dL (8.5-10.1); CREATININE 1.3 mg/dL (0.7-1.3); GFR 54.7; POTASSIUM 4.1 mmol/L (3.5-5.1); TOTAL BILIRUBIN 0.3 mg/dL (0.2-1.0); TOTAL PROTEIN 7.2 g/dL (6.4-8.2)
[2020-04-08 06:52] LABS: BASO % 1 % (0-3); EOS # 0.3 x10^3/uL (0.0-0.7); EOS % 4 % (0-3); HEMOGLOBIN 12.9 g/dL (13.0-17.5); LYMPH # 1.2 x10^3/uL (1.0-4.8); LYMPH % 19 % (24-48); MEAN CORPUSCULAR HEMOGLOBIN 30 pg (25-35); MEAN CORPUSCULAR HGB CONC 33 g/dL (31-37); MEAN CORPUSCULAR VOLUME 90 fL (79-100); MONO # 0.6 x10^3/uL (0.0-1.1); MONO % 10 % (0-9); NEUT # 4.3 x10^3uL (1.8-7.7); NEUT % 67 % (31-73); PLATELET COUNT 176 x10^3/uL (140-400); RED BLOOD COUNT 4.34 x10^6/uL (4.30-5.70); RED CELL DISTRIBUTION WIDTH 14.3 % (11.5-14.5); WHITE BLOOD COUNT 6.5 x10^3/uL (4.0-11.0)
[2020-04-08] MEDS: DOCUSATE 100 MG/10 ML SOLUTION. PO SCH (10:23)
[2020-04-08] MEDS: SENNOSIDES 8.6 MG TABLET PO PRN (10:23)
[2020-04-08] MEDS: DIVALPROEX 125 MG CAP.SPRINK PO SCH ×2 (10:23→17:04)
[2020-04-08] MEDS: POTASSIUM CHLORIDE 20 MEQ TABLET.ER. PO SCH (10:23)
[2020-04-08] MEDS: TAMSULOSIN 0.4 MG CAP.ER.24H. PO SCH (10:23)
[2020-04-08] MEDS: FINASTERIDE 5 MG TABLET PO SCH (10:23)
[2020-04-08] MEDS: POLYETHYLENE GLYCOL 3350 17 GM PACKET. PO SCH (10:23)
[2020-04-08] MEDS: risperiDONE 0.25 MG TABLET. PO SCH ×2 (10:24→20:46)
--- NOTE | 2020-04-08 12:25 | NUR ---
Nursing note: Pt in his room for morning meds and assessment. He was compliant with his meds crushed in pudding and cooperative with his assessment. He continues to wander the unit, but remains pleasant. Pt is currently in the dining room eating lunch. Will continue to monitor.
--- NOTE | 2020-04-08 15:36 | RAD ---
KUB without comparison for constipation. FINDINGS: There is moderate amount of air and stool distributed throughout the colon, with a nonspecific mildly air distended segment of transverse colon measuring 7.4 cm. Stool is seen in the rectum. No pathologic calcifications are seen. Severe degenerative changes of the lumbar spine are present at multiple levels. IMPRESSION: 1. Nonobstructive nonspecific bowel gas pattern with stool in the rectum. 2. Extensive spondyloarthropathy of the lumbar spine. Electronically signed by: Jerry Moy MD (04/08/2020 3:33 PM) [id number]
[2020-04-08 15:45] VITALS: BP 159/83
[2020-04-08] MEDS: traZODone 100 MG TABLET. PO SCH (20:46)
[2020-04-08] MEDS: AMITRIPTYLINE HCL 25 MG TABLET PO SCH (20:46)
[2020-04-08] MEDS: OLANZapine 5 MG TABLET PO SCH (20:46)
[2020-04-08] MEDS: SERTRALINE 100 MG TABLET. PO SCH (20:46)
[2020-04-08] MEDS: MELATONIN 3 MG TABLET PO SCH (20:46)
--- NOTE | 2020-04-08 22:07 | PN ---
DATE: 04/06/2020 PSYCHIATRIC PROGRESS NOTE This late entry 04/06/2020 covers elements not covered in my initial note. SUBJECTIVE: I met with the patient evening of 04/06/2020. Per BURKE Israel, the patient slept 6 hours previous night. He sat on his bottom at one point, oblivious of what he was doing. No injuries noted. REVIEW OF SYSTEMS: No CV, , pulmonary, eye, ENT system symptoms on review. Reliability poor. MENTAL STATUS EXAM: Oriented to himself. Insight, judgment, recent and remote memory, attention, concentration, fund of knowledge poor, consistent with his diagnosis mentioned in my initial note. PLAN: No change from initial note. SMITA TOLEDO MD DR: BORIS/dontae JOB#: [id number] / [id number]
--- NOTE | 2020-04-08 22:10 | PN ---
DATE: 04/07/2020 PSYCHIATRIC PROGRESS NOTE This late entry 04/07/2020 covers the elements not covered in my initial note. SUBJECTIVE: I met with the patient in the evening of 04/07/2020 on rounds. Per BURKE Tejada, the patient slept 2-1/4 hours previous night, then slept several hours in the morning. He is also staffed at a treatment team meeting with the entire team in the morning. Appetite is 75%. He has been irritable at night, unsteady in his gait, still is quite constipated, received a suppository, which was ineffective. Mag citrate previous night and again in the morning of 04/07/2020. We will use GoLYTELY if this is ineffective. REVIEW OF SYSTEMS: No CV, , pulmonary, eye system symptoms on review. Reliability is poor. MENTAL STATUS EXAM: Oriented to himself. Insight, judgment, recent and remote memory, attention, concentration, fund of knowledge poor, consistent with his diagnosis mentioned in my initial note. PLAN: No change from initial note other than noted above. Continue psychotropics from initial note. MAN Douglas TOLEDO MD DR: BORIS/dontae JOB#: [id number] / [id number]
--- NOTE | 2020-04-08 22:16 | PDOC ---
Exam Note: Heber Note: Please also refer to the separate dictated note~for this date of service dictated separately.~Patient seen individually. Discussed the patient with Nursing staff reviewed the chart.~Reviewed interim history and current functioning. Reviewed vital signs,~Labs/ Radiology~and current medications noted below. Continue current treatment with the changes noted in the dictated addendum note Assessment: Vital Signs/I&O: Vital Signs Date Time Temp Pulse Resp B/P (MAP) Pulse Ox O2 Delivery O2 Flow Rate FiO2 04/08/20 15:45 98.0 80 16 159/83 (108) 94 04/05/20 06:02 Room Air I & O 04/07/20 04/07/20 04/08/20 15:00 23:00 07:00 Intake Total 0 ml 240 ml 100 ml Balance 0 ml 240 ml 100 ml Labs: Laboratory Tests Test 04/08/20 06:03 White Blood Count 6.5 x10^3/uL (4.0-11.0) Red Blood Count 4.34 x10^6/uL (4.30-5.70) Hemoglobin 12.9 g/dL (13.0-17.5) L Hematocrit 39.0 % (39.0-53.0) Mean Corpuscular Volume 90 fL (79-100) Mean Corpuscular Hemoglobin 30 pg (25-35) Mean Corpuscular Hemoglobin Concent 33 g/dL (31-37) Red Cell Distribution Width 14.3 % (11.5-14.5) Platelet Count 176 x10^3/uL (140-400) Neutrophils (%) (Auto) 67 % (31-73) Lymphocytes (%) (Auto) 19 % (24-48) L Monocytes (%) (Auto) 10 % (0-9) H Eosinophils (%) (Auto) 4 % (0-3) H Basophils (%) (Auto) 1 % (0-3) Neutrophils # (Auto) 4.3 x10^3uL (1.8-7.7) Lymphocytes # (Auto) 1.2 x10^3/uL (1.0-4.8) Monocytes # (Auto) 0.6 x10^3/uL (0.0-1.1) Eosinophils # (Auto) 0.3 x10^3/uL (0.0-0.7) Basophils # (Auto) 0.0 x10^3/uL (0.0-0.2) Sodium Level 144 mmol/L (136-145) Potassium Level 4.1 mmol/L (3.5-5.1) Chloride Level 107 mmol/L (98-107) Carbon Dioxide Level 33 mmol/L (21-32) H Anion Gap 4 (6-14) L Blood Urea Nitrogen 33 mg/dL (8-26) H Creatinine 1.3 mg/dL (0.7-1.3) Estimated GFR (Cockcroft-Gault) 54.7 BUN/Creatinine Ratio 25 (6-20) H Glucose Level 102 mg/dL (70-99) H Calcium Level 8.7 mg/dL (8.5-10.1) Total Bilirubin 0.3 mg/dL (0.2-1.0) Aspartate Amino Transferase (AST) 17 U/L (15-37) Alanine Aminotransferase (ALT) 18 U/L (16-63) Alkaline Phosphatase 80 U/L (46-116) Total Protein 7.2 g/dL (6.4-8.2) Albumin 3.5 g/dL (3.4-5.0) Albumin/Globulin Ratio 0.9 (1.0-1.7) L Current Medications: I have reviewed the current psychotropics carefully including drug interactions. Risk benefit ratio favors no change other than as noted in my dictated progress note. Diagnosis: Problems: (1) Post traumatic stress disorder (2) Anxiety disorder (3) Dementia in Alzheimer's disease with delusions (4) Dementia in Alzheimer's disease with depression (5) Dementia, vascular, with delusions (6) Dementia, vascular, with depression (7) Impulse control disorder SMITA TOLEDO MD Apr 08, 2020 22:16
--- NOTE | 2020-04-08 23:19 | NUR ---
Pt up wandering in day room at time of assessment. Responds to name. Compliant with meds crushed in pudding. Pt toileted x2 assist--passed large, hard BM after multiple laxatives given on previous shift. Pt now resting comfortably in bed.
[2020-04-09 06:01] VITALS: BP 166/93
[2020-04-09] MEDS: DOCUSATE 100 MG/10 ML SOLUTION. PO SCH (08:35)
[2020-04-09] MEDS: POTASSIUM CHLORIDE 20 MEQ TABLET.ER. PO SCH (08:36)
[2020-04-09] MEDS: TAMSULOSIN 0.4 MG CAP.ER.24H. PO SCH (08:36)
[2020-04-09] MEDS: risperiDONE 0.25 MG TABLET. PO SCH ×2 (08:36→20:02)
[2020-04-09] MEDS: FINASTERIDE 5 MG TABLET PO SCH (08:36)
[2020-04-09] MEDS: POLYETHYLENE GLYCOL 3350 17 GM PACKET. PO SCH (08:36)
[2020-04-09] MEDS: DIVALPROEX 125 MG CAP.SPRINK PO SCH ×2 (08:36→17:47)
--- NOTE | 2020-04-09 11:21 | NUR ---
Patient is disorganized. Drowsy this morning, picking at things in air, putting "things" in mouth. Abdomen softer than it was tuesday. Pt does have bowel sounds. Patient had miralax and docusate mixed with juice this morning. Had to keep redirecting patient back to drinking juice. Pt is now wandering hallways. Took medications crushed in pudding. TM.
--- NOTE | 2020-04-09 13:00 | NUR ---
Pt repeatedly putting self on floor. Pt appears to be extremely tired. Pt taken to his bed, fell asleep. ROB.
[2020-04-09 15:41] VITALS: BP 141/82
[2020-04-09] MEDS: AMITRIPTYLINE HCL 25 MG TABLET PO SCH (20:02)
[2020-04-09] MEDS: MELATONIN 3 MG TABLET PO SCH (20:03)
[2020-04-09] MEDS: traZODone 100 MG TABLET. PO SCH (20:03)
[2020-04-09] MEDS: OLANZapine 5 MG TABLET PO SCH (20:03)
[2020-04-09] MEDS: SERTRALINE 100 MG TABLET. PO SCH (20:03)
--- NOTE | 2020-04-09 22:30 | PDOC ---
Exam Note: Heber Note: Please also refer to the separate dictated note~for this date of service dictated separately.~Patient seen individually. Discussed the patient with Nursing staff reviewed the chart.~Reviewed interim history and current functioning. Reviewed vital signs,~Labs/ Radiology~and current medications noted below. Continue current treatment with the changes noted in the dictated addendum note Assessment: Vital Signs/I&O: Vital Signs Date Time Temp Pulse Resp B/P (MAP) Pulse Ox O2 Delivery O2 Flow Rate FiO2 04/09/20 15:41 97.9 96 18 141/82 (101) 98 Room Air I & O 04/08/20 04/08/20 04/09/20 15:00 23:00 07:00 Intake Total 240 ml 180 ml Balance 240 ml 180 ml Current Medications: I have reviewed the current psychotropics carefully including drug interactions. Risk benefit ratio favors no change other than as noted in my dictated progress note. Diagnosis: Problems: (1) Post traumatic stress disorder (2) Anxiety disorder (3) Dementia in Alzheimer's disease with delusions (4) Dementia in Alzheimer's disease with depression (5) Dementia, vascular, with delusions (6) Dementia, vascular, with depression (7) Impulse control disorder SMITA TOLEDO MD Apr 09, 2020 22:30
[2020-04-10 03:53] VITALS: BP 143/87
[2020-04-10] MEDS: FINASTERIDE 5 MG TABLET PO SCH (08:49)
[2020-04-10] MEDS: TAMSULOSIN 0.4 MG CAP.ER.24H. PO SCH (08:49)
[2020-04-10] MEDS: POTASSIUM CHLORIDE 20 MEQ TABLET.ER. PO SCH (08:49)
[2020-04-10] MEDS: POLYETHYLENE GLYCOL 3350 17 GM PACKET. PO SCH (08:49)
[2020-04-10] MEDS: DOCUSATE 100 MG/10 ML SOLUTION. PO SCH (08:49)
[2020-04-10] MEDS: risperiDONE 0.25 MG TABLET. PO SCH ×2 (08:49→19:56)
[2020-04-10] MEDS: DIVALPROEX 125 MG CAP.SPRINK PO SCH ×2 (08:49→16:41)
--- NOTE | 2020-04-10 08:53 | PDOC ---
Exam Note: Heber Note: This note is a late entry for 04/08/2020 covers elements not covered in my initial note. Subjective: The patient was seen face to face in the evening of 04/08/2020. Per Ashley TURK, he slept 6-1/2 hours previous night. He remains confused, wanders the hallways. No new behaviors noted. He is continued to be c onstipated. He received magnesium citrate. KUB showed moderate stool with air. Review of Systems: No CV, , pulmonary, eye, ENT system symptoms on review. Reliability poor. Mental Status Exam: Oriented to himself. Insight and judgment, recent and remote memory, attention and concentration, fund of knowledge is poor consistent with his diagnoses. Laboratory Data: Reviewed. Impression: Major neurocognitive disorder, Alzheimer, vascular with delusion, depression, behavioral disturbance. Anxiety disorder unspecified. Impulse control disorder unspecified. Plan: No change from initial note. Assessment: Vital Signs/I&O: Vital Signs Date Time Temp Pulse Resp B/P (MAP) Pulse Ox O2 Delivery O2 Flow Rate FiO2 04/10/20 03:53 98.0 92 16 143/87 (105) 97 04/09/20 15:41 Room Air I & O 04/09/20 04/09/20 04/10/20 15:00 23:00 07:00 Intake Total 0 ml 0 ml Balance 0 ml 0 ml Current Medications: I have reviewed the current psychotropics carefully including drug interactions. Risk benefit ratio favors no change other than as noted in my dictated progress note. Diagnosis: Problems: (1) Post traumatic stress disorder (2) Anxiety disorder (3) Dementia in Alzheimer's disease with delusions (4) Dementia in Alzheimer's disease with depression (5) Dementia, vascular, with delusions (6) Dementia, vascular, with depression (7) Impulse control disorder SMITA TOLEDO MD Apr 10, 2020 08:53
--- NOTE | 2020-04-10 09:19 | PDOC ---
Exam Note: Heber Note: This note is a late entry for 04/09/2020 covers elements not covered in my initial note. Subjective: The patient was seen face to face in the evening of 04/09/2020. Per Josué TURK, he slept 3-1/4 hours previous night. He frequently puts himself on the floor, walks at times with eyes closed, cat naps off and on during the day. Review of Systems: No CV, , pulmonary, eye, ENT system symptoms on review. Reliability poor. Mental Status Exam: Oriented to himself. Insight and judgment, recent and remote memory, attention and concentration, fund of knowledge is poor consistent with his diagnoses. Laboratory Data: Reviewed. Impression: Major neurocognitive disorder, Alzheimer, vascular with delusion, depression, behavioral disturbance. Anxiety disorder unspecified. Impulse control disorder unspecified. Plan: No change from initial note. Assessment: Vital Signs/I&O: Vital Signs Date Time Temp Pulse Resp B/P (MAP) Pulse Ox O2 Delivery O2 Flow Rate FiO2 04/10/20 03:53 98.0 92 16 143/87 (105) 97 04/09/20 15:41 Room Air I & O 04/09/20 04/09/20 04/10/20 14:59 22:59 06:59 Intake Total 0 ml 0 ml Balance 0 ml 0 ml Current Medications: I have reviewed the current psychotropics carefully including drug interactions. Risk benefit ratio favors no change other than as noted in my dictated progress note. Diagnosis: Problems: (1) Post traumatic stress disorder (2) Anxiety disorder (3) Dementia in Alzheimer's disease with delusions (4) Dementia in Alzheimer's disease with depression (5) Dementia, vascular, with delusions (6) Dementia, vascular, with depression (7) Impulse control disorder SMITA TOLEDO MD Apr 10, 2020 09:19
--- NOTE | 2020-04-10 14:23 | NUR ---
Patient in dining room at breakfast, he put his straw in his biscuit/sausage and tried to drink it. Medications were given crushed in yogurt, patient took medications but made faces like he did not like yogurt. Miralax and liquid colace given in grape juice with lid and straw. Nurse led patient out of the dining room and he wandered down the hallway. He continues to "pick" things out of the air and is often observed sitting on the floor. Patient is calm and has had no aggressive behaviors this shift. Occasionally he will wander into a peers room but is usually easily redirected.
[2020-04-10 15:47] VITALS: BP 105/66
[2020-04-10] MEDS: OLANZapine 5 MG TABLET PO SCH (19:55)
[2020-04-10] MEDS: AMITRIPTYLINE HCL 25 MG TABLET PO SCH (19:56)
[2020-04-10] MEDS: SERTRALINE 100 MG TABLET. PO SCH (19:56)
[2020-04-10] MEDS: MELATONIN 3 MG TABLET PO SCH (19:56)
[2020-04-10] MEDS: traZODone 100 MG TABLET. PO SCH (19:56)
--- NOTE | 2020-04-10 22:24 | NUR ---
Pt wandering in day room at shift change. Pt calm, pleasantly confused, and disorganized. Pt appears to have visual hallucinations as he is picking at things on the floor as if picking them up although there is nothing there. Pt cooperative with assessment and compliant with medications administered crushed in pudding.
--- NOTE | 2020-04-10 22:55 | PDOC ---
Exam Note: Heber Note: Please also refer to the separate dictated note~for this date of service dictated separately.~Patient seen individually. Discussed the patient with Nursing staff reviewed the chart.~Reviewed interim history and current functioning. Reviewed vital signs,~Labs/ Radiology~and current medications noted below. Continue current treatment with the changes noted in the dictated addendum note Assessment: Vital Signs/I&O: Vital Signs Date Time Temp Pulse Resp B/P (MAP) Pulse Ox O2 Delivery O2 Flow Rate FiO2 04/10/20 15:47 97.8 80 18 105/66 (79) 96 04/09/20 15:41 Room Air I & O 04/09/20 04/09/20 04/10/20 15:00 23:00 07:00 Intake Total 0 ml 0 ml Balance 0 ml 0 ml Current Medications: I have reviewed the current psychotropics carefully including drug interactions. Risk benefit ratio favors no change other than as noted in my dictated progress note. Diagnosis: Problems: (1) Major neurocognitive disorder (2) Anxiety disorder (3) Dementia in Alzheimer's disease with delusions (4) Dementia in Alzheimer's disease with depression (5) Dementia, vascular, with delusions (6) Dementia, vascular, with depression (7) Impulse control disorder SMITA TOLEDO MD Apr 10, 2020 22:55
[2020-04-11 06:20] VITALS: BP 156/91
[2020-04-11 07:57] LABS: BASO # 0.1 x10^3/uL (0.0-0.2); BASO % 1 % (0-3); EOS # 0.6 x10^3/uL (0.0-0.7); EOS % 9 % (0-3); HEMATOCRIT 37.7 % (39.0-53.0); HEMOGLOBIN 12.3 g/dL (13.0-17.5); LYMPH # 1.2 x10^3/uL (1.0-4.8); LYMPH % 18 % (24-48); MEAN CORPUSCULAR HEMOGLOBIN 29 pg (25-35); MEAN CORPUSCULAR HGB CONC 33 g/dL (31-37); MEAN CORPUSCULAR VOLUME 90 fL (79-100); MONO # 0.7 x10^3/uL (0.0-1.1); MONO % 10 % (0-9); NEUT # 4.2 x10^3uL (1.8-7.7); NEUT % 63 % (31-73); PLATELET COUNT 170 x10^3/uL (140-400); RED BLOOD COUNT 4.17 x10^6/uL (4.30-5.70); RED CELL DISTRIBUTION WIDTH 14.5 % (11.5-14.5); WHITE BLOOD COUNT 6.7 x10^3/uL (4.0-11.0)
[2020-04-11 08:22] LABS: ALBUMIN 3.2 g/dL (3.4-5.0); ALBUMIN/GLOBULIN RATIO 0.9 (1.0-1.7); CALCIUM 8.5 mg/dL (8.5-10.1); CREATININE 1.3 mg/dL (0.7-1.3); GFR 54.7; TOTAL BILIRUBIN 0.5 mg/dL (0.2-1.0); TOTAL PROTEIN 6.9 g/dL (6.4-8.2)
[2020-04-11] MEDS: DOCUSATE 100 MG/10 ML SOLUTION. PO SCH (09:25)
[2020-04-11] MEDS: TAMSULOSIN 0.4 MG CAP.ER.24H. PO SCH (09:25)
[2020-04-11] MEDS: POLYETHYLENE GLYCOL 3350 17 GM PACKET. PO SCH (09:25)
[2020-04-11] MEDS: FINASTERIDE 5 MG TABLET PO SCH (09:25)
[2020-04-11] MEDS: risperiDONE 0.25 MG TABLET. PO SCH ×2 (09:25→20:06)
[2020-04-11] MEDS: DIVALPROEX 125 MG CAP.SPRINK PO SCH ×2 (09:26→17:00)
[2020-04-11] MEDS: POTASSIUM CHLORIDE 20 MEQ TABLET.ER. PO SCH (09:26)
--- NOTE | 2020-04-11 11:01 | NUR ---
Patient in day room at shift change. Calm and cooperative with assessment and medication administration. Meds taken crushed in chocolate pudding and in grape juice without difficulty. Patient wandering in and out of rooms. Continues to pick at things on the floor and on the wall that are not there. No behaviors noted at this time. Will continue to monitor.
[2020-04-11] MEDS ORDERED: IV DEXTROSE 5% 500 ML IV ONE (14:30)
[2020-04-11 15:54] VITALS: BP 127/75
[2020-04-11] MEDS ORDERED: IV DEXTROSE 5% 1,000 ML IV SCH (16:00)
[2020-04-11] MEDS: SERTRALINE 100 MG TABLET. PO SCH (20:05)
[2020-04-11] MEDS: OLANZapine 5 MG TABLET PO SCH (20:06)
[2020-04-11] MEDS: MELATONIN 3 MG TABLET PO SCH (20:06)
[2020-04-11] MEDS: traZODone 100 MG TABLET. PO SCH (20:06)
[2020-04-11] MEDS: AMITRIPTYLINE HCL 25 MG TABLET PO SCH (20:06)
[2020-04-11] MEDS: LORazepam 0.5 MG TABLET PO PRN (20:10)
[2020-04-11] MEDS: traZODone 100 MG TABLET. PO PRN (21:21)
--- NOTE | 2020-04-11 22:32 | NUR ---
Pt wandering in day room at shift change. Pt confused and disorganized, irritable with re-direction. Pt continues to have visual hallucinations AEB picking unseen objects up off the floor. Pt cooperative with assessment and compliant with medications administered crushed in chocolate ice cream. Pt encouraged to drink fluids this evening and he was compliant with drinking two cups of water and a Gatorade. 20G IV started in L FA @2150, 500mL bolus of D5 initiated.
--- NOTE | 2020-04-11 22:59 | PDOC ---
Exam Note: Heber Note: Please also refer to the separate dictated note~for this date of service dictated separately.~Patient seen individually. Discussed the patient with Nursing staff reviewed the chart.~Reviewed interim history and current functioning. Reviewed vital signs,~Labs/ Radiology~and current medications noted below. Continue current treatment with the changes noted in the dictated addendum note Assessment: Vital Signs/I&O: Vital Signs Date Time Temp Pulse Resp B/P (MAP) Pulse Ox O2 Delivery O2 Flow Rate FiO2 04/11/20 15:54 98.1 105 18 127/75 (92) 93 04/09/20 15:41 Room Air I & O 04/10/20 04/10/20 04/11/20 14:59 22:59 06:59 Intake Total 120 ml 240 ml Balance 120 ml 240 ml Labs: Laboratory Tests Test 04/11/20 07:22 White Blood Count 6.7 x10^3/uL (4.0-11.0) Red Blood Count 4.17 x10^6/uL (4.30-5.70) L Hemoglobin 12.3 g/dL (13.0-17.5) L Hematocrit 37.7 % (39.0-53.0) L Mean Corpuscular Volume 90 fL (79-100) Mean Corpuscular Hemoglobin 29 pg (25-35) Mean Corpuscular Hemoglobin Concent 33 g/dL (31-37) Red Cell Distribution Width 14.5 % (11.5-14.5) Platelet Count 170 x10^3/uL (140-400) Neutrophils (%) (Auto) 63 % (31-73) Lymphocytes (%) (Auto) 18 % (24-48) L Monocytes (%) (Auto) 10 % (0-9) H Eosinophils (%) (Auto) 9 % (0-3) H Basophils (%) (Auto) 1 % (0-3) Neutrophils # (Auto) 4.2 x10^3uL (1.8-7.7) Lymphocytes # (Auto) 1.2 x10^3/uL (1.0-4.8) Monocytes # (Auto) 0.7 x10^3/uL (0.0-1.1) Eosinophils # (Auto) 0.6 x10^3/uL (0.0-0.7) Basophils # (Auto) 0.1 x10^3/uL (0.0-0.2) Sodium Level 148 mmol/L (136-145) H Potassium Level 4.0 mmol/L (3.5-5.1) Chloride Level 109 mmol/L (98-107) H Carbon Dioxide Level 33 mmol/L (21-32) H Anion Gap 6 (6-14) Blood Urea Nitrogen 45 mg/dL (8-26) H Creatinine 1.3 mg/dL (0.7-1.3) Estimated GFR (Cockcroft-Gault) 54.7 BUN/Creatinine Ratio 35 (6-20) H Glucose Level 90 mg/dL (70-99) Calcium Level 8.5 mg/dL (8.5-10.1) Total Bilirubin 0.5 mg/dL (0.2-1.0) Aspartate Amino Transferase (AST) 20 U/L (15-37) Alanine Aminotransferase (ALT) 23 U/L (16-63) Alkaline Phosphatase 72 U/L (46-116) Total Protein 6.9 g/dL (6.4-8.2) Albumin 3.2 g/dL (3.4-5.0) L Albumin/Globulin Ratio 0.9 (1.0-1.7) L Current Medications: Meds: Current Medications Medications (Trade) Dose Ordered Sig/Phi Route PRN Reason Start Time Stop Time Status Last Admin Dose Admin Dextrose 500 ml @ 500 mls/hr 1X ONCE IV 04/11/20 14:30 04/11/20 15:29 DC 04/11/20 21:55 I have reviewed the current psychotropics carefully including drug interactions. Risk benefit ratio favors no change other than as noted in my dictated progress note. Diagnosis: Problems: (1) Major neurocognitive disorder (2) Anxiety disorder (3) Dementia in Alzheimer's disease with delusions (4) Dementia in Alzheimer's disease with depression (5) Dementia, vascular, with delusions (6) Dementia, vascular, with depression (7) Impulse control disorder SMITA TOLEDO MD Apr 11, 2020 22:59
[2020-04-11] MEDS: IV DEXTROSE 5% 1,000 ML IV SCH (23:55)
--- NOTE | 2020-04-12 01:16 | PN ---
DATE: 04/10/2020 PSYCHIATRIC PROGRESS NOTE This late entry 04/10/2020 covers elements not covered in my initial note. SUBJECTIVE: I met with the patient evening of 04/10/2020. Per BURKE Elliott, the patient slept 4-1/4 hours previous night. He remains confused, anxious, restless, at times agitated. He is getting dehydrated and I will defer to Dr. Alston. He is walking into other people's rooms, did well in the dining room for a short time. REVIEW OF SYSTEMS: No CV, , pulmonary, eye, ENT system symptoms on review. Reliability poor. MENTAL STATUS EXAM: Oriented to himself. Insight, judgment, recent and remote memory, attention, concentration, fund of knowledge poor, consistent with his diagnosis mentioned in my initial note. PLAN: No change from initial note. MAN Douglas TOLEDO MD DR: BORIS/dontae JOB#: [id number] / [id number]
--- NOTE | 2020-04-12 01:52 | PN ---
DATE: 04/11/2020 SUBJECTIVE: The patient is a 69-year-old male patient whom I have seen at nursing staff's request as his lab work showed that he is getting steadily dehydrated. His sodium, BUN and creatinine are steadily rising. The patient is extremely demented and does not apparently eat and drink. He plays with his food, does not eat or drink according to the nursing staff. Unfortunately, he is very demented; however, he is very ambulatory and very difficult to put him on IV fluid. Nursing staff stated they are offering more fluid to him, but he does not always drink. OBJECTIVE: GENERAL: When I saw him this afternoon, he looked well and was clearly in no apparent respiratory distress, pale. No jaundice, cyanosis or thyromegaly. No jugular venous distension. No lower limb edema. VITAL SIGNS: His heart rate was 80, blood pressure was 156/91, temperature was 97.5 and oxygen saturation was 95% on room air. HEAD, EYES, EARS, NOSE AND THROAT: Normocephalic, atraumatic. NECK: Supple. HEART: Showed normal first and second heart sounds. No gallop or murmur. CHEST: Clear to auscultation. No crepitation or rhonchi. ABDOMEN: Scaphoid, soft, nontender. NEUROLOGIC: He is demented, but without any obvious lateralizing sign. All his cranial nerves are intact. He moves extremities without difficulty, ambulates without assistance or assistive devices. LABORATORY DATA: His ab work this morning showed a serum sodium 148, potassium 4, chloride 109, bicarbonate 33, anion gap of 6, BUN 45, creatinine 1.3, estimated GFR was 54 mL per minute. His glucose was 90, calcium was 8.5. His white cell count, however, was normal at 6700, hemoglobin 12, hematocrit 37, MCV 90 and platelet count of 170,000. ASSESSMENT: Progressive dehydration with marked hypernatremia and rising BUN and creatinine, likely due to poor intake and given how ambulatory he is and with marked cognitive impairment. PLAN: To put an IV line and give him the IV fluid in the form of D5W, at least a liter or more overnight while asleep as he is more than likely will pull the IV line the moment he is awake and start moving around. Dictation Ends Here. DANIEL GRAY MD DR: Tiffanie JOB#: [id number] / [id number]
[2020-04-12 05:56] VITALS: BP 131/82
[2020-04-12] MEDS: IV DEXTROSE 5% 1,000 ML IV SCH ×3 (07:00→23:51)
--- NOTE | 2020-04-12 08:46 | PDOC ---
Exam Note: Heber Note: This note is a late entry for 04/11/2020 covers elements not covered in my initial note. Subjective: The patient was seen individually in the evening of 04/11/2020. Per Janet TURK, he slept 5 hours previous night. He has been dehydrated. He will be given a bolus of 500 mL D5 tonight and then 100 mL/hour. We will defer to Dr. Alston. He has been somewhat psychotic, picking things off the floor, laying himself on the floor. Review of Systems: No CV, , pulmonary, eye, ENT system symptoms on review. Mental Status Exam: Oriented to himself. Insight and judgment, recent and remote memory, attention and concentration, fund of knowledge is poor consistent with his diagnoses. Laboratory Data: Reviewed. Impression: Major neurocognitive disorder, Alzheimer, vascular with delusion, depression, behavioral disturbance. Anxiety disorder unspecified. Impulse control disorder unspecified. Plan: He will be given a bolus of 500 mL D5 tonight and then 100 mL/hour. We will defer to Dr. Alston. Rest unchanged from initial note. Assessment: Vital Signs/I&O: Vital Signs Date Time Temp Pulse Resp B/P (MAP) Pulse Ox O2 Delivery O2 Flow Rate FiO2 04/12/20 05:56 97.5 78 18 131/82 (98) 96 04/09/20 15:41 Room Air I & O 04/11/20 04/11/20 04/12/20 15:00 23:00 07:00 Intake Total 0 ml 960 ml Balance 0 ml 960 ml Current Medications: Meds: Current Medications Medications (Trade) Dose Ordered Sig/Phi Route PRN Reason Start Time Stop Time Status Last Admin Dose Admin Dextrose 500 ml @ 500 mls/hr 1X ONCE IV 04/11/20 14:30 04/11/20 15:29 DC 04/11/20 21:55 Dextrose 1,000 ml @ 100 mls/hr Q10H IV 04/11/20 21:00 04/11/20 23:55 I have reviewed the current psychotropics carefully including drug interactions. Risk benefit ratio favors no change other than as noted in my dictated progress note. Diagnosis: Problems: (1) Major neurocognitive disorder (2) Anxiety disorder (3) Dementia in Alzheimer's disease with delusions (4) Dementia in Alzheimer's disease with depression (5) Dementia, vascular, with delusions (6) Dementia, vascular, with depression (7) Impulse control disorder SMITA TOLEDO MD Apr 12, 2020 08:46
[2020-04-12] MEDS: DIVALPROEX 125 MG CAP.SPRINK PO SCH ×3 (09:00→17:00)
[2020-04-12] MEDS: POLYETHYLENE GLYCOL 3350 17 GM PACKET. PO SCH (09:07)
[2020-04-12] MEDS: DOCUSATE 100 MG/10 ML SOLUTION. PO SCH (09:07)
[2020-04-12] MEDS: FINASTERIDE 5 MG TABLET PO SCH (09:08)
[2020-04-12] MEDS: TAMSULOSIN 0.4 MG CAP.ER.24H. PO SCH (09:08)
[2020-04-12] MEDS: POTASSIUM CHLORIDE 20 MEQ TABLET.ER. PO SCH (09:08)
[2020-04-12] MEDS: risperiDONE 0.25 MG TABLET. PO SCH ×2 (09:08→21:19)
[2020-04-12 16:18] VITALS: BP 106/68
--- NOTE | 2020-04-12 20:10 | NUR ---
Pt slept thru breakfast. Pt up adl in halls. wandering in rooms. Became irritable with redirection after supper. Took supper meds with much encouragement.
[2020-04-12] MEDS: AMITRIPTYLINE HCL 25 MG TABLET PO SCH (21:19)
[2020-04-12] MEDS: MELATONIN 3 MG TABLET PO SCH (21:19)
[2020-04-12] MEDS: traZODone 100 MG TABLET. PO SCH (21:19)
[2020-04-12] MEDS: SERTRALINE 100 MG TABLET. PO SCH (21:19)
[2020-04-12] MEDS: OLANZapine 5 MG TABLET PO SCH (21:19)
--- NOTE | 2020-04-12 22:00 | NUR ---
The patient was walking around in the dayroom. He walked past another patient in a wheelchair and tripped over her feet. The patient in the wheelchair stated, "I tried to catch him with my feet." He fell onto his knees, then abdomen and hit his face on the floor. Pt was responsive after the fall with no loss of consciousness. An abrasion to the nose with bleeding and swelling noted. Vital signs stable at this time. Will notify the
--- NOTE | 2020-04-12 22:36 | PDOC ---
Exam Note: Heber Note: Please also refer to the separate dictated note~for this date of service dictated separately.~Patient seen individually. Discussed the patient with Nursing staff reviewed the chart.~Reviewed interim history and current functioning. Reviewed vital signs,~Labs/ Radiology~and current medications noted below. Continue current treatment with the changes noted in the dictated addendum note Assessment: Vital Signs/I&O: Vital Signs Date Time Temp Pulse Resp B/P (MAP) Pulse Ox O2 Delivery O2 Flow Rate FiO2 04/12/20 16:18 98.2 94 18 106/68 (81) 97 Room Air I & O 04/11/20 04/11/20 04/12/20 14:59 22:59 06:59 Intake Total 0 ml 960 ml Balance 0 ml 960 ml Current Medications: I have reviewed the current psychotropics carefully including drug interactions. Risk benefit ratio favors no change other than as noted in my dictated progress note. Diagnosis: Problems: (1) Major neurocognitive disorder (2) Anxiety disorder (3) Dementia in Alzheimer's disease with delusions (4) Dementia in Alzheimer's disease with depression (5) Dementia, vascular, with delusions (6) Dementia, vascular, with depression (7) Impulse control disorder SMITA TOLEDO MD Apr 12, 2020 22:36
--- NOTE | 2020-04-12 23:20 | RAD ---
CT HEAD AND MAXILLOFACIAL WO Date: 04/12/2020 10:14 PM Clinical Indication: Reason: fall, HIT NOSE / Spl. Instructions: / History: Comparison: CT head 03/29/2020. Technique: 5 mm axial tomographic images were obtained of the head without contrast. These were viewed on brain and bone windows. Axial helical images of the face were obtained without contrast. Axial and coronal reconstruction was performed. One or more of the following dose reduction techniques were utilized: Automated exposure control (AEC), Adjustment of mA and/or kV according to patient size, Use of iterative reconstruction technique such as ASiR, CT scan done according to ALARA and image gently/image wisely CT HEAD FINDINGS: Extensive confluent nonspecific periventricular hypoattenuation is most consistent with chronic small vessel ischemic disease. Mild generalized cerebral volume loss. No intra- or extra-axial mass or fluid collection. No acute hemorrhage. The ventricles are normal in size, shape, and morphology. The varner-white matter junction is normal. The basilar cisterns are patent. The mastoid air cells are clear. No aggressive osseous lesion or fracture. CT FACE FINDINGS: Acute fractures of the nasal bones and anterior nasal septum. Mild paranasal sinus mucosal thickening. The orbits are normal. The globes are intact. The nasal septum is deviated to the right. Impression: 1. Acute fractures of the nasal bones and anterior nasal septum. 2. No acute intracranial process. Electronically signed by: Rakan Jenkins MD (04/12/2020 11:17 PM) [id number]
[2020-04-12] MEDS ORDERED: IV DEXTROSE 5% 1,000 ML IV SCH ×2 (23:30)
[2020-04-13] MEDS: traZODone 100 MG TABLET. PO PRN (00:44)
[2020-04-13] MEDS: IV DEXTROSE 5% 1,000 ML IV SCH ×3 (00:54→23:08)
--- NOTE | 2020-04-13 02:11 | NUR ---
Pt wandering around unit this evening. Compliant with crushed medications and assessment. At approximately 2200, pt had a witnessed fall in the dayroom. Dr. Alston notified, received orders for CT head and facial bones. Pt compliant with CT scan. Nursing medical supervisor aware. Family will be called in the morning. Steri strips placed on bridge of nose. Pt has been restless in bed this evening. Repeat Trazodone administered at 0045. Pt currently sleeping in bed with fluids infusing. Will continue to monitor. Addendum: 04/13/20 at 0631 by DEMETRIA TURNER RN Clara/Joya URIBE, notified of fall and CT results.
[2020-04-13 06:14] VITALS: BP 129/87
[2020-04-13] MEDS: TAMSULOSIN 0.4 MG CAP.ER.24H. PO SCH (08:18)
[2020-04-13] MEDS: POLYETHYLENE GLYCOL 3350 17 GM PACKET. PO SCH (08:18)
[2020-04-13] MEDS: FINASTERIDE 5 MG TABLET PO SCH (08:18)
[2020-04-13] MEDS: risperiDONE 0.25 MG TABLET. PO SCH ×2 (08:18→20:02)
[2020-04-13] MEDS: DOCUSATE 100 MG/10 ML SOLUTION. PO SCH (08:18)
[2020-04-13] MEDS: POTASSIUM CHLORIDE 20 MEQ TABLET.ER. PO SCH (08:19)
[2020-04-13] MEDS: DIVALPROEX 125 MG CAP.SPRINK PO SCH (08:19)
[2020-04-13 11:40] LABS: BASO % 0 % (0-3); EOS # 0.1 x10^3/uL (0.0-0.7); EOS % 2 % (0-3); HEMATOCRIT 38.3 % (39.0-53.0); LYMPH # 0.6 x10^3/uL (1.0-4.8); LYMPH % 9 % (24-48); MEAN CORPUSCULAR HEMOGLOBIN 30 pg (25-35); MEAN CORPUSCULAR HGB CONC 34 g/dL (31-37); MEAN CORPUSCULAR VOLUME 89 fL (79-100); MONO # 0.5 x10^3/uL (0.0-1.1); MONO % 8 % (0-9); NEUT # 5.6 x10^3uL (1.8-7.7); NEUT % 82 % (31-73); PLATELET COUNT 185 x10^3/uL (140-400); RED BLOOD COUNT 4.29 x10^6/uL (4.30-5.70); RED CELL DISTRIBUTION WIDTH 14.1 % (11.5-14.5); WHITE BLOOD COUNT 6.9 x10^3/uL (4.0-11.0)
[2020-04-13 11:51] LABS: ALBUMIN 3.3 g/dL (3.4-5.0); ALBUMIN/GLOBULIN RATIO 0.9 (1.0-1.7); CALCIUM 8.5 mg/dL (8.5-10.1); CREATININE 1.3 mg/dL (0.7-1.3); GFR 54.7; POTASSIUM 3.7 mmol/L (3.5-5.1); TOTAL BILIRUBIN 0.4 mg/dL (0.2-1.0); TOTAL PROTEIN 7.1 g/dL (6.4-8.2)
[2020-04-13 16:25] VITALS: BP 138/89
--- NOTE | 2020-04-13 17:51 | NUR ---
Pt up with staff. Pt has been compliant with meds and cares. Aides reported pt has had problems with his knee buckling today. Dr Palma dcshiva Depakote. Nose cleaned after shower. steri strips fell off.
[2020-04-13] MEDS: MELATONIN 3 MG TABLET PO SCH (20:02)
[2020-04-13] MEDS: OLANZapine 5 MG TABLET PO SCH (20:02)
[2020-04-13] MEDS: traZODone 100 MG TABLET. PO SCH (20:03)
[2020-04-13] MEDS: AMITRIPTYLINE HCL 25 MG TABLET PO SCH (20:03)
[2020-04-13] MEDS: SERTRALINE 100 MG TABLET. PO SCH (20:03)
[2020-04-13] MEDS ORDERED: ACETAMINOPHEN 500 MG TABLET PO SCH (21:00)
--- NOTE | 2020-04-13 22:38 | PDOC ---
Exam Note: Heber Note: Please also refer to the separate dictated note~for this date of service dictated separately.~Patient seen individually. Discussed the patient with Nursing staff reviewed the chart.~Reviewed interim history and current functioning. Reviewed vital signs,~Labs/ Radiology~and current medications noted below. Continue current treatment with the changes noted in the dictated addendum note Assessment: Vital Signs/I&O: Vital Signs Date Time Temp Pulse Resp B/P (MAP) Pulse Ox O2 Delivery O2 Flow Rate FiO2 04/13/20 16:25 97.7 101 18 138/89 (105) 98 04/12/20 16:18 Room Air I & O 04/12/20 04/12/20 04/13/20 15:00 23:00 07:00 Intake Total 240 ml 100 ml Balance 240 ml 100 ml Labs: Laboratory Tests Test 04/13/20 10:00 White Blood Count 6.9 x10^3/uL (4.0-11.0) Red Blood Count 4.29 x10^6/uL (4.30-5.70) L Hemoglobin 13.0 g/dL (13.0-17.5) Hematocrit 38.3 % (39.0-53.0) L Mean Corpuscular Volume 89 fL (79-100) Mean Corpuscular Hemoglobin 30 pg (25-35) Mean Corpuscular Hemoglobin Concent 34 g/dL (31-37) Red Cell Distribution Width 14.1 % (11.5-14.5) Platelet Count 185 x10^3/uL (140-400) Neutrophils (%) (Auto) 82 % (31-73) H Lymphocytes (%) (Auto) 9 % (24-48) L Monocytes (%) (Auto) 8 % (0-9) Eosinophils (%) (Auto) 2 % (0-3) Basophils (%) (Auto) 0 % (0-3) Neutrophils # (Auto) 5.6 x10^3uL (1.8-7.7) Lymphocytes # (Auto) 0.6 x10^3/uL (1.0-4.8) L Monocytes # (Auto) 0.5 x10^3/uL (0.0-1.1) Eosinophils # (Auto) 0.1 x10^3/uL (0.0-0.7) Basophils # (Auto) 0.0 x10^3/uL (0.0-0.2) Sodium Level 139 mmol/L (136-145) Potassium Level 3.7 mmol/L (3.5-5.1) Chloride Level 103 mmol/L (98-107) Carbon Dioxide Level 28 mmol/L (21-32) Anion Gap 8 (6-14) Blood Urea Nitrogen 27 mg/dL (8-26) H Creatinine 1.3 mg/dL (0.7-1.3) Estimated GFR (Cockcroft-Gault) 54.7 BUN/Creatinine Ratio 21 (6-20) H Glucose Level 131 mg/dL (70-99) H Calcium Level 8.5 mg/dL (8.5-10.1) Total Bilirubin 0.4 mg/dL (0.2-1.0) Aspartate Amino Transferase (AST) 21 U/L (15-37) Alanine Aminotransferase (ALT) 29 U/L (16-63) Alkaline Phosphatase 86 U/L (46-116) Total Protein 7.1 g/dL (6.4-8.2) Albumin 3.3 g/dL (3.4-5.0) L Albumin/Globulin Ratio 0.9 (1.0-1.7) L Current Medications: Meds: Current Medications Medications (Trade) Dose Ordered Sig/Phi Route PRN Reason Start Time Stop Time Status Last Admin Dose Admin Dextrose 1,000 ml @ 1,000 mls/hr Q1H IV 04/13/20 23:45 04/14/20 01:44 04/12/20 23:51 Acetaminophen (Tylenol) 1,000 mg BID PO 04/13/20 21:00 04/13/20 20:04 I have reviewed the current psychotropics carefully including drug interactions. Risk benefit ratio favors no change other than as noted in my dictated progress note. Diagnosis: Problems: (1) Post traumatic stress disorder (2) Major neurocognitive disorder (3) Anxiety disorder (4) Dementia in Alzheimer's disease with delusions (5) Dementia in Alzheimer's disease with depression (6) Dementia, vascular, with delusions (7) Dementia, vascular, with depression (8) Impulse control disorder SMITA TOLEDO MD Apr 13, 2020 22:38
--- NOTE | 2020-04-13 23:45 | NUR ---
Pt continues to be a 1:1 for safety. Pt's gait is very unsteady, requiring 2 staff members to assist with ambulation tonight. Compliant with crushed medications in one bite of ice cream. Agitated with redirection at times.
[2020-04-14] MEDS: traZODone 100 MG TABLET. PO PRN (00:14)
[2020-04-14 06:33] VITALS: BP 137/87
--- NOTE | 2020-04-14 06:45 | NUR ---
Pt has been awake all night. Pt restless and actively hallucinating.
[2020-04-14 07:30] VITALS: BP 96/66
--- NOTE | 2020-04-14 07:45 | NUR ---
Nursing note: At shift change, pt was very unsteady on his feet. He was assisted to a chair in the day room. Pt was then observed by staff to be having seizure like activity. This RN was informed of pt's condition and assessed pt immediately. Pt was very disorganized and appeared to be holding his breath. He was awoken with difficulty and encouraged to take a deep breath. Vitals at that time were BP 96/66, HR 159, O2 93%. Dr. Alston is informed of pt condition and orders were received for STAT head CT, CBC, CMP, magnesium level, 12 Lead EKG, consult Dr. Beltrán, 1000mg Keppra BID, and transfer to ICU.
[2020-04-14] MEDS ORDERED: ACET325T21 PO (08:07)
[2020-04-14] MEDS ORDERED: ACET500T68 PO (08:09)
[2020-04-14] MEDS ORDERED: AMIT50TA PO (08:10)
[2020-04-14] MEDS ORDERED: BISA10SU4 RC (08:11)
[2020-04-14] MEDS ORDERED: DOCU50LI12 PO (08:13)
--- NOTE | 2020-04-14 08:13 | RAD ---
CT brain without contrast. HISTORY: Fall, evaluate for subdural CT scan of brain was done without contrast. There is no intracranial hemorrhage or subdural hematoma. Ventricles are normal in size. There is no mass or shift of the midline. There is extensive decreased density in the periventricular white matter suggesting chronic microvascular changes. There is been no change from the recent study. There is no mass or shift of the midline. There is slight mucosal thickening in the right maxillary sinus, remaining sinuses are clear. There is extracranial soft tissue swelling on the right for head. IMPRESSION: 1. No intracranial hemorrhage or subdural hematoma or acute finding. PQRS Compliance Statement: One or more of the following individualized dose reduction techniques were utilized for this examination: 1. Automated exposure control 2. Adjustment of the mA and/or kV according to patient size 3. Use of iterative reconstruction technique Electronically signed by: Arnold Cabral MD (04/14/2020 8:09 AM) [id number]
[2020-04-14] MEDS ORDERED: LORA-254 PO (08:14)
[2020-04-14] MEDS ORDERED: MAG-95 PO (08:15)
[2020-04-14] MEDS ORDERED: MAGN24003 PO (08:16)
[2020-04-14] MEDS ORDERED: MAGN296S68 PO (08:16)
[2020-04-14] MEDS ORDERED: MELA3TAB4 PO (08:17)
[2020-04-14] MEDS ORDERED: METH57CR17 TP (08:18)
[2020-04-14] MEDS ORDERED: POLY2500 PO (08:19)
[2020-04-14] MEDS ORDERED: POTA20TA4 PO (08:20)
[2020-04-14] MEDS ORDERED: SENN8.8S5 PO (08:21)
[2020-04-14 08:22] LABS: BASO % 0 % (0-3); EOS # 0.1 x10^3/uL (0.0-0.7); EOS % 1 % (0-3); HEMATOCRIT 40.7 % (39.0-53.0); HEMOGLOBIN 13.4 g/dL (13.0-17.5); LYMPH # 0.7 x10^3/uL (1.0-4.8); LYMPH % 6 % (24-48); MEAN CORPUSCULAR HEMOGLOBIN 29 pg (25-35); MEAN CORPUSCULAR HGB CONC 33 g/dL (31-37); MEAN CORPUSCULAR VOLUME 89 fL (79-100); MONO # 1.2 x10^3/uL (0.0-1.1); MONO % 10 % (0-9); NEUT # 9.5 x10^3uL (1.8-7.7); NEUT % 82 % (31-73); PLATELET COUNT 235 x10^3/uL (140-400); RED BLOOD COUNT 4.58 x10^6/uL (4.30-5.70); RED CELL DISTRIBUTION WIDTH 14.2 % (11.5-14.5); WHITE BLOOD COUNT 11.5 x10^3/uL (4.0-11.0)
[2020-04-14] MEDS ORDERED: LEVE10007 PO (08:22)
[2020-04-14] MEDS ORDERED: RISP0.5T3 PO (08:23)
[2020-04-14] MEDS ORDERED: TRAZ-125 PO (08:24)
[2020-04-14 08:37] LABS: CALCIUM 8.7 mg/dL (8.5-10.1); CREATININE 1.6 mg/dL (0.7-1.3); GFR 43.1
[2020-04-14 08:43] LABS: ALBUMIN 3.4 g/dL (3.4-5.0); ALBUMIN/GLOBULIN RATIO 0.9 (1.0-1.7); MAGNESIUM 2.5 mg/dL (1.8-2.4); TOTAL BILIRUBIN 0.4 mg/dL (0.2-1.0); TOTAL PROTEIN 7.4 g/dL (6.4-8.2)
[2020-04-14] MEDS ORDERED: levETIRAcetam 500 MG TABLET PO SCH (09:00)
[2020-04-14 09:38] LABS: % BANDS 6 % (0-9); % EOS 1 % (0-5); % LYMPHS 7 % (24-48); % MONOS 9 % (0-10); % SEGS 77 % (35-66)
[2020-04-14 09:39] LABS: PLT ESTIMATE ADEQUATE (ADEQUATE)
[2020-04-14 09:40] LABS: TOXIC GRANULATION SLIGHT
--- NOTE | 2020-04-14 10:12 | PDOC ---
Exam Note: [place] Note: This note is a late entry for 04/12/2020 covers elements not covered in my initial note. Subjective: The patient was seen individually in the evening of 04/12/2020. Per Lindy TURK, he slept 5-3/4 hours previous night. He remains confused. The patient has been started on IV fluids 500 mL bolus and 100 ml/hour. He was tripped by another demented patient and late at night fell and fractured his nose. I met with him earlier in the evening before his fall. Review of Systems: Ambulation impaired. No CV, , pulmonary, eye, ENT system symptoms on review. Mental Status Exam: Oriented to himself. Insight and judgment, recent and remote memory, attention and concentration, fund of knowledge is poor consistent with his diagnoses. Laboratory Data: Reviewed. Impression: Major neurocognitive disorder, Alzheimer, vascular with delusion, depression, behavioral disturbance. Anxiety disorder unspecified. Impulse control disorder unspecified. Plan: The patient has been started on IV fluids 500 mL bolus and 100 ml/hour. Rest unchanged from initial note. Assessment: Vital Signs/I&O: Vital Signs Date Time Temp Pulse Resp B/P (MAP) Pulse Ox O2 Delivery O2 Flow Rate FiO2 04/14/20 06:33 98.2 87 20 137/87 (104) 95 04/12/20 16:18 Room Air I & O 04/13/20 04/13/20 04/14/20 15:00 23:00 07:00 Intake Total 600 ml 480 ml Balance 600 ml 480 ml Labs: Laboratory Tests Test 04/14/20 08:07 White Blood Count 11.5 x10^3/uL (4.0-11.0) H Red Blood Count 4.58 x10^6/uL (4.30-5.70) Hemoglobin 13.4 g/dL (13.0-17.5) Hematocrit 40.7 % (39.0-53.0) Mean Corpuscular Volume 89 fL (79-100) Mean Corpuscular Hemoglobin 29 pg (25-35) Mean Corpuscular Hemoglobin Concent 33 g/dL (31-37) Red Cell Distribution Width 14.2 % (11.5-14.5) Platelet Count 235 x10^3/uL (140-400) Neutrophils (%) (Auto) 82 % (31-73) H Lymphocytes (%) (Auto) 6 % (24-48) L Monocytes (%) (Auto) 10 % (0-9) H Eosinophils (%) (Auto) 1 % (0-3) Basophils (%) (Auto) 0 % (0-3) Neutrophils # (Auto) 9.5 x10^3uL (1.8-7.7) H Lymphocytes # (Auto) 0.7 x10^3/uL (1.0-4.8) L Monocytes # (Auto) 1.2 x10^3/uL (0.0-1.1) H Eosinophils # (Auto) 0.1 x10^3/uL (0.0-0.7) Basophils # (Auto) 0.0 x10^3/uL (0.0-0.2) Segmented Neutrophils % 77 % (35-66) H Band Neutrophils % 6 % (0-9) Lymphocytes % 7 % (24-48) L Monocytes % 9 % (0-10) Eosinophils % 1 % (0-5) Toxic Granulation Slight Dohle Bodies Present Platelet Estimate Adequate (ADEQUATE) Sodium Level 140 mmol/L (136-145) Potassium Level 4.0 mmol/L (3.5-5.1) Chloride Level 103 mmol/L (98-107) Carbon Dioxide Level 28 mmol/L (21-32) Anion Gap 9 (6-14) Blood Urea Nitrogen 33 mg/dL (8-26) H Creatinine 1.6 mg/dL (0.7-1.3) H Estimated GFR (Cockcroft-Gault) 43.1 BUN/Creatinine Ratio 21 (6-20) H Glucose Level 158 mg/dL (70-99) H Calcium Level 8.7 mg/dL (8.5-10.1) Magnesium Level 2.5 mg/dL (1.8-2.4) H Total Bilirubin 0.4 mg/dL (0.2-1.0) Aspartate Amino Transferase (AST) 22 U/L (15-37) Alanine Aminotransferase (ALT) 29 U/L (16-63) Alkaline Phosphatase 98 U/L (46-116) Total Protein 7.4 g/dL (6.4-8.2) Albumin 3.4 g/dL (3.4-5.0) Albumin/Globulin Ratio 0.9 (1.0-1.7) L Current Medications: Meds: Current Medications Medications (Trade) Dose Ordered Sig/Phi Route PRN Reason Start Time Stop Time Status Last Admin Dose Admin Dextrose 1,000 ml @ 1,000 mls/hr Q1H IV 04/13/20 23:45 04/13/20 23:08 DC 04/12/20 23:51 Acetaminophen (Tylenol) 1,000 mg BID PO 04/13/20 21:00 04/14/20 08:12 DC 04/13/20 20:04 I have reviewed the current psychotropics carefully including drug interactions. Risk benefit ratio favors no change other than as noted in my dictated progress note. Diagnosis: Problems: (1) Major neurocognitive disorder (2) Anxiety disorder (3) Dementia in Alzheimer's disease with delusions (4) Dementia in Alzheimer's disease with depression (5) Dementia, vascular, with delusions (6) Dementia, vascular, with depression (7) Impulse control disorder SMITA TOLEDO MD Apr 14, 2020 10:12
--- NOTE | 2020-04-14 10:44 | PDOC ---
Exam Note: [place] Note: This note is a late entry for 04/13/2020 covers elements not covered in my initial note. Subjective: The patient was seen individually in the evening of 04/13/2020. Per Lindy TURK, he slept 3 hours previous night. The patient has been on one-on-one since he is a fall risk. Later in the day he did eat half of a crayon and was cursing a staff when they tried to intervene. He puts himself on the floor at times. Review of Systems: Ambulation impaired. No CV, , pulmonary, eye, ENT system symptoms on review. Mental Status Exam: Oriented to himself. Insight and judgment, recent and remote memory, attention and concentration, fund of knowledge is poor consistent with his diagnoses. Laboratory Data: Reviewed. Impression: Major neurocognitive disorder, Alzheimer, vascular with delusion, depression, behavioral disturbance. Anxiety disorder unspecified. Impulse control disorder unspecified. Plan: Rest unchanged from initial note. Assessment: Vital Signs/I&O: Vital Signs Date Time Temp Pulse Resp B/P (MAP) Pulse Ox O2 Delivery O2 Flow Rate FiO2 04/14/20 06:33 98.2 87 20 137/87 (104) 95 04/12/20 16:18 Room Air I & O 04/13/20 04/13/20 04/14/20 15:00 23:00 07:00 Intake Total 600 ml 480 ml Balance 600 ml 480 ml Labs: Laboratory Tests Test 04/14/20 08:07 White Blood Count 11.5 x10^3/uL (4.0-11.0) H Red Blood Count 4.58 x10^6/uL (4.30-5.70) Hemoglobin 13.4 g/dL (13.0-17.5) Hematocrit 40.7 % (39.0-53.0) Mean Corpuscular Volume 89 fL (79-100) Mean Corpuscular Hemoglobin 29 pg (25-35) Mean Corpuscular Hemoglobin Concent 33 g/dL (31-37) Red Cell Distribution Width 14.2 % (11.5-14.5) Platelet Count 235 x10^3/uL (140-400) Neutrophils (%) (Auto) 82 % (31-73) H Lymphocytes (%) (Auto) 6 % (24-48) L Monocytes (%) (Auto) 10 % (0-9) H Eosinophils (%) (Auto) 1 % (0-3) Basophils (%) (Auto) 0 % (0-3) Neutrophils # (Auto) 9.5 x10^3uL (1.8-7.7) H Lymphocytes # (Auto) 0.7 x10^3/uL (1.0-4.8) L Monocytes # (Auto) 1.2 x10^3/uL (0.0-1.1) H Eosinophils # (Auto) 0.1 x10^3/uL (0.0-0.7) Basophils # (Auto) 0.0 x10^3/uL (0.0-0.2) Segmented Neutrophils % 77 % (35-66) H Band Neutrophils % 6 % (0-9) Lymphocytes % 7 % (24-48) L Monocytes % 9 % (0-10) Eosinophils % 1 % (0-5) Toxic Granulation Slight Dohle Bodies Present Platelet Estimate Adequate (ADEQUATE) Sodium Level 140 mmol/L (136-145) Potassium Level 4.0 mmol/L (3.5-5.1) Chloride Level 103 mmol/L (98-107) Carbon Dioxide Level 28 mmol/L (21-32) Anion Gap 9 (6-14) Blood Urea Nitrogen 33 mg/dL (8-26) H Creatinine 1.6 mg/dL (0.7-1.3) H Estimated GFR (Cockcroft-Gault) 43.1 BUN/Creatinine Ratio 21 (6-20) H Glucose Level 158 mg/dL (70-99) H Calcium Level 8.7 mg/dL (8.5-10.1) Magnesium Level 2.5 mg/dL (1.8-2.4) H Total Bilirubin 0.4 mg/dL (0.2-1.0) Aspartate Amino Transferase (AST) 22 U/L (15-37) Alanine Aminotransferase (ALT) 29 U/L (16-63) Alkaline Phosphatase 98 U/L (46-116) Total Protein 7.4 g/dL (6.4-8.2) Albumin 3.4 g/dL (3.4-5.0) Albumin/Globulin Ratio 0.9 (1.0-1.7) L Current Medications: Meds: Current Medications Medications (Trade) Dose Ordered Sig/Phi Route PRN Reason Start Time Stop Time Status Last Admin Dose Admin Dextrose 1,000 ml @ 1,000 mls/hr Q1H IV 04/13/20 23:45 04/13/20 23:08 DC 04/12/20 23:51 Acetaminophen (Tylenol) 1,000 mg BID PO 04/13/20 21:00 04/14/20 08:12 DC 04/13/20 20:04 I have reviewed the current psychotropics carefully including drug interactions. Risk benefit ratio favors no change other than as noted in my dictated progress note. Diagnosis: Problems: (1) Major neurocognitive disorder (2) Anxiety disorder (3) Dementia in Alzheimer's disease with delusions (4) Dementia in Alzheimer's disease with depression (5) Dementia, vascular, with delusions (6) Dementia, vascular, with depression (7) Impulse control disorder SMITA TOLEDO MD Apr 14, 2020 10:44
--- NOTE | 2020-04-14 10:46 | NUR ---
Transition Record was faxed to follow-up provider with the following elements: Reason for admission, procedures, tests, principal diagnosis, pending studies, patient instructions, 16/05 contact information for unit, phone number to obtain pending test results, plan for follow-up care, physician follow-up, advanced directive information, and medication list with dose, duration and instructions. This information was included in the following documents: History and physical, lab results, study results, progress notes, social work planning form, DC instruction form, patient visit summary, and medication reconciliation form. Date & time record faxed: 04/14/2020 @ 0730 Record faxed to: [facility] Registration Record discussed with/ report given to: BURKE Cassidy
--- NOTE | 2020-04-14 22:13 | DS ---
DATE OF DISCHARGE: 04/14/2020 DISCHARGE SUMMARY/PSYCHIATRIC PROGRESS NOTE This note covers the elements not covered in my initial note of 04/14/2020. REASON FOR ADMISSION: Please refer to the admission history for details. Briefly, the patient is a 69-year-old male referred to us from [facility] where he presented from home on account of increasing confusion, being aggressive, threatening towards his . His was fearful of him. He is burning plastic in the kitchen, confused, disoriented, having active hallucinations, restless and fidgety. He had failed outpatient psychiatric intervention resulting in this referral. SIGNIFICANT FINDINGS AND CLINICAL COURSE: Following admission, the patient was seen daily individually by myself from a psychiatric standpoint, medical followup with Dr. Alston/Dr. Linder. The patient was extremely confused, psychotic, grabbing at things, picking up things from the floor. Multiple changes were made in his psychotropics and he ultimately seemed to be stabilizing on a combination of Zoloft 100 mg daily; trazodone 100 mg at bedtime, may repeat x 1 p.r.n. insomnia; Ativan p.r.n.; amitriptyline 50 mg at bedtime was used for his insomnia after he failed treatment on all other psychotropics for his insomnia. He was actively psychotic, hallucinating; tolerated Risperdal 0.25 mg b.i.d., melatonin 3 mg at bedtime, Depakote Sprinkles 125 mg p.o. 9:00 a.m. and 250 mg at 1700. Generally, his behaviors were improving, though he remained confused, restless, was sleeping better. At this stage, on the 04/12/2020, he fell on the floor after being tripped by another demented patient. He fractured his nose and then morning of 04/14/2020, he had a seizure episode. There was a question whether he had an intracranial hemorrhage accounting for this, but CT head was not supportive of this. He was transferred to the ICU per Dr. Alston for medical stabilization and started on Keppra [address] of the Depakote. REVIEW OF SYSTEMS: Prior to discharge, 04/14/2020, ambulation impaired. No CV, , pulmonary, eye system symptoms on review. MENTAL STATUS EXAM: Oriented to himself. Insight, judgment, recent and remote memory, attention, concentration, fund of knowledge poor, consistent with his diagnosis. FINAL DIAGNOSES: Major neurocognitive disorder, Alzheimer, vascular with delusion, depression, behavioral disturbance; anxiety disorder, unspecified; impulse control disorder, unspecified; seizure episode. Rest unchanged from admission. DISCHARGE MEDICATIONS: Please refer to the MRAD. DISCHARGE INSTRUCTIONS: Psychiatric and medical followup in the ICU. Time for discharge day management greater than 30 minutes. SMITA TOLEDO MD DR: BORIS/dontae JOB#: [id number] / [id number]
--- NOTE | 2020-04-14 22:51 | PDOC ---
Exam Note: Heber Note: Please also refer to the separate dictated note~for this date of service dictated separately.~Patient seen individually. Discussed the patient with Nursing staff reviewed the chart.~Reviewed interim history and current functioning. Reviewed vital signs,~Labs/ Radiology~and current medications noted below. Continue current treatment with the changes noted in the dictated addendum note Assessment: Vital Signs/I&O: Vital Signs Date Time Temp Pulse Resp B/P (MAP) Pulse Ox O2 Delivery O2 Flow Rate FiO2 04/14/20 07:30 159 12 96/66 (76) 93 04/14/20 06:33 98.2 04/12/20 16:18 Room Air I & O 04/13/20 04/13/20 04/14/20 15:00 23:00 07:00 Intake Total 600 ml 480 ml Balance 600 ml 480 ml Labs: Laboratory Tests Test 04/14/20 08:07 White Blood Count 11.5 x10^3/uL (4.0-11.0) H Red Blood Count 4.58 x10^6/uL (4.30-5.70) Hemoglobin 13.4 g/dL (13.0-17.5) Hematocrit 40.7 % (39.0-53.0) Mean Corpuscular Volume 89 fL (79-100) Mean Corpuscular Hemoglobin 29 pg (25-35) Mean Corpuscular Hemoglobin Concent 33 g/dL (31-37) Red Cell Distribution Width 14.2 % (11.5-14.5) Platelet Count 235 x10^3/uL (140-400) Neutrophils (%) (Auto) 82 % (31-73) H Lymphocytes (%) (Auto) 6 % (24-48) L Monocytes (%) (Auto) 10 % (0-9) H Eosinophils (%) (Auto) 1 % (0-3) Basophils (%) (Auto) 0 % (0-3) Neutrophils # (Auto) 9.5 x10^3uL (1.8-7.7) H Lymphocytes # (Auto) 0.7 x10^3/uL (1.0-4.8) L Monocytes # (Auto) 1.2 x10^3/uL (0.0-1.1) H Eosinophils # (Auto) 0.1 x10^3/uL (0.0-0.7) Basophils # (Auto) 0.0 x10^3/uL (0.0-0.2) Segmented Neutrophils % 77 % (35-66) H Band Neutrophils % 6 % (0-9) Lymphocytes % 7 % (24-48) L Monocytes % 9 % (0-10) Eosinophils % 1 % (0-5) Toxic Granulation Slight Dohle Bodies Present Platelet Estimate Adequate (ADEQUATE) Sodium Level 140 mmol/L (136-145) Potassium Level 4.0 mmol/L (3.5-5.1) Chloride Level 103 mmol/L (98-107) Carbon Dioxide Level 28 mmol/L (21-32) Anion Gap 9 (6-14) Blood Urea Nitrogen 33 mg/dL (8-26) H Creatinine 1.6 mg/dL (0.7-1.3) H Estimated GFR (Cockcroft-Gault) 43.1 BUN/Creatinine Ratio 21 (6-20) H Glucose Level 158 mg/dL (70-99) H Calcium Level 8.7 mg/dL (8.5-10.1) Magnesium Level 2.5 mg/dL (1.8-2.4) H Total Bilirubin 0.4 mg/dL (0.2-1.0) Aspartate Amino Transferase (AST) 22 U/L (15-37) Alanine Aminotransferase (ALT) 29 U/L (16-63) Alkaline Phosphatase 98 U/L (46-116) Total Protein 7.4 g/dL (6.4-8.2) Albumin 3.4 g/dL (3.4-5.0) Albumin/Globulin Ratio 0.9 (1.0-1.7) L Current Medications: Meds: Current Medications Medications (Trade) Dose Ordered Sig/Phi Route PRN Reason Start Time Stop Time Status Last Admin Dose Admin Dextrose 1,000 ml @ 1,000 mls/hr Q1H IV 04/13/20 23:45 04/13/20 23:08 DC 04/12/20 23:51 I have reviewed the current psychotropics carefully including drug interactions. Risk benefit ratio favors no change other than as noted in my dictated progress note. Diagnosis: Problems: (1) Major neurocognitive disorder, due to vascular disease, with behavioral disturbance, mild (2) Seizure (3) Impulse control disorder (4) Dementia, vascular, with depression (5) Dementia, vascular, with delusions (6) Dementia in Alzheimer's disease with depression (7) Dementia in Alzheimer's disease with delusions (8) Anxiety disorder (9) Major neurocognitive disorder SMITA TOLEDO MD Apr 14, 2020 22:51
== END 2020-04-14 08:11 | disposition short-term general hospital (02) | DRG 57 ==
LOC: GEROPSY 17:56
PROVIDERS: ADMIT Psychiatry & Neurology Psychiatry; ATTEND Psychiatry & Neurology Psychiatry
DX: G30.9 Alzheimer's disease, unspecified (principal); F01.51 Vascular dementia, unspecified severity, with behavioral disturbance; E87.0 Hyperosmolality and hypernatremia; F02.81 Dementia in other diseases classified elsewhere, unspecified severity, with behavioral disturbance; E78.5 Hyperlipidemia, unspecified; E86.0 Dehydration; F32.9 Major depressive disorder, single episode, unspecified; F43.10 Post-traumatic stress disorder, unspecified; F63.9 Impulse disorder, unspecified; G47.00 Insomnia, unspecified; H91.90 Unspecified hearing loss, unspecified ear; I10 Essential (primary) hypertension; J44.9 Chronic obstructive pulmonary disease, unspecified; K59.00 Constipation, unspecified; N40.0 Benign prostatic hyperplasia without lower urinary tract symptoms; W01.0XXA Fall on same level from slipping, tripping and stumbling without subsequent striking against object, initial encounter; Z79.899 Other long term (current) drug therapy; Z66 Do not resuscitate; Z86.14 Personal history of Methicillin resistant Staphylococcus aureus infection; Z87.891 Personal history of nicotine dependence; Z91.81 History of falling; K21.9 Gastro-esophageal reflux disease without esophagitis
CPT/HCPCS: 36415; 70450; 70486; 74018; 80048; 80053; 80061; 80164; 82306; 82607; 83036; 83540; 83550; 83735; 84436; 84443; 84480; 85007; 85025; 85027; 86592

== ENCOUNTER 2020-04-14 09:11 | Inpatient (IN) | payer MEDICARE, OTHER ==
[2020-04-14] VITALS (7 sets, daily range): BP systolic 119–165; BP diastolic 83–103
[~2020-04-14] VITALS: Ht 165.1 cm; Wt 70.2 kg
[~2020-04-14 09:11] MED LIST changes: +ACET325T21 PO; +ACET500T68 PO; +AMIT50TA PO; +BISA10SU4 RC; +DOCU50LI12 PO; +DONE5TAB56 PO; +FINA5TAB4 PO; +LEVE10007 PO; +MAG-95 PO; +MAGN24003 PO; +MAGN296S68 PO; +MELA3TAB4 PO; +MEMA10TA PO; +METH57CR17 TP; +POLY2500 PO; +POTA20TA4 PO; +RISP0.5T3 PO; +SENN8.8S5 PO; +TAMS0.4C97 PO; +TRAZ-125 PO
[2020-04-14] MEDS ORDERED: MAG HYDROX/AL HYDROX/SIMETH 30 ML ORAL.SUSP PO PRN (09:45)
[2020-04-14] MEDS ORDERED: BISACODYL 10 MG SUPP.RECT RC PRN (09:45)
[2020-04-14] MEDS ORDERED: ACETAMINOPHEN 325 MG TABLET PO PRN (09:45)
[2020-04-14] MEDS ORDERED: traZODone 100 MG TABLET. PO PRN (09:45)
[2020-04-14] MEDS ORDERED: MAGNESIUM CITRATE 296 ML SOLUTION. PO PRN (09:45)
--- NOTE | 2020-04-14 09:54 | EKG ---
[address] [address] Test Date: 2020-04-14 Test Time: 09:32:54 Pat Name: DEBBIE PAK Department: Room: [place] [address] Gender: M Varnish Maker: : [id number] Requested By: DANIEL GRAY Order Number: [id number] Reading MD: Measurements Intervals [place] Rate: 120 P: 22 RI: 146 QRS: 86 QRSD: 100 T: 19 QT: 312 QTc: 446 Interpretive Statements SINUS TACHYCARDIA R-S TRANSITION ZONE IN V LEADS DISPLACED TO THE LEFT QRS(T) CONTOUR ABNORMALITY CONSIDER INFERIOR MYOCARDIAL DAMAGE POSSIBLY ABNORMAL ECG RI6.01 No previous ECG available for comparison
[2020-04-14] MEDS ORDERED: SENNOSIDES 8.6 MG TABLET PO PRN (10:45)
[2020-04-14] MEDS ORDERED: MAGNESIUM HYDROXIDE 2,400 MG/30 ML ORAL.SUSP. PO PRN (10:45)
[2020-04-14] MEDS ORDERED: LORazepam 0.5 MG TABLET PO PRN (10:45)
[2020-04-14] MEDS ORDERED: METHYL SALICYLATE/MENTHOL TOPICAL OINTMENT 57GM TUBE. TP PRN (10:45)
--- NOTE | 2020-04-14 10:58 | CONS ---
DATE OF CONSULTATION: 04/14/2020 REFERRING PHYSICIAN: Dr. Alston. REASON FOR CONSULTATION: Possible new onset of seizure. HISTORY OF PRESENT ILLNESS: This is a 69-year-old right-handed male, who has been admitted to [facility] on 03/08/2020 on account of worsening of his dementia associated with agitation and delusion. Apparently, 2 days ago, the patient fell forwards and hit his face and head. Initial facial bone x-ray revealed evidence of fracture of the nose. The patient was transferred this morning today after he had episodes described seizure-like activities, presented with generalized abnormal movements of his upper and lower extremities with change of his mental status; however, the patient has had history of profound dementia and probably of Alzheimer type versus vascular dementia. The spell lasted probably 2 to 3 minutes, but the patient did not respond to any verbal commands. Initial nonenhanced head CT scan revealed no evidence of acute intracranial process, but it showed chronic small vessel ischemic changes. Currently, the patient is back to his baseline. He opens his eyes to verbal commands, but he did not communicate and this is probably his baseline. In ICU, the patient has not had any recurrent seizure-like activity at this time; however, Dr. Alston starting him on Keppra. PAST MEDICAL HISTORY: Significant for sleep apneas, gastroesophageal reflux disease, hypertension, COPD, hypothyroidism, dementia as mentioned above, prostate hypertrophy, and posttraumatic stress disorder and anxiety. PAST SURGICAL HISTORY: Positive for appendectomy. SOCIAL HISTORY: The patient is . There is no history of smoking, alcohol drinking, or illicit drug use. CURRENT MEDICATIONS: Includes Tylenol, amitriptyline 50 mg at bedtime, Dulcolax p.r.n. for constipation, Proscar 5 mg daily, lorazepam 0.5 mg q.2 hours p.r.n. for agitation and anxiety, magnesium hydroxide 2400 mg p.o. at bedtime p.r.n., melatonin 3 mg at bedtime, olanzapine 5 mg at bedtime, potassium chloride 20 mEq daily, Senna p.r.n., Zoloft 100 mg p.o. at bedtime, tamsulosin 0.4 mg daily, levothyroxine 100 mcg p.o. daily, trazodone 100 mg at bedtime, risperidone 0.25 mg b.i.d. ALLERGIES: No known drug allergies. FAMILY HISTORY: Noncontributory. PHYSICAL EXAMINATION: GENERAL: Well-developed, well-nourished male, not in acute distress. VITAL SIGNS: Blood pressure 119/86, heart rhythm 116 and regular, afebrile, and oxygen saturation is 94% on room air. HEENT: Normocephalic, but has nose trauma from recent falls. NECK: Supple. Negative for carotid bruit, lymphadenopathy or thyromegaly. LUNGS: Clear to A and P. CARDIOVASCULAR: Regular rate and rhythm. Normal S1, S2. ABDOMEN: Soft. Bowel sounds positive. EXTREMITIES: Negative for cyanosis, clubbing or edema. NEUROLOGICAL EXAM: Mental Status: The patient is awake and follows 1-step commands. He cannot communicate. Further evaluation at this time is limited because of underlying profound dementia. CRANIAL NERVES: Pupils are equal and sluggishly reactive to light. There is no nystagmus. There is no facial motor or sensory deficit. Hearing appeared to be intact. The palate is elevated symmetrically. Further evaluation is limited at this time. MOTOR EXAMINATION: No focal muscle bulk was seen. The tone is normal. The strength is 4/5 throughout. SENSORY EXAMINATION: Revealed the patient withdraws upper and lower extremity to noxious stimuli. Deep tendon reflexes were symmetric and hypoactive with absent Achilles responses. GAIT: Not tested. DIAGNOSTIC DATA: Initial nonenhanced head CT scan performed this morning revealed no evidence of acute intracranial findings as bleeding, but it shows chronic small vessel ischemic disease. LABORATORY DATA: CBC revealed white blood cells of 11.5, hemoglobin 13.4, hematocrit 40.7, platelet count 235,000. Chemistry revealed sodium of 140, potassium 4, chloride 103, CO2 of 28, BUN 33, creatinine 1.6, glucose is 158. A1c is 5.5. Magnesium is high at 2.5 with low iron and iron saturation normal. Liver enzymes with hyperlipidemia consistent with increased cholesterol at 243 and LDL at 172 with HDL of 44. Vitamin B12 is low normal at 290 with high TSH at 3.97 with normal T4 and T3. IMPRESSION: 1. New onset of seizure-like activities, witnessed by nursing staff and described as a generalized movement of the upper and lower extremity with mental status changes. No recurrence since today. Epileptic versus nonepileptic seizure, still in consideration. 2. Multiple psychiatric problems include posttraumatic stress disorders and intermittent delusions and agitation. 3. Dementia, probably of Alzheimer type. 4. Multiple medical problems include chronic obstructive pulmonary disease, hypothyroidism, anemia, gastroesophageal reflux disease, renal insufficiency versus dehydration. RECOMMENDATIONS: 1. Dr. Alston started the patient on Keppra. 2. Electroencephalogram to rule out epileptic seizure. 3. We will continue with current management initiated by Dr. Alston/Dr. Palma. 4. The patient may need vitamin B12 and treat the underlying hypothyroidism. M Rubin BIRCH MD DR: SUNSHINE/dontae JOB#: [id number] / [id number]
[2020-04-14] MEDS ORDERED: risperiDONE 0.25 MG TABLET. PO SCH (11:00)
[2020-04-14] MEDS: FINASTERIDE 5 MG TABLET PO SCH (11:13)
[2020-04-14] MEDS: POTASSIUM CHLORIDE 20 MEQ TABLET.ER. PO SCH (11:14)
[2020-04-14] MEDS: POLYETHYLENE GLYCOL 3350 17 GM PACKET. PO SCH (11:16)
[2020-04-14] MEDS: DOCUSATE 100 MG/10 ML SOLUTION. PO SCH (11:17)
[2020-04-14] MEDS ORDERED: METHYL SALICYLATE/MENTHOL TOPICAL OINTMENT 57GM TUBE. TP SCH (13:00)
[2020-04-14] MEDS: IV DEXTROSE 5% 1,000 ML IV SCH (16:09)
--- NOTE | 2020-04-14 16:39 | RAD ---
AP view of the abdomen Clinical indications: Markedly distended abdomen. FINDINGS: There is a soft tissue mass within the pelvis which may represent a distended urinary bladder. There is moderate dilatation of the colon and stomach. No small bowel obstruction is evident. IMPRESSION: Soft tissue mass within the pelvis which most likely represents a distended urinary bladder. This may be followed after emptying of the urinary bladder. Moderate dilatation of the colon and stomach. Mild fecal retention within the colon. Electronically signed by: Parrish Estrada MD (04/14/2020 4:36 PM) [id number]
--- NOTE | 2020-04-14 16:51 | HP ---
ADMIT DATE: 04/14/2020 HISTORY OF PRESENT ILLNESS: The patient is a 69-year-old male patient who was transferred from [facility], as the nursing staff stated that the patient has what seems to be seizure-like activity. The description is not very clear; however, the patient has had a fall, hitting his face and head and initial facial bone x-ray revealed evidence of fracture of his nose. However, at that time, the CT scan showed no evidence of any intracranial pathology. Given his fall and the new onset of what seemed to be seizure disorder, a decision was made to transfer him to [address] [place] [id number] to the ICU. He was also noted to be markedly tachycardic with a heart rate was up to 160, so we did actually another CT scan of the head to make sure that the patient does not have any intracranial hemorrhage and also order a 12-lead EKG and lab work. I will start him on Keppra on transferred to the ICU. We have also consulted Dr. Beltrán. PAST MEDICAL HISTORY: Significant for hypertension, hypothyroidism, benign prostatic hypertrophy, gastroesophageal reflux disease, chronic obstructive pulmonary disease, obstructive sleep apnea as well as dementia. PAST SURGICAL HISTORY: Significant for appendectomy and bilateral cataract extraction. FAMILY HISTORY: Noncontributory. SOCIAL HISTORY: He apparently does not smoke currently. He was a former smoker, smoked for about 36 years. Does not drink alcohol or use recreational drugs. REVIEW OF SYSTEMS: Unobtainable. He is extremely demented. ALLERGIES: He has no known drug allergies. MEDICATIONS: He is currently on following medications: He is on Flomax 0.4 mg at bedtime, BenGay greaseless cream applied topically 4 times a day, Tylenol 650 mg every 6 hours, Tylenol 1000 mg p.o. b.i.d., levetiracetam 1000 mg twice a day, amitriptyline 50 mg at bedtime, sertraline for Zoloft 100 mg at bedtime, trazodone 100 mg at bedtime, olanzapine 5 mg every 2 hours, olanzapine 5 mg at bedtime, risperidone 0.25 mg twice a day. He is on lorazepam for Ativan 0.5 mg every 2 hours, potassium chloride 20 mEq once a day, Mylanta 15 mL as needed after meals, bisacodyl 10 mg suppository rectally daily p.r.n. for constipation, Colace 100 mg p.o. daily, magnesium citrate 296 mg p.o. daily as needed, milk of magnesia 30 mL p.o. daily as needed, senna 1 tablet daily, finasteride 5 mg tablet once a day, melatonin 3 mg at bedtime, polyethylene glycol 17 grams daily p.r.n. for constipation. PHYSICAL EXAMINATION: GENERAL: When I saw him this morning in the ICU, the patient continued to be somewhat restless, agitated, sometimes tries to touch things that do not exist. He was somewhat pale, no jaundice, cyanosis or thyromegaly. No jugular venous distention. No limb edema. VITAL SIGNS: His heart rate was 115, blood pressure was 165/101, temperature was 99.3, respiratory rate 22, and oxygen saturation was 96%. HEAD, EYES, EARS, NOSE AND THROAT: Showed normocephalic, atraumatic. NECK: Supple. HEART: Showed normal first and second heart sounds with no gallop or murmur. CHEST: Clear to auscultation. No crepitation or rhonchi. ABDOMEN: Distended, soft, and clearly distended with tympanitic percussion note. No guarding or rigidity. No organomegaly. All hernial orifice intact. Bowel sounds normal. NEUROLOGIC: He is demented, but without any obvious lateralizing sign. EXTREMITIES: He moves extremities spontaneously. He is normally ambulating without any assistance or assistive devices. LABORATORY DATA: His lab work this morning showed a white cell count 11,500, hemoglobin 13.4, hematocrit 41, MCV 89 and platelet count of 235,000. His serum sodium was 140, potassium 4, chloride 103, bicarbonate 28, anion gap of 9, BUN 33, creatinine 1.6, estimated GFR was 43 mL per minute, his glucose 158 and calcium was 8.7, magnesium was 2.5. His total bilirubin, AST, ALT, and alkaline phosphatase were normal. Total protein was 7.4, albumin 3.4. We did repeat CT scan of the head and the CT scan was done without contrast. There is no intracranial hemorrhage or subdural hematoma. Ventricles are normal in size. There is no mass or shift of the midline. There is extensive decreased density in the periventricular white matter, suggesting chronic microvascular changes. There has been no change from the recent study. There is no mass or shift to midline. There is slight mucosal thickening of the right maxillary sinus. Remaining sinuses are clear. There is an extracranial soft tissue swelling with the right side of the head. ASSESSMENT AND PLAN: In summary, this is a 69-year-old male patient who was basically transferred from [facility] on account of new onset of seizures. CT scan was unremarkable. His lab work was mostly unremarkable except slightly elevated creatinine. He was given loading dose of Keppra. We will start him on IV fluid and I have consulted Dr. Beltrán to assist in his management. DANIEL GRAY MD DR: ROBERTO/dontae JOB#: [id number] / [id number]
[2020-04-14] MEDS: ACETAMINOPHEN 500 MG TABLET PO SCH (20:04)
[2020-04-14] MEDS: traZODone 100 MG TABLET. PO SCH (20:04)
[2020-04-14] MEDS: OLANZapine 5 MG TABLET PO SCH (20:04)
[2020-04-14] MEDS: MELATONIN 3 MG TABLET PO SCH (20:04)
[2020-04-14] MEDS: SERTRALINE 100 MG TABLET. PO SCH (20:04)
[2020-04-14] MEDS ORDERED: AMITRIPTYLINE HCL 50 MG TABLET PO SCH (21:00)
[2020-04-14] MEDS ORDERED: LEVETIRACETAM 1000 MG PO SCH (21:00)
[2020-04-15] VITALS (16 sets, daily range): BP systolic 51–138; BP diastolic 35–84
[2020-04-15] MEDS: IV DEXTROSE 5% 1,000 ML IV SCH ×2 (05:06→19:41)
[2020-04-15 06:15] LABS: HEMOGLOBIN 11.3 g/dL (13.0-17.5); RED BLOOD COUNT 3.78 x10^6/uL (4.30-5.70); RED CELL DISTRIBUTION WIDTH 13.8 % (11.5-14.5); WHITE BLOOD COUNT 9.9 x10^3/uL (4.0-11.0)
[2020-04-15 06:32] LABS: ALBUMIN 2.6 g/dL (3.4-5.0); ALBUMIN/GLOBULIN RATIO 0.8 (1.0-1.7); CREATININE 1.3 mg/dL (0.7-1.3); GFR 54.7; POTASSIUM 3.9 mmol/L (3.5-5.1); TOTAL BILIRUBIN 0.4 mg/dL (0.2-1.0); TOTAL PROTEIN 5.9 g/dL (6.4-8.2)
[2020-04-15] MEDS: POTASSIUM CHLORIDE 20 MEQ TABLET.ER. PO SCH (08:32)
[2020-04-15] MEDS: ACETAMINOPHEN 500 MG TABLET PO SCH ×2 (08:32→20:30)
[2020-04-15] MEDS: TAMSULOSIN 0.4 MG CAP.ER.24H. PO SCH (08:32)
[2020-04-15] MEDS: FINASTERIDE 5 MG TABLET PO SCH (08:32)
[2020-04-15] MEDS: POLYETHYLENE GLYCOL 3350 17 GM PACKET. PO SCH (08:32)
[2020-04-15] MEDS: DOCUSATE 100 MG/10 ML SOLUTION. PO SCH (08:32)
[2020-04-15] MEDS ORDERED: IV 1/2 NORMAL SALINE 1,000 ML IV ONE ×2 (16:00→17:30)
--- NOTE | 2020-04-15 17:47 | PN ---
DATE: 04/15/2020 SUBJECTIVE: The patient is resting in bed, in Trendelenburg position. His blood pressure is slightly low. He is sleepy, apparently has received trazodone twice last night as well as restless, yesterday apparently was also restless, tachycardic, hypertensive. However, once he has an indwelling Alvarez catheter about 1400 mL of urine was drained after which he settled down according to nursing staff. He has had no reported seizures after arrival here. OBJECTIVE: VITAL SIGNS: When I examined him this afternoon, his heart rate was 96, blood pressure was 118/79. In fact, his blood pressure was much lower than that and we ended up giving him a liter of half normal saline. His temperature was 98.2, respiratory rate was 19 and oxygen saturation was 99% on 2 liters of oxygen. HEAD, EYES, EARS, NOSE AND THROAT: Showed normocephalic and atraumatic. NECK: Supple. HEART: Showed normal first and second heart sounds with no gallop, rub or murmur. CHEST: Clear to auscultation. No crepitation or rhonchi. ABDOMEN: Distended, soft, nontender. NEUROLOGIC: He is very sleepy, but arousable. All cranial nerves are intact. He moves extremities spontaneously. ASSESSMENT: The patient was [facility] with seizure-like activity. The description was very clear; however, the patient had a fall, hitting his face and head the night before admission. Facial bone x-ray revealed evidence of fracture of his nose. However, at this time, a CT scan showed no evidence of any intracranial pathology. Given his fall and new onset of what seemed to be seizure disorder, the patient was admitted to [facility] to the ICU. He has received a loading dose of Keppra 1000 mg twice a day, I cut down the dose to 500 mg IV twice a day. He was also to have urinary retention and once an indwelling Alvarez catheter was put in 1400 mL of urine were drained probably the explanation for his acute kidney injury. Other medical problems include hypothyroidism, benign prostatic hypertrophy, gastroesophageal reflux disease, chronic obstructive pulmonary disease and obstructive sleep apnea as well as dementia. PLAN: To infuse a liter of half normal saline. Continue with D5W. I cut down Keppra to 500 mg twice a day. An attempt was made to call the mathematical technician at [facility] to arrange for an inpatient EEG to confirm refute the possibility of seizures. Once his blood pressure is rectified and we need to cut down his sedation and consult physical and occupational therapy. DANIEL GRAY MD DR: ROBERTO/dontae JOB#: [id number] / [id number]
[2020-04-15 17:55] LABS: BASO # 0.1 x10^3/uL (0.0-0.2); BASO % 1 % (0-3); EOS # 0.6 x10^3/uL (0.0-0.7); EOS % 8 % (0-3); HEMATOCRIT 29.3 % (39.0-53.0); HEMOGLOBIN 9.8 g/dL (13.0-17.5); LYMPH # 1.7 x10^3/uL (1.0-4.8); LYMPH % 22 % (24-48); MEAN CORPUSCULAR HEMOGLOBIN 30 pg (25-35); MEAN CORPUSCULAR HGB CONC 33 g/dL (31-37); MEAN CORPUSCULAR VOLUME 90 fL (79-100); MONO # 0.7 x10^3/uL (0.0-1.1); MONO % 9 % (0-9); NEUT # 4.7 x10^3uL (1.8-7.7); NEUT % 60 % (31-73); PLATELET COUNT 151 x10^3/uL (140-400); RED BLOOD COUNT 3.26 x10^6/uL (4.30-5.70); RED CELL DISTRIBUTION WIDTH 14.1 % (11.5-14.5); WHITE BLOOD COUNT 7.8 x10^3/uL (4.0-11.0)
[2020-04-15 18:02] LABS: CALCIUM 7.4 mg/dL (8.5-10.1); CREATININE 1.3 mg/dL (0.7-1.3); GFR 54.7; POTASSIUM 4.1 mmol/L (3.5-5.1)
[2020-04-15 18:08] LABS: ALBUMIN 2.3 g/dL (3.4-5.0); ALBUMIN/GLOBULIN RATIO 0.8 (1.0-1.7); TOTAL BILIRUBIN 0.4 mg/dL (0.2-1.0); TOTAL PROTEIN 5.1 g/dL (6.4-8.2)
[2020-04-15] MEDS: traZODone 100 MG TABLET. PO SCH (20:30)
[2020-04-15] MEDS: SERTRALINE 100 MG TABLET. PO SCH (20:30)
[2020-04-15] MEDS: OLANZapine 5 MG TABLET PO SCH (20:30)
[2020-04-15] MEDS: MELATONIN 3 MG TABLET PO SCH (20:30)
[2020-04-16] VITALS (12 sets, daily range): BP systolic 63–120; BP diastolic 38–76
--- NOTE | 2020-04-16 00:45 | PN ---
DATE: 04/15/2020 SUBJECTIVE: The patient has been drowsy this morning. He was given trazodone twice last night. According to the nursing staff, the patient has not had any recurrent seizure-like activities. This morning, he is not able to communicate because of drowsiness. OBJECTIVE: GENERAL: Well-developed, well-nourished male, not in acute distress. VITAL SIGNS: Blood pressure 111/67, respiratory rate 22, pulse is 115, temperature 98.3, and oxygen saturation 97% on room air. HEENT: Normocephalic, atraumatic, otherwise unremarkable. NECK: Supple. Negative for carotid bruit, lymphadenopathy or thyromegaly. LUNGS: Clear to A and P. CARDIOVASCULAR: Regular rate and rhythm, normal S1, S2. ABDOMEN: Soft. Bowel sounds positive. EXTREMITIES: Negative for cyanosis, clubbing, pitting edema. NEUROLOGIC EXAM: The patient is drowsy, not able to cooperate with neurological examination. However, the pupils are equal and sluggishly reactive to light. The eye movements are slow on horizontal gaze. No facial motor or sensory deficit. Motor examination: No focal muscle bulk wasting. The strength is 4/5 throughout. Sensory examination: Normal pinprick and light touch senses. Deep tendon reflexes were hypoactive with absent Achilles responses. Gait not tested. LABORATORY DATA: CBC revealed white blood cells of 7800, hemoglobin 9.8, hematocrit 29.3, platelet count 151,000. Chemistry revealed sodium 140, potassium 4.1, chloride 107, CO2 is 30, BUN 39, creatinine 1.3, glucose 94, calcium is 7.4. Liver enzymes are normal. IMPRESSION: 1. New onset of seizure-like activities, described as generalized movements of the upper and lower extremities. No recurrence. The patient has been on Keppra 1000 mg twice daily. 2. Multiple medical problems, include chronic obstructive pulmonary disease, hypothyroidism, gastroesophageal reflux disease, renal insufficiency and dehydration. 3. Multiple psychiatric problems, include dementia of Alzheimer type, posttraumatic stress disorder with intermittent psychotic features. RECOMMENDATIONS: 1. Await electroencephalogram. 2. Continue with current management initiated by Dr. Alston and rehydration. 3. Avoid excessive sedation as possible. 4. Physical therapy evaluation. M Rubin BIRCH MD DR: SUNSHINE/dontae JOB#: [id number] / [id number]
[2020-04-16 06:02] LABS: HEMATOCRIT 24.6 % (39.0-53.0); HEMOGLOBIN 8.3 g/dL (13.0-17.5); RED BLOOD COUNT 2.73 x10^6/uL (4.30-5.70); RED CELL DISTRIBUTION WIDTH 13.8 % (11.5-14.5)
[2020-04-16 06:22] LABS: ALBUMIN/GLOBULIN RATIO 0.8 (1.0-1.7); CALCIUM 6.9 mg/dL (8.5-10.1); CREATININE 1.1 mg/dL (0.7-1.3); GFR 66.4; POTASSIUM 3.7 mmol/L (3.5-5.1); TOTAL BILIRUBIN 0.3 mg/dL (0.2-1.0); TOTAL PROTEIN 4.5 g/dL (6.4-8.2)
[2020-04-16] MEDS: TAMSULOSIN 0.4 MG CAP.ER.24H. PO SCH (07:56)
[2020-04-16] MEDS: POLYETHYLENE GLYCOL 3350 17 GM PACKET. PO SCH (07:56)
[2020-04-16] MEDS: FINASTERIDE 5 MG TABLET PO SCH (07:57)
[2020-04-16] MEDS: POTASSIUM CHLORIDE 20 MEQ TABLET.ER. PO SCH (07:57)
[2020-04-16] MEDS: ACETAMINOPHEN 500 MG TABLET PO SCH ×2 (07:57→20:30)
[2020-04-16] MEDS: DOCUSATE 100 MG/10 ML SOLUTION. PO SCH (07:57)
[2020-04-16] MEDS: IV NORMAL SALINE 1,000ML 1,000 ML IV SCH ×2 (07:58→08:45)
--- NOTE | 2020-04-16 10:44 | PN ---
DATE: 04/16/2020 ATTENDING PHYSICIANS: Dr. Alston and Dr. Sinha. CHIEF COMPLAINT: Witnessed seizures. SUBJECTIVE: The patient is pleasantly confused. He is appropriate. He is somewhat responsive. He remains quite confused. OBJECTIVE FINDINGS: CT of the head showed no structural lesions or bleeds. VITAL SIGNS: Showed a blood pressure of 104/63, pulse is 77 and regular, temperature 97.0 degrees Fahrenheit, oxygen saturation 100% on 2 liters of nasal cannula. HEENT: Head is without new trauma. Pupils are reactive. Sclerae nonicteric. Oropharynx is clear. NECK: Supple, no bruits. LUNGS: Clear with good breath sounds. CARDIOVASCULAR: Showed regular heart tones. No gallops. ABDOMEN: Soft, nontender, no organomegaly. EXTREMITIES: Show no cyanosis. NEUROLOGIC: Pleasantly confused. He is still bedridden. Alvarez catheter is in place. LABORATORY DATA: Hemoglobin is dilutional and has come down to 8.3 g/dL, white count of 6000. Creatinine is 1.1 mg/dL, potassium, electrolytes are within normal range. ASSESSMENT: 1. This 69-year-old gentleman had witnessed seizure-like activities, no recurrence. He has been on Keppra. 2. Chronic obstructive pulmonary disease, stable. 3. Hypothyroidism, on replacement. 4. Profound dementia. 5. Mild dehydration. 6. Posttraumatic stress disorder with intermittent psychosis. 7. Gastroesophageal reflux. PLAN: 1. Await EEG has been ordered. 2. Continue the Keppra as ordered. 3. Simplification of meds. The patient is a DNR per advance directive. The goal is to get him back up to the [facility] when he stabilizes. JAYME SINHA MD DR: JEANCARLOS/dontae JOB#: [id number] / [id number]
--- NOTE | 2020-04-16 11:13 | PN ---
DATE: SUBJECTIVE: The patient has not had any recurrent seizure-like activities since admission to ICU. He is demented and unable to provide any information. OBJECTIVE: GENERAL: Well-developed, well-nourished male, not in acute distress. VITAL SIGNS: Blood pressure 104/63, respiratory rate 14, pulse is 77 and regular, temperature 97.8, oxygen saturation 100% on 2 liters by nasal cannula. HEENT: Normocephalic, atraumatic, otherwise unremarkable. NECK: Supple. Negative for carotid bruit, lymphadenopathy or thyromegaly. LUNGS: Clear to A and P. CARDIOVASCULAR: Regular rate and rhythm, normal S1, S2. ABDOMEN: Soft. Bowel sounds positive. EXTREMITIES: Negative for cyanosis, clubbing or edema. NEUROLOGICAL EXAM: Mental Status: The patient is alert, but does not answer any question. He does not follow any commands. Further evaluation is limited at this time because of underlying advanced dementia. Cranial nerves; no facial motor or sensory deficit. The pupils are equal and reactive to light and accommodation. The extraocular movements are intact. There is no nystagmus. There is no facial motor or sensory deficit. Hearing is intact bilaterally. The palate is elevated symmetrically. Sternocleidomastoid muscles are powerful bilaterally. Motor examination: No focal muscle bulk was seen. The tone is normal. The strength is 4/5 throughout. Sensory examination revealed normal pinprick and light touch senses throughout. Deep tendon reflexes were symmetric and hypoactive with absent Achilles responses. Gait not tested. LABORATORY DATA: CBC revealed white blood cells of 6000, hemoglobin 8.3, hematocrit 24.6, platelet count 128 thousand. Chemistry: Sodium 139, potassium 3.7, chloride 107, CO2 of 28, BUN 27, creatinine 1.1, glucose 121, calcium 6.9. IMPRESSION: 1. Possible new onset of seizure, etiology uncertain; however, the patient has not had any recurrent seizures since admission. 2. Advanced dementia. 3. Multiple medical problems include chronic obstructive pulmonary disease, gastroesophageal reflux disease, renal insufficiency and dehydration. 4. Multiple medical and psychiatric problems include dementia of Alzheimer type with intermittent psychotic features. RECOMMENDATIONS: 1. Await for electroencephalogram. 2. Continue with current management initiated by Dr. Palma and Dr. Alston/Kailash. M F. HABIB, MD DR: SUNSHINE/dontae JOB#: [id number] / [id number]
[2020-04-16] MEDS: MELATONIN 3 MG TABLET PO SCH (20:30)
[2020-04-16] MEDS: traZODone 100 MG TABLET. PO SCH (20:30)
[2020-04-16] MEDS: SERTRALINE 100 MG TABLET. PO SCH (20:30)
[2020-04-16] MEDS: OLANZapine 5 MG TABLET PO SCH (20:30)
[2020-04-17 05:58] VITALS: BP 104/60
[2020-04-17 07:12] VITALS: BP 111/53
[2020-04-17] MEDS: TAMSULOSIN 0.4 MG CAP.ER.24H. PO SCH (08:50)
[2020-04-17] MEDS: POLYETHYLENE GLYCOL 3350 17 GM PACKET. PO SCH (08:50)
[2020-04-17] MEDS: FINASTERIDE 5 MG TABLET PO SCH (08:50)
[2020-04-17] MEDS: DOCUSATE 100 MG/10 ML SOLUTION. PO SCH (08:50)
[2020-04-17] MEDS: POTASSIUM CHLORIDE 20 MEQ TABLET.ER. PO SCH (08:50)
[2020-04-17] MEDS: ACETAMINOPHEN 500 MG TABLET PO SCH (08:59)
[2020-04-17] MEDS: IV NORMAL SALINE 1,000ML 1,000 ML IV SCH (09:05)
--- NOTE | 2020-04-17 10:01 | PN ---
DATE: SUBJECTIVE: The patient is drowsy and unable to communicate at this time. He has not had any recurrent seizure-like activities since being in the ICU. OBJECTIVE: GENERAL: Well-developed, well-nourished male, not in acute distress. VITAL SIGNS: Blood pressure 111/53, respiratory rate 16, pulse is 75, temperature 97.3, oxygen saturation is 94% on 2 liters by nasal cannula. HEENT: Normocephalic, atraumatic, otherwise unremarkable. NECK: Supple. Negative for carotid bruit, lymphadenopathy or thyromegaly. LUNGS: Clear to A and P. CARDIOVASCULAR: Regular rate and rhythm. Normal S1, S2. ABDOMEN: Soft. Bowel sounds positive. EXTREMITIES: Negative for cyanosis, clubbing or pitting edema. NEUROLOGICAL EXAM: Mental Status: The patient is drowsy at this time, but he has been awake throughout the day. Cranial nerves are grossly intact. No focal motor or sensory deficit. The strength is 4/5 throughout. Deep tendon reflexes were symmetric and hypoactive with absent Achilles responses. Gait not tested. ELECTROENCEPHALOGRAM: This is a 24-channel EEG was performed, using the standard international 10-20 electrode placement system. Photic stimulation and hyperventilation were not performed. The patient was sedated with Ativan. The EEG obtained with the patient in the awake state characterized by mild slowing of the posterior dominant rhythm at 6-7 cycles per seconds with an amplitude of 25-35 microvolts. It was bilaterally symmetric without attenuation with eye opening. The background shows diffuse slowing of theta activities at frequency of 6-7 cycles per seconds throughout the recording with muscle and movement artifacts contamination of the background activities. None of the stimulation was performed as the patient is unable to perform hyperventilation. EKG artifacts were also seen throughout the recording. IMPRESSION: This is a mildly abnormal waking EEG record because of slowing of the posterior dominant rhythm and diffuse slowing of the background activities. These findings are suggestive of diffuse cerebral dysfunctions. No epileptiform activities were seen. The lack of epileptiform discharges does not always rule out seizure; therefore, clinical correlation is advised. IMPRESSION: 1. Possible seizure-like activities, etiology uncertain, probably due to medication side effects. 2. Negative EEG for seizure activity, but positive for mild diffuse cerebral dysfunctions. 3. Multiple medical problems include advanced dementia of Alzheimer type, chronic obstructive pulmonary disease, gastroesophageal reflux disease, renal insufficiency and dehydration. RECOMMENDATIONS: 1. Continue with current medical and psychiatric care. 2. Agree with the transfer of the patient to [facility]. 3. We will try tapering Keppra gradually and then discontinue it completely. Should the patient have recurrent witnessed seizure-like activity, we will resume Keppra as needed. 4. We will follow the patient in the [facility] and make further evaluations. M Rubin BIRCH MD DR: SUNSHINE/dontae JOB#: [id number] / [id number]
[2020-04-17 11:15] VITALS: BP 127/73
--- NOTE | 2020-04-17 12:19 | DS ---
DATE OF DISCHARGE: 04/17/2020 ATTENDING PHYSICIAN: Dr. Alston. FINAL DISCHARGE DIAGNOSES: 1. Idiopathic seizure disorder, witnessed. 2. Profound dementia. 3. Essential hypertension. 4. Prostatic hypertrophy. 5. Hypothyroidism. 6. Gastroesophageal reflux disease. 7. Chronic obstructive pulmonary disease. 8. Obstructive sleep apnea. 9. Profound dementia. HISTORY OF PRESENT ILLNESS: This is a 69-year-old gentleman from the [facility] transferred here on 04/14/2020 when the nursing staff stated the patient had what seems to be a seizure-like activity. Description is not very clear. He did fall. He was dizzy, hitting his face and an initial x-ray showed a nasal fracture. CT of the head did not show any intracranial pathology. He was transferred here for further treatment and evaluation. He definitely had a concussion. PHYSICAL EXAMINATION: Please see the dictated note. PERTINENT LABORATORY AND X-RAY STUDIES: The CT of the head showed no intracranial pathology. Electroencephalogram was still pending at the time of discharge. Hemoglobin maintained at 8.3 g/dL with white count of 6000. Electrolytes within normal range. Creatinine 1.1 mg/dL. Troponin levels all within normal range. COURSE IN HOSPITAL: The patient was admitted. He was started on Keppra. Neurology consultation is on the chart. EEG was obtained. Results are still pending. Dr. Beltrán's recommendation on the chart. We will continue the Keppra. On the fourth hospital day, he was able to ambulate with 1:1 assistance. He was still a little unsteady. Some of the meds have been simplified. His blood pressure on the day of discharge was 111/53, pulse is 75 and regular. He was afebrile and room air saturating 94%. Therefore, the patient was discharged from the acute unit to go back up to [facility]. We shall continue his Proscar 5 mg daily, Keppra 1000 mg b.i.d., Ativan p.r.n., magnesium hydroxide, Zyprexa Zydis 5 mg p.r.n., MiraLax, potassium, risperidone, 100 mg of Zoloft and Flomax 0.4 mg daily. His prognosis is guarded. He has a DNR per advanced directives. The patient was then discharged from our hospital in stable condition with explicit instructions and followup care. JAYME SINHA MD DR: JEANCARLOS/dontae JOB#: [id number] / [id number] SMITA Chappell MD, AHMED MD
[2020-04-17 14:21] VITALS: BP 101/58
[2020-04-17] MEDS ORDERED: levETIRAcetam 500 MG TABLET PO SCH (21:00)
== END 2020-04-17 15:30 | DRG 100 ==
LOC: ICU 09:11
PROVIDERS: ADMIT Internal Medicine; ATTEND Internal Medicine
PROC: 4A00X4Z Measurement of Central Nervous Electrical Activity, External Approach (ICD-10-PCS; principal; 2020-04-17)
DX: G40.909 Epilepsy, unspecified, not intractable, without status epilepticus (principal); E43 Unspecified severe protein-calorie malnutrition; D64.9 Anemia, unspecified; E03.9 Hypothyroidism, unspecified; E86.0 Dehydration; F43.10 Post-traumatic stress disorder, unspecified; G30.9 Alzheimer's disease, unspecified; F02.80 Dementia in other diseases classified elsewhere, unspecified severity, without behavioral disturbance, psychotic disturbance, mood disturbance, and anxiety; G47.33 Obstructive sleep apnea (adult) (pediatric); I10 Essential (primary) hypertension; J44.9 Chronic obstructive pulmonary disease, unspecified; K21.9 Gastro-esophageal reflux disease without esophagitis; N28.9 Disorder of kidney and ureter, unspecified; N40.1 Benign prostatic hyperplasia with lower urinary tract symptoms; R33.8 Other retention of urine; S02.2XXA Fracture of nasal bones, initial encounter for closed fracture; W18.30XA Fall on same level, unspecified, initial encounter; Y93.89 Activity, other specified; Y92.89 Other specified places as the place of occurrence of the external cause; Y99.8 Other external cause status; Z87.891 Personal history of nicotine dependence; Z98.41 Cataract extraction status, right eye; Z98.42 Cataract extraction status, left eye; Z90.49 Acquired absence of other specified parts of digestive tract; Z66 Do not resuscitate; Z74.01 Bed confinement status; Z68.25 Body mass index [BMI] 25.0-25.9, adult
CPT/HCPCS: 36415; 74018; 80053; 83605; 84484; 85025; 85027; 93005; 95816; J1953; J2060; J7030; 97530

== ENCOUNTER 2020-04-17 14:57 | Inpatient (IN) | payer MEDICARE, OTHER ==
[~2020-04-17] VITALS: Ht 165.1 cm; Wt 72.2 kg
[~2020-04-17 14:57] MED LIST changes: -OLAN5TAB5 PO; +OLAN5TAB99 PO
--- NOTE | 2020-04-17 15:52 | NUR ---
Admission Note with Justification for Admission to [facility] Patient admitted to [facility] for protective oversight for emergency stabilization of acute psychiatric crisis. Pt admitted from: [facility] Mode of arrival: Wheelchair from ICU [facility]om[facility] Staff Precipitating behaviors that initiated intake and admission: patient had previously been a patient on [facility] and was discharged to ICU for medical reasons. He has been impulsive. has poor safety awareness, is restless, does not sleep well and is waving his hands and feet, is unable to be at home with his because he is a danger to himself and others. Description of failure of out patient attempts at stabilization in previous setting list behavior and medication trials: Patient on [facility] prior to going to ICU for medical reasons. He has been on psychiatric medications since admit to stabilize his behaviors. Medications will need to be need to be adjusted further. Patient was taken to ER by his as he was unsafe to be home with her. Behaviors and assessment findings upon admission: Patient is very unsteady on his feet and is sitting in a wheelchair. He will need 1:1 supervision r/t his impulsiveness. Patient has had catheter while in ICU which was removed prior to admit. He had it for urine retention, it was removed before discharge. He has a scab from a prior fall where he sustained a broken nose. Patient will respond to his name but is not oriented to time, place or situation. Patient eats finger foods and needs encouragement/assistance with eating. Patient in good spirits and wearing a gown when he arrived. Plan: Admit for protective oversight for adjustment and stabilization of medications, behaviors and mood. Intense treatment regimen including groups, medication adjustments, therapy, consistent regimen for ADL's, self care, and sleep hygiene. Daily monitoring by Inpatient staff, Psychiatry, and Medical Physician.
[2020-04-17 15:56] VITALS: BP 119/72
[2020-04-17] MEDS ORDERED: METHYL SALICYLATE/MENTHOL TOPICAL OINTMENT 57GM TUBE. TP PRN (16:15)
[2020-04-17] MEDS ORDERED: ACETAMINOPHEN 325 MG TABLET PO PRN (16:15)
[2020-04-17] MEDS ORDERED: MAG HYDROX/AL HYDROX/SIMETH 30 ML ORAL.SUSP PO PRN (16:15)
--- NOTE | 2020-04-17 16:25 | NUR ---
patient unsteady, impulsive and high fall risk he is not able to be verbally redirected at this time and must be . He is not able to ambulate independently. Patient 1:[address] anshul huang.
[2020-04-17] MEDS ORDERED: NON FORMULARY ITEM (Magnesium Hydroxide (Milk Of Magnesia) 2,400 MG) PO PRN (16:30)
[2020-04-17] MEDS ORDERED: LORazepam 1 MG TABLET PO PRN (16:30)
--- NOTE | 2020-04-17 17:50 | NUR ---
Patient on regular diet with finger foods. He is unable to feed himself at this time and is having trouble comprehending how to bite the food on the fork. Patient is being fed by his 1:1 at this time.
[2020-04-17] MEDS: OLANZapine 5 MG TABLET PO SCH (20:12)
[2020-04-17] MEDS: SERTRALINE 100 MG TABLET. PO SCH (20:12)
[2020-04-17] MEDS: risperiDONE 0.5 MG TABLET. PO SCH (20:12)
[2020-04-17] MEDS ORDERED: levETIRAcetam 500 MG TABLET PO SCH (21:00)
--- NOTE | 2020-04-17 22:06 | PDOC ---
Exam Note: [place]ber Note: Please also refer to the separate dictated note~for this date of service dictated separately.~Patient seen individually. Discussed the patient with Nursing staff reviewed the chart.~Reviewed interim history and current functioning. Reviewed vital signs,~Labs/ Radiology~and current medications noted below. Continue current treatment with the changes noted in the dictated addendum note Assessment: Vital Signs/I&O: Vital Signs Date Time Temp Pulse Resp B/P (MAP) Pulse Ox O2 Delivery O2 Flow Rate FiO2 04/17/20 15:56 98.5 94 20 119/72 (88) 95 Room Air Current Medications: Meds: Current Medications Medications (Trade) Dose Ordered Sig/Phi Route PRN Reason Start Time Stop Time Status Last Admin Dose Admin Olanzapine (ZyPREXA) 5 mg QHS PO 04/17/20 21:00 04/17/20 20:12 Risperidone (RisperDAL) 0.25 mg BID PO 04/17/20 21:00 04/17/20 20:12 Sertraline HCl (Zoloft) 100 mg QHS PO 04/17/20 21:00 04/17/20 20:12 Levetiracetam (Keppra) 1,000 mg BID PO 04/17/20 21:00 04/17/20 20:12 I have reviewed the current psychotropics carefully including drug interactions. Risk benefit ratio favors no change other than as noted in my dictated progress note. Diagnosis: Problems: (1) Major neurocognitive disorder, due to vascular disease, with behavioral disturbance, mild (2) Major neurocognitive disorder (3) Anxiety disorder (4) Dementia in Alzheimer's disease with delusions (5) Dementia in Alzheimer's disease with depression (6) Dementia, vascular, with delusions (7) Dementia, vascular, with depression (8) Impulse control disorder SMITA TOLEDO MD Apr 17, 2020 22:06
--- NOTE | 2020-04-17 23:59 | NUR ---
Patient in the day room on assumption of care, 1:1 with staff for safety. He is in good spirits. He continues to be very impulsive, repeatedly attempting to get up and ambulate without assistance. He is compliant with his medications taken crushed in pudding. Cooperative with care. Patient has not voided at all since removal of connor catheter in ICU. Bladder scan reveals 390mL. Patient pre-medicated with Ativan in preparation for straight cath. Procedure performed with staff assist of 4. Patient tolerated the procedure well. 600mL of urine drained. Urine sample sent to lab, results appear negative. Will continue to monitor and report to oncoming shift. Addendum: 04/18/20 at 0225 by EDWARDO DONATO RN RN Speech eval for swallow study ordered. Patient appears to be having difficulty with thin liquids.
[2020-04-18 00:44] LABS: BACTERIA,URINE 0 /HPF (0-FEW); BILIRUBIN,URINE NEG (NEG); CLARITY,URINE CLEAR; COLOR,URINE YELLOW; GLUCOSE,URINE NEG (NEG); NITRITE,URINE NEG (NEG); RBC,URINE >40 /HPF (0-2); SQUAMOUS EPITHELIAL CELL,UR OCC /LPF; UROBILINOGEN,URINE 0.2 mg/dL (0.2 mg/dL)
--- NOTE | 2020-04-18 05:43 | NUR ---
Patient restless all night, slept very poorly. Bladder scan performed during AM cares, volume in excess of 600mL. Call placed to Dr. Linedr, orders received to place connor catheter. 16 serbian connor catheter placed at 0520 with staff assist of 4. Patient tolerated the procedure well and immediately appeared less restless. Output as of current time is 750mL of clear, yellow urine. Will continue to monitor and report to oncoming staff.
[2020-04-18 06:20] VITALS: BP 153/89
[2020-04-18 06:26] LABS: BASO # 0.1 x10^3/uL (0.0-0.2); BASO % 1 % (0-3); EOS # 0.5 x10^3/uL (0.0-0.7); EOS % 8 % (0-3); HEMATOCRIT 27.6 % (39.0-53.0); HEMOGLOBIN 9.4 g/dL (13.0-17.5); LYMPH # 1.1 x10^3/uL (1.0-4.8); LYMPH % 18 % (24-48); MEAN CORPUSCULAR HEMOGLOBIN 30 pg (25-35); MEAN CORPUSCULAR HGB CONC 34 g/dL (31-37); MEAN CORPUSCULAR VOLUME 88 fL (79-100); MONO # 0.6 x10^3/uL (0.0-1.1); MONO % 10 % (0-9); NEUT # 3.9 x10^3uL (1.8-7.7); NEUT % 63 % (31-73); PLATELET COUNT 173 x10^3/uL (140-400); RED BLOOD COUNT 3.13 x10^6/uL (4.30-5.70); RED CELL DISTRIBUTION WIDTH 13.4 % (11.5-14.5); WHITE BLOOD COUNT 6.2 x10^3/uL (4.0-11.0)
[2020-04-18 06:43] LABS: ALBUMIN 2.7 g/dL (3.4-5.0); ALBUMIN/GLOBULIN RATIO 0.8 (1.0-1.7); CALCIUM 8.2 mg/dL (8.5-10.1); GFR 74.1; POTASSIUM 3.5 mmol/L (3.5-5.1); TOTAL BILIRUBIN 0.2 mg/dL (0.2-1.0); TOTAL PROTEIN 5.9 g/dL (6.4-8.2)
[2020-04-18] MEDS: POTASSIUM CHLORIDE 20 MEQ TABLET.ER. PO SCH (08:54)
[2020-04-18] MEDS: TAMSULOSIN 0.4 MG CAP.ER.24H. PO SCH (08:55)
[2020-04-18] MEDS: POLYETHYLENE GLYCOL 3350 17 GM PACKET. PO SCH (08:55)
[2020-04-18] MEDS: risperiDONE 0.5 MG TABLET. PO SCH ×2 (08:55→19:42)
[2020-04-18] MEDS: levETIRAcetam 500 MG TABLET PO SCH ×2 (09:00→19:42)
--- NOTE | 2020-04-18 09:27 | HP ---
ADMIT DATE: 04/17/2020 PSYCHIATRIC ADMISSION HISTORY/EVALUATION This late entry 04/17 covers elements not covered in my initial note. SUBJECTIVE: I met with the patient evening of 04/17. Discussed with nursing staff, reviewed the chart, previously discussed with Laurie Somers, transport coordinator. IDENTIFYING DATA: The patient is a 69-year-old male referred back to us after he was medically stabilized in the ICU per Dr. Alston/Dr. Linder for a seizure episode he had while he was on the [facility] being treated for his diagnosis of major neurocognitive disorder, Alzheimer, vascular with delusion, depression, behavioral disturbance. The patient has been medically stabilized, remains restless, not sleeping well, impulsive, kicking and waving his hands during the night while asleep. Reportedly, he is unsafe to be at home with his . He has been medically stabilized, behaviors persist. He is extremely confused, paranoid, referred back for inpatient psychiatric stabilization. CHIEF COMPLAINT: "Oh!" The patient is anxious, restless, confused, seated in a chair to prevent a fall, with nursing staff sitting right by him. HISTORY OF PRESENT ILLNESS: The patient has a history of dementia, Alzheimer's vascular type. As stated above, his behaviors were dangerous, disruptive, unmanageable prior to his recent hospitalization on the [facility]. He was being stabilized and then had a seizure episode and treated in the ICU for this. He has had significant insomnia with poor appetite. MEDICAL HISTORY: History of seizure episode, COPD, hypothyroidism, GERD, BPH, hypertension, obstructive sleep apnea. PAST PSYCHIATRIC HISTORY: History of PTSD. DRUG ALLERGIES: Negative. CODE STATUS: DNR. ACCU-CHEKS: None. DIET: Finger foods. Takes meds crushed in pudding, ambulates ad-audrey, unsteady gait. CURRENT PSYCHOTROPICS: MRAD was reviewed. FAMILY HISTORY: Noncontributory. SOCIAL HISTORY: No history of alcohol, drug abuse, physical, sexual or elder abuse. Not known to be a perpetrator. REACTION TO HOSPITALIZATION: The patient oblivious of this. ASSETS: Supportive family. MENTAL STATUS EXAMINATION: The patient seen individually evening of 04/17. No CV, , pulmonary, eye, ENT system symptoms on review. Reliability poor. Insight, judgment, recent and remote memory, attention, concentration, fund of knowledge poor consistent with his diagnosis. IMPRESSION: Major neurocognitive disorder, Alzheimer, vascular with delusion, depression, behavioral disturbance; anxiety disorder, unspecified; impulse control disorder, unspecified. Rest diagnoses as above. PLAN: Admit to Geropsychiatry Unit at [facility]. I will see the patient daily individually from a psychiatric standpoint. Medical followup with Dr. Alston/Dr. Linder. Continue the patient on his current psychotropics, observe baseline, adjust further as clinically indicated. Estimated length of stay 7-9 days. DISPOSITION: Plans to prison when stable. MAN Douglas TOLEDO MD DR: BORIS/dontae JOB#: [id number] / [id number]
--- NOTE | 2020-04-18 10:15 | NUR ---
Nursing note: Pt continues to be 1:1 for safety. He was in the dining room for morning meds and assessment. He was compliant with meds crushed in pudding and cooperative with assessment. Pt did not appear to have any difficulty swallowing thin liquids at breakfast. Pt is very drowsy this morning, falling asleep in the wheelchair off and on. 0900 Keppra non administered d/t giving the new order of 500mg under the original 1000mg order. Pt is currently sitting quietly in the day room. Will continue to monitor.
--- NOTE | 2020-04-18 11:00 | NUR ---
ACTIVITY THERAPY ASSESSMENT Completed based on observation, interview and notes. Pt. was sleeping in day room during group activity. Pt. was nonsensical most of the time and required assistance. Throughout the interview, Pt. 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 Pt was falling asleep and when his head tipped forward he hit his nose on a wooden box. Pt has a broken nose so his eyes began to water and seemed to be in a bit of pain. Per notes, Pt. has been confused, disorientated, disorganized, restless, wandering, and door checking throughout his stay. Pt's psychosocial indicated Pt. enjos camping, photography, reading, exercise, traveling, and watching the news. Initial goal aimed to increase sensory stimulation: Pt. will participate in at least three group or individual Activity Therapy session before per week.
[2020-04-18 15:32] VITALS: BP 132/82
--- NOTE | 2020-04-18 16:00 | NUR ---
NEHEMIAH sent a referral to Leigh with [facility] to aid in helping pt find placement. NEHEMIAH informed pt that NEHEMIAH made the referral as it will be of great help to her as she is having her own physical trauma and scheduling procedures to aid in her pain.
[2020-04-18] MEDS: SERTRALINE 100 MG TABLET. PO SCH (19:42)
[2020-04-18] MEDS: OLANZapine 5 MG TABLET PO SCH (19:42)
[2020-04-18] MEDS: AMITRIPTYLINE HCL 25 MG TABLET PO SCH (19:43)
--- NOTE | 2020-04-18 22:01 | PDOC ---
Exam Note: Heber Note: Please also refer to the separate dictated note~for this date of service dictated separately.~Patient seen individually. Discussed the patient with Nursing staff reviewed the chart.~Reviewed interim history and current functioning. Reviewed vital signs,~Labs/ Radiology~and current medications noted below. Continue current treatment with the changes noted in the dictated addendum note Assessment: Vital Signs/I&O: Vital Signs Date Time Temp Pulse Resp B/P (MAP) Pulse Ox O2 Delivery O2 Flow Rate FiO2 04/18/20 15:32 98.1 59 16 132/82 (99) 96 04/17/20 15:56 Room Air I & O 04/17/20 04/17/20 04/18/20 15:00 23:00 07:00 Intake Total 240 ml 180 ml Output Total 1350 ml Balance 240 ml -1170 ml Labs: Laboratory Tests Test 04/17/20 23:50 04/18/20 05:56 Urine Collection Type Unknown Urine Color Yellow Urine Clarity Clear Urine pH 7.0 Urine Specific [place] 1.020 Urine Protein Neg (NEG-TRACE) Urine Glucose (UA) Neg mg/dL (NEG) Urine Ketones (Stick) Neg mg/dL (NEG) Urine Blood Large (NEG) Urine Nitrite Neg (NEG) Urine Bilirubin Neg (NEG) Urine Urobilinogen Dipstick 0.2 mg/dL (0.2 mg/dL) Urine Leukocyte Esterase Neg (NEG) Urine RBC >40 /HPF (0-2) Urine WBC 1-4 /HPF (0-4) Urine Squamous Epithelial Cells Occ /LPF Urine Transitional Epithelial Cells Occ /LPF Urine Bacteria 0 /HPF (0-FEW) White Blood Count 6.2 x10^3/uL (4.0-11.0) Red Blood Count 3.13 x10^6/uL (4.30-5.70) L Hemoglobin 9.4 g/dL (13.0-17.5) L Hematocrit 27.6 % (39.0-53.0) L Mean Corpuscular Volume 88 fL (79-100) Mean Corpuscular Hemoglobin 30 pg (25-35) Mean Corpuscular Hemoglobin Concent 34 g/dL (31-37) Red Cell Distribution Width 13.4 % (11.5-14.5) Platelet Count 173 x10^3/uL (140-400) Neutrophils (%) (Auto) 63 % (31-73) Lymphocytes (%) (Auto) 18 % (24-48) L Monocytes (%) (Auto) 10 % (0-9) H Eosinophils (%) (Auto) 8 % (0-3) H Basophils (%) (Auto) 1 % (0-3) Neutrophils # (Auto) 3.9 x10^3uL (1.8-7.7) Lymphocytes # (Auto) 1.1 x10^3/uL (1.0-4.8) Monocytes # (Auto) 0.6 x10^3/uL (0.0-1.1) Eosinophils # (Auto) 0.5 x10^3/uL (0.0-0.7) Basophils # (Auto) 0.1 x10^3/uL (0.0-0.2) Sodium Level 138 mmol/L (136-145) Potassium Level 3.5 mmol/L (3.5-5.1) Chloride Level 105 mmol/L (98-107) Carbon Dioxide Level 28 mmol/L (21-32) Anion Gap 5 (6-14) L Blood Urea Nitrogen 15 mg/dL (8-26) Creatinine 1.0 mg/dL (0.7-1.3) Estimated GFR (Cockcroft-Gault) 74.1 BUN/Creatinine Ratio 15 (6-20) Glucose Level 91 mg/dL (70-99) Calcium Level 8.2 mg/dL (8.5-10.1) L Total Bilirubin 0.2 mg/dL (0.2-1.0) Aspartate Amino Transferase (AST) 20 U/L (15-37) Alanine Aminotransferase (ALT) 21 U/L (16-63) Alkaline Phosphatase 73 U/L (46-116) Total Protein 5.9 g/dL (6.4-8.2) L Albumin 2.7 g/dL (3.4-5.0) L Albumin/Globulin Ratio 0.8 (1.0-1.7) L Current Medications: Meds: Current Medications Medications (Trade) Dose Ordered Sig/Phi Route PRN Reason Start Time Stop Time Status Last Admin Dose Admin Potassium Chloride (Klor-Con) 20 meq DAILYWBKFT PO 04/18/20 08:00 04/18/20 08:54 Tamsulosin HCl (Flomax) 0.4 mg DAILY PO 04/18/20 09:00 04/18/20 08:55 Polyethylene Glycol (miraLAX) 17 gm DAILY PO 04/18/20 09:00 04/18/20 08:55 Levetiracetam (Keppra) 500 mg BID PO 04/18/20 09:00 04/18/20 19:42 Amitriptyline HCl (Elavil) 25 mg QHS PO 04/18/20 21:00 04/18/20 19:43 I have reviewed the current psychotropics carefully including drug interactions. Risk benefit ratio favors no change other than as noted in my dictated progress note. Diagnosis: Problems: (1) Major neurocognitive disorder, due to vascular disease, with behavioral disturbance, mild (2) Anxiety disorder (3) Dementia in Alzheimer's disease with delusions (4) Dementia in Alzheimer's disease with depression (5) Dementia, vascular, with delusions (6) Dementia, vascular, with depression (7) Impulse control disorder SMITA TOLEDO MD Apr 18, 2020 22:01
--- NOTE | 2020-04-19 01:35 | NUR ---
Nursing Note The patient was restless and combative at the start of the shift. The patient took his medication crushed in pudding. the patient calmed down after receiving medications and walking aground the unit with staff. The patient showed interest in our "busy board." The patient remains 1:1 for safety. The patient is currently awake laying in bed.
[2020-04-19 06:32] VITALS: BP 122/74
[2020-04-19] MEDS: POTASSIUM CHLORIDE 20 MEQ TABLET.ER. PO SCH (08:28)
[2020-04-19] MEDS: TAMSULOSIN 0.4 MG CAP.ER.24H. PO SCH (08:29)
[2020-04-19] MEDS: POLYETHYLENE GLYCOL 3350 17 GM PACKET. PO SCH (08:29)
[2020-04-19] MEDS: levETIRAcetam 500 MG TABLET PO SCH ×2 (08:29→20:13)
[2020-04-19] MEDS: risperiDONE 0.5 MG TABLET. PO SCH ×2 (08:29→20:13)
--- NOTE | 2020-04-19 09:14 | NUR ---
Patient is calm this morning. He is politely eating breakfast and calmly took his medication. Patient compliant with assessment. patient still on a 1:1 for his safety, he has the tendency to attempt to get up out of his wheelchair.
[2020-04-19 15:53] VITALS: BP 124/74
--- NOTE | 2020-04-19 17:34 | NUR ---
Patient stated he is going to throw up at dinner. Patient appears to be coughing during his dinner meal but did not have this issue at breakfast or lunch.
[2020-04-19] MEDS: OLANZapine 5 MG TABLET PO SCH (20:13)
[2020-04-19] MEDS: LORazepam 0.5 MG TABLET PO PRN (20:13)
[2020-04-19] MEDS: SERTRALINE 100 MG TABLET. PO SCH (20:13)
[2020-04-19] MEDS: AMITRIPTYLINE HCL 25 MG TABLET PO SCH (20:13)
--- NOTE | 2020-04-19 22:10 | PDOC ---
Exam Note: Heber Note: Please also refer to the separate dictated note~for this date of service dictated separately.~Patient seen individually. Discussed the patient with Nursing staff reviewed the chart.~Reviewed interim history and current functioning. Reviewed vital signs,~Labs/ Radiology~and current medications noted below. Continue current treatment with the changes noted in the dictated addendum note Assessment: Vital Signs/I&O: Vital Signs Date Time Temp Pulse Resp B/P (MAP) Pulse Ox O2 Delivery O2 Flow Rate FiO2 04/19/20 15:53 98.5 69 18 124/74 (91) 98 04/17/20 15:56 Room Air I & O 04/18/20 04/18/20 04/19/20 15:00 23:00 07:00 Intake Total 720 ml 340 ml Output Total 300 ml 1600 ml Balance 720 ml 40 ml -1600 ml Current Medications: I have reviewed the current psychotropics carefully including drug interactions. Risk benefit ratio favors no change other than as noted in my dictated progress note. Diagnosis: Problems: (1) Major neurocognitive disorder, due to vascular disease, with behavioral disturbance, mild (2) Anxiety disorder (3) Dementia in Alzheimer's disease with delusions (4) Dementia in Alzheimer's disease with depression (5) Dementia, vascular, with delusions (6) Dementia, vascular, with depression (7) Impulse control disorder SMITA TOLEDO MD Apr 19, 2020 22:10
--- NOTE | 2020-04-19 23:46 | NUR ---
Nursing Note The patient was located in the day room for his assessment and medication pass. The patient took his medication crushed in ice cream. The patient was agitated and aggressive at the start of the shift and received PRN Ativan per PRN order with his HS medication. The patient is currently laying awake and restless in his room.
[2020-04-20] MEDS: MAGNESIUM HYDROXIDE 2,400 MG/30 ML ORAL.SUSP. PO PRN ×2 (01:26→08:32)
[2020-04-20 06:27] VITALS: BP 126/66
--- NOTE | 2020-04-20 07:07 | PDOC ---
Exam Note: Heber Note: This note is a late entry for 04/18/2020 covers elements not covered in my initial note. Subjective: The patient was seen individually in the evening of 04/18/2020. Per Ashley TURK, he slept 1 hour previous night. No seizure episodes noted. Review of Systems: No CV, , pulmonary, eye, ENT system symptoms on review. Mental Status Exam: Reasonably oriented to himself. Insight and judgment, recent and remote memory, attention and concentration, fund of knowledge is poor consistent with his diagnoses. Laboratory Data: Reviewed. Impression: Major neurocognitive disorder, Alzheimer, vascular with delusion, depression, behavioral disturbance. Anxiety disorder unspecified. Impulse c ontrol disorder unspecified. Plan: No change from initial note. We will start amitriptyline 25 mg h.s. to help with his insomnia. He remains on Keppra 500 mg b.i.d. for seizures, Risperdal 0.25 mg b.i.d., Zoloft 100 mg a day, Zyprexa and Ativan p.r.n. Assessment: Vital Signs/I&O: Vital Signs Date Time Temp Pulse Resp B/P (MAP) Pulse Ox O2 Delivery O2 Flow Rate FiO2 04/20/20 06:27 97.6 85 16 126/66 (86) 92 Room Air I & O 04/19/20 04/19/20 04/20/20 15:00 23:00 07:00 Intake Total 960 ml 480 ml Output Total 300 ml Balance 960 ml 180 ml Current Medications: I have reviewed the current psychotropics carefully including drug interactions. Risk benefit ratio favors no change other than as noted in my dictated progress note. Diagnosis: Problems: (1) Major neurocognitive disorder, due to vascular disease, with behavioral disturbance, mild (2) Anxiety disorder (3) Dementia in Alzheimer's disease with delusions (4) Dementia in Alzheimer's disease with depression (5) Dementia, vascular, with delusions (6) Dementia, vascular, with depression (7) Impulse control disorder SMITA TOLEDO MD Apr 20, 2020 07:07
--- NOTE | 2020-04-20 07:30 | PDOC ---
Exam Note: Heber Note: This note is a late entry for 04/19/2020 covers elements not covered in my initial note. Subjective: The patient was seen individually in the evening of 04/19/2020. Per Luis E TURK, he slept 0 hours previous night. He remains confused, calm, redirectable. No seizure episode. He remains on one-on-one status for unsteady gait. Review of Systems: No CV, , pulmonary, eye, ENT system symptoms on review. Reliability poor. Mental Status Exam: Reasonably oriented to himself. Insight and judgment, recent and remote memory, attention and concentration, fund of knowledge is poor consistent with his diagnoses. Laboratory Data: Reviewed. Impression: Major neurocognitive disorder, Alzheimer, vascular with delusion, depression, behavioral disturbance. Anxiety disorder unspecified. Impulse control disorder unspecified. Plan: No change from initial note. Assessment: Vital Signs/I&O: Vital Signs Date Time Temp Pulse Resp B/P (MAP) Pulse Ox O2 Delivery O2 Flow Rate FiO2 04/20/20 06:27 97.6 85 16 126/66 (86) 92 Room Air I & O 04/19/20 04/19/20 04/20/20 15:00 23:00 07:00 Intake Total 960 ml 480 ml Output Total 300 ml Balance 960 ml 180 ml Current Medications: I have reviewed the current psychotropics carefully including drug interactions. Risk benefit ratio favors no change other than as noted in my dictated progress note. Diagnosis: Problems: (1) Major neurocognitive disorder (2) Major neurocognitive disorder, due to vascular disease, with behavioral disturbance, mild (3) Anxiety disorder (4) Dementia in Alzheimer's disease with delusions (5) Dementia, vascular, with delusions (6) Dementia, vascular, with depression (7) Impulse control disorder (8) Dementia in Alzheimer's disease with depression SMITA TOLEDO MD Apr 20, 2020 07:30
[2020-04-20] MEDS: levETIRAcetam 500 MG TABLET PO SCH ×2 (07:56→19:48)
[2020-04-20] MEDS: POLYETHYLENE GLYCOL 3350 17 GM PACKET. PO SCH (07:56)
[2020-04-20] MEDS: TAMSULOSIN 0.4 MG CAP.ER.24H. PO SCH (07:56)
[2020-04-20] MEDS: POTASSIUM CHLORIDE 20 MEQ TABLET.ER. PO SCH (07:56)
[2020-04-20] MEDS: risperiDONE 0.5 MG TABLET. PO SCH ×2 (07:56→19:49)
--- NOTE | 2020-04-20 09:00 | NUR ---
Patient resting in his room. Patient did not sleep well last night so staff allowing therapeutic sleep this morning.
[2020-04-20 16:28] VITALS: BP 101/62
[2020-04-20] MEDS: AMITRIPTYLINE HCL 25 MG TABLET PO SCH (19:48)
[2020-04-20] MEDS: LORazepam 0.5 MG TABLET PO PRN ×2 (19:48→22:31)
[2020-04-20] MEDS: MELATONIN 3 MG TABLET PO SCH (19:50)
[2020-04-20] MEDS: OLANZapine 5 MG TABLET PO SCH (19:50)
[2020-04-20] MEDS: SERTRALINE 100 MG TABLET. PO SCH (19:50)
--- NOTE | 2020-04-20 22:17 | PDOC ---
Exam Note: Heber Note: Please also refer to the separate dictated note~for this date of service dictated separately.~Patient seen individually. Discussed the patient with Nursing staff reviewed the chart.~Reviewed interim history and current functioning. Reviewed vital signs,~Labs/ Radiology~and current medications noted below. Continue current treatment with the changes noted in the dictated addendum note Assessment: Vital Signs/I&O: Vital Signs Date Time Temp Pulse Resp B/P (MAP) Pulse Ox O2 Delivery O2 Flow Rate FiO2 04/20/20 16:28 97.9 88 20 101/62 (75) 100 04/20/20 06:27 Room Air I & O 04/19/20 04/19/20 04/20/20 15:00 23:00 07:00 Intake Total 960 ml 480 ml Output Total 300 ml Balance 960 ml 180 ml Current Medications: Meds: Current Medications Medications (Trade) Dose Ordered Sig/Phi Route PRN Reason Start Time Stop Time Status Last Admin Dose Admin Melatonin (Melatonin) 3 mg QHS PO 04/20/20 21:00 04/20/20 19:50 I have reviewed the current psychotropics carefully including drug interactions. Risk benefit ratio favors no change other than as noted in my dictated progress note. Diagnosis: Problems: (1) Major neurocognitive disorder, due to vascular disease, with behavioral disturbance, mild (2) Anxiety disorder (3) Dementia in Alzheimer's disease with delusions (4) Dementia in Alzheimer's disease with depression (5) Dementia, vascular, with delusions (6) Dementia, vascular, with depression (7) Impulse control disorder SMITA TOLEDO MD Apr 20, 2020 22:17
--- NOTE | 2020-04-20 23:59 | NUR ---
Patient is pacing in the hallway on assumption of care. He remains 1:1 for safety. Spent most of the evening in the day room, needing to be constantly redirected. Angry, combative and resistant to medications and assessments. PRN Ativan given with HS meds, which he finally took after multiple attempts, crushed in pudding. Patient continues to be very restless. PRN repeat Ativan and Zydis given at 2230. Minimal effect. Patient remains 1:1 for safety at present time, still awake and restless in bed. Will continue to monitor.
[2020-04-21 05:02] VITALS: BP 112/57
[2020-04-21] MEDS: TAMSULOSIN 0.4 MG CAP.ER.24H. PO SCH (08:03)
[2020-04-21] MEDS: POTASSIUM CHLORIDE 20 MEQ TABLET.ER. PO SCH (08:03)
[2020-04-21] MEDS: levETIRAcetam 500 MG TABLET PO SCH ×2 (08:03→19:35)
[2020-04-21] MEDS: risperiDONE 0.5 MG TABLET. PO SCH ×2 (08:04→19:36)
[2020-04-21] MEDS: POLYETHYLENE GLYCOL 3350 17 GM PACKET. PO SCH (08:04)
[2020-04-21 09:12] LABS: BASO # 0.1 x10^3/uL (0.0-0.2); BASO % 1 % (0-3); EOS # 0.6 x10^3/uL (0.0-0.7); EOS % 7 % (0-3); HEMATOCRIT 31.1 % (39.0-53.0); HEMOGLOBIN 10.5 g/dL (13.0-17.5); LYMPH # 1.3 x10^3/uL (1.0-4.8); LYMPH % 15 % (24-48); MEAN CORPUSCULAR HEMOGLOBIN 30 pg (25-35); MEAN CORPUSCULAR HGB CONC 34 g/dL (31-37); MEAN CORPUSCULAR VOLUME 89 fL (79-100); MONO # 0.7 x10^3/uL (0.0-1.1); MONO % 8 % (0-9); NEUT % 69 % (31-73); PLATELET COUNT 277 x10^3/uL (140-400); RED CELL DISTRIBUTION WIDTH 14.2 % (11.5-14.5); WHITE BLOOD COUNT 8.7 x10^3/uL (4.0-11.0)
[2020-04-21 09:23] LABS: ALBUMIN 3.1 g/dL (3.4-5.0); ALBUMIN/GLOBULIN RATIO 0.9 (1.0-1.7); CALCIUM 8.7 mg/dL (8.5-10.1); CREATININE 1.3 mg/dL (0.7-1.3); GFR 54.7; POTASSIUM 3.6 mmol/L (3.5-5.1); TOTAL BILIRUBIN 0.2 mg/dL (0.2-1.0); TOTAL PROTEIN 6.7 g/dL (6.4-8.2)
--- NOTE | 2020-04-21 09:47 | PDOC ---
Exam Note: Heber Note: This note is a late entry for 04/20/2020 covers elements not covered in my initial note. Subjective: The patient was seen individually in the evening of 04/20/2020. Per Luis E TURK, he slept 1-1/2 hours previous night and 4 hour early this morning. His gait is unsteady. He ambulates with a walker, sometimes with assistance. Nursing staff will assess whether he can come off one-on-one in due course. Foleys bag has been changed, so that he is not dragging it around it, secured to prevent falls. He has had a speech evaluation due to cough and possible aspiration. Review of Systems: No CV, , pulmonary, eye, ENT system symptoms on review. Reliability poor. Mental Status Exam: Reasonably oriented to himself. Insight and judgment, recent and remote memory, attention and concentration, fund of knowledge is poor consistent with his diagnoses. Laboratory Data: Reviewed. Impression: Major neurocognitive disorder, Alzheimer, vascular with delusion, depression, behavioral disturbance. Anxiety disorder unspecified. Impulse control disorder unspecified. Plan: No change from initial note. Given his insomnia, he just slept 1-1/2 hours previous night. We will add melatonin 3 mg h.s. Rest unchanged. Assessment: Vital Signs/I&O: Vital Signs Date Time Temp Pulse Resp B/P (MAP) Pulse Ox O2 Delivery O2 Flow Rate FiO2 04/21/20 05:02 97.4 82 16 112/57 (75) 95 04/20/20 06:27 Room Air I & O 04/20/20 04/20/20 04/21/20 15:00 23:00 07:00 Intake Total 1080 ml 540 ml Output Total 300 ml 900 ml Balance 780 ml 540 ml -900 ml Labs: Laboratory Tests Test 04/21/20 08:58 White Blood Count 8.7 x10^3/uL (4.0-11.0) Red Blood Count 3.50 x10^6/uL (4.30-5.70) L Hemoglobin 10.5 g/dL (13.0-17.5) L Hematocrit 31.1 % (39.0-53.0) L Mean Corpuscular Volume 89 fL (79-100) Mean Corpuscular Hemoglobin 30 pg (25-35) Mean Corpuscular Hemoglobin Concent 34 g/dL (31-37) Red Cell Distribution Width 14.2 % (11.5-14.5) Platelet Count 277 x10^3/uL (140-400) Neutrophils (%) (Auto) 69 % (31-73) Lymphocytes (%) (Auto) 15 % (24-48) L Monocytes (%) (Auto) 8 % (0-9) Eosinophils (%) (Auto) 7 % (0-3) H Basophils (%) (Auto) 1 % (0-3) Neutrophils # (Auto) 6.0 x10^3uL (1.8-7.7) Lymphocytes # (Auto) 1.3 x10^3/uL (1.0-4.8) Monocytes # (Auto) 0.7 x10^3/uL (0.0-1.1) Eosinophils # (Auto) 0.6 x10^3/uL (0.0-0.7) Basophils # (Auto) 0.1 x10^3/uL (0.0-0.2) Sodium Level 141 mmol/L (136-145) Potassium Level 3.6 mmol/L (3.5-5.1) Chloride Level 104 mmol/L (98-107) Carbon Dioxide Level 32 mmol/L (21-32) Anion Gap 5 (6-14) L Blood Urea Nitrogen 22 mg/dL (8-26) Creatinine 1.3 mg/dL (0.7-1.3) Estimated GFR (Cockcroft-Gault) 54.7 BUN/Creatinine Ratio 17 (6-20) Glucose Level 115 mg/dL (70-99) H Calcium Level 8.7 mg/dL (8.5-10.1) Total Bilirubin 0.2 mg/dL (0.2-1.0) Aspartate Amino Transferase (AST) 20 U/L (15-37) Alanine Aminotransferase (ALT) 37 U/L (16-63) Alkaline Phosphatase 97 U/L (46-116) Total Protein 6.7 g/dL (6.4-8.2) Albumin 3.1 g/dL (3.4-5.0) L Albumin/Globulin Ratio 0.9 (1.0-1.7) L Current Medications: Meds: Current Medications Medications (Trade) Dose Ordered Sig/Phi Route PRN Reason Start Time Stop Time Status Last Admin Dose Admin Melatonin (Melatonin) 3 mg QHS PO 04/20/20 21:00 04/20/20 19:50 I have reviewed the current psychotropics carefully including drug interactions. Risk benefit ratio favors no change other than as noted in my dictated progress note. Diagnosis: Problems: (1) Major neurocognitive disorder, due to vascular disease, with behavioral disturbance, mild (2) Anxiety disorder (3) Dementia in Alzheimer's disease with delusions (4) Dementia in Alzheimer's disease with depression (5) Dementia, vascular, with delusions (6) Dementia, vascular, with depression (7) Impulse control disorder SMITA TOLEDO MD Apr 21, 2020 09:47
[2020-04-21 16:41] VITALS: BP 120/75
--- NOTE | 2020-04-21 17:00 | NUR ---
NEHEMIAH received an email from pt wanting to check in and see how pt was doing. Pt excerpt is below: "Thank you Nigel. Can he be given medication to sleep? I was told by his nurse that I. ICU he was sleeping much more. Do you need me to send you his document of directives regarding what he does & does not want? What about hospice care? I want to take care of him, but realize it may not work out. I was just diagnosed with extreme bosteoporosis and seeing a specialist CORNELIO. My spine is healing and I am in much less pain. Does Kain still wander? Thank you for referring us to your colleague". NEHEMIAH replied to pt : "He is on Remeron and Trazadone for sleep, but it doesnt appear to be helping. In ICU, they were actually giving him quite a few medications through his IV. One appears to be Ativan which keeps him pretty calm and I believe he got quite a bit of it when he was downstairs. And yes please, if you could send that to me, that would be great. To be honest, I dont think hospice would be a bad idea. If you want, we can do an evaluation to see if he meets hospice criteria? Kain does not wander as much but we do make sure that we are with him when he does to make sure that he does not fall". NEHEMIAH will follow up with Joya and have an assessment for Hospice completed.
--- NOTE | 2020-04-21 17:21 | NUR ---
Patient has been wandering unit most of the day. Has been calm and compliant with medications until about 1630. Pt became restless, agitated, intrusive. PRN zyprexa given.
[2020-04-21] MEDS: SERTRALINE 100 MG TABLET. PO SCH (19:35)
[2020-04-21] MEDS: AMITRIPTYLINE HCL 50 MG TABLET PO SCH (19:35)
[2020-04-21] MEDS: MELATONIN 3 MG TABLET PO SCH (19:36)
[2020-04-21] MEDS: OLANZapine 5 MG TABLET PO SCH (19:36)
[2020-04-21] MEDS: LORazepam 0.5 MG TABLET PO PRN (19:39)
--- NOTE | 2020-04-21 20:50 | NUR ---
Pt sitting in the day room under 1:1 supervision at shift change. Pt confused, disorganized, and restless, becoming agitated with re-direction. Pt cooperative with assessment and compliant with medications administered crushed in pudding followed by nectar thick liquids. PRN Ativan administered for agitation. Addendum: 04/23/20 at 1910 by RAVINDRA KUMAR RN Thickened liquids were actually honey thick not nectar as charted above.
--- NOTE | 2020-04-21 22:15 | PDOC ---
Exam Note: [place] Note: Please also refer to the separate dictated note~for this date of service dictated separately.~Patient seen individually. Discussed the patient with Nursing staff reviewed the chart.~Reviewed interim history and current functioning. Reviewed vital signs,~Labs/ Radiology~and current medications noted below. Continue current treatment with the changes noted in the dictated addendum note Assessment: Vital Signs/I&O: Vital Signs Date Time Temp Pulse Resp B/P (MAP) Pulse Ox O2 Delivery O2 Flow Rate FiO2 04/21/20 16:41 98.0 83 20 120/75 (90) 100 04/20/20 06:27 Room Air I & O 04/20/20 04/20/20 04/21/20 14:59 22:59 06:59 Intake Total 1080 ml 540 ml Output Total 300 ml 900 ml Balance 780 ml 540 ml -900 ml Labs: Laboratory Tests Test 04/21/20 08:58 White Blood Count 8.7 x10^3/uL (4.0-11.0) Red Blood Count 3.50 x10^6/uL (4.30-5.70) L Hemoglobin 10.5 g/dL (13.0-17.5) L Hematocrit 31.1 % (39.0-53.0) L Mean Corpuscular Volume 89 fL (79-100) Mean Corpuscular Hemoglobin 30 pg (25-35) Mean Corpuscular Hemoglobin Concent 34 g/dL (31-37) Red Cell Distribution Width 14.2 % (11.5-14.5) Platelet Count 277 x10^3/uL (140-400) Neutrophils (%) (Auto) 69 % (31-73) Lymphocytes (%) (Auto) 15 % (24-48) L Monocytes (%) (Auto) 8 % (0-9) Eosinophils (%) (Auto) 7 % (0-3) H Basophils (%) (Auto) 1 % (0-3) Neutrophils # (Auto) 6.0 x10^3uL (1.8-7.7) Lymphocytes # (Auto) 1.3 x10^3/uL (1.0-4.8) Monocytes # (Auto) 0.7 x10^3/uL (0.0-1.1) Eosinophils # (Auto) 0.6 x10^3/uL (0.0-0.7) Basophils # (Auto) 0.1 x10^3/uL (0.0-0.2) Sodium Level 141 mmol/L (136-145) Potassium Level 3.6 mmol/L (3.5-5.1) Chloride Level 104 mmol/L (98-107) Carbon Dioxide Level 32 mmol/L (21-32) Anion Gap 5 (6-14) L Blood Urea Nitrogen 22 mg/dL (8-26) Creatinine 1.3 mg/dL (0.7-1.3) Estimated GFR (Cockcroft-Gault) 54.7 BUN/Creatinine Ratio 17 (6-20) Glucose Level 115 mg/dL (70-99) H Calcium Level 8.7 mg/dL (8.5-10.1) Total Bilirubin 0.2 mg/dL (0.2-1.0) Aspartate Amino Transferase (AST) 20 U/L (15-37) Alanine Aminotransferase (ALT) 37 U/L (16-63) Alkaline Phosphatase 97 U/L (46-116) Total Protein 6.7 g/dL (6.4-8.2) Albumin 3.1 g/dL (3.4-5.0) L Albumin/Globulin Ratio 0.9 (1.0-1.7) L Current Medications: Meds: Current Medications Medications (Trade) Dose Ordered Sig/Phi Route PRN Reason Start Time Stop Time Status Last Admin Dose Admin Amitriptyline HCl (Elavil) 50 mg QHS PO 04/21/20 21:00 04/21/20 19:35 I have reviewed the current psychotropics carefully including drug interactions. Risk benefit ratio favors no change other than as noted in my dictated progress note. Diagnosis: Problems: (1) Major neurocognitive disorder, due to vascular disease, with behavioral disturbance, mild (2) Anxiety disorder (3) Dementia, vascular, with delusions (4) Dementia, vascular, with depression (5) Impulse control disorder (6) Dementia in Alzheimer's disease with depression (7) Dementia in Alzheimer's disease with delusions SMITA TOLEDO MD Apr 21, 2020 22:15
[2020-04-22 05:31] VITALS: BP 151/78
--- NOTE | 2020-04-22 07:19 | PDOC ---
Exam Note: [place] Note: This note is a late entry for 04/21/2020 covers elements not covered in my initial note. Subjective: The patient was seen individually in the evening of 04/21/2020. Per Josué TURK, he slept 3 hours previous night. Previous evening he was quite agitated, restless, confused. Diet has been changed to ground diet and he has to be fed by staff. He has not been aggressive but somewhat anxious, labile. Review of Systems: No CV, , pulmonary, eye, ENT system symptoms on review. Reliability poor. Mental Status Exam: Reasonably oriented to himself. Insight and judgment, recent and remote memory, attention and concentration, fund of knowledge is poor consistent with his diagnoses. Laboratory Data: Reviewed. Impression: Major neurocognitive disorder, Alzheimer, vascular with delusion, depression, behavioral disturbance. Anxiety disorder unspecified. Impulse control disorder unspecified. Plan: No change from initial note. The patient continues to sleep poorly. Starting the we will increase the amitriptyline to 50 mg h.s. Continue Risperdal 0.25 mg b.i.d., Zoloft 100 mg a day, Ativan and Zyprexa p.r.n. He remains on Keppra 500 mg b.i.d. for seizures. He remains on melatonin 3 mg h.s. Assessment: Vital Signs/I&O: Vital Signs Date Time Temp Pulse Resp B/P (MAP) Pulse Ox O2 Delivery O2 Flow Rate FiO2 04/22/20 05:31 98.1 93 22 151/78 (102) 98 04/20/20 06:27 Room Air I & O 04/21/20 04/21/20 04/22/20 15:00 23:00 07:00 Intake Total 440 ml 60 ml 120 ml Output Total 400 ml 300 ml Balance 40 ml 60 ml -180 ml Labs: Laboratory Tests Test 04/21/20 08:58 White Blood Count 8.7 x10^3/uL (4.0-11.0) Red Blood Count 3.50 x10^6/uL (4.30-5.70) L Hemoglobin 10.5 g/dL (13.0-17.5) L Hematocrit 31.1 % (39.0-53.0) L Mean Corpuscular Volume 89 fL (79-100) Mean Corpuscular Hemoglobin 30 pg (25-35) Mean Corpuscular Hemoglobin Concent 34 g/dL (31-37) Red Cell Distribution Width 14.2 % (11.5-14.5) Platelet Count 277 x10^3/uL (140-400) Neutrophils (%) (Auto) 69 % (31-73) Lymphocytes (%) (Auto) 15 % (24-48) L Monocytes (%) (Auto) 8 % (0-9) Eosinophils (%) (Auto) 7 % (0-3) H Basophils (%) (Auto) 1 % (0-3) Neutrophils # (Auto) 6.0 x10^3uL (1.8-7.7) Lymphocytes # (Auto) 1.3 x10^3/uL (1.0-4.8) Monocytes # (Auto) 0.7 x10^3/uL (0.0-1.1) Eosinophils # (Auto) 0.6 x10^3/uL (0.0-0.7) Basophils # (Auto) 0.1 x10^3/uL (0.0-0.2) Sodium Level 141 mmol/L (136-145) Potassium Level 3.6 mmol/L (3.5-5.1) Chloride Level 104 mmol/L (98-107) Carbon Dioxide Level 32 mmol/L (21-32) Anion Gap 5 (6-14) L Blood Urea Nitrogen 22 mg/dL (8-26) Creatinine 1.3 mg/dL (0.7-1.3) Estimated GFR (Cockcroft-Gault) 54.7 BUN/Creatinine Ratio 17 (6-20) Glucose Level 115 mg/dL (70-99) H Calcium Level 8.7 mg/dL (8.5-10.1) Total Bilirubin 0.2 mg/dL (0.2-1.0) Aspartate Amino Transferase (AST) 20 U/L (15-37) Alanine Aminotransferase (ALT) 37 U/L (16-63) Alkaline Phosphatase 97 U/L (46-116) Total Protein 6.7 g/dL (6.4-8.2) Albumin 3.1 g/dL (3.4-5.0) L Albumin/Globulin Ratio 0.9 (1.0-1.7) L Current Medications: Meds: Current Medications Medications (Trade) Dose Ordered Sig/Phi Route PRN Reason Start Time Stop Time Status Last Admin Dose Admin Amitriptyline HCl (Elavil) 50 mg QHS PO 04/21/20 21:00 04/21/20 19:35 I have reviewed the current psychotropics carefully including drug interactions. Risk benefit ratio favors no change other than as noted in my dictated progress note. Diagnosis: Problems: (1) Major neurocognitive disorder, due to vascular disease, with behavioral disturbance, mild (2) Anxiety disorder (3) Dementia in Alzheimer's disease with delusions (4) Dementia in Alzheimer's disease with depression (5) Dementia, vascular, with delusions (6) Dementia, vascular, with depression (7) Impulse control disorder SMITA TOLEDO MD Apr 22, 2020 07:19
[2020-04-22] MEDS: risperiDONE 0.5 MG TABLET. PO SCH ×2 (08:39→19:35)
[2020-04-22] MEDS: TAMSULOSIN 0.4 MG CAP.ER.24H. PO SCH (08:39)
[2020-04-22] MEDS: POTASSIUM CHLORIDE 20 MEQ TABLET.ER. PO SCH (08:40)
[2020-04-22] MEDS: levETIRAcetam 500 MG TABLET PO SCH ×2 (08:40→19:36)
[2020-04-22] MEDS: POLYETHYLENE GLYCOL 3350 17 GM PACKET. PO SCH (09:00)
--- NOTE | 2020-04-22 10:53 | NUR ---
SW replied to an email from pt re: her concerns as to information she received from pt sister, who revealed that she talked to nursing staff on ICU about pt care. Pt was concerned that she was not asked for a code number and feels that a violation of pt privacy was made as his sister is not on his paperwork, nor is she pt DPOA. SW replied back that her concerns will be shared with administration and SW will plan to follow up on the plan of action in this case.
[2020-04-22 15:32] VITALS: BP 127/78
--- NOTE | 2020-04-22 17:04 | NUR ---
Patient has been drowsy today. Sleeps while sitting up, but is in a restless sleep. Staff attempts to take patient to bed to nap, but patient gets back up again. Pt is compliant with his medications crushed in applesauce. Pts balance is good at the beginning of the day but does become unsteady as day progresses.
[2020-04-22] MEDS: MELATONIN 3 MG TABLET PO SCH (19:34)
[2020-04-22] MEDS: OLANZapine 5 MG TABLET PO SCH (19:35)
[2020-04-22] MEDS: AMITRIPTYLINE HCL 50 MG TABLET PO SCH (19:36)
[2020-04-22] MEDS: SERTRALINE 100 MG TABLET. PO SCH (19:36)
--- NOTE | 2020-04-22 21:17 | NUR ---
Pt sitting in the day room at shift change. Pt restless, disorganized, and confused. Pt cooperative with assessment and compliant with medications administered crushed in pudding followed by nectar thick liquids. Addendum: 04/23/20 at 1910 by RAVINDRA KUMAR RN Thickened liquids were actually honey thick not nectar as charted above.
--- NOTE | 2020-04-22 22:04 | PDOC ---
Exam Note: [place]ber Note: Please also refer to the separate dictated note~for this date of service dictated separately.~Patient seen individually. Discussed the patient with Nursing staff reviewed the chart.~Reviewed interim history and current functioning. Reviewed vital signs,~Labs/ Radiology~and current medications noted below. Continue current treatment with the changes noted in the dictated addendum note Assessment: Vital Signs/I&O: Vital Signs Date Time Temp Pulse Resp B/P (MAP) Pulse Ox O2 Delivery O2 Flow Rate FiO2 04/22/20 15:32 98.4 85 16 127/78 (94) 97 Room Air I & O 04/21/20 04/21/20 04/22/20 15:00 23:00 07:00 Intake Total 440 ml 60 ml 120 ml Output Total 400 ml 300 ml Balance 40 ml 60 ml -180 ml Current Medications: I have reviewed the current psychotropics carefully including drug interactions. Risk benefit ratio favors no change other than as noted in my dictated progress note. Diagnosis: Problems: (1) Major neurocognitive disorder, due to vascular disease, with behavioral disturbance, mild (2) Anxiety disorder (3) Dementia in Alzheimer's disease with delusions (4) Dementia in Alzheimer's disease with depression (5) Dementia, vascular, with delusions (6) Dementia, vascular, with depression (7) Impulse control disorder SMITA TOLEDO MD Apr 22, 2020 22:04
[2020-04-23 05:17] VITALS: BP 135/78
--- NOTE | 2020-04-23 06:59 | PDOC ---
Exam Note: Heber Note: This note is a late entry for 04/22/2020 covers elements not covered in my initial note. Subjective: The patient was seen individually in the evening of 04/22/2020. Per Josué TURK, he did not sleep at all previous night though he sleeps off and on during the day wandering in the hallways into other patients rooms, does redirect. Review of Systems: No CV, , pulmonary, eye, ENT system symptoms on review. Reliability poor. Mental Status Exam: Reasonably oriented to himself. Insight and judgment, recent and remote memory, attention and concentration, fund of knowledge is poor consistent with his diagnoses. Laboratory Data: Reviewed. Impression: Major neurocognitive disorder, Alzheimer, vascular with delusion, depression, behavioral disturbance. Anxiety disorder unspecified. Impulse control disorder unspecified. Plan: No change from initial note. We are increasing the amitriptyline from 25 mg h.s. to 50 mg h.s. We will see how his insomnia does with this. In the past we had added other psychotropics to assist with insomnia and then he got overtly sedated. We will have to weigh the pros and cons of doing this as we proceed further. Assessment: Vital Signs/I&O: Vital Signs Date Time Temp Pulse Resp B/P (MAP) Pulse Ox O2 Delivery O2 Flow Rate FiO2 04/23/20 05:17 97.2 70 18 135/78 (97) 93 Room Air I & O 04/22/20 04/22/20 04/23/20 15:00 23:00 07:00 Intake Total 600 ml 480 ml Output Total 300 ml Balance 600 ml 180 ml Current Medications: I have reviewed the current psychotropics carefully including drug interactions. Risk benefit ratio favors no change other than as noted in my dictated progress note. Diagnosis: Problems: (1) Anxiety disorder (2) Major neurocognitive disorder, due to vascular disease, with behavioral disturbance, mild (3) Dementia in Alzheimer's disease with delusions (4) Dementia in Alzheimer's disease with depression (5) Dementia, vascular, with delusions (6) Dementia, vascular, with depression (7) Impulse control disorder SMITA TOLEDO MD Apr 23, 2020 06:59
[2020-04-23] MEDS: POLYETHYLENE GLYCOL 3350 17 GM PACKET. PO SCH (07:23)
[2020-04-23] MEDS: POTASSIUM CHLORIDE 20 MEQ TABLET.ER. PO SCH (09:32)
[2020-04-23] MEDS: levETIRAcetam 500 MG TABLET PO SCH ×2 (09:32→19:25)
[2020-04-23] MEDS: TAMSULOSIN 0.4 MG CAP.ER.24H. PO SCH (09:32)
[2020-04-23] MEDS: risperiDONE 0.5 MG TABLET. PO SCH ×2 (09:33→19:25)
--- NOTE | 2020-04-23 14:06 | NUR ---
NURSING NOTE PT IN DAY ROOM THIS AM UPON ASSESSMENT AND MEDICATION ADMINISTRATION. UNABLE TO ASSESS ORIENTATION, PT RAMBLING ON. PT SLEPT THIS AM UNTIL 0915 D/T NOT GETTING TO SLEEP UNTIL 3 AM PER REPORT. PT IS DIFFICULT TO REDIRECT, PUSHING STUFF AWAY, RESTLESS, NOT WANTING TO SIT IN THE CHAIR. NO REPORT OF PT HAVING BOWEL MOVEMENT, UNABLE TO GIVE MIRALAX D/T HONEY THICK LIQ, WILL NOTIFY PHYSICIAN TODAY AND GET AN ORDER FOR SOMETHING DIFFERENT. PT CURRENTLY IN DAY ROOM CALM AT THIS TIME. WILL CONTINUE TO MONITOR. BURKE THOMPSON.
[2020-04-23] MEDS ORDERED: BISACODYL 10 MG SUPP.RECT PR PRN (15:45)
--- NOTE | 2020-04-23 16:26 | NUR ---
NURSING NOTE CONSTIPATION STOOL SUPPOSITORY ORDERED FOR CONSTIPATION. WILL ADMINISTER AFTER DINNER. BURKE THOMPSON.
[2020-04-23 16:44] VITALS: BP 111/72
--- NOTE | 2020-04-23 16:56 | PN ---
DATE: 04/18/2020 REFERRING PHYSICIAN: Dr. Palma. SUBJECTIVE: The patient has been transferred to [facility]. He has not had any recurrent seizure since being in ICU. OBJECTIVE: GENERAL: Well-developed, well-nourished male, not in acute distress. VITAL SIGNS: Blood pressure 132/82, respiratory rate is 16, pulse is 59, oxygen saturation 96%, temperature 98.1. HEENT: Normocephalic, atraumatic, otherwise unremarkable. NECK: Supple. Negative for carotid bruit, lymphadenopathy or thyromegaly. LUNGS: Clear to A and P. CARDIOVASCULAR: Regular rate and rhythm, normal S1, S2. There is no S3, S4 or murmur. ABDOMEN: Soft. Bowel sounds positive. No palpable mass, organomegaly or tenderness. EXTREMITIES: Negative for cyanosis, clubbing or pitting edema. NEUROLOGICAL EXAM: Mental Status: The patient is alert and oriented to himself. Speech is nonfluent. Memory, judgment, and abstract thinking are poor. Cranial nerves are grossly intact. No focal motor or sensory deficit. Deep tendon reflexes were symmetric and hypoactive without pathologic responses. Gait not tested. IMPRESSION: 1. Possible seizure-like activities. The patient has been on Keppra 1000 twice a day with normal EEG. 2. Multiple medical problems include chronic obstructive pulmonary disease, hypothyroidism, gastroesophageal reflux disease, benign prostate hypertrophy, hypertension and obstructive sleep apnea. 3. Multiple psychiatric problems include dementia, anxiety disorder, and depressions. RECOMMENDATIONS: We will adjust anticonvulsant Keppra to 500 mg b.i.d. M Rubin BIRCH MD DR: SUNSHINE/dontae JOB#: [id number] / [id number]
[2020-04-23] MEDS: LORazepam 0.5 MG TABLET PO PRN (18:44)
[2020-04-23] MEDS: MELATONIN 3 MG TABLET PO SCH (19:24)
[2020-04-23] MEDS: OLANZapine 5 MG TABLET PO SCH (19:24)
[2020-04-23] MEDS: SERTRALINE 100 MG TABLET. PO SCH (19:24)
[2020-04-23] MEDS: AMITRIPTYLINE HCL 50 MG TABLET PO SCH (19:25)
--- NOTE | 2020-04-23 22:12 | PDOC ---
Exam Note: [place]ber Note: Please also refer to the separate dictated note~for this date of service dictated separately.~Patient seen individually. Discussed the patient with Nursing staff reviewed the chart.~Reviewed interim history and current functioning. Reviewed vital signs,~Labs/ Radiology~and current medications noted below. Continue current treatment with the changes noted in the dictated addendum note Assessment: Vital Signs/I&O: Vital Signs Date Time Temp Pulse Resp B/P (MAP) Pulse Ox O2 Delivery O2 Flow Rate FiO2 04/23/20 16:44 97.8 77 16 111/72 (85) 95 04/23/20 05:17 Room Air I & O 04/22/20 04/22/20 04/23/20 15:00 23:00 07:00 Intake Total 600 ml 480 ml Output Total 300 ml Balance 600 ml 180 ml Current Medications: I have reviewed the current psychotropics carefully including drug interactions. Risk benefit ratio favors no change other than as noted in my dictated progress note. Diagnosis: Problems: (1) Major neurocognitive disorder, due to vascular disease, with behavioral disturbance, mild (2) Anxiety disorder (3) Dementia in Alzheimer's disease with delusions (4) Dementia in Alzheimer's disease with depression (5) Dementia, vascular, with delusions (6) Impulse control disorder (7) Dementia, vascular, with depression SMITA TOLEDO MD Apr 23, 2020 22:12
--- NOTE | 2020-04-23 22:20 | NUR ---
Pt wandering in the day room at shift change. Pt disorganized, confused, and pleasant when approached. Pt cooperative with assessment and compliant with medications administered crushed in pudding. PRN Dulcolax suppository administered at HS.
--- NOTE | 2020-04-24 05:00 | NUR ---
This nurse called to pt room by 1:1 sitter r/t pt having a wet cough. LSCTA with diminished bases, vital signs obtained: BP 103/64, P136, R22, T 99.1, O2- 92% on RA. Pt repositioned in bed and HOB elevated, call placed to Dr. Alston. New orders received for STAT EKG/ CXR/ Labs. Orders entered and processed, EKG and labs obtained, CXR performed. Will await results and inform Dr. Alston once obtained.
[2020-04-24 05:31] LABS: BASO # 0.1 x10^3/uL (0.0-0.2); BASO % 1 % (0-3); EOS # 0.2 x10^3/uL (0.0-0.7); EOS % 2 % (0-3); HEMATOCRIT 29.6 % (39.0-53.0); HEMOGLOBIN 9.9 g/dL (13.0-17.5); LYMPH # 0.3 x10^3/uL (1.0-4.8); LYMPH % 4 % (24-48); MEAN CORPUSCULAR HEMOGLOBIN 30 pg (25-35); MEAN CORPUSCULAR HGB CONC 33 g/dL (31-37); MEAN CORPUSCULAR VOLUME 89 fL (79-100); MONO # 0.6 x10^3/uL (0.0-1.1); MONO % 8 % (0-9); NEUT # 6.8 x10^3uL (1.8-7.7); NEUT % 85 % (31-73); PLATELET COUNT 246 x10^3/uL (140-400); RED BLOOD COUNT 3.32 x10^6/uL (4.30-5.70); RED CELL DISTRIBUTION WIDTH 14.3 % (11.5-14.5); WHITE BLOOD COUNT 7.9 x10^3/uL (4.0-11.0)
[2020-04-24 05:33] VITALS: BP 103/64
[2020-04-24 05:39] LABS: CALCIUM 8.4 mg/dL (8.5-10.1); CREATININE 1.3 mg/dL (0.7-1.3); GFR 54.7; POTASSIUM 3.6 mmol/L (3.5-5.1)
--- NOTE | 2020-04-24 05:43 | RAD ---
AP chest. HISTORY: Elevated heart rate, cough AP view was taken of the chest. Patient's taken a poor inspiration. There is mild atelectasis or infiltrate in the left lung base. A lateral view could be of benefit. There is no effusion. Heart is normal in size. IMPRESSION: 1. Mild left base atelectasis or infiltrate. Electronically signed by: Arnold Cabral MD (04/24/2020 5:40 AM) [id number]
[2020-04-24 05:45] LABS: ALBUMIN/GLOBULIN RATIO 0.9 (1.0-1.7); TOTAL BILIRUBIN 0.3 mg/dL (0.2-1.0); TOTAL PROTEIN 6.4 g/dL (6.4-8.2)
[2020-04-24 06:09] LABS: BACTERIA,URINE FEW /HPF (0-FEW); BILIRUBIN,URINE NEG (NEG); CLARITY,URINE CLEAR; COLOR,URINE YELLOW; GLUCOSE,URINE NEG (NEG); NITRITE,URINE NEG (NEG); UROBILINOGEN,URINE 0.2 mg/dL (0.2 mg/dL)
--- NOTE | 2020-04-24 06:23 | NUR ---
Dr. Alston notified of lab and imaging results. No new orders received at this time. Pt currently resting quietly in bed with eyes closed.
--- NOTE | 2020-04-24 07:15 | PDOC ---
Exam Note: [place]ber Note: This note is a late entry for 04/23/2020 covers elements not covered in my initial note. Subjective: The patient was seen individually in the evening of 04/23/2020. Per Zakia RN, he she slept 4 hours previous night, which is quite an improvement for him since he slept 0 hours the night before. He has had some constipation. Received the suppository but no results yet. He has been wandering the hallways, redirects better. Review of Systems: No CV, , pulmonary, eye system symptoms on review. Reliability poor. Mental Status Exam: Reasonably oriented to himself. Insight and judgment, recent and remote memory, attention and concentration, fund of knowledge is poor consistent with his diagnoses. Laboratory Data: Reviewed. Impression: Major neurocognitive disorder, Alzheimer, vascular with delusion, depression, behavioral disturbance. Anxiety disorder unspecified. Impulse control disorder unspecified. Plan: No change from initial note. Assessment: Vital Signs/I&O: Vital Signs Date Time Temp Pulse Resp B/P (MAP) Pulse Ox O2 Delivery O2 Flow Rate FiO2 04/24/20 05:33 99.1 141 20 103/64 (77) 92 Room Air I & O 04/23/20 04/23/20 04/24/20 15:00 23:00 07:00 Intake Total 200 ml 360 ml Balance 200 ml 360 ml Labs: Laboratory Tests Test 04/24/20 05:15 04/24/20 05:21 Urine Collection Type Unknown Urine Color Yellow Urine Clarity Clear Urine pH 8.5 Urine Specific [place] 1.020 Urine Protein Trace (NEG-TRACE) Urine Glucose (UA) Neg mg/dL (NEG) Urine Ketones (Stick) Neg mg/dL (NEG) Urine Blood Trace (NEG) Urine Nitrite Neg (NEG) Urine Bilirubin Neg (NEG) Urine Urobilinogen Dipstick 0.2 mg/dL (0.2 mg/dL) Urine Leukocyte Esterase Neg (NEG) Urine RBC 3-5 /HPF (0-2) Urine WBC 1-4 /HPF (0-4) Urine Squamous Epithelial Cells None /LPF Urine Bacteria Few /HPF (0-FEW) White Blood Count 7.9 x10^3/uL (4.0-11.0) Red Blood Count 3.32 x10^6/uL (4.30-5.70) L Hemoglobin 9.9 g/dL (13.0-17.5) L Hematocrit 29.6 % (39.0-53.0) L Mean Corpuscular Volume 89 fL (79-100) Mean Corpuscular Hemoglobin 30 pg (25-35) Mean Corpuscular Hemoglobin Concent 33 g/dL (31-37) Red Cell Distribution Width 14.3 % (11.5-14.5) Platelet Count 246 x10^3/uL (140-400) Neutrophils (%) (Auto) 85 % (31-73) H Lymphocytes (%) (Auto) 4 % (24-48) L Monocytes (%) (Auto) 8 % (0-9) Eosinophils (%) (Auto) 2 % (0-3) Basophils (%) (Auto) 1 % (0-3) Neutrophils # (Auto) 6.8 x10^3uL (1.8-7.7) Lymphocytes # (Auto) 0.3 x10^3/uL (1.0-4.8) L Monocytes # (Auto) 0.6 x10^3/uL (0.0-1.1) Eosinophils # (Auto) 0.2 x10^3/uL (0.0-0.7) Basophils # (Auto) 0.1 x10^3/uL (0.0-0.2) Sodium Level 137 mmol/L (136-145) Potassium Level 3.6 mmol/L (3.5-5.1) Chloride Level 101 mmol/L (98-107) Carbon Dioxide Level 27 mmol/L (21-32) Anion Gap 9 (6-14) Blood Urea Nitrogen 20 mg/dL (8-26) Creatinine 1.3 mg/dL (0.7-1.3) Estimated GFR (Cockcroft-Gault) 54.7 BUN/Creatinine Ratio 15 (6-20) Glucose Level 136 mg/dL (70-99) H Lactic Acid Level 1.1 mmol/L (0.4-2.0) Calcium Level 8.4 mg/dL (8.5-10.1) L Total Bilirubin 0.3 mg/dL (0.2-1.0) Aspartate Amino Transferase (AST) 19 U/L (15-37) Alanine Aminotransferase (ALT) 31 U/L (16-63) Alkaline Phosphatase 89 U/L (46-116) Total Protein 6.4 g/dL (6.4-8.2) Albumin 3.0 g/dL (3.4-5.0) L Albumin/Globulin Ratio 0.9 (1.0-1.7) L Current Medications: I have reviewed the current psychotropics carefully including drug interactions. Risk benefit ratio favors no change other than as noted in my dictated progress note. Diagnosis: Problems: (1) Major neurocognitive disorder, due to vascular disease, with behavioral disturbance, mild (2) Anxiety disorder (3) Dementia in Alzheimer's disease with delusions (4) Dementia in Alzheimer's disease with depression (5) Dementia, vascular, with delusions (6) Dementia, vascular, with depression (7) Impulse control disorder SMITA OTLEDO MD Apr 24, 2020 07:15
[2020-04-24] MEDS: POTASSIUM CHLORIDE 20 MEQ TABLET.ER. PO SCH (08:00)
[2020-04-24] MEDS: levETIRAcetam 500 MG TABLET PO SCH ×2 (09:00→20:46)
[2020-04-24] MEDS: risperiDONE 0.5 MG TABLET. PO SCH ×2 (09:00→20:46)
[2020-04-24] MEDS: TAMSULOSIN 0.4 MG CAP.ER.24H. PO SCH (09:00)
--- NOTE | 2020-04-24 09:13 | NUR ---
Patient resting in his room. Patient did not sleep well last night so staff allowing therapeutic sleep this morning.
[2020-04-24] MEDS: MELATONIN 3 MG TABLET PO SCH ×2 (10:23→20:46)
--- NOTE | 2020-04-24 10:26 | NUR ---
WEEKLY ACTIVITY THERAPY NOTE Date of Admission: 04/17/2020 Date of AT Assessment: 04/18/20 Precipitating behaviors that initiated intake and admission:patient had previously been a patient on [facility] and was discharged to ICU for medical reasons. He has been impulsive. has poor safety awareness, is restless, does not sleep well and is waving his hands and feet, is unable to be at home with his because he is a danger to himself and others. Goal aimed:Initial goal aimed to increase sensory stimulation. Initial Goal:Pt. will participate in at least three group or individual Activity Therapy session per week. Weekly progress towards goal: achieved, 5/3 Group participation level: minimal Weekly highlights: around group most of the time Behaviors observed: wanders, sits at table in group room with staff supervision, fidgets with lock box, calm and quiet, poor eye contact Plan: no change to goal Beneficial adaptations: sensory materials
[2020-04-24 15:44] VITALS: BP 97/65
[2020-04-24] MEDS: OLANZapine 5 MG TABLET PO SCH (20:46)
[2020-04-24] MEDS: AMITRIPTYLINE HCL 50 MG TABLET PO SCH (20:46)
[2020-04-24] MEDS: SERTRALINE 100 MG TABLET. PO SCH (20:49)
--- NOTE | 2020-04-24 22:03 | PDOC ---
Exam Note: Heber Note: Please also refer to the separate dictated note~for this date of service dictated separately.~Patient seen individually. Discussed the patient with Nursing staff reviewed the chart.~Reviewed interim history and current functioning. Reviewed vital signs,~Labs/ Radiology~and current medications noted below. Continue current treatment with the changes noted in the dictated addendum note Assessment: Vital Signs/I&O: Vital Signs Date Time Temp Pulse Resp B/P (MAP) Pulse Ox O2 Delivery O2 Flow Rate FiO2 04/24/20 15:44 98.7 81 18 97/65 (76) 97 04/24/20 05:33 Room Air I & O 04/23/20 04/23/20 04/24/20 15:00 23:00 07:00 Intake Total 200 ml 360 ml Balance 200 ml 360 ml Labs: Laboratory Tests Test 04/24/20 05:15 04/24/20 05:21 Urine Collection Type Unknown Urine Color Yellow Urine Clarity Clear Urine pH 8.5 Urine Specific [place] 1.020 Urine Protein Trace (NEG-TRACE) Urine Glucose (UA) Neg mg/dL (NEG) Urine Ketones (Stick) Neg mg/dL (NEG) Urine Blood Trace (NEG) Urine Nitrite Neg (NEG) Urine Bilirubin Neg (NEG) Urine Urobilinogen Dipstick 0.2 mg/dL (0.2 mg/dL) Urine Leukocyte Esterase Neg (NEG) Urine RBC 3-5 /HPF (0-2) Urine WBC 1-4 /HPF (0-4) Urine Squamous Epithelial Cells None /LPF Urine Bacteria Few /HPF (0-FEW) White Blood Count 7.9 x10^3/uL (4.0-11.0) Red Blood Count 3.32 x10^6/uL (4.30-5.70) L Hemoglobin 9.9 g/dL (13.0-17.5) L Hematocrit 29.6 % (39.0-53.0) L Mean Corpuscular Volume 89 fL (79-100) Mean Corpuscular Hemoglobin 30 pg (25-35) Mean Corpuscular Hemoglobin Concent 33 g/dL (31-37) Red Cell Distribution Width 14.3 % (11.5-14.5) Platelet Count 246 x10^3/uL (140-400) Neutrophils (%) (Auto) 85 % (31-73) H Lymphocytes (%) (Auto) 4 % (24-48) L Monocytes (%) (Auto) 8 % (0-9) Eosinophils (%) (Auto) 2 % (0-3) Basophils (%) (Auto) 1 % (0-3) Neutrophils # (Auto) 6.8 x10^3uL (1.8-7.7) Lymphocytes # (Auto) 0.3 x10^3/uL (1.0-4.8) L Monocytes # (Auto) 0.6 x10^3/uL (0.0-1.1) Eosinophils # (Auto) 0.2 x10^3/uL (0.0-0.7) Basophils # (Auto) 0.1 x10^3/uL (0.0-0.2) Sodium Level 137 mmol/L (136-145) Potassium Level 3.6 mmol/L (3.5-5.1) Chloride Level 101 mmol/L (98-107) Carbon Dioxide Level 27 mmol/L (21-32) Anion Gap 9 (6-14) Blood Urea Nitrogen 20 mg/dL (8-26) Creatinine 1.3 mg/dL (0.7-1.3) Estimated GFR (Cockcroft-Gault) 54.7 BUN/Creatinine Ratio 15 (6-20) Glucose Level 136 mg/dL (70-99) H Lactic Acid Level 1.1 mmol/L (0.4-2.0) Calcium Level 8.4 mg/dL (8.5-10.1) L Total Bilirubin 0.3 mg/dL (0.2-1.0) Aspartate Amino Transferase (AST) 19 U/L (15-37) Alanine Aminotransferase (ALT) 31 U/L (16-63) Alkaline Phosphatase 89 U/L (46-116) Total Protein 6.4 g/dL (6.4-8.2) Albumin 3.0 g/dL (3.4-5.0) L Albumin/Globulin Ratio 0.9 (1.0-1.7) L Current Medications: Meds: Current Medications Medications (Trade) Dose Ordered Sig/Phi Route PRN Reason Start Time Stop Time Status Last Admin Dose Admin Melatonin (Melatonin) 6 mg HS PO 04/24/20 21:00 04/25/20 23:00 7/2/20 20:46 I have reviewed the current psychotropics carefully including drug interactions. Risk benefit ratio favors no change other than as noted in my dictated progress note. Diagnosis: Problems: (1) Anxiety disorder (2) Major neurocognitive disorder, due to vascular disease, with behavioral disturbance, mild (3) Dementia in Alzheimer's disease with delusions (4) Dementia in Alzheimer's disease with depression (5) Dementia, vascular, with delusions (6) Dementia, vascular, with depression (7) Impulse control disorder SMITA TOLEDO MD Apr 24, 2020 22:03
--- NOTE | 2020-04-25 01:24 | NUR ---
Nursing Note The patient was located in the day room for his assessment and medication. The patient took his medication crushed in chocolate ice cream. The patient was agitated initially but calmed shortly after he received his medications. The patient is currently sleeping in his room.
[2020-04-25 05:10] VITALS: BP 116/88
[2020-04-25] MEDS: risperiDONE 0.5 MG TABLET. PO SCH ×2 (09:19→19:35)
[2020-04-25] MEDS: levETIRAcetam 500 MG TABLET PO SCH ×2 (09:20→19:36)
[2020-04-25] MEDS: POTASSIUM CHLORIDE 20 MEQ TABLET.ER. PO SCH (09:20)
[2020-04-25] MEDS: TAMSULOSIN 0.4 MG CAP.ER.24H. PO SCH (09:20)
--- NOTE | 2020-04-25 10:10 | NUR ---
NEHEMIAH emailed pt and Leigh with [facility] an update on pt. NEHEMIAH informed both parties that pt would be able to look at placement within the next 7-10 days.
--- NOTE | 2020-04-25 10:31 | TX PLAN ---
Interdisciplinary Tx Plan Admission Information Apr 17, 2020 at 15:30 Legal Status (on Admission): Voluntary DPOA/Guardian Name: Joya Kearns Contact Verified Code Status: DNR Allergies: Coded Allergies: No Known Drug Allergies (Unverified , 07/25/18) Diagnoses Primary Diagnosis: Major Neurocognitive D/O; PTSD, Impulse Control D/O Reasons for Admission: Aggressive, Delusions, Sig. Change Appetite, Sig. Change Sleep, Hallucinations, Suspicious/paranoid, Confusion/Disoriented Problem in Patient's Words: N/A Additional Admission Comments: Per intake, pt was transferred downstairs for a medical check-up as pt suffered a subdural hematoma and had seizures. Pt was impulsive, restless, not sleeping well, kicking and waving his hands around Problems Active Problems: Wandering Restless Poor sleep Poor appetite Agitation Combative Inactive Problems: Medication compliant with meds crushed Pt Strengths/Limitations Ability for [place]: Poor Cognitive Functioning/Ability: Poor Communication Skills/Ability: Poor Financial Resources: Fair Insight/Judgement: Poor Intellectual Ability: Poor Physical Health: Poor Social Skills: Poor Stability in Family: Fair Stability in School/Work: Poor Verbal Skills: Poor Discharge Criteria Discharge Criteria: Adequate arrangements @DC, Improved behavior, Improved mood/thought Other Discharge Comments: Placement within a higher level of care Preliminary Discharge Plan Preliminary DC Plan: Placement Needed Special Precautions Fall Risk: Moderate Initial D/C Plan Pt will discharge to a Memory Care facility once stable Identified Discharge Needs: mental health services Currently Utilized Resources Currently Utilized Resources/P: Primary Care Physician Neurologist Referrals Community Resources: Placement referrals Identified Problems/Hx/Goals Objectives/Short-Term Goals Short Term Goals: Dec. Aggression, Dec. Outbursts, Medication Stabilization, Monitor Med Effects, Promote Coping Skill Short Term Goals in Patient's: N/A Interventions/Frequency Staff Interventions/Frequency&: Psychiatrist to assess pt at least 3x per week Social Work to asses pt at least 2x per week. Nursing to assess behavior, medications and complete 15 minute checks daily. Encourage group participation in activities or 1:1 engagement based off Activity Dept. assessment. History Education: Bachelor's Degree; did not fully complete his Master's Community Follow-up Primary care physician Community Provider/Family Inpu: I just need him to be in a place where he is cared for appropriately and not treated inhumane. Treatment Plan Explained Patient/Director Of Dietary had this treatment plan explained to him/her as indicated by the signature below and has been given the opportunity to ask questions and make suggestions: Date: Patient/Director Of Dietary Signature: Patient/Director Of Dietary Decline: EDSON Norman Apr 25, 2020 10:31
--- NOTE | 2020-04-25 10:37 | TX PLAN ---
Interdisciplinary Tx Plan Admission Information Apr 17, 2020 at 15:30 Legal Status (on Admission): Voluntary DPOA/Guardian Name: Joya Kearns Contact Verified Code Status: DNR Allergies: Coded Allergies: No Known Drug Allergies (Unverified , 07/25/18) Diagnoses Primary Diagnosis: Major Neurocognitive D/O; PTSD, Impulse Control D/O Reasons for Admission: Aggressive, Delusions, Sig. Change Appetite, Sig. Change Sleep, Hallucinations, Suspicious/paranoid, Confusion/Disoriented Problem in Patient's Words: N/A Additional Admission Comments: Per intake, pt was transferred downstairs for a medical check-up as pt suffered a subdural hematoma and had seizures. Pt was impulsive, restless, not sleeping well, kicking and waving his hands around Problems Active Problems: Wandering Restless Poor sleep Poor appetite Agitation Combative Inactive Problems: Medication compliant with meds crushed Pt Strengths/Limitations Ability for [place]: Poor Cognitive Functioning/Ability: Poor Communication Skills/Ability: Poor Financial Resources: Fair Insight/Judgement: Poor Intellectual Ability: Poor Physical Health: Poor Social Skills: Poor Stability in Family: Fair Stability in School/Work: Poor Verbal Skills: Poor Discharge Criteria Discharge Criteria: Adequate arrangements @DC, Improved behavior, Improved mood/thought Other Discharge Comments: Placement within a higher level of care Preliminary Discharge Plan Preliminary DC Plan: Placement Needed Special Precautions Fall Risk: Moderate Initial D/C Plan Pt will discharge to a Memory Care facility once stable Identified Discharge Needs: mental health services Currently Utilized Resources Currently Utilized Resources/P: Primary Care Physician Neurologist Referrals Community Resources: Placement referrals Identified Problems/Hx/Goals Objectives/Short-Term Goals Short Term Goals: Dec. Aggression, Dec. Outbursts, Medication Stabilization, Monitor Med Effects, Promote Coping Skill Short Term Goals in Patient's: N/A Interventions/Frequency Staff Interventions/Frequency&: Psychiatrist to assess pt at least 3x per week Social Work to asses pt at least 2x per week. Nursing to assess behavior, medications and complete 15 minute checks daily. Encourage group participation in activities or 1:1 engagement based off Activity Dept. assessment. History Education: Bachelor's Degree; did not fully complete his Master's Community Follow-up Primary care physician Community Provider/Family Inpu: I just need him to be in a place where he is cared for appropriately and not treated inhumane. Treatment Plan Explained Patient/Ground Crew Lines Person had this treatment plan explained to him/her as indicated by the signature below and has been given the opportunity to ask questions and make suggestions: Date: Patient/Ground Crew Lines Person Signature: Status Update Update Please note the pt was admitted back to the unit on 04/17/2020. Pt had his first treatment team on 04/18 with an update on 04/25. Pt continues to be disorganized, confused and wanders the hallways. Pt is compliant with medications crushed and most cares. Pt is exit seeking but is easily re-directed. Pt is still not sleeping well as he is mainly getting anywhere from 0-4 hours a sleep per night. Pt is currently on Risperdal, Zoloft, Keppra, Amitriptyline and Melatonin. Discussion with the hospitalist and pharmacy will need to be had on whether or not pt can start Depakote again, which will be given at night to aid in pt sleep. Pt Melatonin will increase to 6 mg. Yamile Canales is working with pt on finding pt placement within the area and providing aid in what financially will work. NEHEMIAH will plan to follow up with all parties involved. EDSON JIMENEZ Apr 25, 2020 10:37
--- NOTE | 2020-04-25 15:14 | NUR ---
Nursing note: Pt in day room for morning meds and assessment. He was compliant with meds crushed in pudding and cooperative with assessment. Pt appears to not be in any pain or discomfort. Around lunch, pt became increasingly agitated and began to swing at staff. PRN was given. Pt is now sitting quietly in the day room. Will continue to monitor.
[2020-04-25 15:55] VITALS: BP 120/54
[2020-04-25] MEDS: SERTRALINE 100 MG TABLET. PO SCH (19:35)
[2020-04-25] MEDS: MELATONIN 3 MG TABLET PO SCH (19:35)
[2020-04-25] MEDS: AMITRIPTYLINE HCL 50 MG TABLET PO SCH (19:35)
[2020-04-25] MEDS: OLANZapine 5 MG TABLET PO SCH (19:35)
--- NOTE | 2020-04-25 22:12 | PDOC ---
Exam Note: Heber Note: Please also refer to the separate dictated note~for this date of service dictated separately.~Patient seen individually. Discussed the patient with Nursing staff reviewed the chart.~Reviewed interim history and current functioning. Reviewed vital signs,~Labs/ Radiology~and current medications noted below. Continue current treatment with the changes noted in the dictated addendum note Assessment: Vital Signs/I&O: Vital Signs Date Time Temp Pulse Resp B/P (MAP) Pulse Ox O2 Delivery O2 Flow Rate FiO2 04/25/20 15:55 97.5 82 16 120/54 (76) 97 04/24/20 05:33 Room Air I & O 04/24/20 04/24/20 04/25/20 15:00 23:00 07:00 Intake Total 240 ml 290 ml Balance 240 ml 290 ml Current Medications: I have reviewed the current psychotropics carefully including drug interactions. Risk benefit ratio favors no change other than as noted in my dictated progress note. Diagnosis: Problems: (1) Major neurocognitive disorder, due to vascular disease, with behavioral disturbance, mild (2) Anxiety disorder (3) Dementia in Alzheimer's disease with delusions (4) Dementia in Alzheimer's disease with depression (5) Dementia, vascular, with delusions (6) Impulse control disorder (7) Dementia, vascular, with depression SMITA TOLEDO MD Apr 25, 2020 22:12
--- NOTE | 2020-04-25 23:51 | NUR ---
Nursing Note The patient was located in the day room for his assessment and medication pass. The patient took his medication crushed in chocolate ice cream. The patient has had several episodes of agitation this shift but has been redirectable. The patient has been restless after laying in bed but at this time is resting peacefully.
[2020-04-26 05:26] VITALS: BP 132/74
--- NOTE | 2020-04-26 07:26 | PDOC ---
Exam Note: Heber Note: This note is a late entry for 04/24/2020 covers elements not covered in my initial note. Subjective: The patient was seen individually in the morning of 04/24/2020 with treatment team meeting with Lilibeth TURK, Dru (social service staff), [facility] staff. Also discussed with Luis E TURK in the evening. The patient did not sleep at all previous night, otherwise, appetite is 50%. He has elevated heart rate 141 per minute. Lactic acid elevated. Hemoglobin 9.9. We will defer to Dr. Alston. He is restless, does ambulate on his own but is a fall risk. Review of Systems: No CV, , pulmonary, eye, ENT, integumentary system symptoms on review. Reliability poor. Mental Status Exam: Reasonably oriented to himself. Insight and judgment, recent and remote memory, attention and concentration, fund of knowledge is poor consistent with his diagnoses. Laboratory Data: Reviewed. Impression: Major neurocognitive disorder, Alzheimer, vascular with delusion, depression, behavioral disturbance. Anxiety disorder unspecified. Impulse control disorder unspecified. Plan: The patient remains on amitriptyline 50 mg h.s. to help with insomnia. We will increase the melatonin from 3 mg h.s. to 6 mg h.s. Maintain Risperdal 0.25 mg b.i.d., Zoloft 100 mg a day, Ativan and Zyprexa p.r.n., Keppra 500 mg b.i.d. Assessment: Vital Signs/I&O: Vital Signs Date Time Temp Pulse Resp B/P (MAP) Pulse Ox O2 Delivery O2 Flow Rate FiO2 04/26/20 05:26 97.4 81 18 132/74 (93) 98 Room Air I & O 04/25/20 04/25/20 04/26/20 14:59 22:59 06:59 Intake Total 720 ml 480 ml 240 ml Output Total 400 ml 100 ml Balance 720 ml 80 ml 140 ml Current Medications: I have reviewed the current psychotropics carefully including drug interactions. Risk benefit ratio favors no change other than as noted in my dictated progress note. Diagnosis: Problems: (1) Major neurocognitive disorder, due to vascular disease, with behavioral dist urbance, mild (2) Anxiety disorder (3) Dementia in Alzheimer's disease with delusions (4) Dementia in Alzheimer's disease with depression (5) Dementia, vascular, with delusions (6) Dementia, vascular, with depression (7) Impulse control disorder SMITA TOLEDO MD Apr 26, 2020 07:26
--- NOTE | 2020-04-26 08:03 | PDOC ---
Exam Note: Heber Note: This note is a late entry for 04/25/2020 covers elements not covered in my initial note. Subjective: The patient was seen individually in the evening of 04/25/2020. Per Ashley TURK, he slept 6 hours previous night. He was aggressive with staff, twisting the fingers of nursing staff previous night, agitated at lunch time today. Received Zyprexa p.r.n. and then did better. As I met with him in the evening, he was seated in a chair with nursing staff sitting right next to him as he is a fall risk. He had been given things to work on, felt like he was at office doing some work and less agitated intermittently. Review of Systems: No CV, , pulmonary, eye system symptoms on review. Rel iability poor. Mental Status Exam: Reasonably oriented to himself. Insight and judgment, recent and remote memory, attention and concentration, fund of knowledge is poor consistent with his diagnoses. Laboratory Data: Reviewed. Impression: Major neurocognitive disorder, Alzheimer, vascular with delusion, depression, behavioral disturbance. Anxiety disorder unspecified. Impulse control disorder unspecified. Plan: No change from initial note. Assessment: Vital Signs/I&O: Vital Signs Date Time Temp Pulse Resp B/P (MAP) Pulse Ox O2 Delivery O2 Flow Rate FiO2 04/26/20 05:26 97.4 81 18 132/74 (93) 98 Room Air I & O 04/25/20 04/25/20 04/26/20 15:00 23:00 07:00 Intake Total 720 ml 480 ml 240 ml Output Total 400 ml 100 ml Balance 720 ml 80 ml 140 ml Current Medications: I have reviewed the current psychotropics carefully including drug interactions. Risk benefit ratio favors no change other than as noted in my dictated progress note. Diagnosis: Problems: (1) Major neurocognitive disorder, due to vascular disease, with behavioral disturbance, mild (2) Anxiety disorder (3) Dementia in Alzheimer's disease with delusions (4) Dementia in Alzheimer's disease with depression (5) Dementia, vascular, with delusions (6) Dementia, vascular, with depression (7) Impulse control disorder SMITA TOLEDO MD Apr 26, 2020 08:03
[2020-04-26] MEDS: TAMSULOSIN 0.4 MG CAP.ER.24H. PO SCH (08:46)
[2020-04-26] MEDS: risperiDONE 0.5 MG TABLET. PO SCH ×2 (08:46→19:48)
[2020-04-26] MEDS: levETIRAcetam 500 MG TABLET PO SCH ×2 (08:46→19:48)
[2020-04-26] MEDS: POTASSIUM CHLORIDE 20 MEQ TABLET.ER. PO SCH (08:46)
[2020-04-26] MEDS: LORazepam 0.5 MG TABLET PO PRN (14:35)
[2020-04-26 16:39] VITALS: BP 102/69
--- NOTE | 2020-04-26 18:30 | NUR ---
Patient has been delusional, wandering, restless, and impulsive throughout this shift. Patient is 1:1 for safety related to unsteadiness and fall risk. At lunch, he was becoming increasingly agitated and verbally aggressive towards staff. He was calmer while he was actually eating, but after eating he became agitated again and increasingly agitated. PRN medication provided per eMAR at 12:50. Patient was still agitated in early afternoon; he was provided the phone when his called but would not hold the phone to his ear and became agitated with attempts to help him. Phone placed on speakerphone, patient's attempted to talk to him, staff reported that he did not respond to her. When staff attempted to take the phone after she hung up, he became combative, hitting staff while cursing at them. Patient placed in [facility] and prn medication provided per eMAR at about 14:35. Patient has been calmer since exiting the [address] slemp[address]. He continues on 1:1 for safety; will continue to monitor and report to oncoming shift.
[2020-04-26] MEDS: SERTRALINE 100 MG TABLET. PO SCH (19:48)
[2020-04-26] MEDS: AMITRIPTYLINE HCL 50 MG TABLET PO SCH (19:48)
[2020-04-26] MEDS: OLANZapine 5 MG TABLET PO SCH (19:48)
[2020-04-26] MEDS: MELATONIN 3 MG TABLET PO SCH (19:48)
--- NOTE | 2020-04-26 22:17 | PDOC ---
Exam Note: Heber Note: Please also refer to the separate dictated note~for this date of service dictated separately.~Patient seen individually. Discussed the patient with Nursing staff reviewed the chart.~Reviewed interim history and current functioning. Reviewed vital signs,~Labs/ Radiology~and current medications noted below. Continue current treatment with the changes noted in the dictated addendum note Assessment: Vital Signs/I&O: Vital Signs Date Time Temp Pulse Resp B/P (MAP) Pulse Ox O2 Delivery O2 Flow Rate FiO2 04/26/20 16:39 103 18 102/69 (80) 97 Room Air 04/26/20 05:26 97.4 I & O 04/25/20 04/25/20 04/26/20 15:00 23:00 07:00 Intake Total 720 ml 480 ml 240 ml Output Total 400 ml 100 ml Balance 720 ml 80 ml 140 ml Current Medications: Meds: Current Medications Medications (Trade) Dose Ordered Sig/Phi Route PRN Reason Start Time Stop Time Status Last Admin Dose Admin Melatonin (Melatonin) 3 mg QHS PO 04/26/20 21:00 04/26/20 19:48 I have reviewed the current psychotropics carefully including drug interactions. Risk benefit ratio favors no change other than as noted in my dictated progress note. Diagnosis: Problems: (1) Major neurocognitive disorder, due to vascular disease, with behavioral disturbance, mild (2) Anxiety disorder (3) Dementia in Alzheimer's disease with delusions (4) Dementia in Alzheimer's disease with depression (5) Dementia, vascular, with delusions (6) Dementia, vascular, with depression (7) Impulse control disorder SMITA TOLEDO MD Apr 26, 2020 22:17
--- NOTE | 2020-04-27 00:11 | NUR ---
Nursing Note The patient was located in the day room for his assessment and medication pass. The patient received his medication crushed in chocolate ice cream. The patient was restless while in the day room but was redirectable. The patient was disorganized during interactions and was resistive while changing his brief. The patient is currently sleeping in his room. Patient remains 1:1 for safety.
[2020-04-27 05:58] VITALS: BP 120/71
--- NOTE | 2020-04-27 07:28 | PDOC ---
Exam Note: Heber Note: This note is a late entry for 04/26/2020 covers elements not covered in my initial note. Subjective: The patient was seen individually in the evening of 04/26/2020. Per John TURK, he slept 3-1/2 hours previous night. He has been intermittently combative, agitated. Received Zyprexa at 1 p.m. and Ativan at 2 p.m. He had to be in the West hallway to reduce stimuli, cursing at staff even at 3 p.m. He is disorganized, bending over, picking up things on the floor when there is nothing there. Review of Systems: No CV, , pulmonary, eye system symptoms on review. Mental Status Exam: Reasonably oriented to himself. Insight and judgment, recent and remote memory, attention and concentration, fund of knowledge is poor consistent with his diagnoses. Laboratory Data: Reviewed. Impression: Major neurocognitive disorder, Alzheimer, vascular with delusion, depression, behavioral disturbance. Anxiety disorder unspecified. Impulse control disorder unspecified. Plan: No change from initial note. Assessment: Vital Signs/I&O: Vital Signs Date Time Temp Pulse Resp B/P (MAP) Pulse Ox O2 Delivery O2 Flow Rate FiO2 04/27/20 05:58 97.5 75 18 120/71 (87) 95 Room Air I & O 04/26/20 04/26/20 04/27/20 15:00 23:00 07:00 Intake Total 720 ml 550 ml Output Total 300 ml 1050 ml Balance 720 ml 250 ml -1050 ml Current Medications: Meds: Current Medications Medications (Trade) Dose Ordered Sig/Phi Route PRN Reason Start Time Stop Time Status Last Admin Dose Admin Melatonin (Melatonin) 3 mg QHS PO 04/26/20 21:00 04/26/20 19:48 I have reviewed the current psychotropics carefully including drug interactions. Risk benefit ratio favors no change other than as noted in my dictated progress note. Diagnosis: Problems: (1) Major neurocognitive disorder, due to vascular disease, with behavioral disturbance, mild (2) Anxiety disorder (3) Dementia in Alzheimer's disease with delusions (4) Dementia in Alzheimer's disease with depression (5) Dementia, vascular, with delusions (6) Dementia, vascular, with depression (7) Impulse control disorder SMITA TOLEDO MD Apr 27, 2020 07:28
[2020-04-27] MEDS: risperiDONE 0.5 MG TABLET. PO SCH ×2 (09:15→19:24)
[2020-04-27] MEDS: POTASSIUM CHLORIDE 20 MEQ TABLET.ER. PO SCH (09:15)
[2020-04-27] MEDS: TAMSULOSIN 0.4 MG CAP.ER.24H. PO SCH (09:15)
[2020-04-27] MEDS: levETIRAcetam 500 MG TABLET PO SCH ×2 (09:15→19:25)
--- NOTE | 2020-04-27 09:31 | NUR ---
Patient calm and sitting in dayroom. Patient compliant with crushed medications and assessment.
[2020-04-27 15:32] VITALS: BP 111/69
[2020-04-27] MEDS: OLANZapine 5 MG TABLET PO SCH (19:24)
[2020-04-27] MEDS: LORazepam 0.5 MG TABLET PO PRN (19:25)
[2020-04-27] MEDS: SERTRALINE 100 MG TABLET. PO SCH (19:25)
[2020-04-27] MEDS: AMITRIPTYLINE HCL 50 MG TABLET PO SCH (19:25)
[2020-04-27] MEDS: MELATONIN 3 MG TABLET PO SCH (19:25)
--- NOTE | 2020-04-27 20:48 | NUR ---
Pt sitting in day room at shift change. Pt initially agitated, restless, and combative with staff during re-direction. PRN Ativan administered which has been effective, pt currently calm, confused and disorganized but has not been agitated or aggressive since receiving PRN. Pt cooperative and compliant with assessment and medications administered crushed in pudding.
--- NOTE | 2020-04-27 22:02 | PDOC ---
Exam Note: Heber Note: Please also refer to the separate dictated note~for this date of service dictated separately.~Patient seen individually. Discussed the patient with Nursing staff reviewed the chart.~Reviewed interim history and current functioning. Reviewed vital signs,~Labs/ Radiology~and current medications noted below. Continue current treatment with the changes noted in the dictated addendum note Assessment: Vital Signs/I&O: Vital Signs Date Time Temp Pulse Resp B/P (MAP) Pulse Ox O2 Delivery O2 Flow Rate FiO2 04/27/20 15:32 98.2 61 18 111/69 (83) 98 04/27/20 05:58 Room Air I & O 04/26/20 04/26/20 04/27/20 15:00 23:00 07:00 Intake Total 720 ml 550 ml Output Total 300 ml 1050 ml Balance 720 ml 250 ml -1050 ml Current Medications: I have reviewed the current psychotropics carefully including drug interactions. Risk benefit ratio favors no change other than as noted in my dictated progress note. Diagnosis: Problems: (1) Major neurocognitive disorder, due to vascular disease, with behavioral disturbance, mild (2) Anxiety disorder (3) Dementia in Alzheimer's disease with delusions (4) Dementia in Alzheimer's disease with depression (5) Dementia, vascular, with delusions (6) Dementia, vascular, with depression (7) Impulse control disorder SMITA TOLEDO MD Apr 27, 2020 22:02
--- NOTE | 2020-04-28 02:01 | NUR ---
Pt restless and disorganized, attempting to get out of bed without assist. Pt irritable with staff attempts to re-direct. PRN Zydis administered crushed in applesauce.
[2020-04-28 06:11] VITALS: BP 155/98
--- NOTE | 2020-04-28 07:38 | PDOC ---
Exam Note: Heber Note: This note is a late entry for 04/27/2020 covers elements not covered in my initial note. Subjective: The patient was seen individually in the evening of 04/27/2020. Per Luis E TURK, he slept 1 hour previous night but per nursing report he actually slept more than that about 5 hours. Rest of the night he was restless. One-on-one has been discontinued as he remains confused but not aggressive or fall risk. Gait is steady. Review of Systems: No CV, , pulmonary, eye system symptoms on review. Mental Status Exam: I met with him individually. He was in the dayroom seated on the table trying to push some bugs away that he felt on his hand but there were no such bugs but he was quite redirectable. Oriented reasonably. Insight and judgment, recent and remote memory, attention and concentration, fund of knowledge is poor consistent with his diagnoses. Laboratory Data: Reviewed. Impression: Major neurocognitive disorder, Alzheimer, vascular with delusion, depression, behavioral disturbance. Anxiety disorder unspecified. Impulse control disorder unspecified. Plan: No change from initial note. Assessment: Vital Signs/I&O: Vital Signs Date Time Temp Pulse Resp B/P (MAP) Pulse Ox O2 Delivery O2 Flow Rate FiO2 04/28/20 06:11 98.4 96 18 155/98 (117) 92 Room Air I & O 04/27/20 04/27/20 04/28/20 15:00 23:00 07:00 Intake Total 120 ml 480 ml Output Total 1100 ml Balance 120 ml 480 ml -1100 ml Current Medications: I have reviewed the current psychotropics carefully including drug interactions. Risk benefit ratio favors no change other than as noted in my dictated progress note. Diagnosis: Problems: (1) Major neurocognitive disorder, due to vascular disease, with behavioral disturbance, mild (2) Anxiety disorder (3) Dementia in Alzheimer's disease with delusions (4) Dementia, vascular, with delusions (5) Dementia in Alzheimer's disease with depression (6) Dementia, vascular, with depression (7) Impulse control disorder SMITA TOLEDO MD Apr 28, 2020 07:38
[2020-04-28] MEDS: POTASSIUM CHLORIDE 20 MEQ TABLET.ER. PO SCH (10:41)
[2020-04-28] MEDS: risperiDONE 0.5 MG TABLET. PO SCH ×2 (10:41→19:35)
[2020-04-28] MEDS: levETIRAcetam 500 MG TABLET PO SCH ×2 (10:41→19:36)
[2020-04-28] MEDS: TAMSULOSIN 0.4 MG CAP.ER.24H. PO SCH (10:41)
[2020-04-28 16:21] VITALS: BP 135/83
--- NOTE | 2020-04-28 17:45 | NUR ---
NEHEMIAH contacted Leigh from [facility] to give her an update on pt. She was able to talk to pt Joya and reports that she is open to having pt outside of the [facility]. Leigh has a few places in mind and will get with NEHEMIAH tomorrrow re: places to send the referral.
--- NOTE | 2020-04-28 18:29 | NUR ---
Patient has been delusional, wandering, restless, and impulsive throughout this shift. He slept in late and ate breakfast in the day room at about 1100. Patient wandered in the suazo and was hallucinating through the early afternoon until he was helped into bed about 15:30. He has been in bed asleep since then. Will continue to monitor and report to oncoming shift.
[2020-04-28] MEDS: AMITRIPTYLINE HCL 50 MG TABLET PO SCH (19:35)
[2020-04-28] MEDS: OLANZapine 5 MG TABLET PO SCH (19:35)
[2020-04-28] MEDS: SERTRALINE 100 MG TABLET. PO SCH (19:36)
[2020-04-28] MEDS: MELATONIN 3 MG TABLET PO SCH (19:36)
--- NOTE | 2020-04-28 20:14 | NUR ---
Pt lying in bed at shift change. Pt restless at times, disorganized, and confused. Pt cooperative and compliant with assessment and medications.
[2020-04-28] MEDS: LORazepam 0.5 MG TABLET PO PRN (21:38)
--- NOTE | 2020-04-28 21:48 | NUR ---
Pt restless, disorganized, and attempting to get out of bed without assist. Pt becomes agitated when staff attempts to re-direct him. PRN Ativan and PRN Zydis administered at this time.
--- NOTE | 2020-04-28 22:03 | PDOC ---
Exam Note: Heber Note: Please also refer to the separate dictated note~for this date of service dictated separately.~Patient seen individually. Discussed the patient with Nursing staff reviewed the chart.~Reviewed interim history and current functioning. Reviewed vital signs,~Labs/ Radiology~and current medications noted below. Continue current treatment with the changes noted in the dictated addendum note Assessment: Vital Signs/I&O: Vital Signs Date Time Temp Pulse Resp B/P (MAP) Pulse Ox O2 Delivery O2 Flow Rate FiO2 04/28/20 16:21 98.7 97 16 135/83 (100) 95 04/28/20 06:11 Room Air I & O 04/27/20 04/27/20 04/28/20 14:59 22:59 06:59 Intake Total 120 ml 480 ml Output Total 1100 ml Balance 120 ml 480 ml -1100 ml Current Medications: I have reviewed the current psychotropics carefully including drug interactions. Risk benefit ratio favors no change other than as noted in my dictated progress note. Diagnosis: Problems: (1) Major neurocognitive disorder, due to vascular disease, with behavioral disturbance, mild (2) Anxiety disorder (3) Dementia in Alzheimer's disease with delusions (4) Dementia in Alzheimer's disease with depression (5) Dementia, vascular, with delusions (6) Dementia, vascular, with depression (7) Impulse control disorder SMITA TOLEDO MD Apr 28, 2020 22:03
[2020-04-29 06:13] VITALS: BP 150/84
[2020-04-29] MEDS: levETIRAcetam 500 MG TABLET PO SCH ×2 (08:25→19:23)
[2020-04-29] MEDS: TAMSULOSIN 0.4 MG CAP.ER.24H. PO SCH (08:25)
[2020-04-29] MEDS: POTASSIUM CHLORIDE 20 MEQ TABLET.ER. PO SCH (08:26)
[2020-04-29] MEDS: risperiDONE 0.5 MG TABLET. PO SCH ×2 (08:26→19:23)
--- NOTE | 2020-04-29 12:04 | NUR ---
Based off an email from Yamile Canales who is aiding in finding placement, NEHEMIAH sent a referral over to [facility] and [facility] to consider pt for placement. NEHEMIAH will continue to work with Yamile Canales and pt on placement.
[2020-04-29 16:07] VITALS: BP_SYST 102; BP_SYST 103; BP_DIAS 65
--- NOTE | 2020-04-29 18:30 | NUR ---
Patient has been delusional, wandering, restless, and impulsive throughout this shift. Patient has been wandering in the suazo and in and out of rooms while hallucinating, having conversations with people that are not there and picking at the floor. patient tripped about 15:00 in the hallway, it was witnessed by multiple staff members; no complaints of pain, when approached he said 'hey will you help me up?' Escorted patient to his bed, he was up by himself after about 15minutes. He continues to pick at the floor and siderail at things that are not there. Will continue to monitor and report to oncoming shift.
[2020-04-29] MEDS: SERTRALINE 100 MG TABLET. PO SCH (19:23)
[2020-04-29] MEDS: OLANZapine 5 MG TABLET PO SCH (19:23)
[2020-04-29] MEDS: AMITRIPTYLINE HCL 50 MG TABLET PO SCH (19:23)
[2020-04-29] MEDS: MELATONIN 3 MG TABLET PO SCH (19:23)
[2020-04-29] MEDS: LORazepam 0.5 MG TABLET PO PRN ×2 (19:24→23:11)
--- NOTE | 2020-04-29 20:33 | NUR ---
Pt wandering in hallway at shift change. Pt restless, disorganized, confused and easily agitated with re-direction. Pt cooperative with assessment and compliant with medications administered crushed. PRN Ativan administered with HS medications.
--- NOTE | 2020-04-29 22:04 | PDOC ---
Exam Note: Heber Note: Please also refer to the separate dictated note~for this date of service dictated separately.~Patient seen individually. Discussed the patient with Nursing staff reviewed the chart.~Reviewed interim history and current functioning. Reviewed vital signs,~Labs/ Radiology~and current medications noted below. Continue current treatment with the changes noted in the dictated addendum note Assessment: Vital Signs/I&O: Vital Signs Date Time Temp Pulse Resp B/P (MAP) Pulse Ox O2 Delivery O2 Flow Rate FiO2 04/29/20 16:07 98.9 102 20 102/65 (77) 98 Room Air I & O 04/28/20 04/28/20 04/29/20 15:00 23:00 07:00 Intake Total 480 ml Balance 480 ml Current Medications: I have reviewed the current psychotropics carefully including drug interactions. Risk benefit ratio favors no change other than as noted in my dictated progress note. Diagnosis: Problems: (1) Major neurocognitive disorder, due to vascular disease, with behavioral disturbance, mild (2) Anxiety disorder (3) Dementia in Alzheimer's disease with delusions (4) Dementia in Alzheimer's disease with depression (5) Dementia, vascular, with delusions (6) Dementia, vascular, with depression (7) Impulse control disorder SMITA TOLEDO MD Apr 29, 2020 22:04
--- NOTE | 2020-04-29 23:15 | NUR ---
Pt continues to be restless and disorganized, attempting to get out of bed without assist and trying to pull the alarm pad out from underneath of himself. Pt resistive to staff attempts at re-direction. PRN Ativan and PRN Zydis administered.
[2020-04-30 04:59] VITALS: BP 129/78
--- NOTE | 2020-04-30 07:21 | PDOC ---
Exam Note: Heber Note: This note is a late entry for 04/28/2020 covers elements not covered in my initial note. Subjective: The patient was seen individually in the evening of 04/28/2020. Per John TURK, he slept 1-3/4 hours previous night. He slept at 10 in the morning. He has been confused, wandering, less agitated, compliant with medications, still grabbing at things on the floor when there is nothing there. Review of Systems: No CV, , pulmonary, eye system symptoms on review. Mental Status Exam: Oriented reasonably. Insight and judgment, recent and remote memory, attention and concentration, fund of knowledge is poor consistent with his diagnoses. Laboratory Data: Reviewed. Impression: Major neurocognitive disorder, Alzheimer, vascular with delusion, depression, behavioral disturbance. Anxiety disorder unspecified. Impulse control disorder unspecified. Plan: No change from initial note. Assessment: Vital Signs/I&O: Vital Signs Date Time Temp Pulse Resp B/P (MAP) Pulse Ox O2 Delivery O2 Flow Rate FiO2 04/30/20 04:59 98.0 85 18 129/78 (95) 98 04/29/20 16:07 Room Air I & O 04/29/20 04/29/20 04/30/20 15:00 23:00 07:00 Intake Total 240 ml 480 ml Output Total 150 ml Balance 240 ml 330 ml Current Medications: I have reviewed the current psychotropics carefully including drug interactions. Risk benefit ratio favors no change other than as noted in my dictated progress note. Diagnosis: Problems: (1) Major neurocognitive disorder, due to vascular disease, with behavioral disturbance, mild (2) Anxiety disorder (3) Dementia in Alzheimer's disease with delusions (4) Dementia in Alzheimer's disease with depression (5) Dementia, vascular, with delusions (6) Dementia, vascular, with depression (7) Impulse control disorder SMITA TOLEDO MD Apr 30, 2020 07:21
--- NOTE | 2020-04-30 08:03 | PDOC ---
Exam Note: Heber Note: This note is a late entry for 04/29/2020 covers elements not covered in my initial note. Subjective: The patient was seen individually in the evening of 04/29/2020. Per John TURK, he slept 5-1/4 hours previous night. The patient remains quite restless at night per Yessy RN. Today during the day he has been cooperative with cares, just wanders around the unit in and out of other patients room. He would not like down to rest. At one point he tripped on himself in the hallway. No injuries noted. Then he asked the staff get me up. Review of Systems: No CV, , pulmonary, eye, ENT system symptoms on review. Reliability poor. Mental Status Exam: Oriented reasonably. Insight and judgment, recent and remote memory, attention and concentration, fund of knowledge is poor consistent with his diagnoses. Laboratory Data: Reviewed. Impression: Major neurocognitive disorder, Alzheimer, vascular with delusion, depression, behavioral disturbance. Anxiety disorder unspecified. Impulse control disorder unspecified. Plan: No change from initial note. Assessment: Vital Signs/I&O: Vital Signs Date Time Temp Pulse Resp B/P (MAP) Pulse Ox O2 Delivery O2 Flow Rate FiO2 04/30/20 04:59 98.0 85 18 129/78 (95) 98 04/29/20 16:07 Room Air I & O 04/29/20 04/29/20 04/30/20 15:00 23:00 07:00 Intake Total 240 ml 480 ml Output Total 150 ml Balance 240 ml 330 ml Current Medications: I have reviewed the current psychotropics carefully including drug interactions. Risk benefit ratio favors no change other than as noted in my dictated progress note. Diagnosis: Problems: (1) Major neurocognitive disorder, due to vascular disease, with behavioral disturbance, mild (2) Anxiety disorder (3) Dementia in Alzheimer's disease with delusions (4) Dementia in Alzheimer's disease with depression (5) Dementia, vascular, with delusions (6) Dementia, vascular, with depression (7) Impulse control disorder SMITA TOLEDO MD Apr 30, 2020 08:03
--- NOTE | 2020-04-30 09:00 | NUR ---
Patient is in bed, eyes closed, NAD, snoring. Will hold morning medications at this time and continue to monitor.
[2020-04-30] MEDS: levETIRAcetam 500 MG TABLET PO SCH ×2 (12:23→20:24)
[2020-04-30] MEDS: risperiDONE 0.5 MG TABLET. PO SCH ×2 (12:23→20:25)
[2020-04-30] MEDS: TAMSULOSIN 0.4 MG CAP.ER.24H. PO SCH (12:24)
[2020-04-30] MEDS: POTASSIUM CHLORIDE 20 MEQ TABLET.ER. PO SCH (12:24)
--- NOTE | 2020-04-30 14:50 | NUR ---
Patient has been delusional, wandering, restless, and impulsive since getting up. Patient has been wandering in the suazo and in and out of rooms while hallucinating, having conversations with people that are not there and picking at the floor. He is unsteady at times and put himself on the floor at about 13:45 in front of the [facility]. Will continue to monitor and report to oncoming shift.
[2020-04-30 16:03] VITALS: BP 103/70
[2020-04-30] MEDS: OLANZapine 5 MG TABLET PO SCH (20:24)
[2020-04-30] MEDS: AMITRIPTYLINE HCL 50 MG TABLET PO SCH (20:24)
[2020-04-30] MEDS: MELATONIN 3 MG TABLET PO SCH (20:25)
[2020-04-30] MEDS: SERTRALINE 100 MG TABLET. PO SCH (20:26)
--- NOTE | 2020-04-30 22:28 | PDOC ---
Exam Note: Heber Note: Please also refer to the separate dictated note~for this date of service dictated separately.~Patient seen individually. Discussed the patient with Nursing staff reviewed the chart.~Reviewed interim history and current functioning. Reviewed vital signs,~Labs/ Radiology~and current medications noted below. Continue current treatment with the changes noted in the dictated addendum note Assessment: Vital Signs/I&O: Vital Signs Date Time Temp Pulse Resp B/P (MAP) Pulse Ox O2 Delivery O2 Flow Rate FiO2 04/30/20 16:03 98.0 97 20 103/70 (81) 96 04/29/20 16:07 Room Air I & O 04/29/20 04/29/20 04/30/20 15:00 23:00 07:00 Intake Total 240 ml 480 ml Output Total 150 ml Balance 240 ml 330 ml Current Medications: I have reviewed the current psychotropics carefully including drug interactions. Risk benefit ratio favors no change other than as noted in my dictated progress note. Diagnosis: Problems: (1) Major neurocognitive disorder, due to vascular disease, with behavioral disturbance, mild (2) Anxiety disorder (3) Dementia in Alzheimer's disease with delusions (4) Dementia in Alzheimer's disease with depression (5) Dementia, vascular, with delusions (6) Dementia, vascular, with depression (7) Impulse control disorder SMITA TOLEDO MD Apr 30, 2020 22:28
--- NOTE | 2020-04-30 22:45 | NUR ---
Nursing Note The patient was located in the day room for his medication and interactions with this nurse. The patient took his medication crushed in chocolate ice cream. The patient became agitated and restless as the night progressed and was given PRN Zyprexa per PRN order. The patient is currently sleeping in his room.
[2020-05-01 05:12] VITALS: BP 135/59
[2020-05-01] MEDS: levETIRAcetam 500 MG TABLET PO SCH (08:27)
[2020-05-01] MEDS: TAMSULOSIN 0.4 MG CAP.ER.24H. PO SCH (08:27)
[2020-05-01] MEDS: POTASSIUM CHLORIDE 20 MEQ TABLET.ER. PO SCH (08:27)
[2020-05-01] MEDS: risperiDONE 0.5 MG TABLET. PO SCH (08:28)
[2020-05-01 09:41] LABS: BASO # 0.1 x10^3/uL (0.0-0.2); BASO % 1 % (0-3); EOS % 0 % (0-3); HEMATOCRIT 33.4 % (39.0-53.0); HEMOGLOBIN 11.4 g/dL (13.0-17.5); LYMPH % 7 % (24-48); MEAN CORPUSCULAR HEMOGLOBIN 31 pg (25-35); MEAN CORPUSCULAR HGB CONC 34 g/dL (31-37); MEAN CORPUSCULAR VOLUME 90 fL (79-100); MONO # 1.2 x10^3/uL (0.0-1.1); MONO % 8 % (0-9); NEUT # 12.4 x10^3uL (1.8-7.7); NEUT % 84 % (31-73); PLATELET COUNT 347 x10^3/uL (140-400); RED BLOOD COUNT 3.73 x10^6/uL (4.30-5.70); RED CELL DISTRIBUTION WIDTH 14.1 % (11.5-14.5); WHITE BLOOD COUNT 14.8 x10^3/uL (4.0-11.0)
[2020-05-01 09:43] LABS: ALBUMIN 3.4 g/dL (3.4-5.0); ALBUMIN/GLOBULIN RATIO 0.8 (1.0-1.7); CALCIUM 8.6 mg/dL (8.5-10.1); CREATININE 1.5 mg/dL (0.7-1.3); GFR 46.4; MAGNESIUM 1.7 mg/dL (1.8-2.4); TOTAL BILIRUBIN 0.5 mg/dL (0.2-1.0); TOTAL PROTEIN 7.6 g/dL (6.4-8.2)
[2020-05-01 10:14] LABS: % BANDS 3 % (0-9); % BASOS 1 % (0-3); % LYMPHS 12 % (24-48); % MONOS 6 % (0-10); % SEGS 78 % (35-66)
[2020-05-01 10:15] LABS: PLT ESTIMATE ADEQUATE (ADEQUATE); POLYCHROMASIA SLIGHT
--- NOTE | 2020-05-01 10:57 | NUR ---
WEEKLY ACTIVITY THERAPY NOTE Date of Admission: 04/17/2020 Date of AT Assessment: 04/18/20 Precipitating behaviors that initiated intake and admission:patient had previously been a patient on [facility] and was discharged to ICU for medical reasons. He has been impulsive. has poor safety awareness, is restless, does not sleep well and is waving his hands and feet, is unable to be at home with his because he is a danger to himself and others. Goal aimed:Initial goal aimed to increase sensory stimulation. Initial Goal:Pt. will participate in at least three group or individual Activity Therapy session per week. Weekly progress towards goal: 2/3 Group participation level: 2 min Weekly highlights: enjoyed M&Ms last during [employer] games Behaviors observed: unsteady, wanders, difficult to engage, tactile hallucinations Plan: no change to goal Beneficial adaptations: sensory materials
--- NOTE | 2020-05-01 12:08 | TX PLAN ---
Interdisciplinary Tx Plan Admission Information Apr 17, 2020 at 15:30 Legal Status (on Admission): Voluntary DPOA/Guardian Name: Joya Kearns Contact Verified Code Status: DNR Allergies: Coded Allergies: No Known Drug Allergies (Unverified , 07/25/18) Diagnoses Primary Diagnosis: Major Neurocognitive D/O; PTSD, Impulse Control D/O Reasons for Admission: Aggressive, Delusions, Sig. Change Appetite, Sig. Change Sleep, Hallucinations, Suspicious/paranoid, Confusion/Disoriented Problem in Patient's Words: N/A Additional Admission Comments: Per intake, pt was transferred downstairs for a medical check-up as pt suffered a subdural hematoma and had seizures. Pt was impulsive, restless, not sleeping well, kicking and waving his hands around Problems Active Problems: Wandering Restless Poor sleep Poor appetite Agitation Combative Inactive Problems: Medication compliant with meds crushed Pt Strengths/Limitations Ability for [place]: Poor Cognitive Functioning/Ability: Poor Communication Skills/Ability: Poor Financial Resources: Fair Insight/Judgement: Poor Intellectual Ability: Poor Physical Health: Poor Social Skills: Poor Stability in Family: Fair Stability in School/Work: Poor Verbal Skills: Poor Discharge Criteria Discharge Criteria: Adequate arrangements @DC, Improved behavior, Improved mood/thought Other Discharge Comments: Placement within a higher level of care Preliminary Discharge Plan Preliminary DC Plan: Placement Needed Special Precautions Fall Risk: Moderate Initial D/C Plan Pt will discharge to a Memory Care facility once stable Identified Discharge Needs: mental health services Currently Utilized Resources Currently Utilized Resources/P: Primary Care Physician Neurologist Referrals Community Resources: Placement referrals Identified Problems/Hx/Goals Objectives/Short-Term Goals Short Term Goals: Dec. Aggression, Dec. Outbursts, Medication Stabilization, Monitor Med Effects, Promote Coping Skill Short Term Goals in Patient's: N/A Interventions/Frequency Staff Interventions/Frequency&: Psychiatrist to assess pt at least 3x per week Social Work to asses pt at least 2x per week. Nursing to assess behavior, medications and complete 15 minute checks daily. Encourage group participation in activities or 1:1 engagement based off Activity Dept. assessment. History Education: Bachelor's Degree; did not fully complete his Master's Community Follow-up Primary care physician Community Provider/Family Inpu: I just need him to be in a place where he is cared for appropriately and not treated inhumane. Treatment Plan Explained Patient/Self Pay Representative had this treatment plan explained to him/her as indicated by the signature below and has been given the opportunity to ask questions and make suggestions: Date: Patient/Self Pay Representative Signature: Status Update Update Pt is eating roughly 50% and sleeping on average 3 hours a night. Pt continues to be disorganized, wandering the unit, restless but compliant with his medications crushed in pudding. Pt is currently taking Risperdal .25mg BID, Amitriptyline 50mg q HS, Keppra 500mg BID and Zoloft 100mg daily. Pt does have Melatonin for sleep at 3mg q HS; but is also noted that pt does take naps from time to time during the day. Referrals have been sent out to facilities with a few denials. More referrals as being sent out and SW will continue to work with pt and [employer]. EDSON JIMENEZ May 01, 2020 12:08
[2020-05-01 12:52] VITALS: BP 145/80
--- NOTE | 2020-05-01 13:45 | NUR ---
Patient has been more unsteady this morning, very disorganized. Having difficulty taking cues to eat, or to take medication when crushed into pudding. Will barely open mouth. Very drowsy, pale in color. At 0500 vitals, HR was 120's. Vitals taken again at 1252- T 100.3, Pulse 104, O2 sats 94% on RA. Pt generally not active as normal. RN changed patient out of onsie without a fight or words from patient, which is not normal for patient. WBCs up to 14.8 from 7.9. Creat trending up. Checking UA, lactic acid and chest xray. WCTM.
[2020-05-01 14:19] LABS: BACTERIA,URINE MOD /HPF (0-FEW); BILIRUBIN,URINE NEG (NEG); CLARITY,URINE HAZY; COLOR,URINE YELLOW; GLUCOSE,URINE NEG (NEG); NITRITE,URINE NEG (NEG); SQUAMOUS EPITHELIAL CELL,UR OCC /LPF; WBC,URINE 20-40 /HPF (0-4)
[2020-05-01 14:20] LABS: HYALINE CASTS, URINE FEW /HPF
--- NOTE | 2020-05-01 14:35 | RAD ---
AP chest. HISTORY: Short of breath AP view was taken of the chest. Patient's taken a poor inspiration. There are still linear scarring or atelectasis in the left lung base. Heart is normal in size. There is thoracolumbar scoliosis. There is no pleural effusion. IMPRESSION: 1. Little change from the prior study from April 24. Electronically signed by: Arnold Cabral MD (05/01/2020 2:32 PM) [facility]
[2020-05-01 15:34] VITALS: BP 127/64
--- NOTE | 2020-05-01 17:30 | NUR ---
SW and pt nurse attempted to contact pt together to discuss pt current condition and concerns. SW left a message asking pt to contact NEHEMIAH CORNELIO.
--- NOTE | 2020-05-01 18:22 | NUR ---
Patient has been sleeping most of day. Pt did not fight when RN taking off onsie and changing connor bag. This is not patients norm. Checking patients vitals q4hrs to monitor for changes. Dr Linder aware of changes mentioned in this note and previous note. UA was sent to culture. When getting patient up from bed to wheelchair, pt was very unsteady. Still having difficulty eating, even with assistance from staff. Pt has had poor intake today. Per patients health directive, if patient has permanent brain damage that cannot be reversed and he is unable to make his own decisions, pt does not want antibiotics or feeding tube. Waiting for to call back and clarify as it seems patient may need antibiotics at some point. WCTM.
--- NOTE | 2020-05-01 19:04 | NUR ---
NEHEMIAH contacted pt Joya to inform her that pt is not doing well at all today. Pt is not able to feed himself, has spiked a fever over 103 and would need to be moved downstairs. Pt agreed to pt going downstairs; moreover, SW mentioned to pt that in pt paperwork, it states that if he is incapacitated, he does not wish to have antibiotics and SW wanted to clarify if that is what Joya wants to abide by his wishes. Joya began asking medical questions and stopped her to see if pt nurse was available to go over those with her as that is not out of NEHEMIAH competency. Joya is requesting that pt go downstairs, get the catheter out and start antibiotics. She is also requesting to speak with the physician to see if this is going to be a re-occuring incident as she does not wish for pt to receive antibiotics and go "against his wishes a second time". Pt nurse will contact the physician to see if he will call and talk to her and ask for nursing to call her and give her an update on how pt is doing later tonight.
[2020-05-01] MEDS ORDERED: MELA1TAB9 PO (19:14)
[2020-05-01] MEDS ORDERED: BISA10SU4 RC (19:15)
[2020-05-01] MEDS ORDERED: MAG-95 PO (19:16)
[2020-05-01] MEDS ORDERED: ACET325T9 PO (19:17)
[2020-05-01] MEDS ORDERED: METH85CR16 TP (19:19)
--- NOTE | 2020-05-01 19:44 | NUR ---
Transition Record was faxed to follow-up provider with the following elements: Reason for admission, procedures, tests, principal diagnosis, pending studies, patient instructions, 16/05 contact information for unit, phone number to obtain pending test results, plan for follow-up care, physician follow-up, advanced directive information, and medication list with dose, duration and instructions. This information was included in the following documents: History and physical, lab results, study results, progress notes, social work planning form, DC instruction form, patient visit summary, and medication reconciliation form. Date & time record faxed: 05/01/201919 Record faxed to: [facility] Record discussed with/ report given to:BURKE Mcelroy
--- NOTE | 2020-05-01 22:24 | PDOC ---
Exam Note: Heber Note: Please also refer to the separate dictated note~for this date of service dictated separately.~Patient seen individually. Discussed the patient with Nursing staff reviewed the chart.~Reviewed interim history and current functioning. Reviewed vital signs,~Labs/ Radiology~and current medications noted below. Continue current treatment with the changes noted in the dictated addendum note Assessment: Vital Signs/I&O: Vital Signs Date Time Temp Pulse Resp B/P (MAP) Pulse Ox O2 Delivery O2 Flow Rate FiO2 05/01/20 15:34 97.2 100 20 127/64 (85) 96 05/01/20 12:52 Nasal Cannula I & O 04/30/20 04/30/20 05/01/20 15:00 23:00 07:00 Intake Total 480 ml 240 ml 240 ml Output Total 1100 ml Balance 480 ml 240 ml -860 ml Labs: Laboratory Tests Test 05/01/20 09:18 05/01/20 13:11 05/01/20 13:42 White Blood Count 14.8 x10^3/uL (4.0-11.0) H Red Blood Count 3.73 x10^6/uL (4.30-5.70) L Hemoglobin 11.4 g/dL (13.0-17.5) L Hematocrit 33.4 % (39.0-53.0) L Mean Corpuscular Volume 90 fL (79-100) Mean Corpuscular Hemoglobin 31 pg (25-35) Mean Corpuscular Hemoglobin Concent 34 g/dL (31-37) Red Cell Distribution Width 14.1 % (11.5-14.5) Platelet Count 347 x10^3/uL (140-400) Neutrophils (%) (Auto) 84 % (31-73) H Lymphocytes (%) (Auto) 7 % (24-48) L Monocytes (%) (Auto) 8 % (0-9) Eosinophils (%) (Auto) 0 % (0-3) Basophils (%) (Auto) 1 % (0-3) Neutrophils # (Auto) 12.4 x10^3uL (1.8-7.7) H Lymphocytes # (Auto) 1.0 x10^3/uL (1.0-4.8) Monocytes # (Auto) 1.2 x10^3/uL (0.0-1.1) H Eosinophils # (Auto) 0.0 x10^3/uL (0.0-0.7) Basophils # (Auto) 0.1 x10^3/uL (0.0-0.2) Segmented Neutrophils % 78 % (35-66) H Band Neutrophils % 3 % (0-9) Lymphocytes % 12 % (24-48) L Monocytes % 6 % (0-10) Basophils % 1 % (0-3) Platelet Estimate Adequate (ADEQUATE) Large Platelets Occ Polychromasia Slight Sodium Level 137 mmol/L (136-145) Potassium Level 4.0 mmol/L (3.5-5.1) Chloride Level 100 mmol/L (98-107) Carbon Dioxide Level 30 mmol/L (21-32) Anion Gap 7 (6-14) Blood Urea Nitrogen 22 mg/dL (8-26) Creatinine 1.5 mg/dL (0.7-1.3) H Estimated GFR (Cockcroft-Gault) 46.4 BUN/Creatinine Ratio 15 (6-20) Glucose Level 129 mg/dL (70-99) H Calcium Level 8.6 mg/dL (8.5-10.1) Magnesium Level 1.7 mg/dL (1.8-2.4) L Total Bilirubin 0.5 mg/dL (0.2-1.0) Aspartate Amino Transferase (AST) 16 U/L (15-37) Alanine Aminotransferase (ALT) 30 U/L (16-63) Alkaline Phosphatase 81 U/L (46-116) Total Protein 7.6 g/dL (6.4-8.2) Albumin 3.4 g/dL (3.4-5.0) Albumin/Globulin Ratio 0.8 (1.0-1.7) L Lactic Acid Level 0.8 mmol/L (0.4-2.0) Urine Collection Type U cath Urine Color Yellow Urine Clarity Hazy Urine pH 7.0 Urine Specific [place] 1.020 Urine Protein 30 mg/dl (NEG-TRACE) Urine Glucose (UA) Neg mg/dL (NEG) Urine Ketones (Stick) Neg mg/dL (NEG) Urine Blood Trace (NEG) Urine Nitrite Neg (NEG) Urine Bilirubin Neg (NEG) Urine Urobilinogen Dipstick 1.0 mg/dL (0.2 mg/dL) Urine Leukocyte Esterase Trace (NEG) Urine RBC 3-5 /HPF (0-2) Urine WBC 20-40 /HPF (0-4) Urine Squamous Epithelial Cells Occ /LPF Urine Bacteria Mod /HPF (0-FEW) Urine Hyaline Casts Few /HPF Urine Mucus Slight /LPF Current Medications: I have reviewed the current psychotropics carefully including drug interactions. Risk benefit ratio favors no change other than as noted in my dictated progress note. Diagnosis: Problems: (1) Major neurocognitive disorder, due to vascular disease, with behavioral disturbance, mild (2) Anxiety disorder (3) Dementia in Alzheimer's disease with delusions (4) Dementia in Alzheimer's disease with depression (5) Dementia, vascular, with delusions (6) Dementia, vascular, with depression (7) Impulse control disorder SMITA TOLEDO MD May 01, 2020 22:24
--- NOTE | 2020-05-02 07:08 | PDOC ---
Exam Note: Heebr Note: This note is a late entry for 04/30/2020 covers elements not covered in my initial note. Subjective: The patient was seen individually in the evening of 04/30/2020. Per John TURK, he slept 1-1/4 hours previous night. He has been in the [facility] to reduce sensory stimuli. He did sleep 4 hours shank paperer of April 30. Oral intake is poor. He takes his meds crushed in pudding. He was bent over walking and fell forward. No injuries noted. Later he was walking quite straight. Previous night he had received Ativan x2, Zyprexa x1 and was probably a little sedated in the morning prior to the fall. Review of Systems: No CV, , pulmonary, eye, ENT system symptoms on review. Reliability poor. Mental Status Exam: Oriented reasonably. Insight and judgment, recent and remote memory, attention and concentration, fund of knowledge is poor consistent with his diagnoses. Laboratory Data: Reviewed. Impression: Major neurocognitive disorder, Alzheimer, vascular with delusion, depression, behavioral disturbance. Anxiety disorder unspecified. Impulse control disorder unspecified. Plan: No change from initial note. The patient appears to be little weaker, more confused. We will monitor this and defer medical management to Dr. Alston/Dr. Linder. Assessment: Vital Signs/I&O: Vital Signs Date Time Temp Pulse Resp B/P (MAP) Pulse Ox O2 Delivery O2 Flow Rate FiO2 05/01/20 15:34 97.2 100 20 127/64 (85) 96 05/01/20 12:52 Nasal Cannula I & O 05/01/20 05/01/20 05/02/20 15:00 23:00 07:00 Intake Total 240 ml 240 ml Output Total 850 ml Balance 240 ml -610 ml Labs: Laboratory Tests Test 05/01/20 09:18 05/01/20 13:11 05/01/20 13:42 White Blood Count 14.8 x10^3/uL (4.0-11.0) H Red Blood Count 3.73 x10^6/uL (4.30-5.70) L Hemoglobin 11.4 g/dL (13.0-17.5) L Hematocrit 33.4 % (39.0-53.0) L Mean Corpuscular Volume 90 fL (79-100) Mean Corpuscular Hemoglobin 31 pg (25-35) Mean Corpuscular Hemoglobin Concent 34 g/dL (31-37) Red Cell Distribution Width 14.1 % (11.5-14.5) Platelet Count 347 x10^3/uL (140-400) Neutrophils (%) (Auto) 84 % (31-73) H Lymphocytes (%) (Auto) 7 % (24-48) L Monocytes (%) (Auto) 8 % (0-9) Eosinophils (%) (Auto) 0 % (0-3) Basophils (%) (Auto) 1 % (0-3) Neutrophils # (Auto) 12.4 x10^3uL (1.8-7.7) H Lymphocytes # (Auto) 1.0 x10^3/uL (1.0-4.8) Monocytes # (Auto) 1.2 x10^3/uL (0.0-1.1) H Eosinophils # (Auto) 0.0 x10^3/uL (0.0-0.7) Basophils # (Auto) 0.1 x10^3/uL (0.0-0.2) Segmented Neutrophils % 78 % (35-66) H Band Neutrophils % 3 % (0-9) Lymphocytes % 12 % (24-48) L Monocytes % 6 % (0-10) Basophils % 1 % (0-3) Platelet Estimate Adequate (ADEQUATE) Large Platelets Occ Polychromasia Slight Sodium Level 137 mmol/L (136-145) Potassium Level 4.0 mmol/L (3.5-5.1) Chloride Level 100 mmol/L (98-107) Carbon Dioxide Level 30 mmol/L (21-32) Anion Gap 7 (6-14) Blood Urea Nitrogen 22 mg/dL (8-26) Creatinine 1.5 mg/dL (0.7-1.3) H Estimated GFR (Cockcroft-Gault) 46.4 BUN/Creatinine Ratio 15 (6-20) Glucose Level 129 mg/dL (70-99) H Calcium Level 8.6 mg/dL (8.5-10.1) Magnesium Level 1.7 mg/dL (1.8-2.4) L Total Bilirubin 0.5 mg/dL (0.2-1.0) Aspartate Amino Transferase (AST) 16 U/L (15-37) Alanine Aminotransferase (ALT) 30 U/L (16-63) Alkaline Phosphatase 81 U/L (46-116) Total Protein 7.6 g/dL (6.4-8.2) Albumin 3.4 g/dL (3.4-5.0) Albumin/Globulin Ratio 0.8 (1.0-1.7) L Lactic Acid Level 0.8 mmol/L (0.4-2.0) Urine Collection Type U cath Urine Color Yellow Urine Clarity Hazy Urine pH 7.0 Urine Specific [place] 1.020 Urine Protein 30 mg/dl (NEG-TRACE) Urine Glucose (UA) Neg mg/dL (NEG) Urine Ketones (Stick) Neg mg/dL (NEG) Urine Blood Trace (NEG) Urine Nitrite Neg (NEG) Urine Bilirubin Neg (NEG) Urine Urobilinogen Dipstick 1.0 mg/dL (0.2 mg/dL) Urine Leukocyte Esterase Trace (NEG) Urine RBC 3-5 /HPF (0-2) Urine WBC 20-40 /HPF (0-4) Urine Squamous Epithelial Cells Occ /LPF Urine Bacteria Mod /HPF (0-FEW) Urine Hyaline Casts Few /HPF Urine Mucus Slight /LPF Current Medications: I have reviewed the current psychotropics carefully including drug interactions. Risk benefit ratio favors no change other than as noted in my dictated progress note. Diagnosis: Problems: (1) Major neurocognitive disorder, due to vascular disease, with behavioral disturbance, mild (2) Anxiety disorder (3) Dementia in Alzheimer's disease with delusions (4) Dementia in Alzheimer's disease with depression (5) Dementia, vascular, with delusions (6) Dementia, vascular, with depression (7) Impulse control disorder SMITA TOLEDO MD May 02, 2020 07:08
--- NOTE | 2020-05-02 07:33 | PDOC ---
Exam Note: Heber Note: This note is a late entry for 05/01/2020 covers elements not covered in my initial note. Subjective: The patient was seen individually in the morning of 04/28/2020 with treatment team meeting with Dru (social service staff), [facility] staff, Lilibeth TURK. Appetite 50%. He slept 3 hours previous night. We may be accepted at [facility]. Gait is unsteady. He remains somewhat disorganized, confused, restless. Two days back he was in the hallway trying to grab at nursing staff but redirected. Also discussed with Josué TURK in the evening. The patient has been confused. WBC was increased to 100.3 and he appears somewhat pale and tired. Review of Systems: Ambulation impaired in wheelchair. No CV, , pulmonary, eye, ENT system symptoms on review. Reliability poor. Mental Status Exam: Oriented reasonably. Insight and judgment, recent and remote memory, attention and concentration, fund of knowledge is poor consistent with his diagnoses. Laboratory Data: Reviewed. Impression: Major neurocognitive disorder, Alzheimer, vascular with delusion, depression, behavioral disturbance. Anxiety disorder unspecified. Impulse control disorder unspecified. Plan: The patients onesie has been taken off since he was getting agitated with it. We will check urine for C&S. Chest x-ray was done per Dr. Linder and I will defer medical management to Dr. Linder. Given his sedation, withdrawal, we will go ahead and stop amitriptyline 50 mg h.s. and Risperdal 0.25 mg twice a day. Continue rest of the psychotropics. Adjust further as clinically indicated. Assessment: Vital Signs/I&O: Vital Signs Date Time Temp Pulse Resp B/P (MAP) Pulse Ox O2 Delivery O2 Flow Rate FiO2 05/01/20 15:34 97.2 100 20 127/64 (85) 96 05/01/20 12:52 Nasal Cannula I & O 05/01/20 05/01/20 05/02/20 15:00 23:00 07:00 Intake Total 240 ml 240 ml Output Total 850 ml Balance 240 ml -610 ml Labs: Laboratory Tests Test 05/01/20 09:18 05/01/20 13:11 05/01/20 13:42 White Blood Count 14.8 x10^3/uL (4.0-11.0) H Red Blood Count 3.73 x10^6/uL (4.30-5.70) L Hemoglobin 11.4 g/dL (13.0-17.5) L Hematocrit 33.4 % (39.0-53.0) L Mean Corpuscular Volume 90 fL (79-100) Mean Corpuscular Hemoglobin 31 pg (25-35) Mean Corpuscular Hemoglobin Concent 34 g/dL (31-37) Red Cell Distribution Width 14.1 % (11.5-14.5) Platelet Count 347 x10^3/uL (140-400) Neutrophils (%) (Auto) 84 % (31-73) H Lymphocytes (%) (Auto) 7 % (24-48) L Monocytes (%) (Auto) 8 % (0-9) Eosinophils (%) (Auto) 0 % (0-3) Basophils (%) (Auto) 1 % (0-3) Neutrophils # (Auto) 12.4 x10^3uL (1.8-7.7) H Lymphocytes # (Auto) 1.0 x10^3/uL (1.0-4.8) Monocytes # (Auto) 1.2 x10^3/uL (0.0-1.1) H Eosinophils # (Auto) 0.0 x10^3/uL (0.0-0.7) Basophils # (Auto) 0.1 x10^3/uL (0.0-0.2) Segmented Neutrophils % 78 % (35-66) H Band Neutrophils % 3 % (0-9) Lymphocytes % 12 % (24-48) L Monocytes % 6 % (0-10) Basophils % 1 % (0-3) Platelet Estimate Adequate (ADEQUATE) Large Platelets Occ Polychromasia Slight Sodium Level 137 mmol/L (136-145) Potassium Level 4.0 mmol/L (3.5-5.1) Chloride Level 100 mmol/L (98-107) Carbon Dioxide Level 30 mmol/L (21-32) Anion Gap 7 (6-14) Blood Urea Nitrogen 22 mg/dL (8-26) Creatinine 1.5 mg/dL (0.7-1.3) H Estimated GFR (Cockcroft-Gault) 46.4 BUN/Creatinine Ratio 15 (6-20) Glucose Level 129 mg/dL (70-99) H Calcium Level 8.6 mg/dL (8.5-10.1) Magnesium Level 1.7 mg/dL (1.8-2.4) L Total Bilirubin 0.5 mg/dL (0.2-1.0) Aspartate Amino Transferase (AST) 16 U/L (15-37) Alanine Aminotransferase (ALT) 30 U/L (16-63) Alkaline Phosphatase 81 U/L (46-116) Total Protein 7.6 g/dL (6.4-8.2) Albumin 3.4 g/dL (3.4-5.0) Albumin/Globulin Ratio 0.8 (1.0-1.7) L Lactic Acid Level 0.8 mmol/L (0.4-2.0) Urine Collection Type U cath Urine Color Yellow Urine Clarity Hazy Urine pH 7.0 Urine Specific [place] 1.020 Urine Protein 30 mg/dl (NEG-TRACE) Urine Glucose (UA) Neg mg/dL (NEG) Urine Ketones (Stick) Neg mg/dL (NEG) Urine Blood Trace (NEG) Urine Nitrite Neg (NEG) Urine Bilirubin Neg (NEG) Urine Urobilinogen Dipstick 1.0 mg/dL (0.2 mg/dL) Urine Leukocyte Esterase Trace (NEG) Urine RBC 3-5 /HPF (0-2) Urine WBC 20-40 /HPF (0-4) Urine Squamous Epithelial Cells Occ /LPF Urine Bacteria Mod /HPF (0-FEW) Urine Hyaline Casts Few /HPF Urine Mucus Slight /LPF Current Medications: I have reviewed the current psychotropics carefully including drug interactions. Risk benefit ratio favors no change other than as noted in my dictated progress note. Diagnosis: Problems: (1) Major neurocognitive disorder, due to vascular disease, with behavioral disturbance, mild (2) Anxiety disorder (3) Dementia in Alzheimer's disease with delusions (4) Dementia in Alzheimer's disease with depression (5) Dementia, vascular, with delusions (6) Dementia, vascular, with depression (7) Impulse control disorder SMITA TOLEDO MD May 02, 2020 07:32
--- NOTE | 2020-05-03 22:27 | DS ---
DATE OF DISCHARGE: 05/01/2020 DISCHARGE SUMMARY/PSYCHIATRIC PROGRESS NOTE This late entry date of service covers elements not covered in my initial note. REASON FOR ADMISSION: Please refer to the admission history for details. Briefly, the patient is a 69-year-old male who returns back to us after he was medically stabilized in the ICU, having being transferred there from the [facility] due to medical deterioration. Once he was medically stable, he continued to be extremely restless, agitated, not sleeping well, impulsive, was a significant fall risk, kicking, and waving both hands during the night while asleep and threatening staff. He had been living at home previously with his , was felt unstable and dangerous to return home with his , referred back to us for inpatient psychiatric stabilization. SIGNIFICANT FINDINGS AND CLINICAL COURSE: Following admission, the patient was seen daily individually by myself from a psychiatric standpoint. Medical followup per Dr. Alston/Dr. Linder. The patient remained extremely confused, was a significant fall risk, had to be on one-on-one status for an extended period of time. Adjustments were made in his psychotropics and he seemed to be doing better on a combination of amitriptyline 50 mg at bedtime for his marked insomnia, Risperdal 0.25 mg b.i.d. for his psychosis, Zoloft 100 mg a day for his mood and anxiety symptoms, Zyprexa 5 mg at bedtime and p.r.n. Ativan. He remained on Keppra 500 mg b.i.d. for a seizure episode that he had right before he was discharged from [facility] down to the ICU from his prior admission and he was also on melatonin 3 mg at bedtime. Behaviorally, he remained confused, but was doing better, somewhat sedated. On 05/01/2020, he was showing medical unstability, restless with intermittent hallucinations, grabbing at staff. He was pulling of his onesie. WBCs were elevated evening of 05/01/2020. Temperature 100.3. He looked somewhat pale. UA had reflex to culture. Chest x-ray had been done, but as his fever spiked, he was transferred back to the Medical/Surgical floor per Dr. Alston/Dr. Linder. I did stop his amitriptyline and Risperdal prior to discharge. REVIEW OF SYSTEMS: Prior to discharge on 05/01/2020, no CV, , pulmonary, eye, ENT system symptoms on review. Reliability poor. MENTAL STATUS EXAM: Oriented to himself. Insight, judgment, recent and remote memory, attention, concentration, fund of knowledge poor, consistent with his diagnosis. FINAL DIAGNOSES: Major neurocognitive disorder, Alzheimer, vascular with delusion, depression, behavioral disturbance; anxiety disorder, unspecified; impulse control disorder, unspecified. The patient was febrile. Rest unchanged from admission. DISCHARGE MEDICATIONS: Please refer to the MRAD. As noted, the amitriptyline and Risperdal had been stopped prior to discharge. Further medical psychiatric followup on the medical/surgical floor per Dr. Linder/Dr. Alston. SMITA TOLEDO MD DR: BORIS/nts JOB#: [id number] / [id number]
--- NOTE | 2020-06-28 21:18 | PN ---
DATE: 04/20/2020 SUBJECTIVE: The patient denies any new medical or neurological complaints. He has been seizure free for the last 1 week when he was in ICU. OBJECTIVE: GENERAL: Well-developed, well-nourished male, not in acute distress. VITAL SIGNS: Blood pressure 101/62, respiratory rate 20, pulse is 88, temperature 97.7, oxygen saturation 100% on room air. HEENT: Normocephalic, atraumatic, otherwise unremarkable. NECK: Supple. Negative for carotid bruit, lymphadenopathy or thyromegaly. LUNGS: Clear to A and P. CARDIOVASCULAR: Regular rate and rhythm, normal S1, S2. There is no S3, S4 or murmur. ABDOMEN: Soft. Bowel sounds positive. EXTREMITIES: Negative for cyanosis, clubbing or pitting edema. NEUROLOGICAL EXAM: Mental Status: The patient is alert and oriented to himself and place. Speech is not fluent. It is difficult to check on the language dysfunction. Memory, judgment, and abstracting thinking are poor. The patient has no recent history of hallucination or delusion. Cranial nerves are intact. No focal motor or sensory deficit. Deep tendon reflexes were symmetric and hypoactive without pathology responses. Gait: The Gait not tested. IMPRESSION: 1. Seizure-like activities with normal EEG. However, the patient has been kept on Keppra 500 mg twice daily. 2. Multiple medical problems include benign prostate hypertrophy, hypertension, obstructive sleep apnea, chronic obstructive pulmonary disease and gastroesophageal reflux disease. 3. Multiple psychiatric problems include dementia, anxiety and depression. RECOMMENDATIONS: We will continue with current medical and psychiatric care with Keppra 500 mg twice daily. M Rubin BIRCH MD DR: SUNSHINE/dontae JOB#: [id number] / [id number]
--- NOTE | 2020-06-29 03:56 | PN ---
DATE: 04/22/2020 SUBJECTIVE: The patient has not had any recurrent seizure-like activities. He has not reported any new medical or neurological complaints. OBJECTIVE: GENERAL: Well-developed, well-nourished male, not in acute distress. VITAL SIGNS: Blood pressure 135/78, respiratory rate 18, pulse is 70, oxygen saturation is 93%, temperature 97.2. HEENT: Normocephalic, atraumatic, otherwise unremarkable. NECK: Supple. Negative for carotid bruit, lymphadenopathy or thyromegaly. LUNGS: Clear to A and P. CARDIOVASCULAR: Regular rate and rhythm, normal S1, S2. There is no S3, S4 or murmur. ABDOMEN: Soft. Bowel sounds positive. EXTREMITIES: Negative for cyanosis, clubbing or edema. NEUROLOGICAL EXAM: Mental Status: The patient is alert to himself. He follows 1-step commands. The speech is nonfluent. Further evaluation of mental status is limited at this time as the patient does not want to answer any questions at this point. Cranial nerves are grossly intact. No focal motor or sensory deficit. Deep tendon reflexes were symmetric and hypoactive without pathologic responses. Gait not tested. LABORATORY DATA: From 04/21/2020 revealed white blood cells of 8.7, hemoglobin 10.5, hematocrit is 31.1, platelet count 277. Chemistry revealed sodium 141, potassium 3.6, chloride 104, CO2 of 32, BUN 22, creatinine 1.3, glucose 115, calcium 8.7. IMPRESSION: 1. Seizure-like activities. No witnessed or recurrent breakthrough seizure since admission to the psych unit. 2. EEG was negative for epileptiform activities. 3. Multiple psychiatric problems include dementia, anxiety disorders and depression. 4. Multiple medical problems include hypothyroidism, gastroesophageal reflux disease, benign prostatic hypertrophy, obstructive sleep apnea and chronic obstructive pulmonary disease. RECOMMENDATIONS: 1. Continue with anticonvulsant -- Keppra at ____ mg twice daily. 2. Continue with current medical and psychiatric care. The patient is neurologically stable. M Rubin BIRCH MD DR: SUNSHINE/dontae JOB#: [id number] / [id number]
== END 2020-05-01 19:45 | disposition short-term general hospital (02) | DRG 57 ==
LOC: GEROPSY 15:30
PROVIDERS: ADMIT Psychiatry & Neurology Psychiatry; ATTEND Psychiatry & Neurology Psychiatry
DX: G30.9 Alzheimer's disease, unspecified (principal); F02.81 Dementia in other diseases classified elsewhere, unspecified severity, with behavioral disturbance; F01.51 Vascular dementia, unspecified severity, with behavioral disturbance; E44.1 Mild protein-calorie malnutrition; E03.9 Hypothyroidism, unspecified; F32.9 Major depressive disorder, single episode, unspecified; F43.10 Post-traumatic stress disorder, unspecified; F63.9 Impulse disorder, unspecified; G47.33 Obstructive sleep apnea (adult) (pediatric); I10 Essential (primary) hypertension; J44.9 Chronic obstructive pulmonary disease, unspecified; K21.9 Gastro-esophageal reflux disease without esophagitis; K59.00 Constipation, unspecified; N40.0 Benign prostatic hyperplasia without lower urinary tract symptoms; R56.9 Unspecified convulsions; Z66 Do not resuscitate; Z91.81 History of falling; G47.00 Insomnia, unspecified; Z68.26 Body mass index [BMI] 26.0-26.9, adult
CPT/HCPCS: 36415; 71045; 80053; 80177; 81001; 83605; 83735; 85007; 85025; 87077; 87086; 87186; 92526; 92610

== ENCOUNTER 2020-05-01 20:13 | Inpatient (IN) | payer MEDICARE, OTHER ==
[~2020-05-01] VITALS: Ht 165.1 cm; Wt 64.2 kg
[~2020-05-01 20:13] MED LIST changes: +ACET325T9 PO; +MELA1TAB9 PO; +METH85CR16 TP
[2020-05-01 21:19] VITALS: BP 155/91
[2020-05-01] MEDS: ACETAMINOPHEN 500 MG TABLET PO PRN (21:32)
[2020-05-01 23:16] VITALS: BP 137/90
--- NOTE | 2020-05-02 00:26 | NUR ---
PT admitted from [facility] for UA positive and febrile. PT admitted for urosepsis. PT seen and assessed. PT given Tylenol, crushed in vanilla pudding. PT tolerated well. Crushed medications in pudding, honey-thick liquid, dysphagia II diet. PT belongings noted.
[2020-05-02 05:51] VITALS: BP 157/80
--- NOTE | 2020-05-02 06:16 | NUR ---
PT has not urinated at all through the night. Bladder scan performed. PT noted to only have 177 mL. PT able to drink some for me, 50 mL.
--- NOTE | 2020-05-02 06:30 | NUR ---
Spoke with PT's DPOA. They wish to abide by his wishes and decline further antibiotics. They stated they just want him to be comfortable. This RN told her that MD may telephone her later for further clarification. Addendum: 05/02/20 at 0640 by MARYSOL SANCHEZ RN RN Spoke with Dr. Lindre to inform him of DPOA's wishes prior to shift change.
[2020-05-02 10:45] VITALS: BP 94/75
--- NOTE | 2020-05-02 11:15 | HP ---
ADMIT DATE: 05/01/2020 ATTENDING PHYSICIAN: Dr. Sinha. CHIEF COMPLAINT: Fevers. HISTORY OF PRESENT ILLNESS: The patient is a 69-year-old gentleman [facility]. He has had an acute febrile episode, most likely related to his indwelling Alvarez catheter. He has been incontinent. Fevers were recorded up to 102.5 degrees Fahrenheit. Cultures have been drawn. Because of the severity of the illness, he was transferred and readmitted down to the acute floor. He is profoundly demented. He cannot give any history. He has a with a durable power of consumer attorney. He is a DNR per advanced directives. PAST MEDICAL HISTORY: Significant for profound dementia with agitation, behavioral issues, COPD, sleep apnea, gastroesophageal reflux, benign prostatic hypertrophy, urinary incontinence and retention, affective disorder, depression and generalized debilitation. ALLERGIES: No known drug allergies. CURRENT MEDICATIONS: On the psychiatric unit were recorded. He was taking Tylenol, Keppra 500 b.i.d., lorazepam, magnesium hydroxide, melatonin, olanzapine, potassium, Zoloft, and Flomax. The reason for the Keppra, was 2 weeks ago, he had a supposed witnessed seizure activity. The neurologic workup was nondiagnostic. Neurology service, kept him on the Keppra empirically. SOCIAL HISTORY: He was a smoker in the past. FAMILY HISTORY: Unobtainable. REVIEW OF SYSTEMS: Unobtainable. PHYSICAL EXAMINATION: GENERAL: When I saw him, this is a partially agitated gentleman, who is nonverbal. VITAL SIGNS: Temperature 102.6 degrees Fahrenheit, blood pressure is 157/80, pulse is ranging between 90 and 120, and his room air saturation is 95%. HEENT: Head is without trauma. Pupils are reactive. Sclerae are nonicteric. The oropharynx is clear. NECK: Supple, no bruits identified. LUNGS: Shallow respirations. CARDIOVASCULAR: Showed regular heart tones. Peripheral pulses are palpable and full. ABDOMEN: Soft, scaphoid, nontender, no organomegaly. Bowel sounds were hypoactive. EXTREMITIES: Showed trace edema. NEUROLOGIC: The patient is not aware of person, place or time. SKIN: Warm and dry. PERTINENT LABORATORY AND X-RAY STUDIES: A chest x-ray portable view done yesterday showed cardiomegaly. The right costophrenic angle is normal. There is slight blunting of the left costophrenic angle suggesting a very small pleural effusion. There is no obvious infiltrates identified. There is no decompensation. There is increased vasculature in the cephalization. LABORATORY STUDIES: His hemoglobin is 11.4 g/dL with white count of 14,800. Chemistry panel, electrolytes within normal range. Creatinine is 1.5 mg/dL, nonfasting blood sugar 129. Transaminases were not particularly elevated cholesterol was 243. Cultures of urine and blood have been ordered. ASSESSMENT: 1. A 69-year-old gentleman from the senior diagnostic unit with febrile episode. 2. Possible sepsis. 3. Most likely urinary tract infection from chronically indwelling Alvarez catheter. 4. Profound dementia. 5. Chronic obstructive pulmonary disease. 6. Asymptomatic tachycardia at this time. 7. Supposed remote history of seizure disorder, although the workup was nondiagnostic. PLAN: 1. Admit to the inpatient unit. 2. Blood and urine cultures. 3. Empiric antibiotics. 4. Minimize home meds. 5. The patient is a DNR per advanced directives. ____ mattress spring encaser to talk with the family regarding short-term and long-term goals. JAYME SINHA MD DR: JEANCARLOS/dontae JOB#: [id number] / [id number]
[2020-05-02] MEDS: LACTOBACILLUS RHAMNOSUS GG 1 CAPSULE. PO SCH ×2 (11:32→20:17)
[2020-05-02 14:01] VITALS: BP 114/60
[2020-05-02] MEDS: ACETAMINOPHEN 500 MG TABLET PO PRN (14:06)
--- NOTE | 2020-05-02 14:16 | NUR ---
NSG NOTE; STRAIGHT CATH PT HAS NOT VOIDED TODAY AND CURRENTLY HAS SLIGHTLY WET BRIEF. BLADDER SCANNER SHOWS GREATER THAN [address] SINHA NOTIFIED. NEW ORDER FOR STRAIGHT CATH PRN OBTAINED PT STRAIGHT CATHed WITH 600 ML URINE RETURN.
--- NOTE | 2020-05-02 14:27 | NUR ---
NSG NOTE; TEMP 101.8 AX PT GIVEN TYLENOL 1000 MG PO
--- NOTE | 2020-05-02 14:52 | NUR ---
NSG NOTE; CONVERSATION WITH SAV I SPOKE WITH PT'S SAV WHO STATED THE PT'S LIVING WILL STATES THAT HE DOES NOT WANT ANTIBIOTICS, BUT DOES WANT COMFORT CARE MEASURES TAKEN. DR SINHA NOTIFIED WITH ORDERS GIVEN TO CONTINUE SOME OF HIS HOME MEDS AND TO DISCONTINUE THE ANTIBIOTIC.
--- NOTE | 2020-05-02 15:32 | NUR ---
NEHEMIAH returned call to pt who was upset with not really getting any answers from nursing and the physician. She is concerned that I have no answers either but understands that NEHEMIAH is not phrased in all the medical terms. NEHEMIAH will double check to see if the nurse can have Dr. Linder contact pt as she can't explain pt blood cell counts, next steps and what recommendations medically are being made. Pt wants to make all transitions easy for him and less stressful mentally and physically. NEHEMIAH will follow up with Joya and continue to work with Yamile Canales on finding a more appropriate placement for pt and hospice care. Addendum: 05/02/20 at 1639 by EDSON CERNA Please note that this conversation took place at 1055.
--- NOTE | 2020-05-02 16:25 | NUR ---
NEHEMIAH sent over the referral for pt to [facility] as a referral for hospice house. Desi will look over the intake to see if he qualifies; NEHEMIAH asked Desi to ask for pt nurse Edita with any questions as NEHEMIAH was going to be leaving for the day around 1700. NEHEMIAH sent over a face sheet, orders, H&P and medication list.
[2020-05-02 19:16] VITALS: BP 112/67
[2020-05-02] MEDS: MELATONIN 3 MG TABLET PO SCH (20:17)
[2020-05-02] MEDS: levETIRAcetam 500 MG TABLET PO SCH (20:17)
[2020-05-02 21:56] VITALS: BP 125/80
--- NOTE | 2020-05-03 01:28 | NUR ---
bladder scanned pt greater then 400ml in bladder. Straight cathed pt with 400ml out.
[2020-05-03 06:03] VITALS: BP 123/70
--- NOTE | 2020-05-03 08:38 | PN ---
DATE: 05/03/2020 ATTENDING PHYSICIAN: Dr. Sinha. SUBJECTIVE: The patient is pleasantly calm. He is not agitated. He does not exhibit any respiratory distress. He is eating breakfast independently. OBJECTIVE FINDINGS: VITAL SIGNS: His blood pressure today is 123/70 mmHg, temperature is 99.1 degrees Fahrenheit, pulse 94 and regular, oxygen saturation 97% on room air. HEENT: Head is without trauma. Pupils are reactive. Sclerae nonicteric. Oropharynx clear. NECK: Supple. No stridor or thyromegaly. LUNGS: Actually clear. CARDIOVASCULAR: Showed regular heart tones. No gallops. Peripheral pulses are palpable and full. ABDOMEN: Soft, scaphoid, nontender, no organomegaly. Bowel sounds were normoactive. EXTREMITIES: Showed no cyanosis or edema. NEUROLOGIC: Pleasantly confused. He is not aware of what is going on. SKIN: Warm and dry. LABORATORY DATA: Chest x-ray reviewed yesterday. Cultures are pending at this time. ASSESSMENT: 1. A 69-year-old gentleman from the [facility] with acute febrile episode. 2. Sepsis syndrome ruled out as he is off of antibiotics and he is not febrile. He does not look toxic. 3. Most likely urinary tract infection with chronically indwelling Alvarez catheter. 4. Profound dementia. 5. Chronic obstructive pulmonary disease. 6. Asymptomatic tachycardia, resolved. 7. Remote history of questionable seizure disorder. Currently, he is on a small dose of Keppra. PLAN: 1. Diet as tolerated. 2. Await blood and urine cultures. 3. The and the DPOA has refused further antibiotic therapy. 4. Home meds have been minimized. 5. The patient will need placement either at an inpatient hospice or at a fpc with hospice care. At this time, he is quite medically stable. I do not believe that he is having any impending demise. Therefore, the issue here is how to manage him and how to place him socially. The [facility] is not an option at this time as they have made it clear that they are not able to take care of him upstairs. JAYME SINHA MD DR: JEANCARLOS/dontae JOB#: [id number] / [id number]
[2020-05-03] MEDS: LACTOBACILLUS RHAMNOSUS GG 1 CAPSULE. PO SCH ×2 (08:49→20:29)
[2020-05-03] MEDS: TAMSULOSIN 0.4 MG CAP.ER.24H. PO SCH (08:50)
[2020-05-03] MEDS: FINASTERIDE 5 MG TABLET PO SCH (08:50)
[2020-05-03] MEDS: levETIRAcetam 500 MG TABLET PO SCH ×2 (08:50→20:29)
[2020-05-03 10:59] VITALS: BP 100/68
[2020-05-03 16:15] VITALS: BP 132/74
[2020-05-03 19:29] VITALS: BP 113/74
[2020-05-03] MEDS: MELATONIN 3 MG TABLET PO SCH (20:29)
[2020-05-04 06:36] VITALS: BP 128/72
--- NOTE | 2020-05-04 06:37 | NUR ---
Pt restless and throwing legs over bed rails at beginning of shift, difficult to redirect. Pt given PRN Ativan per order. Pt then settled and slept through much of the night. Pt has not voided. PRN straight cath performed with return of 300cc clear straw urine. Pt tolerated well. Pt adjusted in bed for comfort and returned to sleep. Bed alarmed.
--- NOTE | 2020-05-04 08:59 | PN ---
DATE: 05/04/2020 ATTENDING PHYSICIAN: Dr. Sinha. SUBJECTIVE: The patient is comfortable. He is fast asleep. OBJECTIVE FINDINGS: VITAL SIGNS: The patient's temperature this morning is 97.8 degrees Fahrenheit. He has been afebrile 48 hours now. Blood pressure is 128/72, pulse is 77 and regular, oxygen saturation 98% on room air. HEENT: Head is without trauma. Pupils are reactive. Sclerae nonicteric. Oropharynx clear. NECK: Supple. No stridor. LUNGS: Good air movement. Minimal wheezing in the upper airways. CARDIOVASCULAR: Showed distant heart tones. No obvious gallops. Peripheral pulses are palpable and full. ABDOMEN: Soft, nontender, no guarding or masses. EXTREMITIES: Show no cyanosis or edema. NEUROLOGIC: The patient is confused and disoriented. ASSESSMENT: 1. A 69-year-old gentleman with acute febrile episode, probably related to indwelling Alvarez catheter. He has been afebrile now 48 hours. After we removed the catheter, his has refused further antibiotics. 2. Sepsis syndrome ruled out. 3. Profound dementia. 4. Chronic obstructive pulmonary disease. 5. Asymptomatic tachycardia, resolved. 6. Questionable history of seizure disorder, currently on maintenance small dose of Keppra. PLAN: 1. Diet as tolerated. 2. Await culture results. 3. The DPOA, his has refused further antibiotic therapy, but she is picking and choosing what medicines to give him. 4. Some home meds have been restarted. 5. We are working on placement. He is a DNR per advanced directives. JAYME SINHA MD DR: JEANCARLOS/dontae JOB#: [id number] / [id number] SMITA Chappell MD
[2020-05-04] MEDS: FINASTERIDE 5 MG TABLET PO SCH (10:03)
[2020-05-04] MEDS: levETIRAcetam 500 MG TABLET PO SCH ×2 (10:03→19:50)
[2020-05-04] MEDS: TAMSULOSIN 0.4 MG CAP.ER.24H. PO SCH (10:03)
[2020-05-04] MEDS: LACTOBACILLUS RHAMNOSUS GG 1 CAPSULE. PO SCH ×2 (10:03→19:50)
[2020-05-04 19:17] VITALS: BP 135/89
[2020-05-04] MEDS: MELATONIN 3 MG TABLET PO SCH (19:50)
--- NOTE | 2020-05-05 05:20 | NUR ---
Pt found up wondering in room at change of shift, unsteady gait noted. Pt assisted back to bed but a few minutes later Pt was throwing legs over bed rails attempting to get up again, difficult to redirect. Pt assisted up for a short walk in halls. Pt A&O x1 only, pt mumbles words but nothing understandable. Pt reaches for thing in air that are not there. Pt given PRN Ativan per order with HS medications, settled down but still awake in bed most of night. PRN straight cath performed with return of 200cc of straw colored urine, Pt tolerated well. Bed alarm on and working.
[2020-05-05 05:55] VITALS: BP 135/76
[2020-05-05] MEDS: levETIRAcetam 500 MG TABLET PO SCH ×2 (08:01→20:02)
[2020-05-05] MEDS: TAMSULOSIN 0.4 MG CAP.ER.24H. PO SCH (08:01)
[2020-05-05] MEDS: LACTOBACILLUS RHAMNOSUS GG 1 CAPSULE. PO SCH ×2 (08:01→20:02)
[2020-05-05] MEDS: FINASTERIDE 5 MG TABLET PO SCH (08:01)
--- NOTE | 2020-05-05 09:48 | NUR ---
NURSING NOTE 1:1 PT HAS TRIED MULTIPLE TIMES TO GET OUT OF BED, PT IS VERY UNSTEADY AND NOT SAFE ON HIS FEET, ORDER OBTAINED FOR 1:1 OBSERVATION. NURSING ACADEMIC RECORDS SPECIALIST NOTIFIED. BURKE THOMPSON.
--- NOTE | 2020-05-05 10:20 | NUR ---
NURSING NOTE IV PT PULLED IV OUT, DR SINHA HERE, ORDER OBTAINED TO KEEP IV OUT, NOT NEEDED. BURKE THOMPSON.
[2020-05-05 10:23] VITALS: BP 126/68
--- NOTE | 2020-05-05 11:07 | PN ---
DATE: 05/05/2020 ATTENDING PHYSICIAN: Dr. Sinha. SUBJECTIVE: No new complaints. He is comfortable, but he is little more agitated. He is unable to stay still and the nursing staff has requested one-on-one sitter attendant for the patient's safety. OBJECTIVE FINDINGS: VITAL SIGNS: He is afebrile. His blood pressure today is 126/68, temperature 97.5 degrees Fahrenheit, and oxygen saturation 96% on room air. HEENT: Pupils are reactive. Sclerae nonicteric. NECK: Supple, no bruits. LUNGS: Clear. CARDIOVASCULAR: Showed regular heart tones. Peripheral pulses are palpable and full. ABDOMEN: Soft, scaphoid, nontender. EXTREMITIES: Show no cyanosis or edema. NEUROLOGIC: Focally intact. The patient is not aware of person, place or time and is agitated. ASSESSMENT: 1. A 69-year-old gentleman with acute febrile episode related to indwelling Alvarez catheter, he has now been afebrile the last 3 days. 2. Sepsis syndrome ruled out. 3. Profound dementia with agitation. 4. Chronic obstructive pulmonary disease. 5. Tachycardia, resolved. 6. Questionable history of seizure disorder. PLAN: 1. Diet as tolerated. 2. I have ordered a 24-hour personal safety coordinator. 3. Await placement. 4. Home meds have been minimized. 5. He is a DNR per advanced directive, but he does not have any impending demise clinically. JAYME SINHA MD DR: JEANCARLOS/dontae JOB#: [id number] / [id number]
[2020-05-05 15:13] VITALS: BP 127/71
--- NOTE | 2020-05-05 16:19 | NUR ---
NURSING NOTE PT AGITATION PT IS VERY AGITATED, UP AND DOWN, UNSTEADY ON HIS FEET, RESTLESS IN THE CHAIR, HITTING HIS BEDSIDE TABLE. PHONED DR SINHA, ORDER FOR ZYPREXA 5MG PRN Q8 HRS AND ATIVAN 1MG BY MOUTH Q3 HRS NEEDED. BURKE THOMPSON.
[2020-05-05 19:08] VITALS: BP 135/74
[2020-05-05] MEDS: LORazepam 1 MG TABLET PO PRN (20:02)
[2020-05-05] MEDS: MELATONIN 3 MG TABLET PO SCH (20:02)
[2020-05-06 07:15] VITALS: BP 124/73
[2020-05-06] MEDS: LACTOBACILLUS RHAMNOSUS GG 1 CAPSULE. PO SCH ×2 (08:00→22:20)
[2020-05-06] MEDS: levETIRAcetam 500 MG TABLET PO SCH ×2 (08:00→22:20)
[2020-05-06] MEDS: TAMSULOSIN 0.4 MG CAP.ER.24H. PO SCH (08:00)
[2020-05-06] MEDS: FINASTERIDE 5 MG TABLET PO SCH (08:00)
[2020-05-06 11:17] VITALS: BP 138/80
--- NOTE | 2020-05-06 12:00 | NUR ---
Patient has been calm, compliant, and pleasantly confused. He is on 1:1 observation for safety relating to unsteady gait and restlessness. He has been cooperative with redirection, and allowed himself to be fed at breakfast. Patient had multiple small bowel movements this morning. Will continue to monitor and report to oncoming shift.
--- NOTE | 2020-05-06 12:02 | PN ---
DATE: 05/06/2020 ATTENDING PHYSICIAN: Dr. Sinha. SUBJECTIVE: The patient is calm. He is in no obvious distress. He is agitated, but calm with a 1:1, the patient's health and safety coordinator. OBJECTIVE FINDINGS: VITAL SIGNS: The patient's blood pressure today is 124/73, temperature 97.1, pulse is regular. Room air saturation 97%. HEENT: Head is without trauma. Pupils are reactive. Sclerae nonicteric. Oropharynx clear. NECK: Supple, no bruits. LUNGS: Otherwise, clear to auscultation. CARDIOVASCULAR: Showed regular heart tones. Normal S1, S2. Peripheral pulses are palpable and full. ABDOMEN: Soft, nontender, no organomegaly. EXTREMITIES: Show no cyanosis or edema. NEUROLOGIC FINDING: Focally intact. No deficit. The patient is confused and remains agitated at times. ASSESSMENT: 1. A 69-year-old gentleman with acute febrile episode, related to indwelling Alvarez catheter, now that has been removed. He has been afebrile the last 4 days. 2. Sepsis syndrome ruled out. 3. Profound dementia with agitation. 4. Chronic obstructive pulmonary disease, stable. 5. Tachycardia, resolved. 6. Questionable history of seizure disorder. PLAN: 1. Personal health and safety coordinator to make sure he does not climb out of his chair and bed and hurt himself. 2. Home meds have been minimized and continued. 3. He is a DNR per advanced directives. 4. Awaiting placement. JAYME SINHA MD DR: JEANCARLOS/dontae JOB#: [id number] / [id number]
[2020-05-06 15:13] VITALS: BP 122/76
[2020-05-06] MEDS: LORazepam 1 MG TABLET PO PRN (22:20)
[2020-05-06] MEDS: MELATONIN 3 MG TABLET PO SCH (22:20)
[2020-05-06 22:32] VITALS: BP 120/71
[2020-05-07 06:00] VITALS: BP 119/73
--- NOTE | 2020-05-07 07:56 | NUR ---
IP: patient requires quarantine for COVID-19 until 05/14.
[2020-05-07] MEDS: LORazepam 1 MG TABLET PO PRN ×2 (07:59→20:30)
[2020-05-07] MEDS: LACTOBACILLUS RHAMNOSUS GG 1 CAPSULE. PO SCH ×2 (07:59→20:30)
[2020-05-07] MEDS: TAMSULOSIN 0.4 MG CAP.ER.24H. PO SCH (07:59)
[2020-05-07] MEDS: FINASTERIDE 5 MG TABLET PO SCH (07:59)
[2020-05-07] MEDS: levETIRAcetam 500 MG TABLET PO SCH ×2 (07:59→20:30)
--- NOTE | 2020-05-07 08:21 | NUR ---
NURSING NOTE PT WAS IN BED THIS AM UPON ASSESSMENT AND MEDICATION ADMINISTRATION. PT IS CALM RESTING IN THE BED. SET UP FOR MEAL. PT TOOK MEDS CRUSHED IN PUDDING WITH NO PROBLEM. PT REQUIRES SET UP FOR MEALS AND ENCOURAGEMENT AT TIMES. PT WAS INCONTINENT IN HIS BRIEF WITH A BM THIS AM. REQUIRES X1 ASSIST IN HYGIENE CARE AND CHANGING PANTS. PT CURRENTLY FINISHING UP WITH HIS MEAL, WILL CONTINUE TO MONITOR. UBRKE THOMPSON.
[2020-05-07 11:30] VITALS: BP_SYST 154; BP_SYST 74; BP_DIAS 67; BP_DIAS 89
[2020-05-07 15:01] VITALS: BP 136/82
[2020-05-07 18:55] VITALS: BP 134/85
[2020-05-07] MEDS: MELATONIN 3 MG TABLET PO SCH (20:30)
--- NOTE | 2020-05-07 21:47 | PN ---
DATE: 05/07/2020 SUBJECTIVE: The patient is resting, slightly propped up in bed, resting comfortably, in no apparent distress. He is profoundly demented and does not give any useful information. He was actually transferred to [address] [place] [address] to be treated for urosepsis; however, the family made him DNR/DNI and the plan was for him to be discharged to [facility] on hospice. Unfortunately, another resident at [facility] tested positive for COVID and therefore he will be quarantined here until 05/14/2020. He was tested once for COVID and was negative and he will be tested another time again. His coronavirus by PCR was not detected on 05/05/2020. ASSESSMENT: 1. This is a 69-year-old male patient with acute febrile episode related to indwelling Alvarez catheter that has been removed. He is now afebrile over the last 4 days. 2. Sepsis syndrome was ruled out. 3. Profound dementia with agitation. 4. Chronic obstructive pulmonary disease, stable. Tachycardia, resolved. 5. Questionable history of seizure disorder. PLAN: The patient needs 1:1 given his safety and awareness issues as the patient has fallen multiple times, to continue with his home medications. He is DNR with advanced directives, awaiting placement. DANIEL GRAY MD DR: ROBERTO/dontae JOB#: [id number] / [id number]
[2020-05-07 23:07] VITALS: BP 130/74
[2020-05-08 05:40] VITALS: BP 109/64
[2020-05-08 06:46] LABS: HEMATOCRIT 31.2 % (39.0-53.0); HEMOGLOBIN 10.3 g/dL (13.0-17.5); RED BLOOD COUNT 3.48 x10^6/uL (4.30-5.70); RED CELL DISTRIBUTION WIDTH 14.9 % (11.5-14.5); WHITE BLOOD COUNT 8.4 x10^3/uL (4.0-11.0)
[2020-05-08 06:59] LABS: CALCIUM 8.7 mg/dL (8.5-10.1); CREATININE 1.1 mg/dL (0.7-1.3); GFR 66.4; POTASSIUM 3.3 mmol/L (3.5-5.1)
--- NOTE | 2020-05-08 09:00 | NUR ---
pt is awake, alert, cooperative, pt ate breakfast well, compliant with AM meds and cares. Pt remains 1:1 observation, due to high risk for falls.
[2020-05-08] MEDS: TAMSULOSIN 0.4 MG CAP.ER.24H. PO SCH (10:16)
[2020-05-08] MEDS: FINASTERIDE 5 MG TABLET PO SCH (10:16)
[2020-05-08] MEDS: LACTOBACILLUS RHAMNOSUS GG 1 CAPSULE. PO SCH ×2 (10:17→19:27)
[2020-05-08] MEDS: levETIRAcetam 500 MG TABLET PO SCH ×2 (10:17→19:27)
[2020-05-08 10:55] VITALS: BP 130/77
--- NOTE | 2020-05-08 14:00 | NUR ---
Patient has been alert, walking in hallways with staff, pt has been calm, cooperative with cares, pt has been ambulating to bathroom, pt has not required any straight caths today, he has urinating about every 1.5 hours. Pt ate all of his lunch today, with set up help only. He also ate snacks about 1 hour after eating lunch. Pt is sitting up in broda chair watching TV at this time. Pt has a sitter for high risk for falls.
[2020-05-08 14:57] VITALS: BP 135/71
--- NOTE | 2020-05-08 18:51 | PN ---
DATE: 05/08/2020 SUBJECTIVE: The patient is resting, slightly propped up in bed, in no apparent respiratory distress. He continued to be restless, pacing up and down. He continued to require 1:1 sitter, but he has no history of any fall or trauma. PHYSICAL EXAMINATION: GENERAL: When I examined him today, he looked somewhat pale, but no jaundice, cyanosis or thyromegaly. No jugular venous distention. No limb edema. VITAL SIGNS: Her heart rate was 105, blood pressure was 135/71, temperature 98.7, respiratory rate was 16, and oxygen saturation was 98%. HEAD, EYES, EARS, NOSE AND THROAT: Showed normocephalic, atraumatic. NECK: Supple. HEART: Showed normal first and second heart sounds. No gallop or murmur. CHEST: Clear to auscultation. No crepitation or rhonchi. ABDOMEN: Distended, soft, nontender. NEUROLOGIC: He is profoundly demented, very unsteady of his feet and very high fall risk, but otherwise he moves extremities spontaneously. His intake over the last 24 hours was 1200, no output was recorded. LABORATORY DATA: His white cell count was 8400, hemoglobin 10, hematocrit 31, MCV 90 and platelet count 276. His serum sodium was 143, potassium 3.3, chloride 105, bicarbonate 27, anion gap of 11, BUN 23, creatinine 1.1, estimated GFR was 66 mL per minute, his glucose was 100, calcium was 8.7. ASSESSMENT: 1. This is a 69-year-old male patient with acute febrile episode related to indwelling Alvarez catheter, it has been removed. He is now afebrile over the last 5 days. 2. Sepsis syndrome was ruled out. 3. Profound dementia with agitation. 4. Chronic obstructive pulmonary disease, stable. 5. Questionable history of seizure disorder. PLAN: He is to continue with 1:1 sitter for safety and awareness issues as the patient has fallen multiple times. He is profoundly demented, continued all his home medications. He is DNR with advanced directives, awaiting placement. DANIEL GRAY MD DR: ROBERTO/dontae JOB#: [id number] / [id number]
[2020-05-08] MEDS: LORazepam 1 MG TABLET PO PRN (19:27)
[2020-05-08] MEDS: MELATONIN 3 MG TABLET PO SCH (19:28)
[2020-05-08 21:31] VITALS: BP 155/84
--- NOTE | 2020-05-09 05:19 | NUR ---
Pt. was found wondering in room w/ unsteady gait at shift change. Pt was safely assisted back to bed. Pt. attempted multi. times to get up out of bed and became slightly anxious with direction to get back into bed. PRN Ativan given as indicated. 1:1 staff at bedside for safety. Ativan effective pt. rested on and off throughout the night. Pt awoke this morning incontinent of bowel and bladder. Pt cooperative w/ cares and able to follow directions. Pt currently sitting up on bedside drinking honey thick juice independently.
[2020-05-09 05:26] VITALS: BP 150/80
[2020-05-09] MEDS: TAMSULOSIN 0.4 MG CAP.ER.24H. PO SCH (07:46)
[2020-05-09] MEDS: levETIRAcetam 500 MG TABLET PO SCH ×2 (07:46→20:40)
[2020-05-09] MEDS: LACTOBACILLUS RHAMNOSUS GG 1 CAPSULE. PO SCH ×2 (07:46→20:40)
[2020-05-09] MEDS: FINASTERIDE 5 MG TABLET PO SCH (07:46)
--- NOTE | 2020-05-09 09:23 | NUR ---
NSG NOTE; ONE ON ONE SITTER WITH PT AT ALL TIMES. PT AMB IN ROOM AND PADILLA WITH HER BY HIS SIDE. HE HAS BEEN CALM THIS MORNING AND COMPLIANT WITH MEDS CRUSHED IN APPLE SAUCE. CONFUSED AND ANSWERS OCC WITH ONE WORD RESPONSE
[2020-05-09 11:00] VITALS: BP 128/79
--- NOTE | 2020-05-09 12:44 | NUR ---
IP: patient should be retested for COVID-19 05/12 per [facility] Health [facility].
[2020-05-09 15:00] VITALS: BP 128/76
[2020-05-09 20:20] VITALS: BP 121/79
--- NOTE | 2020-05-09 20:22 | PN ---
DATE: 05/09/2020 SUBJECTIVE: The patient is sitting at the edge of the bed comfortably in no apparent distress. He continued to show evidence of restlessness, agitation and attempts to get out of the bed and he is unsteady and requires on 1:1 sitter; however, he is generally afebrile, hemodynamically stable. PHYSICAL EXAMINATION: GENERAL: When I examined him, he looked pale, no jaundice, cyanosis or thyromegaly. No jugular venous distention. No limb edema. VITAL SIGNS: Hi heart rate was 102, blood pressure was 128/76, temperature was 98.4, respiratory rate was 20, and oxygen saturation was 98% on room air. The rest of clinical exam is stable. The patient is ambulatory, walks without assistance or assistive devices with a standby assist. His intake and output were incompletely recorded. LABORATORY DATA: As of yesterday showed a white cell count of 8400, hemoglobin 10, hematocrit 31, MCV 90 and platelet count of 276,000. His serum sodium was 143, potassium 3.3, chloride 105, bicarbonate 27, anion gap of 11, BUN 23, creatinine 1.1, estimated GFR was 66 mL per minute. His glucose is 100. Calcium was 8.7. ASSESSMENT: 1. This is a 69-year-old male patient with acute febrile episode related to indwelling Alvarez catheter that has resolved. He is now afebrile, hemodynamically stable with normal white cell count. 2. Sepsis syndrome was ruled out. 3. Profound dementia with agitation. 4. Chronic obstructive pulmonary disease that is stable. 5. Questionable history of seizure disorder. PLAN: 1. To continue with the 1:1 sitter for safety and awareness issues that the patient has fallen multiple times. He is profoundly demented. 2. Continue with all his other medications. 3. He is DNR as with advance directive, awaiting placement. DANIEL GRAY MD DR: ROBERTO/dontae JOB#: [id number] / [id number]
[2020-05-09] MEDS: LORazepam 1 MG TABLET PO PRN (20:40)
[2020-05-09] MEDS: MELATONIN 3 MG TABLET PO SCH (20:40)
[2020-05-09 23:22] VITALS: BP 116/74
[2020-05-10 07:10] VITALS: BP 164/87
[2020-05-10] MEDS: LACTOBACILLUS RHAMNOSUS GG 1 CAPSULE. PO SCH ×2 (08:41→20:04)
[2020-05-10] MEDS: levETIRAcetam 500 MG TABLET PO SCH ×2 (08:41→20:04)
[2020-05-10] MEDS: TAMSULOSIN 0.4 MG CAP.ER.24H. PO SCH (08:41)
[2020-05-10] MEDS: FINASTERIDE 5 MG TABLET PO SCH (08:41)
[2020-05-10 12:00] VITALS: BP 147/90
--- NOTE | 2020-05-10 14:07 | PN ---
DATE: SUBJECTIVE: The patient is resting, slightly propped up in bed, in no apparent respiratory distress. He is profoundly demented with no safety awareness. He continued to be unsteady on his feet and attempts to get out and as he has fallen multiple times, he has 1:1 sitter. PHYSICAL EXAMINATION: GENERAL: On examining him, he looked pale, no jaundice, cyanosis or thyromegaly. No jugular venous distention. No limb edema. VITAL SIGNS: His heart rate was 117, blood pressure was 147/90, temperature 97.2, respiratory rate 20 and oxygen saturation was 98% on room air. The rest of clinical exam is stable. His intake and output were incompletely recorded. LABORATORY DATA: Most recent lab work showed serum sodium 143, potassium 3.3, chloride 105, bicarbonate 27, anion gap of 11, BUN 23, creatinine 1.1, estimated GFR was 66 mL per minute. His white cell count was 8.4, hemoglobin 10, hematocrit 30, MCV 90 and platelet count of 276,000. ASSESSMENT: 1. This is a 69-year-old male patient with acute febrile episode with indwelling Alvarez catheter that has resolved. He is now afebrile, hemodynamically stable with normal white cell count. 2. Sepsis syndrome was ruled out. 3. Profound dementia with agitation. 4. Chronic obstructive pulmonary disease that is stable. 5. Questionable history of seizure disorder. PLAN: 1. To continue with 1:1 sitter for safety and awareness issues as the patient has fallen multiple times. He is profoundly demented. 2. Continue with all his other medications: He is a DNR as there are advanced directives awaiting placement. 3. Hypokalemia, for which he will be started on potassium. I will check his lab work. DANIEL GRAY MD DR: ROBERTO/dontae JOB#: [id number] / [id number]
[2020-05-10] MEDS ORDERED: POTASSIUM CHLORIDE 20 MEQ TABLET.ER. PO ONE (14:10)
[2020-05-10 18:18] VITALS: BP 122/77
[2020-05-10] MEDS: MELATONIN 3 MG TABLET PO SCH (20:03)
[2020-05-10 21:17] VITALS: BP 127/85
[2020-05-11 07:39] VITALS: BP 156/88
[2020-05-11 07:53] LABS: CALCIUM 8.6 mg/dL (8.5-10.1); CREATININE 1.2 mg/dL (0.7-1.3); POTASSIUM 3.8 mmol/L (3.5-5.1)
[2020-05-11] MEDS: levETIRAcetam 500 MG TABLET PO SCH ×2 (09:01→20:00)
[2020-05-11] MEDS: LACTOBACILLUS RHAMNOSUS GG 1 CAPSULE. PO SCH ×2 (09:01→20:00)
[2020-05-11] MEDS: TAMSULOSIN 0.4 MG CAP.ER.24H. PO SCH (09:01)
[2020-05-11] MEDS: FINASTERIDE 5 MG TABLET PO SCH (09:01)
[2020-05-11] MEDS: POTASSIUM CHLORIDE 20 MEQ TABLET.ER. PO SCH (09:02)
[2020-05-11 11:05] VITALS: BP 133/82
[2020-05-11 15:05] VITALS: BP 145/79
--- NOTE | 2020-05-11 15:16 | PN ---
DATE: 05/11/2020 SUBJECTIVE: The patient is resting, slightly propped up in bed, in no apparent distress. He obviously is profoundly confused, but apparently has been stable. Has not had any fall. He continued to require one-on-one sitter. His appetite has improved and is eating more. The nursing staff did not voice any concern and stated he had generally uneventful night. PHYSICAL EXAMINATION: GENERAL: When I examined him, he looked pale. No jaundice, cyanosis or thyromegaly. No jugular venous distention. No limb edema. VITAL SIGNS: His heart rate was 94, blood pressure was 133/82, temperature 97.7, respiratory rate was 16, and oxygen saturation was 97%. HEAD, EYES, EARS, NOSE AND THROAT: Normocephalic, atraumatic. NECK: Supple. HEART: Showed normal first and second heart sounds. No gallop or murmur. CHEST: Clear to auscultation. No crepitation or rhonchi. ABDOMEN: Distended, soft, nontender. NEUROLOGIC: He was profoundly demented, but without any obvious lateralizing sign. All his cranial nerves intact. He moves extremities without difficulty, ambulates without assistance or standby assist. His intake was 1116, output was recorded. LABORATORY DATA: His lab work this morning actually showed serum sodium 140, potassium 3.8, chloride 104, bicarbonate 27, anion gap of 9, BUN 18, creatinine is 1.2, estimated GFR was 60. Glucose 103, calcium was 8.6. ASSESSMENT: This is a 69-year-old male patient with: 1. Acute febrile episode due to indwelling Alvarez catheter that has resolved. He is now afebrile, hemodynamically stable with normal white cell count. 2. Sepsis syndrome that was ruled out. 3. Profound dementia with agitation. 4. Chronic obstructive pulmonary disease that is stable. 5. There is a questionable history of seizure disorder. 6. Hypokalemia, resolved. Have restarted on potassium supplement and his potassium this morning was up to 3.9. PLAN: To continue with one-on-one sitter for safety and awareness issues as the patient has fallen multiple times. He is profoundly demented. To continue with all his other medications. He is a DNR as there are advanced directives, awaiting placement. DANIEL GRAY MD DR: Tiffanie JOB#: [id number] / [id number]
[2020-05-11 18:28] VITALS: BP 147/94
[2020-05-11] MEDS: MELATONIN 3 MG TABLET PO SCH (20:00)
[2020-05-11] MEDS: ACETAMINOPHEN 500 MG TABLET PO PRN (20:01)
[2020-05-11 21:06] LABS: BASO # 0.1 x10^3/uL (0.0-0.2); BASO % 1 % (0-3); EOS # 0.1 x10^3/uL (0.0-0.7); EOS % 1 % (0-3); HEMATOCRIT 34.3 % (39.0-53.0); HEMOGLOBIN 11.5 g/dL (13.0-17.5); LYMPH # 1.2 x10^3/uL (1.0-4.8); LYMPH % 10 % (24-48); MEAN CORPUSCULAR HEMOGLOBIN 30 pg (25-35); MEAN CORPUSCULAR HGB CONC 33 g/dL (31-37); MEAN CORPUSCULAR VOLUME 89 fL (79-100); MONO # 0.8 x10^3/uL (0.0-1.1); MONO % 7 % (0-9); NEUT # 9.5 x10^3uL (1.8-7.7); NEUT % 82 % (31-73); PLATELET COUNT 384 x10^3/uL (140-400); RED BLOOD COUNT 3.87 x10^6/uL (4.30-5.70); RED CELL DISTRIBUTION WIDTH 14.7 % (11.5-14.5); WHITE BLOOD COUNT 11.7 x10^3/uL (4.0-11.0)
[2020-05-11 21:20] LABS: ALBUMIN 3.1 g/dL (3.4-5.0); ALBUMIN/GLOBULIN RATIO 0.7 (1.0-1.7); CALCIUM 9.1 mg/dL (8.5-10.1); CREATININE 1.3 mg/dL (0.7-1.3); GFR 54.7; POTASSIUM 3.7 mmol/L (3.5-5.1); TOTAL BILIRUBIN 0.3 mg/dL (0.2-1.0); TOTAL PROTEIN 7.5 g/dL (6.4-8.2)
[2020-05-11 21:37] LABS: % BANDS 14 % (0-9); % BASOS 1 % (0-3); % LYMPHS 6 % (24-48); % MONOS 4 % (0-10); % SEGS 75 % (35-66)
[2020-05-11 21:38] LABS: PLT ESTIMATE INCREASED (ADEQUATE)
[2020-05-11 21:40] LABS: ANISOCYTOSIS SLIGHT; OVALOCYTES PRESENT; POLYCHROMASIA PRESENT
[2020-05-11] MEDS ORDERED: IV NORMAL SALINE 1,000ML 1,000 ML IV ONE (22:00)
[2020-05-11 22:24] VITALS: BP 100/66
--- NOTE | 2020-05-11 23:18 | NUR ---
On shift change pt was sinus tachy on the monitor and had a slight fever 99.9. pt heart rate continued to increase. dr was called orders given for 1000ml bolus normal saline. dr also suggested to bladder scan the pt. upon scanning pt had 950ml in bladder. pt was straight cathed with 850 output. pt handled procedure well, didnt resist or move. pt heart rate dropped to 100-110 beats per minute. pt is resting peacefully in bed. pt was also screen for covid 19. order is stat and will be taken out in the morning.
[2020-05-12 05:18] VITALS: BP 141/82
[2020-05-12] MEDS: TAMSULOSIN 0.4 MG CAP.ER.24H. PO SCH (08:37)
[2020-05-12] MEDS: levETIRAcetam 500 MG TABLET PO SCH ×2 (08:37→19:07)
[2020-05-12] MEDS: LACTOBACILLUS RHAMNOSUS GG 1 CAPSULE. PO SCH ×2 (08:37→19:07)
[2020-05-12] MEDS: FINASTERIDE 5 MG TABLET PO SCH (08:37)
[2020-05-12] MEDS: POTASSIUM CHLORIDE 20 MEQ TABLET.ER. PO SCH (08:37)
[2020-05-12 10:49] VITALS: BP 121/68
--- NOTE | 2020-05-12 15:54 | NUR ---
NSG NOTE; VARGAS CATHETER PLACED PT HAD NOT VOIDED AT ALL TODAY. BLADDER SCAN SHOWS GREATER THAN 200 ML URINE. PT VOIDED A SMALL AMT IN THE TOILET. BLADDER SCAN STILL SHOWED GREATER THAN 200 ML STRAIGHT CATH WITH 16 FR ATTEMPTED AND UNSUCCESSFUL. I WAS MOST LIKELY HITTING THE PROSTATE AND THE ATTEMPT BECAME TOO PAINFUL FOR THE PT. STRAIGHT CATH WITH 14 FR CATHETER VERY DIFFICULT BUT SUCCESSFUL. CATH ATTACHED TO VARGAS BAG TO LEAVE IN PLACE. 225 ML URINE RETURNED. PT RESTING COMFORTABLY AT THIS TIME
--- NOTE | 2020-05-12 16:02 | NUR ---
NSG NOTE; CALM AND COOPERATIVE TODAY. HAS 0NE ON ONE SITTER FOR SAFETY DUE TO FALL RISK AND IMPULSIVENESS. HAS MOSTLY STAYED IN HIS BED WITH AMB TO BR. PREFERS EATING FINGER FOODS
--- NOTE | 2020-05-12 18:36 | PN ---
DATE: 05/12/2020 SUBJECTIVE: The patient apparently has had a low-grade fever yesterday. He has markedly tachycardic. As his family did not want any treatment with antibiotics, I gave him 1000 mL of normal saline as a bolus and then we scanned his bladder and apparently about 950 mL of urine were drained. He tolerated the procedure very well and his heart rate has dropped down from 170-100 and has since very comfortable and rested peacefully in bed. He was swabbed for COVID-19 again today. PHYSICAL EXAMINATION: GENERAL: When I saw him this morning, he was resting comfortably in his bed, in no apparent distress, pale, no jaundice, cyanosis or thyromegaly. No jugular venous distention. No limb edema. VITAL SIGNS: His heart rate was 101, blood pressure was 141/82, temperature was 98, respiratory rate was 18 and oxygen saturation was 99%. HEAD, EYES, EARS, NOSE AND THROAT: Normocephalic and atraumatic. NECK: Supple. CARDIAC: Normal first and second heart sounds. No gallop or murmur. CHEST: Clear to auscultation. No crepitation or rhonchi. ABDOMEN: Distended, soft, nontender. No guarding or rigidity. No organomegaly. All hernial orifice intact. Bowel sounds normal. NEUROLOGIC: He is demented, but without any obvious lateralizing sign. He moves all extremities without difficulty. His intake was 900, output was 850. LABORATORY DATA: As of yesterday, his white cell count was slightly elevated at 11,700; hemoglobin 11; hematocrit 34; MCV 89 and platelet count 384,000. His serum sodium was 139, potassium 3.7, chloride 103, bicarbonate was 26, anion gap of 10, BUN 18, creatinine 1.3, estimated GFR was 57 mL per minute. His glucose 121, calcium was 9.1. Total bilirubin, AST, ALT, alkaline phosphatase were normal. Total protein was 7.5, albumin was 3.1. ASSESSMENT: This is a 69-year-old male patient with: 1. Acute febrile episode due to indwelling Alvarez catheter that has resolved. He is now afebrile, hemodynamically stable with white cell count. He did have a low-grade fever yesterday and is developed severe marked sinus tachycardia; however, we did not do any blood or urine culture as his family have strict orders not to treat him aggressively. I did order 1000 mL of normal saline bolus and we did scan his bladder, was found to be retaining about 950 mL. He was straight catheterized and about 850 mL were drained. The patient after which becomes rested in his bed peacefully, heart rate dropped down from 170-100. 2. Sepsis syndrome was ruled out. 3. Profound dementia with agitation. 4. Chronic obstructive pulmonary disease that is stable. 5. Questionable history of seizure disorder. 6. Hypokalemia, resolved. PLAN: Obviously continue with one-on-one sitter given that he has safety awareness issues. We will continue to scan his bladder and straight cath him as needed. Continue with his current medication. He was screened for COVID-19 again today. DANIEL GRAY MD DR: ROBERTO/dontae JOB#: [id number] / [id number]
[2020-05-12 19:00] VITALS: BP 124/76
[2020-05-12] MEDS: MELATONIN 3 MG TABLET PO SCH (19:07)
[2020-05-12 23:00] VITALS: BP 108/67
[2020-05-13 07:04] VITALS: BP 128/48
[2020-05-13] MEDS: levETIRAcetam 500 MG TABLET PO SCH ×2 (09:41→20:08)
[2020-05-13] MEDS: TAMSULOSIN 0.4 MG CAP.ER.24H. PO SCH (09:41)
[2020-05-13] MEDS: POTASSIUM CHLORIDE 20 MEQ TABLET.ER. PO SCH (09:41)
[2020-05-13] MEDS: LACTOBACILLUS RHAMNOSUS GG 1 CAPSULE. PO SCH ×2 (09:42→20:08)
[2020-05-13] MEDS: FINASTERIDE 5 MG TABLET PO SCH (09:42)
[2020-05-13 10:52] VITALS: BP 169/84
--- NOTE | 2020-05-13 13:19 | PN ---
DATE: 05/13/2020 SUBJECTIVE: The patient is resting, slightly propped up in bed, in no apparent distress. He obviously is profoundly demented, does not give any useful information as he continued to have due to retained urine, an indwelling Alvarez catheter was placed; however, he remained hemodynamically stable and afebrile. OBJECTIVE: VITAL SIGNS: His heart rate was 99, blood pressure was 169/84, temperature was 99, respiratory rate was 18 and oxygen saturation was 97%. HEAD, EYES, EARS, NOSE AND THROAT: Showed normocephalic, atraumatic. NECK: Supple. CARDIAC: Normal first and second heart sounds. No gallop or murmur. CHEST: Clear to auscultation. No crepitation or rhonchi. ABDOMEN: Distended, soft, nontender. NEUROLOGIC: He is demented, but without any obvious lateralizing sign. He moves all extremities without difficulty, ambulates with standby assist. His intake was 1300, output was 3400. No lab works were done this morning. ASSESSMENT: This is a 69-year-old male patient with: 1. Acute febrile episode due to indwelling Alvarez catheter that has resolved. He continued to be afebrile, hemodynamically stable with normal white cell count. He did have a low-grade fever 2 days ago and developed severe marked sinus tachycardia; however, we did not do any blood or urine culture as his family has strict order not to treat him aggressively. I did order a bolus of normal saline and we did scan his bladder and was found to be retaining about 950 mL. He was straight catheterized and about 850 mL were drained. As he continues to retain urine, an indwelling Alvarez catheter was placed. His heart rate has dropped from 170 to 200 and since then has been stable. 2. Sepsis syndrome was ruled out. 3. Profound dementia with agitation. 4. Chronic obstructive pulmonary disease that is stable. 5. Questionable history of seizure disorder. 6. Hypokalemia that has resolved. PLAN: To continue with one-on-one sitter given that he has safety awareness issues. Continue with indwelling catheter for now. Continue with all his current medication. He will be screened for COVID-19 again tomorrow. DANIEL GRAY MD DR: ROBERTO/dontae JOB#: [id number] / [id number]
[2020-05-13 15:05] VITALS: BP 150/84
--- NOTE | 2020-05-13 15:31 | NUR ---
PATIENT IS AWAKE UP IN A CHAIR UPON ASSESSMENT, CALM AND QUIET, A/O X1, COOPERATED DURING ASSESSMENT AND MED ADMINISTRATION. PATIENT IS ON 1:1 OBSERVATION TO PREVENT FALLS AND ELOPEMENT FROM MED SURG UNIT, PATIENT HAS BEEN COOPERATIVE DURING ADLS THIS SHIFT. WILL CONTINUE TO MONITOR.
[2020-05-13] MEDS: ACETAMINOPHEN 500 MG TABLET PO PRN (16:54)
[2020-05-13 20:05] VITALS: BP 154/90
[2020-05-13] MEDS: MELATONIN 3 MG TABLET PO SCH (20:08)
[2020-05-13] MEDS: LORazepam 1 MG TABLET PO PRN (20:08)
[2020-05-13 22:34] VITALS: BP 106/69
--- NOTE | 2020-05-14 04:48 | NUR ---
Pt. has been restless throughout the night but easily redirects. Pt received PRN Ativan at HS w/ minimal effect. 1:1 staff remains at bedside for safety.
[2020-05-14 05:05] VITALS: BP 123/78
[2020-05-14] MEDS: FINASTERIDE 5 MG TABLET PO SCH (07:35)
[2020-05-14] MEDS: LACTOBACILLUS RHAMNOSUS GG 1 CAPSULE. PO SCH ×2 (07:35→20:12)
[2020-05-14] MEDS: levETIRAcetam 500 MG TABLET PO SCH ×2 (07:35→20:12)
[2020-05-14] MEDS: TAMSULOSIN 0.4 MG CAP.ER.24H. PO SCH (07:35)
[2020-05-14] MEDS: POTASSIUM CHLORIDE 20 MEQ TABLET.ER. PO SCH (07:35)
--- NOTE | 2020-05-14 09:40 | PN ---
DATE: 05/14/2020 ATTENDING PHYSICIAN: Dr. Sinha. SUBJECTIVE: The patient is sleeping. He arouses easily. He is profoundly demented. He has no significant complaints. There are no obvious signs of distress. OBJECTIVE FINDINGS: VITAL SIGNS: His blood pressure is 123/78, pulse 85 and regular, temperature 98.8, oxygen saturation 97% on room air. HEENT: Head is without trauma. Pupils are reactive. Sclerae nonicteric. Oropharynx clear. NECK: Supple, no bruits. LUNGS: Clear. CARDIOVASCULAR: Showed regular heart tones. ABDOMEN: Soft, nontender. EXTREMITIES: Showed no cyanosis or edema. NEUROLOGIC: Profound dementia. No obviously lateralizing signs. He moves all extremities. He follows some commands. SKIN: Warm and dry. ASSESSMENT: 1. A 69-year-old gentleman with acute febrile episode due to indwelling Alvarez catheter. He unfortunately had to have the catheter replaced. 2. Sepsis syndrome ruled out. 3. Profound dementia. 4. Chronic obstructive pulmonary disease. 5. Questionable history of seizure disorder. 6. Hypokalemia, resolved. PLAN: 1. Await placement. 2. Home meds reviewed and continued. 3. He is a DNR per advanced directives. JAYME SINHA MD DR: JEANCARLOS/dontae JOB#: [id number] / [id number]
[2020-05-14 11:07] VITALS: BP 118/78
--- NOTE | 2020-05-14 11:31 | NUR ---
NSG NOTE; AM BEHAVIORS PT NO LONGER ON ONE ON ONE SITTER BUT 15 MINUTE CHECKS. HE HAS BEEN CALM AND QUIET WITH NO BEHAVIORS TODAY. HE PARTIALLY FED HIMSELF A LATE BREAKFAST- DOES BEST WITH FINGER FOODS. HE HAS BEEN NAPPING ON AND OFF AND MADE NO ATTEMPTS TO GET OOB WITHOUT ASSIST.
[2020-05-14 19:12] VITALS: BP 134/89
[2020-05-14] MEDS: MELATONIN 3 MG TABLET PO SCH (20:12)
[2020-05-14] MEDS: LORazepam 1 MG TABLET PO PRN (20:12)
[2020-05-14 23:28] VITALS: BP 129/77
--- NOTE | 2020-05-15 02:22 | NUR ---
Pt. became restless shortly after shift change. Pt was then assisted on a walk [id number] w/gait belt. Pt. tolerated walk well. Pt became restless again and was given PRN Ativan as indicated. Pt responded well and has been sleeping with minimal disruptions. Pt remains on 1:1 status for safety.
[2020-05-15 06:22] VITALS: BP 121/67
[2020-05-15] MEDS: TAMSULOSIN 0.4 MG CAP.ER.24H. PO SCH (07:44)
[2020-05-15] MEDS: FINASTERIDE 5 MG TABLET PO SCH (07:44)
[2020-05-15] MEDS: POTASSIUM CHLORIDE 20 MEQ TABLET.ER. PO SCH (07:44)
[2020-05-15] MEDS: levETIRAcetam 500 MG TABLET PO SCH ×2 (07:44→20:03)
[2020-05-15] MEDS: LACTOBACILLUS RHAMNOSUS GG 1 CAPSULE. PO SCH ×2 (07:44→20:04)
--- NOTE | 2020-05-15 12:21 | NUR ---
SW spoke with pt , Joya, who left messages yesterday when SW was off. Joya just needed the appropriate number to contact pt nurse and his room as she has not talked to pt in a day or 2. Pt reports that she is getting her surgery tomorrow at noon and is supposed to be an outpt procedure, as long as there are no complications. SW discussed sending out more referrals for pt as no placement has been willing to accept pt at this time. NEHEMIAH will continue to work with [facility] on placement and once one has been found, a referral to hospice will be sent. SW to follow up with pt on placement updates.
--- NOTE | 2020-05-15 13:48 | PN ---
DATE: 05/15/2020 ATTENDING PHYSICIAN: Dr. Sinha. SUBJECTIVE: The patient is awake. He is calm. Alvarez catheter is in place. He is in no obvious distress. OBJECTIVE FINDINGS: GENERAL: The patient is afebrile today. VITAL SIGNS: Blood pressure is 121/67, pulse 76 and regular, temperature 97.2 degrees Fahrenheit and oxygen saturation 98% on room air. HEENT: Head is without trauma. Pupils are reactive. Sclerae nonicteric. Oropharynx clear. NECK: Supple. LUNGS: Good breath sounds. CARDIOVASCULAR: Showed regular heart tones. No gallops. ABDOMEN: Soft. EXTREMITIES: Showed no edema. SKIN: Warm and dry. NEUROLOGIC: Pleasantly confused. A Alvarez catheter is intact. ASSESSMENT: 1. A 69-year-old gentleman with acute febrile episode. Alvarez catheter is removed, now has been replaced because of urinary incontinence. 2. Sepsis syndrome ruled out. 3. Profound dementia. 4. Chronic obstructive pulmonary disease. 5. Seizure disorder. 6. Hypokalemia, resolved. PLAN: 1. Diet as tolerated. 2. Meds reviewed. 3. Await placement. JAYME SINHA MD DR: JEANCARLOS/dontae JOB#: [id number] / [id number]
--- NOTE | 2020-05-15 14:04 | NUR ---
PLACEMENT UPDATES: [facility] ([place]) -- denied; unable to care for bx [facility] - cannot meet pt needs [facility] -- cannot meet pt needs [facility] -- no beds currently [facility] -- had pt 2x and refuses to take him due to issues with [facility] -- no beds until the following week (05/19) [facility] -- initially gave pending acceptance until Covoid test completed; now reporting no beds [facility] -- cannot meet needs [facility] -- [facility] -- cannot handle bx [facility] -- considering; cannot take if he remains a 1:1 [facility] -- not chronic enough for admission [place] -- cannot meet his needs; recommended [facility] which is a level II (he won't qualify with his dementia dx) [facility] -- considering [facility] -- referral sent, waiting for reply [facility] -- cannot meet pt needs [facility] -- referral sent, waiting for reply [facility] -- referrals sent, waiting for reply
--- NOTE | 2020-05-15 15:24 | NUR ---
NSG NOTE; TODAY'S BEHAVIORS PT IS NOW OFF ONE ON ONE SITTER AND HAS BEEN CALM AND COMFORTABLE AND COOPERATIVE TODAY. WE'VE BEEN DOING 15 MINUTES CHECKS FOR HIS SAFETY AND AT TIMES HE SITS IN HIS DOORWAY WHICH IS ACROSS FROM THE NURSES' STATION. HE HAS BEEN DRINKING WELL TODAY AND FED HIMSELF THE WHOLE GRILLED CHEESE AT LUNCH.
[2020-05-15 16:00] VITALS: BP 128/67
--- NOTE | 2020-05-15 17:54 | NUR ---
NSG NOTE; THIS AFTERNOON PT HAS SAT IN HIS CHAIR IN THE DOORWAY SO HE CAN BE NEAR OTHERS. HE IS COOPERATIVE AND FED HIMSELF THREE SMALL SANDWICHES TONITE FOR DINNER. HE IS CALM AND PLEASANT THOUGH CONFUSED
[2020-05-15 19:20] VITALS: BP 108/63
[2020-05-15] MEDS: LORazepam 1 MG TABLET PO PRN (20:03)
[2020-05-15] MEDS: MELATONIN 3 MG TABLET PO SCH (20:03)
--- NOTE | 2020-05-16 01:33 | NUR ---
On assessment pt walking the hallway x1 assist, pt is cooperative and interactive with staff. Pt compliant with assessment and medications crushed in a bite of pudding. Pt sleeping in bed at this time, bed alarm in place for pt safety.
[2020-05-16 05:45] VITALS: BP 151/92
[2020-05-16 10:44] VITALS: BP 128/83
--- NOTE | 2020-05-16 10:59 | PN ---
DATE: 05/16/2020 ATTENDING PHYSICIAN: Dr. Sinha. SUBJECTIVE: The patient is calm. He remains pleasantly confused. He is not agitated. He is resting comfortably. OBJECTIVE FINDINGS: VITAL SIGNS: His blood pressure today is 151/92, his pulse was 91 and regular, temperature 97.5 degrees Fahrenheit, and room air saturations are 99%. HEENT: Head is without trauma. Pupils are reactive. Sclerae nonicteric. NECK: Supple, no bruits. LUNGS: Good breath sounds. CARDIOVASCULAR: Showed distant heart tones. No gallops. ABDOMEN: Soft. EXTREMITIES: Without edema. NEUROLOGIC: Pleasantly confused, but without agitation. SKIN: Warm and dry. ASSESSMENT: 1. A 69-year-old gentleman with acute febrile episode, this was several weeks ago. A Alvarez catheter has been removed. He probably had a urinary tract infection. We started him on a couple of doses of antibiotics, but his has refused antibiotic therapy. He has actually done well since then. 2. Sepsis syndrome ruled out. 3. Profound dementia, requiring quite a bit of care. 4. Chronic obstructive pulmonary disease, stable. 5. Idiopathic seizure disorder. 6. Hypokalemia, resolved. PLAN: 1. Diet as tolerated. 2. Meds reviewed. 3. We are having issues with placement because of this COVID-19 situation. We are still working on residential placement. JAYME SINHA MD DR: JEANCARLOS/dontae JOB#: [id number] / [id number]
[2020-05-16] MEDS: FINASTERIDE 5 MG TABLET PO SCH (11:13)
[2020-05-16] MEDS: LACTOBACILLUS RHAMNOSUS GG 1 CAPSULE. PO SCH ×2 (11:13→20:18)
[2020-05-16] MEDS: POTASSIUM CHLORIDE 20 MEQ TABLET.ER. PO SCH (11:13)
[2020-05-16] MEDS: TAMSULOSIN 0.4 MG CAP.ER.24H. PO SCH (11:13)
[2020-05-16] MEDS: levETIRAcetam 500 MG TABLET PO SCH ×2 (11:13→20:18)
--- NOTE | 2020-05-16 12:17 | NUR ---
NEHEMIAH returned call to [facility] and spoke with co-hospital cna Jackie and discussed pt history and current medical concerns (e.g. straight cathing pt versus a connor) and why pt was bein documented as a 1:1. Jackie does not have an opening right now but reports having one available later next week. Pt would need to be HCBS status prior to being accepted for payment purposes. NEHEMIAH will keep Jackie up to date on pt status.
[2020-05-16 15:43] VITALS: BP 127/79
[2020-05-16 18:57] VITALS: BP 109/67
[2020-05-16] MEDS: MELATONIN 3 MG TABLET PO SCH (20:18)
--- NOTE | 2020-05-16 21:36 | NUR ---
Pt is laying in bed on assessment. Pt is calm and cooperative with staff. Pt is compliant with medication and assessment. Pt is sleeping in bed at this time, bed alarm in place for pt safety.
[2020-05-17 06:26] VITALS: BP 110/70
[2020-05-17] MEDS: LORazepam 1 MG TABLET PO PRN ×2 (09:01→19:53)
[2020-05-17] MEDS: TAMSULOSIN 0.4 MG CAP.ER.24H. PO SCH (09:01)
[2020-05-17] MEDS: levETIRAcetam 500 MG TABLET PO SCH ×2 (09:01→19:53)
[2020-05-17] MEDS: FINASTERIDE 5 MG TABLET PO SCH (09:01)
[2020-05-17] MEDS: LACTOBACILLUS RHAMNOSUS GG 1 CAPSULE. PO SCH ×2 (09:01→19:53)
[2020-05-17] MEDS: POTASSIUM CHLORIDE 20 MEQ TABLET.ER. PO SCH (09:01)
[2020-05-17 11:30] VITALS: BP 123/70
[2020-05-17 16:48] VITALS: BP 123/74
[2020-05-17 19:36] VITALS: BP 130/78
[2020-05-17] MEDS: MELATONIN 3 MG TABLET PO SCH (19:53)
[2020-05-17 22:53] VITALS: BP 167/51
[2020-05-18 05:10] VITALS: BP 134/79
[2020-05-18] MEDS: POTASSIUM CHLORIDE 20 MEQ TABLET.ER. PO SCH (07:47)
[2020-05-18] MEDS: levETIRAcetam 500 MG TABLET PO SCH ×2 (07:47→20:06)
[2020-05-18] MEDS: TAMSULOSIN 0.4 MG CAP.ER.24H. PO SCH (07:47)
[2020-05-18] MEDS: LACTOBACILLUS RHAMNOSUS GG 1 CAPSULE. PO SCH ×2 (07:48→20:06)
[2020-05-18] MEDS: FINASTERIDE 5 MG TABLET PO SCH (07:48)
--- NOTE | 2020-05-18 10:05 | PN ---
DATE: 05/18/2020 SUBJECTIVE: No complaints, comfortable. He is not agitated. OBJECTIVE FINDINGS: VITAL SIGNS: The patient is afebrile, blood pressure is 134/79 mmHg, pulse 89 and regular, room air saturation 99%. HEENT: Head is without trauma. Pupils are reactive. Sclerae nonicteric. Oropharynx clear. LUNGS: Good breath sounds. CARDIOVASCULAR: Showed regular heart tones. No gallops. ABDOMEN: Soft, scaphoid, nontender, no organomegaly. EXTREMITIES: Show no cyanosis or edema. NEUROLOGIC: Pleasantly confused, less agitation. SKIN: Warm and dry. ASSESSMENT: 1. A 69-year-old gentleman with acute febrile episode, stable. Alvarez catheter has been reinserted for urinary retention. 2. Sepsis syndrome ruled out. 3. Profound dementia, requiring quite a bit of care. He is calm today. 4. Chronic obstructive pulmonary disease, stable on room air oxygen. 5. Idiopathic seizure disorder. 6. Hypokalemia, resolved. PLAN: 1. Diet as tolerated. 2. I once again reviewed his medications. 3. We are looking for placement. It has been difficult because of the COVID pandemic situation at the nursing homes. JAYME SINHA MD DR: JEANCARLOS/dontae JOB#: [id number] / [id number]
--- NOTE | 2020-05-18 10:05 | PN ---
DATE: 05/17/2020 SUBJECTIVE: The patient is calm. He is still requiring a personal safety trainer to make sure he does not get out of bed. He has no concept of what is going on or where he is. There is no obvious respiratory distress. OBJECTIVE FINDINGS: VITAL SIGNS: Blood pressure today is 110/70 mmHg, pulse 80 and regular, temperature 97.9 degrees Fahrenheit, oxygen saturation 96% on room air. HEENT: Head is without trauma. Pupils are reactive. Sclerae nonicteric. Oropharynx clear. NECK: Supple. LUNGS: Otherwise clear. CARDIOVASCULAR: Showed regular heart tones. No gallops. ABDOMEN: Soft, scaphoid, nontender. EXTREMITIES: Showed no edema or cyanosis. NEUROLOGIC: Pleasantly confused, but not agitated. SKIN: Warm and dry. ASSESSMENT: 1. A 69-year-old gentleman with acute febrile episode several weeks ago. Alvarez catheter was removed, but had to be replaced for urinary retention. We started him on a couple of doses of antibiotics, his , Gregorio just refused further therapy. He is actually doing well since then. 2. Sepsis syndrome ruled out. Currently stable. 3. Profound dementia. 4. Chronic obstructive pulmonary disease, stable. 5. Idiopathic seizure disorder. 6. Hypokalemia, resolved. PLAN: 1. We are still waiting for placement. 2. Diet as tolerated. 3. Personal safety trainer intermittently. 4. Meds reviewed. We are still having issues with placement due to his requirements and COVID-19 pandemic. JAYME SINHA MD DR: JEANCARLOS/dontae JOB#: [id number] / [id number]
[2020-05-18 11:11] VITALS: BP 151/77
[2020-05-18 15:08] VITALS: BP 134/83
--- NOTE | 2020-05-18 16:14 | NUR ---
PATIENT IS AWAKE IN A BED UPON ASSESSMENT, CALM AND COOPERATIVE WITH ADLS, TOOK HIS MEDS CRUSHED IN APPLE SAUCE. PATIENT HAS BEEN CALM AND QUIET MOST OF THE SHIFT, ASSISTED WITH MEALS AND ADLS X1. WILL CONTINUE TO MONITOR.
[2020-05-18 19:00] VITALS: BP 106/73
[2020-05-18] MEDS: MELATONIN 3 MG TABLET PO SCH (20:06)
[2020-05-18] MEDS: LORazepam 1 MG TABLET PO PRN (20:06)
[2020-05-18 23:10] VITALS: BP 146/95
--- NOTE | 2020-05-19 05:27 | NUR ---
Shift Note: Pt is a/o to self only, VSS, no c/o pain or n/v at this time, connor catheter (d/t chronic retention) to dependent drainage, skin is CDI, no IV site at this time, pt has been pleasant and cooperative with staff throughout the shift, patient taking oral medications crushed in pudding, mitts in place d/t pulling on connor catheter.
[2020-05-19 06:06] VITALS: BP 154/93
[2020-05-19] MEDS: levETIRAcetam 500 MG TABLET PO SCH ×2 (07:39→20:25)
[2020-05-19] MEDS: POTASSIUM CHLORIDE 20 MEQ TABLET.ER. PO SCH (07:39)
[2020-05-19] MEDS: FINASTERIDE 5 MG TABLET PO SCH (07:39)
[2020-05-19] MEDS: LACTOBACILLUS RHAMNOSUS GG 1 CAPSULE. PO SCH ×2 (07:39→20:26)
[2020-05-19] MEDS: TAMSULOSIN 0.4 MG CAP.ER.24H. PO SCH (07:39)
--- NOTE | 2020-05-19 09:33 | PN ---
DATE: 05/19/2020 ATTENDING PHYSICIAN: Dr. Sinha. SUBJECTIVE: The patient is out in the hallway, eating breakfast. He has a blank stare. He is not agitated at this time. OBJECTIVE FINDINGS: VITAL SIGNS: The patient's blood pressure today is 154/93 mmHg, pulse is 88 and regular, temperature 97.9 degrees Fahrenheit, oxygen saturation 97% on room air. HEENT: Head is without trauma. Pupils are reactive. Sclerae nonicteric. Oropharynx clear. NECK: Supple. No stridor. LUNGS: Otherwise clear, but he has shallow respirations. He has good air movement. CARDIOVASCULAR: Showed regular heart tones. No gallops. Peripheral pulses are palpable and full. ABDOMEN: Soft, scaphoid, nontender, no organomegaly. EXTREMITIES: Show no cyanosis or edema. NEUROLOGIC: Pleasantly confused, less agitation. SKIN: Warm and dry. ASSESSMENT: 1. A 69-year-old gentleman with acute febrile episode, stable. Unfortunately, the Alvarez catheter has been reinserted for urinary retention. 2. Sepsis syndrome ruled out. 3. Profound dementia, requiring quite a bit of care. 4. Chronic obstructive pulmonary disease, stable. 5. Idiopathic seizure disorder. 6. Hypokalemia, resolved. PLAN: 1. I reviewed his medication. 2. Looking for placement. 3. Diet as tolerated. He is still requiring some assistance in activities of daily living. JAYME SINHA MD DR: JEANCARLOS/dontae JOB#: [id number] / [id number]
--- NOTE | 2020-05-19 11:01 | NUR ---
NSG NOTE; AM PER AWOKE AT 0800 WITH HIS VARGAS CATH DISCONNECTED FROM THE TUBING. HE WAS TAKEN TO THE SHOWER WITH ONE PERSON HANDS-ON STANDBY ASSIST. HE WAS COOPERATIVE IN THE SHOWER BUT DOES NOT ASSIST IN WASHING HIMSELF. HE'S BEEN IN A CHAIR IN HIS DOORWAY ACROSS FROM THE NURSING STATION. HE HAS NOT ATTEMPTED TO GET UP WITHOUT ASSIST. HE ATE VERY LITTLE BREAKFAST BUT HAS BEEN EATING A MIDMORNING SNACK. HE IS ABLE TO DRINK WITHOUT SPILLS. HE'S BEEN CALM AND PLEASANTLY CONFUSED
[2020-05-19 11:22] VITALS: BP 119/81
--- NOTE | 2020-05-19 12:30 | NUR ---
NEHEMIAH received call from Monika, area representative from [facility], who gave SW a couple more placements to send referrals. It was noted that the nurse maintenance shop manager sent referrals this morning as well. NEHEMIAH emailed Pat billy from the [facility] . Below is the UPDATED PLACEMENT LIST: [facility] ([place]) -- denied; unable to care for bx [facility] - cannot meet pt needs [facility] -- cannot meet pt needs [facility] -- no beds currently [facility] -- had pt 2x and refuses to take him due to issues with [facility] -- no beds until the following week (05/19) [facility] -- initially gave pending acceptance until Covoid test completed; now reporting no beds [facility] -- cannot meet needs [facility] -- [facility] -- cannot handle bx [facility] -- considering; cannot take if he remains a 1:1 [facility] -- not chronic enough for admission [place] -- cannot meet his needs; recommended [facility] which is a level II (he won't qualify with his dementia dx) [facility] -- cannot care for pt needs [facility] -- referral sent, waiting for reply [facility] -- cannot meet pt needs [facility] -- referral sent, waiting for reply [facility] -- referrals sent, waiting for reply [facility] -- cannot meet pt care needs [facility] (residential home) -- considering [place] -- [facility]-- [facility] -- considering; spoke to Trish further about pt care needs [place] -- considering
--- NOTE | 2020-05-19 15:28 | NUR ---
NSG NOTE; VARGAS REMOVAL CATHETER KEPT COMING DISCONNECTED FROM THE TUBING TO THE VARGAS BAG. VARGAS WAS DC'D AT 1415. DR SINHA NOTIFIED. WILL MONITOR FOR URINATION OR RETENTION WITH POSSIBLE STRAIGHT CATH OR VARGAS REPLACEMENT NEEDED
[2020-05-19 18:08] VITALS: BP 117/18
[2020-05-19] MEDS: MELATONIN 3 MG TABLET PO SCH (20:25)
[2020-05-19] MEDS: LORazepam 1 MG TABLET PO PRN (20:25)
--- NOTE | 2020-05-20 00:55 | NUR ---
pts bladder scanned due to not voiding/retention. over 700 ml on scan. connor cath inserted with current order.
[2020-05-20 05:54] VITALS: BP 128/79
[2020-05-20] MEDS: LACTOBACILLUS RHAMNOSUS GG 1 CAPSULE. PO SCH ×2 (07:55→20:42)
[2020-05-20] MEDS: TAMSULOSIN 0.4 MG CAP.ER.24H. PO SCH (07:55)
[2020-05-20] MEDS: levETIRAcetam 500 MG TABLET PO SCH ×2 (07:55→20:42)
[2020-05-20] MEDS: FINASTERIDE 5 MG TABLET PO SCH (07:55)
[2020-05-20] MEDS: POTASSIUM CHLORIDE 20 MEQ TABLET.ER. PO SCH (07:55)
--- NOTE | 2020-05-20 11:07 | PN ---
DATE: 05/20/2020 ATTENDING PHYSICIAN: Dr. Sinha. SUBJECTIVE: Calm. No new complaints. He still requires total care. He is not agitated. OBJECTIVE FINDINGS: VITAL SIGNS: Blood pressure today is 128/79, pulse 95 and regular, temperature 97.7 degrees Fahrenheit, and a room air saturation of 98%. HEENT: Head is without trauma. Pupils are reactive. Sclerae nonicteric. Oropharynx clear. NECK: Supple. LUNGS: Good breath sounds. CARDIOVASCULAR: Showed distant heart tones. No gallops. ABDOMEN: Soft. EXTREMITIES: Show no cyanosis or edema. NEUROLOGIC: Findings focally intact. No focal deficit. He remains pleasantly confused. ASSESSMENT: 1. A 69-year-old gentleman with acute febrile episode. He has now been afebrile. 2. Sepsis syndrome ruled out. 3. Profound dementia. 4. Chronic obstructive pulmonary disease, stable. 5. Idiopathic seizure disorder. PLAN: 1. We are waiting for the most recent COVID swab, if that is negative we have a [facility] that is willing to take him first thing tomorrow. That swab will not be available until later tonight. 2. Diet as tolerated. 3. Medications reviewed. JAYME SINHA MD DR: JEANCARLOS/dontae JOB#: [id number] / [id number]
[2020-05-20 11:13] VITALS: BP 163/82
--- NOTE | 2020-05-20 17:58 | NUR ---
NURSING NOTE PT WAS IN HIS BED THIS AM UPON ASSESSMENT AND MEDICATION ADMINISTRATION. UNABLE TO ASSESS ORIENTATION, PT RESPONDS TO NAME. PT TAKES MEDS CRUSHED IN PUDDING. PER DASHAWN NGUYỄN. PT HAS BEEN RESTING IN THE BED FOR MOST OF THE DAY. PT IS X1 STAND BY ASSIST FOR SAFETY. PT WAS UP TO CHAIR FOR DINNER. PT CALM AND COOPERATIVE THROUGHOUT SHIFT THUS FAR. NO COMPLICATIONS. BURKE THOMPSON.
[2020-05-20 19:54] VITALS: BP 113/78
[2020-05-20] MEDS: MELATONIN 3 MG TABLET PO SCH (20:42)
[2020-05-20] MEDS: LORazepam 1 MG TABLET PO PRN (20:42)
--- NOTE | 2020-05-21 04:49 | NUR ---
PT incontinent at 0430 of urine. Urine foul smelling, brown tinged. Addendum: 05/21/20 at 0518 by MARYSOL SANCHEZ RN RN PT restless intermittently throughout night. PT would sleep about 30 minutes each hour and then stay awake the rest with legs raised in air in bed. PT cooperative with brief and gown change.
[2020-05-21 07:22] VITALS: BP 124/80
[2020-05-21] MEDS: levETIRAcetam 500 MG TABLET PO SCH ×2 (07:56→20:39)
[2020-05-21] MEDS: POTASSIUM CHLORIDE 20 MEQ TABLET.ER. PO SCH (07:56)
[2020-05-21] MEDS: TAMSULOSIN 0.4 MG CAP.ER.24H. PO SCH (07:56)
[2020-05-21] MEDS: FINASTERIDE 5 MG TABLET PO SCH (07:56)
[2020-05-21] MEDS: LACTOBACILLUS RHAMNOSUS GG 1 CAPSULE. PO SCH ×2 (07:57→20:39)
--- NOTE | 2020-05-21 13:25 | DISCH ---
DISCHARGE ORDERS DISCHARGE DATE: May 21, 2020 FINAL DIAGNOSIS advanced dementia BPH BLADDER OUTLET OBSTRUCTION CONDITION AT DISCHARGE: Stable Code Status: DNR/DNI SNF STAY <30 DAYS: Yes POST DISCHARGE ORDERS: ACTIVITY ORDERS: No restrictions, Resume previous activity WEIGHT BEARING STATUS: No restrictions DIET AFTER DISCHARGE: Cardiac WOUND/INCISION CARE: No wound care needed CHECKS AFTER DISCHARGE: CHECKS AFTER DISCHARGE: Check blood press - daily, Check blood sugar, ac/hs, Check your Temp as needed, Weigh Yourself Daily TREATMENT/EQUIPMENT ORDERS: ADAPTIVE EQUIPMENT NEEDED: None DISCHARGE MEDICATIONS: Home Meds Reported Medications Methyl Salicylate/Menthol (ARTHRITIS HOT PAIN RELIEF CRM) 85 Gm Cream..g., 85 GM TP PRN Q4HRS PRN for prn, EACH 05/01/20 Acetaminophen (TYLENOL) 325 Mg Tablet, 650 MG PO PRN Q4HRS PRN for PAIN, TAB 05/01/20 Mag Hydrox/Al Hydrox/Simeth (ANTACID ANTI-GAS LIQUID) 355 Ml Oral.susp, 30 ML PO PRN AFTMEALHC PRN for DYSPEPSIA for 3 Days, #540 ML 0 Refills 05/01/20 Bisacodyl (BISACODYL) 10 Mg Supp.rect, 10 MG RC PRN DAILY PRN for CONSTIPATION, SUPP.RECT 0 Refills 05/01/20 Melatonin (MELATONIN) 1 Mg Tablet, 3 MG PO HS for insomnia, TAB 05/01/20 Levetiracetam (LEVETIRACETAM) 1,000 Mg Tablet, 500 MG PO BID for seizures, TAB 04/14/20 Potassium Chloride (KLOR-CON M20) 20 Meq Tab.er.prt, 20 MEQ PO DAILYWBKFT for supplement, TAB.SR 04/14/20 Magnesium Hydroxide (MILK OF MAGNESIA) 2,400 Mg/10 Ml Oral.susp, 2400 MG PO PRN QHS PRN for CONSTIPATION, LIQUID 04/14/20 Lorazepam (ATIVAN) 1 Mg Tablet, 0.5 MG PO PRN Q2HRS PRN for ANXIETY / AGITATION, TAB 04/14/20 Tamsulosin Hcl (FLOMAX) 0.4 Mg Cap.er.24h, 1 CAP PO DAILY for hs 03/08/20 Olanzapine (OLANZAPINE) 5 Mg Tablet, 1 TAB PO QHS for psychosis 03/08/20 Olanzapine (ZYPREXA ZYDIS) 5 Mg Tab.rapdis, 5 MG PO Q2HR PRN for psychosis/agitation 08/07/18 Sertraline Hcl (ZOLOFT) 25 Mg Tablet, 100 MG PO HS for ANTI-DEPRESSANT 07/25/18 DANIEL GRAY MD May 21, 2020 13:25
--- NOTE | 2020-05-21 14:57 | NUR ---
NEHEMIAH returned call from pt , Joya, who reports that pt is absolutely NOT going to [place], [place] as it is too far from her. She will just plan to have pt come home with hospice. She has reached out to [facility] and will have them provide care for pt. NEHEMIAH will send over that referral and was asked to make sure that pt PCP received the discharge records if possible. Joya will plan to pick pt up between 0800 and 0900. NEHEMIAH let Joya know that if she thinks of any other service that may be needed for pt in the home to let NEHEMIAH know and encouraged her to continue to look at placement options with Yamile Canales.
--- NOTE | 2020-05-21 16:20 | NUR ---
[facility] Social Work Discharge Planning Form Patient Name DEBBIE PAK Admit Date: 05/01/2020 DISCHARGE PLAN Discharge Destination: home with and hospice services Care Assessment: N/A Level II Assessment: N/A Transportation: Pt to pick pt up between 0800 and 0900 Special Instructions/Notes: Please fax all discharge orders to the hospice company listed below and pt Primary Care Provider. DISCHARGE TO HOME: Address: [address] [place] [address]; [place] [address] Responsible Republican: , Joya Kearns Pharmacy: [facility] Contact Information: [address] [address] Primary Care Follow Up: Dr. Frederick Contact Information: [address] [place] [address] Appointment: will make the appt in conjunction with hospice needs Hospice: [facility] Contact Information: [address] [place] [address] Appointment: Will follow up with Joya to be in the home tomorrow
--- NOTE | 2020-05-21 17:27 | PN ---
DATE: 05/21/2020 SUBJECTIVE: The patient is sitting comfortably in his chair, in no apparent distress. He is profoundly demented; however, he denied any complaint. The nursing staff did not voice any concerns and he has been compliant and cooperative with care and medication. Initially, it was supposed to be discharged today to a usp facility in [place]; however, for unseen circumstances, the discharge was postponed tomorrow. PHYSICAL EXAMINATION: GENERAL: When I examined him this afternoon, he looked pale, somewhat cachectic, but no jaundice, cyanosis or thyromegaly. No jugular venous distention or limb edema. VITAL SIGNS: His heart rate was 101, blood pressure was 124/80, temperature 98.4, respiratory rate was 16, and oxygen saturation was 98% on room air. HEAD, EYES, EARS, NOSE, AND THROAT: Showed normocephalic, atraumatic. NECK: Supple. HEART: Showed normal first and second heart sounds. No gallop or murmur. CHEST: Clear to auscultation. No crepitation or rhonchi. ABDOMEN: Distended, soft, nontender. No guarding or rigidity. No organomegaly. All hernial orifices intact. Bowel sounds normal. NEUROLOGIC: He is profoundly demented without any obvious lateralizing sign; however, all his cranial nerves are intact. He moves extremities without difficulty. LABORATORY DATA: His most recent lab work showed his white cell count was 11,700; hemoglobin 11, hematocrit 34, MCV 89 and platelet count 384,000. His chemistry showed a serum sodium 139, potassium 3.7, chloride 103, bicarbonate 26, anion gap of 10, BUN 18, creatinine 1.3, estimated GFR was 55 mL per minute, his glucose 121, calcium was 9.1. Total bilirubin, AST, ALT, alkaline phosphatase were normal. Total protein was 7.5, albumin was 3.1. He was discharged. ASSESSMENT: 1. A 69-year-old gentleman with acute febrile episode has now resolved. 2. Sepsis syndrome, ruled out. 3. Profound dementia. 4. Chronic obstructive pulmonary disease. 5. Idiopathic seizure disorder. PLAN: To basically discharge him tomorrow to a usp facility in [place] to continue with all his medication. Continue with diet as tolerated. We have to notify the custodial about the fact that he is retaining urine and they need to start straight cath him there. DANIEL GRAY MD DR: Tiffanie JOB#: [id number] / [id number]
--- NOTE | 2020-05-21 18:26 | NUR ---
NURSING NOTE SPOKE WITH PT , DOES NOT WANT PT TO HAVE VARGAS PUT IN AT THIS TIME. JAY TURK
[2020-05-21 19:31] VITALS: BP 125/80
[2020-05-21] MEDS: MELATONIN 3 MG TABLET PO SCH (20:39)
[2020-05-22] MEDS: levETIRAcetam 500 MG TABLET PO SCH (07:51)
[2020-05-22] MEDS: FINASTERIDE 5 MG TABLET PO SCH (07:51)
[2020-05-22] MEDS: LACTOBACILLUS RHAMNOSUS GG 1 CAPSULE. PO SCH (07:51)
[2020-05-22] MEDS: TAMSULOSIN 0.4 MG CAP.ER.24H. PO SCH (07:51)
[2020-05-22] MEDS: POTASSIUM CHLORIDE 20 MEQ TABLET.ER. PO SCH (07:51)
[2020-05-22 10:45] VITALS: BP 162/81
[2020-05-22 10:47] VITALS: BP 162/81
--- NOTE | 2020-05-22 10:50 | NUR ---
SW received a call from pt to discuss her reasons for not bringing pt home. She reports that in the process her surgeon told her absolutely to not have pt home as she still has one more procedure to go through and it would not be in her best interest to physically assert herself to care for pt. Pt believes that pt would be in a much better place if he was closer to home versus hours away in [place], but knows that he will get care there and she needs to focus on getting her physical health back so that she can have pt eventually home with hospice. Joya is aware after talking to pt that he has cognitively declined more so as his word salad has increased and his ability to comprehend has decreased more. Joya asked that SW send her the name of the facility pt is going to and the phone number so she can be in touch. Joya will plan to still utilize [facility] in hopes to get him closer if not home sooner.
--- NOTE | 2020-05-22 12:43 | NUR ---
NURSING NOTE PT WAS RESTING IN THE BED THIS AM UPON ASSESSMENT AND MEDICATION ADMINISTRATION. PT GOT UP TO CHAIR FOR BREAKFAST, PT SHOWERED AND SHAVED. SKIN CDI, CREAM APPLIED TO BOTTOM. PT CURRENTLY SITTING IN CHAIR EATING LUNCH, X1 ASSIST FOR ENCOURAGEMENT. PT SCHEDULED TO DISCHARGE THIS AFTERNOON. PT CALM AND COOPERATIVE THUS FAR. NO COMPLICATIONS. BURKE THOMPSON.
[2020-05-22 15:37] VITALS: BP 119/80
--- NOTE | 2020-05-22 16:46 | NUR ---
NSG NOTE; REPORT REPORT CALLED TO VICTORIA TURK AT [facility]. SHE STATED PT'S TRANSPORT IS ON ITS WAY TO PICK THE PT UP
--- NOTE | 2020-05-22 17:41 | DS ---
DATE OF DISCHARGE: HOSPITAL COURSE: The patient is a 69-year-old male patient who was basically transferred from [facility] with an acute febrile episode, most likely related to indwelling Alvarez catheter. He was febrile with temperature of 102.5. Cultures have been drawn because of the severity of the illness. He was transferred and admitted down to the acute floor. He is profoundly demented. He cannot give any history. His basically has decided not to treat him with any IV antibiotic and a decision was made for him to be discharged to a residential facility. He has multiple episodes of urinary retention that required indwelling Alvarez catheter, although his has always been consistently refusing to allow us to place a Alvarez catheter. Anyhow, he was accepted. He will be discharged to [facility] residential facility. PHYSICAL EXAMINATION: GENERAL: When I saw him this afternoon, he looked well and was clearly in no apparent respiratory distress, pale. No jaundice, cyanosis or thyromegaly. No jugular venous distention. No limb edema. VITAL SIGNS: His heart rate was 70, blood pressure was 162/81, temperature 97.8, respiratory rate was 18 and oxygen saturation was 99% on room air. HEAD, EYES, EARS, NOSE AND THROAT: Showed he is normocephalic, atraumatic. NECK: Supple. HEART: Showed normal first and second heart sounds. No gallop or murmur. CHEST: Clear to auscultation. No crepitation or rhonchi. ABDOMEN: Distended, soft, nontender. NEUROLOGIC: He is profoundly demented; however, he moves extremities and ambulates, although he is very unsteady in his feet. His intake over the last 24 hours was 360. LABORATORY DATA: His most recent lab work showed a white cell count of 11,700, hemoglobin 11, hematocrit 34, MCV 89 and platelet count 385,000. His chemistry showed a serum sodium 139, potassium 3.7, chloride 103, bicarbonate 26, anion gap of 10, BUN 18, creatinine 1.3, estimated GFR was ____ mL per minute, his glucose 121, calcium was 9.1. Total bilirubin, AST, ALT, alkaline phosphatase were normal. Total protein 7.5, albumin 3.1. His coronavirus by PCR testing was not detected on 3 consecutive times. DISCHARGE MEDICATIONS: He will be discharged to [facility] on the following medications: Tylenol 650 mg every 4 hours, bisacodyl 10 mg rectally daily p.r.n. for constipation, Keppra 500 mg p.o. twice a day, lorazepam 0.5 mg every 2 hours as needed, Mylanta 30 mL after meals and bedtime, magnesium hydroxide for milk of magnesia 30 mL p.o. daily p.r.n. for constipation, melatonin 3 mg at bedtime, olanzapine for Zyprexa 5 mg every 2 hours as needed, olanzapine 5 mg at bedtime, potassium chloride 20 mEq daily with breakfast, sertraline for Zoloft 100 mg at bedtime and tamsulosin for Flomax 0.4 mg 1 capsule daily. I am not sure his realizes that he is unable to urinate. I have explained to her multiple times, but she does not keep the idea until before I instructed the nursing staff they give report to the residential at [facility] to emphasize the need that he needs to be straight catheterized as he becomes very extremely agitated and distressed when he is retaining urine. FINAL DISCHARGE DIAGNOSES: 1. A 69-year-old gentleman with acute febrile episode has resolved. 2. Sepsis syndrome, ruled out. 3. Profound dementia. 4. Chronic obstructive pulmonary disease. 5. Idiopathic seizure disorder. DANIEL GRAY MD DR: ROBERTO/dontae JOB#: [id number] / [id number]
--- NOTE | 2020-05-22 18:03 | NUR ---
Transition Record was faxed to follow-up provider with the following elements: Reason for admission, procedures, tests, principal diagnosis, pending studies, patient instructions, 16/05 contact information for unit, phone number to obtain pending test results, plan for follow-up care, physician follow-up, advanced directive information, and medication list with dose, duration and instructions. This information was included in the following documents: History and physical, lab results, study results, progress notes, social work planning form, DC instruction form, patient visit summary, and medication reconciliation form. Date & time record faxed: 05/22/2020 Record faxed to: [facility] Record discussed with/ report given to: BURKE Craig at [facility]
== END 2020-05-22 17:30 | DRG 699 ==
LOC: 1 SOUTH 20:13
PROVIDERS: ADMIT Hospitalist; ATTEND Internal Medicine
DX: T83.098A Other mechanical complication of other urinary catheter, initial encounter (principal); F03.91 Unspecified dementia, unspecified severity, with behavioral disturbance; E87.6 Hypokalemia; R50.81 Fever presenting with conditions classified elsewhere; J44.9 Chronic obstructive pulmonary disease, unspecified; G40.909 Epilepsy, unspecified, not intractable, without status epilepticus; N40.0 Benign prostatic hyperplasia without lower urinary tract symptoms; Z66 Do not resuscitate; Z87.891 Personal history of nicotine dependence; Z20.828 Contact with and (suspected) exposure to other viral communicable diseases; F32.9 Major depressive disorder, single episode, unspecified; G47.30 Sleep apnea, unspecified; K21.9 Gastro-esophageal reflux disease without esophagitis; R00.0 Tachycardia, unspecified
CPT/HCPCS: 36415; 51798; 80048; 80053; 85007; 85025; 85027; 87040; J0696; J2060; J7030; U0003-CS